=== PATIENT | male | born 1970 | race Caucasian/White ===

== ENCOUNTER 2020-12-08 10:12 | Emergency (ER) | payer OTHER, SELFPAY ==
[2020-12-08 11:49] VITALS: BP 153/92; PULSE 69; RESP 16; TEMP 36.8; O2SAT 99; BMI 30.2
--- NOTE | 2020-12-08 11:56 | ED_ITS ---
HPI - Abdominal Pain General Chief Complaint: Back Pain/Injury Stated Complaint: KIDNEY PROBLEM Time Seen by Provider: 12/08/20 11:51 Source: patient Mode of arrival: ambulatory Limitations: no limitations History of Present Illness HPI narrative: 50-year-old male with history of psoriasis as well as history of chronic low back pain and polycystic kidney disease reports for the past 2 days has had left-sided lower back pain ?kidney pain? radiating to the left side abdomen. States onset as he was walking and turned and had the sudden sharp pain in the left side and pain has been persistent. MD elicited complaint: abdominal pain and flank pain Related Data Previous Rx's Medication Instructions Recorded cyclobenzaprine 5 mg PO TID PRN #14 tab 12/08/20 ibuprofen 800 mg PO Q8H PRN #30 tab 12/08/20 Allergies Allergy/AdvReac Type Severity Reaction Status Date / Time No Known Allergies Allergy Verified 12/08/20 11:48 [No Known Allergies*] Review of Systems Review of Systems Constitutional: No Weight loss, No Fever, No Chills, No Night Sweats, No Fatigue, No Malaise ENT/Mouth: No Hearing loss, No Ear Pain, No Nasal Congestion, No Sinus Pain, No Hoarseness, No sore throat, No Rhinorrhea, No Swallowing Difficulty Eyes: No Eye Pain, No Swelling, No Redness, No Foreign Body, No Discharge Cardiovascular: No Chest Pain, No SOB, No Dyspnea on Exertion, No Orthopnea, No Edema, No Palpitations Respiratory: No Cough, No Sputum, No Wheezing, No Dyspnea Gastrointestinal: No Nausea, No Vomiting, No Diarrhea, No Constipation No Hematochezia, No Melena Genitourinary: No Dysuria, No Urinary Frequency, No Hematuria, No Urinary Incontinence, No Urgency, No Urinary Flow Changes, No Hesitancy Musculoskeletal: No joint pain, No Myalgias, No Joint Swelling Skin: No Skin Lesions, No rash Neuro: No Weakness, No Numbness, No Paresthesias, No Loss of Consciousness, No Dizziness, No Headache Psych: No Social Issues Heme/Lymph: No Bruising, No Bleeding,No Lymphadenopathy Endocrine: No Polyuria, No Polydipsia, No Temperature Intolerance Yes all other systems are reviewed and are negative Physical Exam Vital Signs: Vital Signs: Last Vital Signs Temp 98.2 F 12/08/20 11:49 Pulse 69 12/08/20 11:49 Resp 16 12/08/20 11:49 BP 153/92 H 12/08/20 11:49 Pulse Ox 99 12/08/20 11:49 Body Mass Index 30.2 Reviewed Const: General: cooperative and healthy appearing; No acute distress or intoxicated appearing Nutritional Appearance: average body habitus Orientation/consciousness: patient oriented x3 HENMT: Head: Yes normal to inspection Ears: hearing grossly normal bilat erally Eyes: General: appearance normal, both eyes and all related structures Visual Emmanuel: normal visual emmanuel by confrontation Neck: Neck: Yes normal visual inspection, No positive Brudzinski's sign, No positive Kernig's sign and No tender Thyroid: Thyroid normal Chest: Chest palpation & inspection: normal inspection of the chest Resp: Effort & Inspection: normal respiratory effort Cardio: Jugular venous distension: no JVD GI: Inspection: Yes normal to inspection Palpation (GI): Soft to palpation Percussion: Yes normal to percussion Auscultation: normal bowel sounds : General: Yes no CVA tenderness Back/Spine/Pelvis: Back: no CVA tenderness Skin: General skin exam: no rashes or lesions noted Neuro: General: patient oriented x3 Extrem: Other: Left lower back/paraspinous muscles and palpation. No midline or step-off. General: Yes normal to inspection MDM - Abdominal Pain Differential Diagnosis Differential diagnosis: Likely abdominal pain (Lumbar strain), calculus of kidney and renal colic; Unlikely aortic dissection, bowel perforation, constipation, diverticulitis, gastroenteritis, gastritis, pancreatitis, peptic ulcer disease and small bowel obstruction Medical Records Attestation: I reviewed the patient's medical records. Lab Data Attestation: I reviewed the patient's lab results. Result diagrams: 12/08/20 12:41 12/08/20 12:41 Labs: Lab Results 12/08/20 12/08/20 12/08/20 Range/Units 12:41 12:41 12:41 WBC 5.7 (4.8-10.8) X10*3/uL RBC 4.76 (4.60-5.80) X10*6/uL Hgb 13.8 L (14.0-18.0) g/dl Hct 42.6 (42-52) % MCV 89.5 (80-98) fL MCH 29.0 (27.0-33.0) pg MCHC 32.4 (31.0-36.0) g/dl RDW 12.2 (11.0-16.0) % Plt Count 195 (160-400) X10*3/uL MPV 11.5 (9.4-12.4) fL Immature Gran % (Auto) 0.5 H (0.0-0.4) % Neut % (Auto) 62.2 (45-73) % Lymph % (Auto) 21.7 (20-40) % [place] % (Auto) 11.9 H (2-11) % Eos % (Auto) 3.0 (0-4) % Baso % (Auto) 0.7 (0-2) % Lymph # (Auto) 1.2 (1.2-4.9) X10*3/uL [place] # (Auto) 0.7 (0.1-1.2) X10*3/uL Eos # (Auto) 0.2 (0.0-0.4) X10*3/uL Baso # (Auto) 0.0 (0.0-0.2) X10*3/uL Abs Immat Gran (auto) 0.03 (0.00-0.03) X10*3/uL Absolute Neuts (auto) 3.6 (2.0-8.3) X10*3/uL Absolute Nucleated RBC 0.000 (0.0-0.012) X10*3/uL Nucleated RBC % (auto) 0.0 (0.0-0.2) /100WBC Sodium 138 (135-145) mmol/L Potassium 4.5 (3.3-5.1) mmol/L Chloride 103 (96-108) mmol/L Carbon Dioxide 25 (22-29) mmol/L Anion Gap 15 (12-20) BUN 21 H (9-16) mg/dL Creatinine 1.14 (0.5-1.4) mg/dL Estim Creat Clear Calc 104.8 Estimated GFR > 60 Random Glucose 100 (60-115) mg/dL Calcium 8.8 (8.4-10.2) mg/dL Total Bilirubin 0.9 (0.0-1.0) mg/dL AST 28 (5-37) U/L ALT 48 H (0-40) U/L Alkaline Phosphatase 59 (39-117) U/L Total Protein 7.1 (6.5-8.0) g/dL Albumin 4.4 (3.5-5.0) g/dL Urine Color YELLOW Urine Appearance CLEAR Urine pH 6.5 (5.0-8.0) Ur Specific [place] 1.015 (1.005-1.025) Urine Protein NEG (NEG-TRACE) MG/DL Urine Glucose (UA) NEG (NEG) MG/DL Urine Ketones NEG (NEG) MG/DL Urine Blood NEG (NEG) Urine Nitrite NEG (NEG) Ur Leukocyte Esterase NEG (NEG) Urine RBC 0-2 (0) /HPF Urine WBC 0-2 (0-4) /HPF Ur Squamous Epith Cells 2+ /LPF Ur Renal Epithelial Cell TRACE /LPF Urine Bacteria NONE /LPF Urine Mucus 1+ /LPF Imaging Data Abdominal/pelvis CT: Radiologist's impression: [address] Scan ReportSigned Patient: Samuel Aparicio [facility]#: [id number]: 1970Acct:[id number]/Sex: 50 / MADM Date: 12/08/20Loc: EDSavana Dr: Ordering Physician: Raciel Carlson NP Date of Service: 12/08/20 Procedure(s): CT abdomen pelvis wo con Accession Number(s): [id number] cc: Raciel Carlson NP~ EXAMINATION: CT ABDOMEN AND PELVIS WITHOUT CONTRAST CLINICAL INFORMATION: Left flank pain COMPARISON: None TECHNIQUE: Multidetector volumetric imaging was performed from the superior aspect of the liver through the pubic symphysis. Sagittal and coronal reformatted images were obtained on the technologist's workstation. This CT examination was performed using dose optimization techniques as appropriate, variously including the following: *Automated exposure control *Adjustment of mA and/or kV according to patient size (this includes techniques or standardized protocols for targeted exams where dose is matched to indication/reason for exam; i.e. extremities or head) *Use of iterative reconstruction technique DLP: 774 mGy-cm FINDINGS: LUNG BASES: There is subsegmental atelectasis at the left lung base. LIVER, GALLBLADDER, AND BILIARY TREE: The liver is low in attenuation suggestive of fatty infiltration. Liver slightly enlarged, right lobe measuring 21 cm in length. There is a 1 cm low-attenuation lesion in the lateral segment of the left lobe of the liver axial image 20 series 3. This has low Hounsfield units and may be a cyst.The gallbladder is unremarkable with no evidence of radiopaque gallstones, gallbladder wall thickening, or obvious pericholecystic inflammatory changes. PANCREAS: Unremarkable. SPLEEN: The spleen is enlarged measuring 13.5 cm in length. ADRENAL GLANDS: Unremarkable. KIDNEYS AND URETERS: The kidneys are enlarged. There are innumerable cysts. Findings are compatible with polycystic kidney disease. Several cysts appear high in attenuation. These may represent complex hyperdense cysts It is difficult to exclude a solid renal mass. Largest such lesion measures 2 x 4 cm posterior upper pole left kidney. 2 mm nonobstructing stone in the lower pole of the left kidney. No hydronephrosis is seen. No ureteral dilatation or ureteral stone is seen in there is no perinephric collection. BLADDER: Unremarkable. GASTROINTESTINAL TRACT: There is diverticulosis of the colon. The small and large bowel are unremarkable. The appendix is is not seen.. ABDOMINAL WALL: Question postsurgical change previous hernia repair. No hernia. LYMPH NODES: Normal. VASCULAR: Unremarkable. PELVIC VISCERA: Unremarkable. OSSEOUS STRUCTURES: There are degenerative changes of the spine. CT/CT abdomen pelvis wo con IMPRESSION: Innumerable bilateral renal cysts suggestive of polycystic kidney disease. There are several high attenuation renal lesions, question representing complex hyperdense cysts. A solid mass cannot be excluded and follow-up imaging of the kidneys with ultrasound or CT or MRI with and without contrast is recommended. Small nonobstructing left lower pole renal stone. Enlarged fatty liver. Mild splenomegaly. Dictated By:RIA FARRELL MDSigned By:<Electronically signed by RIA FARRELL MD in [place]>12/08/20 1441 DD/ 1157TD/TT: Cuprous Chloride Operator: JESUS Discharge Plan Discharge Clinical Impression: Strain of lumbar region Patient Disposition: Home, Self-Care Instructions: Low Back Strain (ED) Additional Instructions: No drinking alcohol or driving while taking the muscle relaxant Gentle stretching Warm compresses Follow up as instructed regarding your CT Return if any concerns or worsening symptoms Thank you Samuel Aparicio JR 50 M 1970 [facility] [place], [place] [id number] Scan ReportSigned Patient: Samuel Aparicio [facility]#: [id number]: 1970Acct:[id number]/Sex: 50 / MADM Date: 12/08/20Loc: EDAttending Dr: Ordering Physician: Raciel Carlson NP Date of Service: 12/08/20 Procedure(s): CT abdomen pelvis wo con Accession Number(s): [id number] cc: Raciel Carlson NP~ EXAMINATION: CT ABDOMEN AND PELVIS WITHOUT CONTRAST CLINICAL INFORMATION: Left flank pain COMPARISON: None TECHNIQUE: Multidetector volumetric imaging was performed from the superior aspect of the liver through the pubic symphysis. Sagittal and coronal reformatted images were obtained on the technologist's workstation. This CT examination was performed using dose optimization techniques as appropriate, variously including the following: *Automated exposure control *Adjustment of mA and/or kV according to patient size (this includes techniques or standardized protocols for targeted exams where dose is matched to indication/reason for exam; i.e. extremities or head) *Use of iterative reconstruction technique DLP: 774 mGy-cm FINDINGS: LUNG BASES: There is subsegmental atelectasis at the left lung base. LIVER, GALLBLADDER, AND BILIARY TREE: The liver is low in attenuation suggestive of fatty infiltration. Liver slightly enlarged, right lobe measuring 21 cm in length. There is a 1 cm low-attenuation lesion in the lateral segment of the left lobe of the liver axial image 20 series 3. This has low Hounsfield units and may be a cyst.The gallbladder is unremarkable with no evidence of radiopaque gallstones, gallbladder wall thickening, or obvious pericholecystic inflammatory changes. PANCREAS: Unremarkable. SPLEEN: The spleen is enlarged measuring 13.5 cm in length. ADRENAL GLANDS: Unremarkable. KIDNEYS AND URETERS: The kidneys are enlarged. There are innumerable cysts. Findings are compatible with polycystic kidney disease. Several cysts appear high in attenuation. These may represent complex hyperdense cysts It is difficult to exclude a solid renal mass. Largest such lesion measures 2 x 4 cm posterior upper pole left kidney. 2 mm nonobstructing stone in the lower pole of the left kidney. No hydronephrosis is seen. No ureteral dilatation or ureteral stone is seen in there is no perinephric collection. BLADDER: Unremarkable. GASTROINTESTINAL TRACT: There is diverticulosis of the colon. The small and large bowel are unremarkable. The appendix is is not seen.. ABDOMINAL WALL: Question postsurgical change previous hernia repair. No hernia. LYMPH NODES: Normal. VASCULAR: Unremarkable. PELVIC VISCERA: Unremarkable. OSSEOUS STRUCTURES: There are degenerative changes of the spine. CT/CT abdomen pelvis wo con IMPRESSION: Innumerable bilateral renal cysts suggestive of polycystic kidney disease. There are several high attenuation renal lesions, question representing complex hyperdense cysts. A solid mass cannot be excluded and follow-up imaging of the kidneys with ultrasound or CT or MRI with and without contrast is recommended. Small nonobstructing left lower pole renal stone. Enlarged fatty liver. Mild splenomegaly. Dictated By:RIA FARRELL MDSigned By:<Electronically signed by RIA FARRELL MD in [place]>12/08/20 1441 DD/ 1157TD/TT: Cuprous Chloride Operator: JESUS Prescriptions: New ibuprofen 800 mg tablet 800 mg PO Q8H PRN (Reason: pain) Qty: 30 RF: 0 cyclobenzaprine 5 mg tablet 5 mg PO TID PRN (Reason: muscle spasm) Qty: 14 RF: 0 Referrals: Oscar Ching MD [Primary Care Provider] - 1 week [facility] Past Medical History Medical History (Updated 12/08/20 @ 15:01 by Raciel Carlson NP) Polycystic kidney disease Social History Social History Alcohol intake: never Smoking Status: Never smoker Use of substances other than those prescribed or required for medical reasons: No Advance Directives: No Advance Directives Information Provided: Yes
[2020-12-08 12:48] LABS: MANUAL DIFF FLAG NO
[2020-12-08 12:53] LABS: Glucose Urine UA NEG (NEG); Leukocyte Esterase Urine NEG (NEG); Nitrite Urine NEG (NEG); PH 6.5 (5.0-8.0); Specific Gravity - Urine 1.015 (1.005-1.025); Urine Blood NEG (NEG); Urine Ketones NEG (NEG); Urine Protein NEG (NEG-TRACE)
[2020-12-08 12:54] LABS: Appearance Urine CLEAR; Color Urine YELLOW
[2020-12-08 12:56] LABS: Basophils Percent Auto 0.7 % (0-2); Eosinophils Absolute Auto 0.2 X10*3/uL (0.0-0.4); Hematocrit 42.6 % (42-52); Hemoglobin 13.8 g/dl (14.0-18.0); Imm Gran Abs Auto 0.03 X10*3/uL (0.00-0.03); Imm Gran Pct Auto 0.5 % (0.0-0.4); Lymphocytes Absolute Auto 1.2 X10*3/uL (1.2-4.9); Lymphocytes Percent Auto 21.7 % (20-40); Mean Corpuscular HGB Conc 32.4 g/dl (31.0-36.0); Mean Corpuscular Volume 89.5 fL (80-98); Mean Platelet Volume 11.5 fL (9.4-12.4); Monocytes Absolute Auto 0.7 X10*3/uL (0.1-1.2); Monocytes Percent Auto 11.9 % (2-11); Neutrophils Absolute Auto 3.6 X10*3/uL (2.0-8.3); Neutrophils Percent Auto 62.2 % (45-73); Platelet Count 195 X10*3/uL (160-400); Red Blood Count 4.76 X10*6/uL (4.60-5.80); Red Cell Distribution Width 12.2 % (11.0-16.0); White Blood Count 5.7 X10*3/uL (4.8-10.8)
[2020-12-08 13:03] LABS: Mucus Urine 1+ /LPF; RBC Urine 0-2 /HPF (0); Renal Epithelial Cells Urine TRACE /LPF; Squamous Epithelial Cell Urine 2+ /LPF; WBC Urine 0-2 /HPF (0-4)
[2020-12-08 13:23] LABS: Alanine Aminotransferase 48 U/L (0-40); Albumin Level 4.4 g/dL (3.5-5.0); Alkaline Phosphatase 59 U/L (39-117); Anion Gap 15 (12-20); Aspartate Amino Transferase 28 U/L (5-37); Bilirubin Total 0.9 mg/dL (0.0-1.0); Blood Urea Nitrogen 21 mg/dL (9-16); Calcium 8.8 mg/dL (8.4-10.2); Carbon Dioxide 25 mmol/L (22-29); Chloride 103 mmol/L (96-108); Creatinine Clr Calc Pharmacy 104.8; Estimated Glomerular Filt Rate > 60; Glucose Random 100 mg/dL (60-115); Potassium 4.5 mmol/L (3.3-5.1); Sodium 138 mmol/L (135-145); Total Protein 7.1 g/dL (6.5-8.0)
[2020-12-08] MEDS: 0.9 % Sodium Chloride 1,000 ML 999 ML IV (13:33)
[2020-12-08] MEDS: Ketorolac Tromethamine 30 MG/ML VIAL IVPUSH (13:34)
== END 2020-12-08 15:11 | disposition home or self-care (01) ==
PROVIDERS: Nurse Practitioner Primary Care; Emergency Provider Emergency Medicine; PCP Internal Medicine
DX: S39.012A Strain of muscle, fascia and tendon of lower back, initial encounter (principal); R10.9 Unspecified abdominal pain; X58.XXXA Exposure to other specified factors, initial encounter; Y93.9 Activity, unspecified; Y92.9 Unspecified place or not applicable; Y99.9 Unspecified external cause status; Z79.899 Other long term (current) drug therapy
CPT/HCPCS: 36415; 74176; 80053; 81001; 85025; 96361; 96374; 99283; 99284; J1885

== ENCOUNTER 2021-02-26 16:26 | Emergency (ER) | payer OTHER, SELFPAY ==
[2021-02-26 16:39] VITALS: BP 141/85; PULSE 82; RESP 16; TEMP 36.8; O2SAT 98; BMI 29.9
[2021-02-26] MEDS: Lidocaine HCl 2 % MPF 5 ML VIAL INFILTRATI (16:57)
--- NOTE | 2021-02-26 17:18 | ED.WOUNDLAC ---
HPI - Wound/Laceration General Chief Complaint: Wound/Laceration Stated Complaint: lac Time Seen by Provider: 02/26/21 16:30 Source: patient Mode of arrival: ambulatory Limitations: no limitations History of Present Illness HPI narrative: Patient presents to ED for right thigh laceration. Patient states he was cut by saw at work. Patient up-to-date with tetanus. Patient denies any other trauma. Related Data Previous Rx's Medication Instructions Recorded cyclobenzaprine 5 mg PO TID PRN #14 tab 12/08/20 ibuprofen 800 mg PO Q8H PRN #30 tab 12/08/20 Allergies Allergy/AdvReac Type Severity Reaction Status Date / Time No Known Allergies Allergy Verified 12/08/20 11:48 [No Known Allergies*] Review of Systems Review of Systems: Yes all other systems are reviewed and are negative Constitutional: Constitutional: Reports as per HPI and Reports no additional constitutional complaints Eyes: Eyes: Reports as per HPI and Reports no additional eye complaints ENT: Reports system reviewed and no additional complaints, except as documented and Reports as per HPI Cardiovascular: Cardiovascular: Reports as per HPI and Reports no additional cardiovascular complaints Respiratory: Respiratory: Reports as per HPI and Reports no additional respiratory complaints Gastrointestinal: Gastrointestinal: Reports as per HPI and Reports no additional gastrointestinal complaints Musculoskeletal: Musculoskeletal: Reports no additional musculoskeletal complaints and Reports as per HPI Neurologic: Reports system reviewed and no additional complaints, except as documented and Reports as per HPI Psychiatric: Psychiatric: Reports no additional psychiatric complaints and Reports as per HPI [facility] Past Medical History Medical History (Updated 02/26/21 @ 17:26 by RENZO Hernandez) Polycystic kidney disease Social History Social History Alcohol intake: never Smoking Status: Never smoker Advance Directives: No Advance Directives Information Provided: No Physical Exam Vital Signs: Vital Signs: Last Vital Signs Temp 98.3 F 02/26/21 16:39 Pulse 82 02/26/21 16:39 Resp 16 02/26/21 16:39 BP 141/85 H 02/26/21 16:39 Pulse Ox 98 02/26/21 16:39 Body Mass Index 29.9 Const: General: cooperative, healthy appearing, comfortable, no acute distress, well developed, alert and awake Orientation/consciousness: patient oriented x3 HENMT: Head: Yes normal to inspection, Yes No palpable skull fracture present, Yes normocephalic and Yes atraumatic Eyes: General: appearance normal, both eyes and all related structures Neck: Neck: Yes normal visual inspection, Yes full ROM, Yes no lymphadenopathy, Yes no meningeal signs, Yes trachea midline, Yes supple and No tender Chest: Chest palpation & inspection: normal inspection of the chest and normal palpation of entire chest wall Resp: Effort & Inspection: normal respiratory effort and able to speak in complete sentences Auscultation: clear to auscultation bilaterally Cardio: Jugular venous distension: no JVD Heart sounds: S1 normal heart sound present and S2 normal heart sound present GI: Inspection: Yes normal to inspection and No abdominal wall ecchymosis Palpation (GI): Soft to palpation, not firm, nontender, no guarding and not rigid : General: No CVA tenderness and Yes no CVA tenderness Back/Spine/Pelvis: Back: no CVA tenderness, No CVA tenderness and No back tenderness Skin: Other: Right thigh superficial laceration Neuro: General: patient oriented x3, no meningeal signs and CN's II-XI intact bilaterally Extrem: Other: right thigh very superficial laceration. Negative for fascia or muscle exposure. Negative for bone exposure. Complete range of motion of right thigh. Rest of right lower extremity negative for signs of trauma. popitieal pulse intact. General: Yes normal to inspection and Yes full ROM Psych: Appearance: grossly normal, well kempt and not disheveled Course Course Course Narrative: Patient up-to-date with tetanus shot. Laceration will be repaired. Reevaluation(s) Reevaluation #1: Laceration cleaned with sterile saline and Betadine. 5 mL lidocaine 2% used to anesthetize wound. Nylon size for suture used. Four sutures placed. No imaging required laceration very superficial. MDM - Wound/Laceration MDM Narrative Medical decision making narrative: Right thigh laceration Discharge Plan Discharge Clinical Impression: Laceration Patient Disposition: Home, Self-Care Instructions: Laceration (ED) Additional Instructions: Return to the ED immediately for swelling, redness, pus discharge, foul odor, fever, chills, red streaks, calf pain, or any other concerning symptoms. Recommend return to the ED in 9 days for suture removal Prescriptions: No Action ibuprofen 800 mg tablet 800 mg PO Q8H PRN (Reason: pain) Qty: 30 RF: 0 cyclobenzaprine 5 mg tablet 5 mg PO TID PRN (Reason: muscle spasm) Qty: 14 RF: 0 Stand Alone Forms: Work/School Release Interventions: ED Discharge Assessment Last Done: 02/26/21 17:42 Discharge Date/Time: 02/26/21 17:56 Print Language: Thai
--- NOTE | 2021-02-26 17:41 | PC.NURSE ---
DRY STERILE DRESSING APPLIED TO R UPPER LEG.
== END 2021-02-26 17:56 | disposition home or self-care (01) ==
PROVIDERS: Emergency Provider Emergency Medicine
DX: S71.111A Laceration without foreign body, right thigh, initial encounter (principal); W31.82XA Contact with other commercial machinery, initial encounter; Y93.89 Activity, other specified; Y92.69 Other specified industrial and construction area as the place of occurrence of the external cause; Y99.0 Civilian activity done for income or pay
CPT/HCPCS: 12001; 99283; 99284

== ENCOUNTER → 2022-10-07 08:19 | Outpatient (BNVA) | payer OTHER, SELFPAY | PROVIDERS: Visit Provider Nurse Practitioner Family | DX: Z12.11 Encounter for screening for malignant neoplasm of colon (principal) | CPT/HCPCS: 99202 ==

== ENCOUNTER 2023-06-12 08:30 | Day surgery (SDC) | payer OTHER, SELFPAY ==
[2023-06-10 10:46] VITALS: BMI 31.4
[2023-06-10 11:07] VITALS: BMI 30.4
[2023-06-12 08:36] VITALS: BP 126/83; PULSE 68; RESP 18; TEMP 36.2; O2SAT 97
--- NOTE | 2023-06-12 08:47 | P.CONAN_ITS ---
HPI - Anesthesia Eval Consult details Narrative: 53 yo male patient for Colonoscopy PMFSH Active Problems Active Problems: IRVIN. On CPAP Gout Past Medical History Medical History Hypertension IRVIN on CPAP Polycystic kidney disease Psoriasis Family History Family History Mother Breast cancer Bone cancer Maternal Aunt Brain cancer Family history of problems with anesthesia: No Surgical History Surgical History H/O umbilical hernia repair History of Problems with Anesthesia: No Social History Social History Are you a primary dialysis patient care technician to a significant other at home: No Do you presently have visiting nurse or other home services: No Alcohol intake: current Alcohol intake frequency: a few times a week Patient Tobacco Use Status: Former Tobacco user Tobacco use type: Cigar Have you been hit, kicked, punched, or otherwise hurt by someone within the past year? If so, by whom?: No Are you DNR?: No Advance Directives: No Advance Directives Information Provided: Yes Advance Directives on File: No Recently lost weight without trying: No Nutrition Risks: No Nutritional Risk Poor oral hygiene: No Meds Allergies Allergy/AdvReac Type Severity Reaction Status Date / Time No Known Allergies Allergy Verified 06/10/23 11:17 [No Known Allergies*] Home Medications Medication Instructions Recorded Confirmed Last Taken Type allopurinol 300 mg tablet 300 mg PO DAILY 10/07/22 06/10/23 Unknown History amlodipine 5 mg tablet 5 mg PO DAILY 10/07/22 06/10/23 Unknown History guselkumab 100 mg/mL subcutaneous mg subcut Q8W 10/07/22 Unknown History auto-injector (Tremfya) lisinopril 10 mg tablet 10 mg PO DAILY 10/07/22 Unknown History Exam Exam Date and Time: June 12, 2023 0847 Height,Weight and Vital Signs: Height 6 ft 3 in Weight 110.223 kg Last Vital Signs Temp 97.2 F 06/12/23 08:36 Pulse 68 06/12/23 08:36 Resp 18 06/12/23 08:36 BP 126/83 06/12/23 08:36 Pulse Ox 97 08/03/23 08:36 O2 Del Method Room Air 06/12/23 08:36 Airway Mallampati Class: IV TM Dist: >3cm Neck ROM: Full Loose/Missing/Broken Teeth: No (Denies broken, loose, missing teeth) Heart: RRR Lungs: CTAB Assessment and Plan Assessment Anesthesia Assessment: Anesthesia Plan Discussed and Chart Reviewed Final Anesthetic Review Family History of Problems with Anesthesia: No History of Problems with Anesthesia: No NPO: Yes ASA Class: III Final Preanesthetic Review: No Changes in Pt Med Stat, Meds/Allgs Chart Reviewed, Consent Obtained/Reviewed and Anes Risks/Benef Reviewed Patient Risk: Intermediate Procedure Risk: Low Assessment/Block/Sedation in SS: Assess/Block/Sedation-SS Anesthetic Plan Anesthetic Plan: MAC: Disposition: Standard PACU
--- NOTE | 2023-06-12 08:54 | MHC.SHP ---
Pre-Procedural Eval Section A Date of Service: 06/12/23 Section B Chief Complaint: screening Details of Present Illness: Medical History Hypertension Polycystic kidney disease Psoriasis Surgical History H/O umbilical hernia repair Allergies: Allergies Allergy/AdvReac Type Severity Reaction Status Date / Time No Known Allergies Allergy Verified 06/10/23 11:17 [No Known Allergies*] Review of Systems Review of Systems Comment: 10 point ROS is negative except as above Exam Exam Comment: Gen appear: No acute distress HEENT: no icterus Chest: No overt resp distress Abd: soft, nontender, nondistended Psych: Stable affect, answering questions appropriately Neuro: A/Ox3 noted to move all extremities spontaneously Ext: no peripheral edema Plan Diagnosis/Plan: Unchanged I have reviewed the history and physical and performed a pertinent physical examination on my patient. No changes have occurred unless specified. Time Spent With Patient Time: Total time managing care of this patient today ____ minutes.
--- NOTE | 2023-06-12 09:26 | P.OP_ITS ---
Operative Note Operative Note Date of Service: 06/12/23 Narrative: Procedure: Colonoscopy Indication: Screening Endoscopist: Joanie Badillo MD Anesthesia Provider: Tali Cornell CRNA Anesthesia type: MAC Instrument: Olympus [id number]-H190L Consent: Indication, risks vs benefits, and alternatives were discussed with the patient who gave written informed consent to proceed. EKG, pulse, pulse oximetry and blood pressure were monitored throughout the procedure. Please see anesthesia flowsheet. Procedure: The patient was brought to the procedure room and placed in the left lateral decubitus position. IV medications were administered by the anesthesia provider in attendance. A digital rectal exam was performed which was abnormal due to enlarged prostate. Distal attachment cap was affixed to the tip of the scope and the colonoscope was then inserted through the anus and advanced thro ugh the colon to the cecum at 75 cm,and terminal ileum. Mucosa was carefully examined under high definition white light as the instrument was slowly withdrawn in a retrograde panoramic fashion. Retroflexion was performed in rectum. The procedure was not difficult. There were no immediate obvious complications. The quality of the prep was BBPS: 3+2+3 = adequate Withdrawal time 10 minutes. Limitations: No limitations. Findings: Mucosa: Normal to cecum and terminal ileum. Protruding lesions: * Medium internal hemorrhoids [without] stigmata of recent bleeding. Impression: 1. Normal colon and terminal ileum mucosa 2. Internal hemorrhoids 3. Enlarged prostate on MARYELLEN Recommendations: - Repeat colonoscopy in 10 years for asymptomatic colon cancer screening - If pt is having LUTS can consider referral to Urology
[2023-06-12 09:29] VITALS: BP 97/59; PULSE 69; RESP 16; TEMP 36.9; O2SAT 96
[2023-06-12 09:45] VITALS: BP 121/82; PULSE 69; RESP 16; TEMP 36.8; O2SAT 98
== END 2023-06-12 10:15 | disposition home or self-care (01) ==
PROVIDERS: Visit Provider Internal Medicine
PROC: 0DJD8ZZ Inspection of Lower Intestinal Tract, Via Natural or Artificial Opening Endoscopic (ICD-10-PCS; CPT 45378; principal; 2023-06-12 10:10)
DX: Z12.11 Encounter for screening for malignant neoplasm of colon (principal); K64.8 Other hemorrhoids; N40.0 Benign prostatic hyperplasia without lower urinary tract symptoms; I10 Essential (primary) hypertension; Q61.3 Polycystic kidney, unspecified; L40.9 Psoriasis, unspecified; M10.9 Gout, unspecified; G47.33 Obstructive sleep apnea (adult) (pediatric); Z99.89 Dependence on other enabling machines and devices; Z79.899 Other long term (current) drug therapy; Z87.891 Personal history of nicotine dependence
CPT/HCPCS: 45378

== ENCOUNTER → 2023-06-12 08:30 | Outpatient (BNV) | payer OTHER, SELFPAY | PROVIDERS: Visit Provider Internal Medicine | DX: Z12.11 Encounter for screening for malignant neoplasm of colon (principal); K64.8 Other hemorrhoids; N40.0 Benign prostatic hyperplasia without lower urinary tract symptoms | CPT/HCPCS: 45378 ==

== ENCOUNTER 2024-10-19 | Outpatient (REF) | payer OTHER, SELFPAY ==
--- NOTE | ~2024-10-19 | MR_ITS ---
EXAMINATION: MR CERVICAL SPINE WITHOUT CONTRAST CLINICAL INFORMATION: Cervicalgia. COMPARISON: None available. TECHNIQUE: MRI of the cervical spine was obtained using routine sequences without contrast. FINDINGS: Craniocervical junction is intact. No bone marrow STIR signal abnormality. Normal alignment. Multilevel disc desiccation more conspicuous at C6-7. Marginal osteophyte formation, C6-7, and C4-5 levels. The cervical spinal cord signal is normal. C2-3: No disc herniation. No neuroforamina stenosis. C3-4: Left-sided disc osteophyte complex formation. Facet joint hypertrophy. Reduced AP diameter of the thecal sac. Bilateral neuroforamina narrowing more conspicuous on the left side. No cord compression. C4-5: Broad-based disc osteophyte complex formation. No cord compression. Bilateral neuroforamina narrowing more conspicuous on the left side. Facet joint hypertrophy. C5-6: Broad-based disc osteophyte complex formation resulting in ventral deformity of the thecal sac. No cord compression. Bilateral neuroforamina narrowing on a degenerative basis. C6-7: Broad-based disc osteophyte complex formation resulting in ventral deformity of the thecal sac. No cord compression. Bilateral neuroforamina narrowing on a degenerative basis. C7-T1: Broad-based disc osteophyte complex formation. No cord compression. No gross neuroforamina narrowing. No prevertebral compartment hematoma, mass or fluid collection. Flow-void signal within the main vessels is normal. Codominant vertebral arteries. MR/MR cervical spine wo con IMPRESSION: Multilevel spondylosis, C3 C7 more conspicuous at C5-6 and C6-7 levels without cord compression, edema and or myelopathy. Electronically signed by: Luciano Duong MD 10/20/2024 11:32 AM EST
--- OUTSIDE RECORDS SUMMARY | 2024-10-25 10:42 | XMS_ITS | Encounter Summary ---
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 [place] Organization [facility] [place] Address [address] [place] [address] Care Team Providers Care Machine I Engraver Name Role Phone LEO FORRESTER Primary Care Provider Unavailabl e Insurance Providers: All historical and current Section Date Range: From patient's date of to the date document was created. This section includes the names of all active insurance providers for the patient. Insurance Provider Type of Coverage Plan Name Start of Policy Coverage End of Policy Coverage Group Number Member ID Insurance Provider's Telephone Number Policy Suresh's Name Patient's Relationship to Policy Suresh [facility] ORGANIZAT [facility]ON COH G AND E May 10, 2024 [id number] [facility] ER PATIENT [place] PRESCRIPT ION [facility] May 10, 2024 [id number] [phone] CARD,[facility] ER PATIENT [employer] PO[facility] SERVICE [place] Feb 08, 2018 [id number] [facility] ER PATIENT [employer] BEHAVIORAL HEALTH MENTAL HEALTH [place] Feb 08, 2018 [id number] CARD,[facility] ER PATIENT [employer] PHARMACY PRESCRIPT ION [place] Feb 08, 2018 [id number] CARD,[facility] ER PATIENT [facility] May 10, 2019 [id number] DOMI BAUTISTAJOANNA PATIENT [employer] RX PRESCRIPT ION [facility] [place] [facility] May 10, 2019 [facility] [id number] JOANNA DURON JR PATIENT Selected Encounter This section includes the information on record at [place] for the Encounter. Date/Time Encounter Type Encounter Description Reason Provider Source Nov 18, 2023 03:00 PM ACUPUNCT W/O STIMUL ADDL 15M [facility] TREATMENT ICD-10-CM M54.50 Low back pain, unspecified GAUNYA,LUIS PHER M IHE Encounter Template Text not used by DC Assessments - Encounter Diagnoses This section includes the primary and secondary diagnoses documented for the Encounter. Date/Time Primary/Secondary Diagnosis Diagnosis Name Provider Source Nov 18, 2023 03:40 PM PRIMARY Low back pain, unspecified AUGUSTO,LUIS PHER M [facility] [place] [facility] Nov 18, 2023 03:40 PM SECONDARY Cervicalgia JAG RAZOO PHER M [facility] [place] [facility] Plan of Treatment: Future Appointments (+ 6 months) and Future Tests (+/- 45 days) The Plan of Treatment section includes future care activities for the patient from all [place] treatmentfauc [facility]. This section includes future appointments and future orders which are active, pending or scheduled. Future Appointments This section includes appointments that were scheduled to occur 6 months from the date of the Encounter, up to a maximum of 20 appointments. The data comes from all [place] treatment facilities. Appointment Date/Time Appointment Type Appointme nt Facility Name Dec 02, 2023 03:00 PM AMBULATORY - MEDICINE DC [facility] [place] [facility] Dec 25, 2023 01:00 PM AMBULATORY - MEDICINE DC [facility] [place] [facility] Dec 30, 2023 02:00 PM AMBULATORY - MEDICINE DC [facility] [place] [facility] Dec 30, 2023 02:30 PM AMBULATORY - NONE [facility] [place] [facility] Dec 30, 2023 03:00 PM AMBULATORY - MEDICINE DC [facility] [place] [facility] Jan 08, 2024 03:00 PM AMBULATORY - MEDICINE DC [facility] [place] [facility] Jan 13, 2024 03:00 PM AMBULATORY - MEDICINE VA C [facility] [place] [facility] Jan 19, 2024 01:45 PM AMBULATORY - NONE [facility] [place] [facility] Jan 19, 2024 03:00 PM AMBULATORY - MEDICINE VA [facility] [place] [facility] Jan 19, 2024 03:01 PM AMBULATORY - MEDICINE VA [facility] [place] [facility] Jan 19, 2024 03:02 PM AMBULATORY - MEDICINE VA [facility] [place] [facility] Jan 20, 2024 03:00 PM AMBULATORY - MEDICINE VA [facility] [place] [facility] Feb 11, 2024 03:00 PM AMBULATORY - MEDICINE VA [facility] [place] [facility] Feb 25, 2024 03:00 PM AMBULATORY - MEDICINE VA [facility] [place] [facility] Feb 26, 2024 03:00 PM AMBULATORY - MEDICINE VA C [facility] [place] [facility] March 31, 2024 03:00 PM AMBULATORY - MEDICINE VA [facility] [place] [facility] April 01, 2024 03:00 PM AMBULATORY - MEDICINE VA [facility] [place] [facility] Social History: Smoking Status (Most current) and Tobacco Use (All prior to encounter date) This section includes the most current, and the historical, smoking and tobacco- related health factors from the [place] facility where the Encounter took place. Current Smoking Status This section includes the most current smoking, or tobacco-related health factor, from the [place] facility where the Encounter took place. Date/Time Current Smoking Status Comment [facility] Feb 12, 2023 03:00 PM VA-TOBACCO NEVER USED [place] [facility] [place] [facility] Tobacco Use History This section includes a history of the smoking, or tobacco-related health factors, that were collected on or before the date of the Encounter. The data comes from the [place] facility where the Encounter took place. Date/Time Smoking Status/Tobac co Use Comment Facility Feb 14, 2022 03:00 PM VA-TOBACCO NEVER USED [facility] [place] [facility] Oct 27, 2020 03:30 PM VA-TOBACCO NEVER USED [facility] [place] [facility] Aug 25, 2018 04:16 PM VA-TOBACCO DOESNT USE WI 30 MIN WAKEUP [facility] [place] [facility] Aug 25, 2018 04:16 PM VA-TOBACCO USE > 15 LESS THAN 30 YEARS DC [facility] [place] [facility] Aug 25, 2018 04:16 PM VA-TOBACCO USE ADVICE [facility] Aug 25, 2018 04:16 PM VA-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 DC [facility] Aug 25, 2018 04:16 PM VA-TOBACCO USE MED NO [facility] Aug 25, 2018 04:16 PM VA-TOBACCO USER SOME DAYS [facility] Oct 07, 2017 11:55 AM CURRENT SMOKER 1 cigar a few times a year [facility] Oct 07, 2017 11:55 AM V1-PT NOT INTERESTED IN QUIT TOBACCO USE [facility] Oct 29, 2016 08:57 AM LIFETIME NON-TOBACCO [facility]ER [facility] Encounter Notes: All associated encounter notes This section contains the clinical notes associated to the Encounter. Date/Time Encounter Note(s) Provider Source Nov 18, 2023 03:37 PM ACUPUNCTURE NOTE: LOCAL TITLE: ACUPUNCTURE TREATMENT STANDARD TITLE: ACUPUNCTURE NOTE DATE OF NOTE: NOV 18, 2023@15:37 ENTRY DATE: NOV 18, 2023@15:37:14 AUTHOR: MAYI RAZO COSIGNER: URGENCY: STATUS: COMPLETED CARD,JASPER A JR is a 53 WHITE MALE who presents with Low back pain, sciatica, neck pain. Pain in left arm Active Problem Shared care - portfolio consultant and GP [id number] 01/29/2021 AMY HENRY JAWED Type 2 diabetes mellitus controlled 10/27/2020 TERESA HENRYAMMED JAWED Acquired polycystic kidney disease 02/23/2018 CARLMOHAMMED JAWED Low back pain M54.50 02/14/2022 TERESA HENRYAMMED JAWED Hyperuricemia E79.0 10/29/2016 CARLMOHAMMED JAWED Psoriasis L40.4 10/29/2016 TERESA HENRYAMMED JAWED Obstructive sleep apnea G47.33 02/27/2017 CARLMOHAMMED JAWED Obesity E66.8 10/29/2016 AMY HENRY Date Nov CC / HPI - [place] presents with 20 year hx of low back pain that started while serving in the [employer]. Pain is bilateral lumbar pain with occasional radiation into buttocks. Pain is moderately worse on the right side. Prior hx of sciatica on the right side but stretching has been very helpful and sciatic pain has not been an issue for several years. Pain is described as intense throbbing pain. Aggravating factors: standing or sitting for long periods. Bending, twisting etc. Alleviating factors, walking, stretching. Secondary complaint of left shoulder and arm pain. Left trapezius and neck is tight. Has pain at superior border of trap that radiates down lateral aspect of arm to his hand. Finger tips go numbish. Loss of strenght. Very painful at night. Pain is agonizing and distrupts sleep. General health is okay. Hx of polycystic KD dz. GFR rates are borderline but stable. Diet is good and tries to be KD friendly. Digestion is good. BM's regular and unremarkable. Urine is normal Emotionally doing well. Normal job and family stresses RESPONSE TO PREVIOUS TREATMENT. reports he has been doing fairly well since his September treatment. He reports that his low back and neck pain are moderated considerably post visit and the effect lasted for a number of weeks. He reports that he is still getting radiation down his left arm from his shoulder and has some bilateral neck pain. Also low back pain on the left side. Pain is present today -03/19 and [place] states he is ready for tuneup. _ OBJECTIVE General: . Patient in no apparent distress . appropriate attire . here with equanimity Skin: . No effusion/edema . No ecchymosis . No erythema MUSCULOSKELETAL: Observed . no signs of trauma Ambulation . independent ambulation . non-antalgic ambulation Physical Ability to Transfer: . Patient was able to get on/off the treatment table unassisted. Posture . no antalgic posture Extremities . functional AROM BACK / SPINE . no overt deformity of spine . no pelvic unleveling NEUROLOGIC: Mentation . A&Ox3 Gait [ ]antalgic [ ]non-antalgic [ ]ataxic [ ]wheel chair, walker, cane ASSESSMENT / SUMMARY Affected Channel: Medical Decision Making (MDM) * [ ]Straightforward o [ ]Minimal = 1 self-limited or minor problem * [ ]Low o - 2 or more self-limited or minor problems o - 1 stable chronic illness o - 1 acute, uncomplicated illness or injury * [X]Moderate o - 1 or more chronic illness with exacerbation, progression or side effect from treatment o - 2 or more stable chronic illnesses o - 1 undiagnosed new problem w/uncertain prognosis o - 1 acute illness w/ systemic symptoms o - 1 acute complicated injury * [ ]High o - 1 or more chronic illnesses w/ severe exacerbation, progression, or side effect from treatment o - 1 acute or chronic illness/injury that poses threat to life or bodily function PLAN / RECOMMENDATION: Weekly treatment for several vists then assess. Follow-up [X]1 WEEK [ ]2 WEEKS [ ]3 WEEKS [ ]1 MONTH FREQUENCY OF CARE [X]1 X WEEKLY, [ ]2 X WEEKLY [ ]Bi-Weekly, [ ]Monthly, [ ]Other Seeking: [ ]access to acupuncture for: [X]pain control [ ]frequency or [ ]as needed [X]Stress/anxiety reduction, [ ]Other mental health [ ]Addiction/dependence: [ ]Nicotene [ ]Alcohol [ ]Chemical Patient Education: [ ]Encouraged self-care management using active therapies [ ](exercises, therapeutic movement, PT, biofeedback, smoking cessation, health coaching) to manage chronic pain while engaging passive therapies (acupuncture / chiropractic / massage) to manage [ ]acute / [ ]subacute (persistent) pain [ ]Counseled not to view exercise as an analgesic, but as modalities to improve flexibility, strength, and conditioning. [ ]Additionally, counseled to stay within tolerances when doing daily tasks / exercise i.e. use pacing to moderate aggravation of sx. [ ]Attempt 2 to 3 times per week [ ]Modify as needed [ ]Refrain from exercises if aggravation or new symptoms appear [ ]Do not use acupressure over area where you have a wound, severe swelling or lump, active infection, recent blood clots, rash, or areas that are numb. However, you may use other points away from these areas. If you take medications to thin your blood, or have a bleeding or clotting disorder, only use light pressure. [ ]Self-care management encouraged by focus on self-care strategies to improve flexibility, strength and conditioning, not to view exercise as an analgesic yet modalities to improve gross motion as chronic pain undermines core movements. [ ]Discussed expected course of condition and self-care management via weight-management, healthy diet, regular exercise within patient tolerance and pragmatic use of passive modalities for short-term relief stressing not to solely rely on passive modalities. Also counseled on non-pharmacological therapies/treatments such as acupuncture / acupressure on acute episodes of pain. Furthermore, consider exercise therapy, yoga, qigong, alex chi, relaxation technique and/or cognitive-behavior methodologies regarding chronic and/or persistent sub-acute pain. INSTRUCTIONS: [X]Rest, hydrate, eat [ ]BFA Patient Information Home Removal - [ ]Remove after 3 days and dispose of in approved sharpes container or comparable container - [ ]or return to clinic or PCP in three days to remove auricular needles - [ ]Pyonex Needle: remove prior to bathing per toilet products molder INFORMED CONSENT: Oral Consent obtained on Nov The patient was positioned comfortably. Oral consent was obtained. There was no evidence of infection at the site of needle insertions. Time out was conducted by Mayi Razo L.Ac. Correct patient was identified using two identifiers. Acupuncture treatment including risk/side effects, benefits, alternatives to treatment and the management plan were reviewed with the patient who expressed understanding and agreed. Correct procedure verified by the patient and the provider. PROCEDURES: Set 1 TIME SPENT: 15 Minutes Position:[X]Prone [ ]Supine [ ]Left Side [ ]Right Side [ ]Seated Chair [ ] Massage Chair Points used: [X]Ear:[ ]Left [ ]Right [X]Bilateral [ ]BFA Protocol, [ ][place] Protocol, [ ][place], Point Zero, Sympathetic [X] Ear: [X]Barron Men, [X]Point Zero, [X]Sympathetic [ ]Ear Other: [ ]Head: [ ]Neck: [ ]Torso: [ ]Hip / Glute Area: [ ]LUE: [ ]RUE: [ ]LLE: [ ]RLE: Set 2 TIME SPENT: 15 Minutes Position:[X]Prone [ ]Supine [ ]Left Side [ ]Right Side [ ]Seated Chair [ ] Massage Chair Points used: [ ]Ear:[ ]Left [ ]Right [ ]Bilateral [ ]BFA Protocol, [ ][place] Protocol, [ ][place], Point Zero, Sympathetic [ ] Ear: [ ]Barron Men, [ ]Point Zero, [ ]Sympathetic [ ]Ear Other: [ ]Head: [ ]Neck: [ ]Torso: [ ]Hip / Glute Area: [X] RUE: LK, DB, ZB, SI 4 [X] LUE: Eloisa 5, Eloisa 5.5, Eloisa 6, [X] RLE: LR 4.2, LR 4.5, LR 4.8, LR 5, SP 5.5, SP 6, KD 7 [X] LLE: UB 65, GB 41, GB 40, GB 34 [X]Other therapies:Demonstrated acupressure points for neck pain for self care. [ ]Cupping: [ ]Cold Laser [ ]Peizo Pen: [ ]External Qigong: [ ]TDP Lamp: [ ]Tui Na: [ ]Guasha: [ ]Nutrition Counseling: The procedures were performed and needles removed without complication. Treatment Response: [X]nominal / [ ]negative / [ ]aborted due to [X]F/U PRN self-schedule upon unresolving re-aggravation or with degrading pain control An RTC order will be necessary if patient is seeking self-schedule beyond one year; If beyond three years, a new consult is required /betty/ MAYI RAZO LA.C DIPL.AC REPORTING DEVELOPER Signed: 11/18/2023 15:40 MAYI RAZO [facility]
--- OUTSIDE RECORDS SUMMARY | 2024-10-25 10:42 | XMS_ITS | Continuity of Care Document ---
Author Name [facility] Organization [facility] Care Team Providers Care Floor Cleaner Name Role Phone [facility] Unavailable Unavailable Problems Combined list of problems from Department of Defense and Veterans Affairs facilities. It does not include entries that were removed or entered in error. Problem Status Onset Date Problem Type Date of Resolution Comments Source Acquired polycystic kidney disease Active Condition [facility] Cervicalgia Active Condition [facility] Hyperuricemia Active Condition [facility] Low [facility] pain Active [facility] Major depressive disorder Active Condition [facility] Obesity Active Condition [facility] Obstructive sleep apnea Active Condition Feb 27, 2017 Entered By: RAHEL HENRY JAWED Comment: on cpap [facility] Psoriasis Active Condition [facility] Type 2 diabetes mellitus controlled by diet Active Condition [facility] Diagnosis: ICD-10-CM M54.2 Cervicalgia Active Diagnosis [facility] Diagnosis: ICD-10-CM F33.1 Major depressive disorder, recurrent, moderate Active Diagnosis [facility] Diagnosis: ICD-10-CM Q61.2 Polycystic kidney, adult type Active Diagnosis [facility] Diagnosis: ICD-10-CM F32.A Depression, unspecified Active Diagnosis [facility] Diagnosis: ICD-10-CM E11.9 Type 2 diabetes mellitus without complications Active Diagnosis [facility] Diagnosis: ICD-10-CM M54.50 Low back pain, unspecified Active Diagnosis [facility] Diagnosis: ICD-10-CM 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 [facility] Diagnosis: ICD-10-CM R05.9 Cough, unspecified [facility] [place] [facility] Diagnosis: ICD-10-CM Z71.89 Other specified counseling Active Diagnosis [facility] Diagnosis: ICD-10-CM L40.9 Psoriasis, unspecified Active Diagnosis [facility] [place] [facility] Medications Combined list of outpatient medications from Department of Defense and Veterans Affairs facilities.Medications provided include 1) outpatient medications from the last 15 months, and 2) patient-reported medications. Medication Details Route Status Patient Instructions Prescription Expires Prescription Number Last Dispense Date Ordering Provider Order Date Order Qty Source ALLOPURINOL 300MG TAB TAKE ONE TABLET BY MOUTH EVERY DAY FOR GOUT ORAL ACTIVE 07/20/2025 [id number] FURCOLO,T ALEXA 2023 90 [facility] ALLOPURINOL 300MG TAB TAKE ONE TABLET BY MOUTH EVERY DAY FOR GOUT ORAL DISCONT INUED 04/22/2024 [id number] [facility]ED 2022 90 [facility] AMLODIPINE BESYLATE 5MG TAB TAKE ONE TABLET BY MOUTH ONCE DAILY FOR BLOOD PRESSURE /HEART, DO NOT TAKE WITH GRAPEFRU IT JUICE ORAL ACTIVE 07/20/2025 [id number] 4 FURCOLO,T ALEXA 2023 90 [facility] AMLODIPINE BESYLATE 5MG TAB TAKE ONE TABLET BY MOUTH ONCE DAILY FOR BLOOD PRESSURE /HEART, DO NOT TAKE WITH GRAPEFRU IT JUICE ORAL DISCONT INUED 04/22/2024 [id number] 4 [facility] JAWED 2022 90 [facility] CYCLOBENZAP RINE HCL 10MG TAB TAKE ONE TABLET BY MOUTH AT BEDTIME NEEDED FOR MUSCLE SPASM ORAL 04/22/2024 [id number] [facility] J[facility]ED 2022 30 [facility] DEXTROMETHO RPHAN HBR 10MG/GUAIFE NESIN 100MG/5ML (AF & SF) LIQUID TAKE 5 MLS BY MOUTH EVERY 6 HOURS NEEDED ORAL ACTIVE 01/19/2025 [id number] JUS GAMBOA VSACHA LARY 2023 240 [facility] [place] GUSELKUMAB 100MG/ML INJ,SYR,1ML INJECT 100MG (1ML) SUBCUTAN EOUSLY [id number] SUBCUT ANEOUS ACTIVE [facility] JAWED 2019 [facility] [place] [place] LISINOPRIL 10MG TAB TAKE ONE TABLET BY MOUTH ONCE DAILY TO CONTROL BLOOD PRESSURE ORAL SUSPEND ED 08/17/2025 [id number] FURCOLO,T ALEXA 2023 90 [facility] [place] [facility] ROSUVASTATI N CA 10MG TAB TAKE ONE TABLET BY MOUTH ONCE DAILY FOR CHOLESTE ROL ORAL ACTIVE 07/20/2025 [id number] FURCOLO,T ALEXA 2023 90 [facility] ROSUVASTATI N CA 10MG TAB TAKE ONE TABLET BY MOUTH ONCE DAILY FOR CHOLESTE ROL ORAL DISCONT INUED 08/12/2024 [id number] [facility] JAWED 2022 90 [facility] SILDENAFIL CITRATE 50MG TAB TAKE ONE TABLET BY MOUTH ONCE DAILY TAKE 1 HOUR PRIOR TO SEXUAL ACTIVITY ORAL ACTIVE 02/25/2025 [id number] [facility] 18 [facility] [place] SILDENAFIL CITRATE 50MG TAB TAKE ONE TABLET BY MOUTH ONCE DAILY TAKE 1 HOUR PRIOR TO SEXUAL ACTIVITY ORAL DISCONT INUED 02/13/2024 [id number] [facility] JAWED 2022 6 [facility] Immunizations Combined list of available immunizations from the Department of Defense and Veterans Affairs facilities. 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 Status Comments Source PNEUMOCOCCAL CONJUGATE PCV 13 2020 133 complet ed [facility] COVID-19 (MODERNA), MRNA, LNP-S, PF, 100 MCG/0.5 ML DOSE 2 2020 207 complet ed [facility] COVID-19 (MODERNA), MRNA, LNP-S, PF, 100 MCG/0.5 ML DOSE 1 2020 207 complet ed [facility] TDAP 2018 115 complet ed Site: Left Deltoid [facility] TD(ADULT) UNSPECIFIED FORMULATION 2010 139 complet ed [facility] Results Combined list of recent chemistry, hematology and other laboratory results from Department of Defense and Veterans Affairs, ranging from 15 months to all on record, depending upon the facility. Order Name Results Value Reference Range Date Interpretation Specimen Comments Source PO4 PHOSPHATE [MASS/VOLUM E] IN SERUM OR PLASMA 3.1 mg/dL 2.5 - 5.0 09/23 Specimen Type: SERUM No comment entered. Ordering Provider: KATHIE CHAVEZ Report Released Date/Time: Aug 19, 2024 08:57 AM Reporting Lab: [facility] [address] [facility] [address] Performing Lab: [facility] [address] [facility] PTH INTACT PARATHYRIN. INTACT [MASS/VOLUM E] IN SERUM OR PLASMA 41.9 pg/mL 09/23 Specimen Type: SERUM No comment entered. Ordering Provider: KATHIE CHAVEZ Report Released Date/Time: Aug 19, 2024 08:57 AM Reporting Lab: [facility] [address] [facility] [address] Performing Lab: [facility] [address] [facility] [address] [facility] URIC ACID URATE [MASS/VOLUM E] IN SERUM OR PLASMA 9.1 mg/dL 3.5 - 7.2 09/23 H Specimen Type: SERUM No comment entered. Ordering Provider: KATHIE CHAVEZ Report Released Date/Time: Aug 19, 2024 08:57 AM Reporting Lab: [facility] [place] [facility] [address] [facility] [address] Performing Lab: [facility] [place] [facility] [address] [address] [facility] VITAMIN D (25-OH) 25-HYDROXYV ITAMIN D3 [MASS/VOLUM E] IN SERUM OR PLASMA 30 ng/mL 20 - 50 09/23 Specimen Type: SERUM No comment entered. Ordering Provider: KATHIE CHAVEZ Report Released Date/Time: Aug 19, 2024 08:57 AM Reporting Lab: [facility] [place] [facility] [address] [facility] [address] Performing Lab: [place] [facility] [address] [facility] [address] [facility] [place] [facility] MAGNESIUM MAGNESIUM [MASS/VOLUM E] IN SERUM OR PLASMA 1.9 mg/dL 1.6 - 2.6 09/23 Specimen Type: SERUM No comment entered. Ordering Provider: KATHIE CHAVEZ Report Released Date/Time: Aug 19, 2024 08:57 AM Reporting Lab: [facility] [place] [facility] [address] [facility] [address] Performing Lab: [facility] [place] [facility] [address] [facility] [address] [facility] [place] [facility] FERRITIN FERRITIN [MASS/VOLUM E] IN SERUM OR PLASMA 418 ng/mL 20 - 300 09/23 H Specimen Type: SERUM No comment entered. Ordering Provider: KATHIE CHAVEZ Report Released Date/Time: Aug 19, 2024 08:57 AM Reporting Lab: [facility] [place] [facility] [address] [facility] [address] Performing Lab: [place] [facility] [facility] [address] [facility] [address] [facility] BASIC METABOLIC PANEL (non-fast ing) UREA NITROGEN [MASS/VOLUM E] IN SERUM OR PLASMA 20 mg/dL 7 - 25 09/23 Specimen Type: SERUM No comment entered. Ordering Provider: KATHIE CHAVEZ Report Released Date/Time: Aug 19, 2024 08:57 AM Reporting Lab: [address] [address] Performing Lab: [address] [address] [facility] BASIC METABOLIC PANEL (non-fast ing) GLUCOSE [MASS/VOLUM E] IN SERUM OR PLASMA 137 mg/dL 65 - 100 09/23 H Specimen Type: SERUM No comment entered. Ordering Provider: KATHIE CHAVEZ Report Released Date/Time: Aug 19, 2024 08:57 AM Reporting Lab: [address] [address] Performing Lab: [address] [address] [facility] BASIC METABOLIC PANEL (non-fast ing) SODIUM [MOLES/VOLU ME] IN SERUM OR PLASMA 138 mmol/L 135 - 145 09/23 Specimen Type: SERUM No comment entered. Ordering Provider: KATHIE CHAVEZ Report Released Date/Time: Aug 19, 2024 08:57 AM Reporting Lab: [address] [address] Performing Lab: [address] [address] [facility] BASIC METABOLIC PANEL (non-fast ing) POTASSIUM [MOLES/VOLU ME] IN SERUM OR PLASMA 4.2 mmol/L 3.5 - 5.0 09/23 Specimen Type: SERUM No comment entered. Ordering Provider: KATHIE CHAVEZ Report Released Date/Time: Aug 19, 2024 08:57 AM Reporting Lab: [address] [address] Performing Lab: [facility]TRN [facility] [address] [facility] [address] [facility]N [facility] BASIC METABOLIC PANEL (non-fast ing) CHLORIDE [MOLES/VOLU ME] IN SERUM OR PLASMA 100 mmol/L 100 - 110 09/23 Specimen Type: SERUM No comment entered. Ordering Provider: KATHIE CHAVEZ Report Released Date/Time: Aug 19, 2024 08:57 AM Reporting Lab: [facility] TRN [facility] [address] [facility] [address] Performing Lab: [facility]ITALR[facility]OSPITALN [facility] [address] [facility] [address] [facility] BASIC METABOLIC PANEL (non-fast ing) CARBON DIOXIDE, TOTAL [MOLES/VOLU ME] IN SERUM OR PLASMA 26 meq/L 20 - 30 09/23 Specimen Type: SERUM No comment entered. Ordering Provider: KATHIE CHAVEZ Report Released Date/Time: Aug 19, 2024 08:57 AM Reporting Lab: [facility]N [facility] [address] [facility] [address] Performing Lab: [facility] CENTERTRN [address] [address] [facility] BASIC METABOLIC PANEL (non-fast ing) CREATININE [MASS/VOLUM E] IN SERUM OR PLASMA 1.20 mg/dL 0.50 - 1.40 09/23 Specimen Type: SERUM No comment entered. Ordering Provider: KATHIE CHAVEZ Report Released Date/Time: Aug 19, 2024 08:57 AM Reporting Lab: [facility]ENTERTRN [facility] [address] Performing Lab: [facility]ITALN [facility]ENTERUSE[address] [address] [facility] BASIC METABOLIC PANEL (non-fast ing) GLOMERULAR FILTRATION RATE/1.73 SQ M.PREDICTED [VOLUME RATE/AREA] IN SERUM, PLASMA OR BLOOD BY CREATININE- BASED FORMULA (CKD-EPI 2020) 72 mL/min 60 11/14 /2024 Specimen Type: SERUM No comment entered. Ordering Provider: KATHIE CHAVEZ Report Released Date/Time: Aug 19, 2024 08:57 AM Reporting Lab: [facility] [place] [facility] [address] [address] Performing Lab: [facility] [place] [facility] [address] [facility] [address] [facility] [place] [facility] MICROALBU MIN CREATININ E RATIO PANEL MICROALBUMI N/CREATININ E [MASS RATIO] IN URINE 429.6 mg/g 0 - 29.9 09/23 H Specimen Type: URINE No comment entered. Ordering Provider: KATHIE CHAVEZ Report Released Date/Time: Aug 19, 2024 08:57 AM Reporting Lab: [facility] [place] [facility] [address] [address] Performing Lab: [facility] [place] [facility] [address] [facility] [address] [facility] [place] [facility] MICROALBU MIN CREATININ E RATIO PANEL MICROALBUMI N [MASS/VOLUM E] IN URINE 54.3 mg/dL 09/23 Specimen Type: URINE No comment entered. Ordering Provider: KATHIE CHAVEZ Report Released Date/Time: Aug 19, 2024 08:57 AM Reporting Lab: [facility] [place] [facility] [address] [address] Performing Lab: [facility] [place] [facility] [address] [facility] [address] [facility] [place] [facility] MICROALBU MIN CREATININ E RATIO PANEL CREATININE [MASS/VOLUM E] IN URINE 126.39 mg/dL 09/23 Specimen Type: URINE No comment entered. Ordering Provider: KATHIE CHAVEZ Report Released Date/Time: Aug 19, 2024 08:57 AM Reporting Lab: [facility] [place] [facility] [address] [facility] [address] Performing Lab: [facility] [place] [facility] [address] [facility] [address] [facility] [place] [facility] IRON & TIBC PANEL IRON BINDING CAPACITY [MASS/VOLUM E] IN SERUM OR PLASMA 350 ug/dL 204 - 475 09/23 Specimen Type: SERUM No comment entered. Ordering Provider: KATHIE CHAVEZ Report Released Date/Time: Aug 19, 2024 08:57 AM Reporting Lab: [facility] [place] [facility] [address] [address] Performing Lab: [facility] [place] [facility] [address] [address] [facility] [place] [facility] IRON & TIBC PANEL IRON [MASS/VOLUM E] IN SERUM OR PLASMA 120 ug/dL 40 - 160 09/23 Specimen Type: SERUM No comment entered. Ordering Provider: KATHIE CHAVEZ Report Released Date/Time: Aug 19, 2024 08:57 AM Reporting Lab: [facility] [place] [address] [address] Performing Lab: [facility] [place] [address] [address] [facility] [place] [facility] IRON & TIBC PANEL IRON/IRON BINDING CAPACITY.TO MATHEUS [MASS RATIO] IN SERUM OR PLASMA 34.3 20.0 - 50.0 09/23 Specimen Type: SERUM No comment entered. Ordering Provider: KATHIE CHAVEZ Report Released Date/Time: Aug 19, 2024 08:57 AM Reporting Lab: [facility] [place] [address] [address] Performing Lab: [facility] [place] [facility] [address] [facility] [address] [facility] [place] [facility] IRON & TIBC PANEL TRANSFERRIN [MASS/VOLUM E] IN SERUM OR PLASMA 265 mg/dL 200 - 360 09/23 Specimen Type: SERUM No comment entered. Ordering Provider: KATHIE CHAVEZ Report Released Date/Time: Aug 19, 2024 08:57 AM Reporting Lab: [facility] [place] [address] [address] Performing Lab: [facility] [address] [facility] [address] [facility] CHOLESTER OL CHOLESTEROL [MASS/VOLUM E] IN SERUM OR PLASMA 188 mg/dL 09/23 Specimen Type: SERUM No comment entered. Ordering Provider: KATHIE CHAVEZ Report Released Date/Time: Aug 19, 2024 08:57 AM Reporting Lab: [facility] [address] [facility] [address] Performing Lab: [facility] [address] [address] [facility] [place] [facility] Vital Signs Combined list of inpatient and outpatient Vital Signs from Department of Defense and Veterans Affairs, ranging from 12 months to all on record, depending upon the facility. Vital Sign Value Date Comments Source SYSTOLIC BLOOD PRESSURE 132 09/29/20 07:57:24 [facility] DIASTOLIC BLOOD PRESSURE 86 024 07:57:24 [facility] PULSE OXIMETRY 97 09/29/2024 07:57:24 [facility] WEIGHT 256 09/29/2024 07:57:24 [facility] BMI 33kg/m2 09/29/2024 07:57:24 [facility] PAIN 6 09/29/2024 07:57:24 [facility] TEMPERATURE 97.9 09/29/2024 07:57:24 [facility] PULSE 59 09/29/2024 07:57:24 [facility] RESPIRATION 18 09/29/2024 07:57:24 [facility] SYSTOLIC BLOOD PRESSURE 135 08/16/20 24 15:21:23 [facility] DIASTOLIC BLOOD PRESSURE 80 024 15:21:23 [facility] PULSE OXIMETRY 96 08/16/2024 15:21:23 [facility] WEIGHT 256 08/16/2024 15:21:23 [facility] BMI 33kg/m2 08/16/2024 15:21:23 [facility] PAIN 4 08/16/2024 15:21:23 [facility] TEMPERATURE 98.6 08/16/2024 15:21:23 [facility] PULSE 68 08/16/2024 15:21:23 [facility] RESPIRATION 16 08/16/2024 15:21:23 [facility] SYSTOLIC BLOOD PRESSURE 142 02/11/20 24 14:50:02 [facility] DIASTOLIC BLOOD PRESSURE 84 024 14:50:02 [facility] PULSE OXIMETRY 96 02/11/2024 14:50:02 [facility] WEIGHT 251 02/11/2024 14:50:02 [facility] BMI 32kg/m2 02/11/2024 14:50:02 [facility] PAIN 5 02/11/2024 14:50:02 [facility] HEIGHT 74 02/11/2024 14:50:02 [facility] TEMPERATURE 98.3 02/11/2024 14:50:02 [facility] PULSE 73 02/11/2024 14:50:02 [facility] RESPIRATION 18 02/11/2024 14:50:02 [facility] SYSTOLIC BLOOD PRESSURE 142 01/19/20 24 14:58:23 [facility] DIASTOLIC BLOOD PRESSURE 80 024 14:58:23 [facility] PULSE OXIMETRY 95 01/19/2024 14:58:23 [facility] WEIGHT 261 01/19/2024 14:58:23 [facility] BMI 34kg/m2 01/19/2024 14:58:23 [facility] PAIN 0 01/19/2024 14:58:23 [facility] TEMPERATURE 98 01/19/2024 14:58:23 [facility] PULSE 73 01/19/2024 14:58:23 [facility] RESPIRATION 18 01/19/2024 14:58:23 [facility] SYSTOLIC BLOOD PRESSURE 146 12/30/19 24 16:10:27 [facility] DIASTOLIC BLOOD PRESSURE 94 024 16:10:27 [facility] PULSE OXIMETRY 99 12/30/2023 16:10:27 [facility] TEMPERATURE 98.3 12/30/2023 16:10:27 [facility] PULSE 70 12/30/2023 16:10:27 [facility] RESPIRATION 14 12/30/2023 16:10:27 [facility] Encounters Combined list of: 1) Encounters from Department of Veterans Affairs facilities going back up to thelast 18 months. 2) Encounters from the Department of Defense facilities going back up to 280 months. Location Location Details Encounter Type Encounter Number Reason For Visit Attending Provider ADM Date DC Date Status Disposition Source [facility] INFRARED THERAPY [id number] Diagnos is: ICD-10- CM M54.50 Low back pain, unspeci fied
GAUNYA,CHR ISTOPHER M 05/06 [facility] ACUPUNCT W/O STIMUL ADDL 15M [id number] Diagnos is: ICD-10- CM M54.50 Low back pain, unspeci fied
GAUNYA,CHR ISTOPHER M 05/20 [facility] Out[facility] Encounter [id number] 06/12 [facility] [id number] 06/12 [facility] En[facility] [id number] 06/12 [facility] INFRARED THERAPY [id number] Diagnos is: ICD-10- CM M54.50 Low back pain, unspeci fied
GAUNYA,CHR ISTOPHER M 06/24 [facility] [id number] 07/29 [facility] En[facility] [id number] 08/02 [facility] En[facility] [id number] 08/02 [facility] INFRARED THERAPY [id number] Diagnos is: ICD-10- CM M54.50 Low back pain, unspeci fied
GAUNYA,CHR ISTOPHER M 08/04 [facility] Out[facility] Encounter [id number] 08/11 [facility] OFFICE O/P EST MOD 30-39 MIN [id number] Diagnos is: ICD-10- CM L40.9 Psorias is, unspeci fied
ABDIEL HENRY MMED JAWED 08/12 [facility] Outpatient Encounter [id number] 08/22 [facility] ACUPUNCT W/O STIMUL ADDL 15M [id number] Diagnos is: ICD-10- CM M54.50 Low back pain, unspeci fied
GAUNYA,CHR ISTOPHER M 09/12 [facility] MANUAL THERAPY / REGIONS [id number] Diagnos is: ICD-10- CM M54.50 Low back pain, unspeci fied
GAUNYA,CHR ISTOPHER M 09/29 [facility] ACUPUNCT W/O STIMUL ADDL 15M [id number] Diagnos is: ICD-10- CM M54.50 Low back pain, unspeci fied
GAUNYA,CHR ISTOPHER M 11/18 [facility] ACUPUNCT W/O STIMUL ADDL 15M [id number] Diagnos is: ICD-10- CM M54.2 Cervica lgia
GAUNYA,CHR ISTOPHER M 12/02 [facility] OFFICE O/P NEW MOD 45 MIN [id number] Diagnos is: ICD-10- CM M54.2 Cervica lgia
GRIS MATHIS RA 12/25 [facility] OFF/OP EST MARCH X REQ PHY/QHP [id number] Diagnos is: ICD-10- CM Z71.89 Other specifi ed [employer] counsel ing<br/ > Jimmy ACE H 12/30 [facility] INFRARED THERAPY [id number] Diagnos is: ICD-10- CM M54.50 Low back pain, unspeci fied
YANIRA CASAS ISTOPHER M 12/30 [facility] Outpatient Encounter [id number] Robert LOWE D 01/07 [facility] MANUAL THERAPY 1/> REGIONS [id number] Diagnos is: ICD-10- CM M54.2 Cervica lgia
GRIS MATHIS RA [facility] MANUAL THERAPY 1/> REGIONS [id number] Diagnos is: ICD-10- CM M54.2 Cervica lgia
GRIS MATHIS RA 01/12 [facility] Outpatient Encounter [id number] Robert LOWE D 01/13 [facility] MANUAL THERAPY 1/> REGIONS [id number] Diagnos is: ICD-10- CM M54.2 Cervica lgia
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
YAQUELIN GAMBOANAH 01/18 [facility] Outpatient Encounter [id number] 01/19 [facility] ACUPUNCT W/O STIMUL ADDL 15M [id number] Diagnos is: ICD-10- CM M54.50 Low back pain, unspeci fied
AUGUSTO,YANIRA ISTOPHER M 01/19 [facility] Outpatient Encounter [id number] 01/20 [facility] Outpatient Encounter [id number] 01/27 [facility] Out[facility] Encounter [id number] 01/27 [facility] Outpatient Encounter [id number] 01/27 [facility] Outpatient Encounter [id number] 02/10 [facility] OFFICE O/P EST MOD 30 MIN [id number] Diagnos is: ICD-10- CM L40.4 Guttate psorias is
ABDIEL HENRY MMED JAWED 02/10 [facility] Outpatient Encounter [id number] Robert LOWE 02/24 [facility] ACUPUNCT W/O STIMUL ADDL 15M [id number] Diagnos is: ICD-10- CM M54.50 Low back pain, unspeci fied
GAUNYA,CHR ISTOPHER M 02/24 [facility] MANUAL THERAPY 1/> REGIONS [id number] Diagnos is: ICD-10- CM M54.2 Cervica lgia
DEL,LANDRY RA 02/25 [facility] ACUPUNCT W/O STIMUL ADDL 15M [id number] Diagnos is: ICD-10- CM M54.50 Low back pain, unspeci fied
GAUNYA,CHR ISTOPHER M 03/31 [facility] MANUAL THERAPY 1/> REGIONS [id number] Diagnos is: ICD-10- CM M54.2 Cervica lgia
DEL,LANDRY RA 04/01 [facility] Outpatient Encounter [id number] 04/01 [facility] MANUAL THERAPY / REGIONS [id number] Diagnos is: ICD-10- CM M54.2 Cervica lgia
GRIS MATHIS RA 05/27 [facility] ACUPUNCT W/O STIMUL ADDL 15M [id number] Diagnos is: ICD-10- CM M54.50 Low back pain, unspeci fied
GAUNYA,CHR ISTOPHER M 06/02 [facility] Outpatient Encounter [id number] FURCOLO,TI NA 06/21 [facility] ACUPUNCT W/O STIMUL ADDL 15M [id number] Diagnos is: ICD-10- CM M54.2 Cervica lgia
GAUNYA,CHR ISTOPHER M 06/30 [facility] Outpatient Encounter [id number] Shu PAGE 07/19 [facility] Outpatient Encounter [id number] 08/03 [facility] OFFICE O/P EST MOD 30 MIN [id number] Diagnos is: ICD-10- CM E11.9 Type 2 diabete s mellitu s without complic ations< br/> FURCOLO,TI NA 08/16 [facility] Outpatient Encounter [id number] 08/18 [facility] HC PRO PHONE CALL 5-10 MIN [id number] Diagnos is: ICD-10- CM F32.A Depress ion, unspeci fied
JUSTIN FLOOD N 08/31 [facility] Outpatient Encounter [id number]/02 [facility] Outpatient Encounter [id number] 09/08 [facility] PSYTX W PT 45 MINUTES [id number] 1. Diagnos is: ICD-10- CM F33.1 Major depress shannon disorde r, recurre nt, moderat e
KOJO BAPTISTE RTNEY R 09/08 [facility] OFFICE O/P EST SF 10 MIN [id number] 1. Diagnos is: ICD-10- CM M54.2 Cervica lgia
GRIS MATHIS RA 09/23 [facility] PSYTX W PT 45 MINUTES [id number] 1. Diagnos is: ICD-10- CM F33.1 Major depress shannon disorde r, recurre nt, moderat e
KOJO BAPTISTE RTNEY R 09/23 [facility] OFFICE O/P EST MOD 30 MIN [id number] Diagnos is: ICD-10- CM Q61.2 Polycys tic kidney, adult type
Shoaib CHAVEZ A 09/29 [facility] ACUPUNCT W/O STIMUL ADDL 15M [id number] Diagnos is: ICD-10- CM M54.2 Cervica lgia
AUGUSTO,CHR ISTOPHER M 10/05 [facility] HC PRO PHONE CALL 5-10 MIN [id number] Diagnos is: ICD-10- CM F33.1 Major depress shannon disorde r, recurre nt, moderat e
KOJO BAPTISTE R 10/12 [facility] MANUAL THERAPY [place] [id number] Diagnos is: ICD-10- CM M54.2 Cervica lgia
GRIS MATHIS RA 10/14 [facility] Social History Combined list of available smoking, tobacco, and other social history from Department of Defense and Veterans Affairs facilities. Social History Type Response Date Comment Source Tobacco smoking status [facility] VA-TOBACCO NEVER USED 02/11/2024 [facility] History of tobacco use VA-TOBACCO NEVER USED 02/12/2023 [facility] History of tobacco use VA-TOBACCO NEVER USED 02/14/2022 [facility] History of tobacco use VA-TOBACCO NEVER USED 10/27/2020 [facility] History of tobacco use VA-TOBACCO USER SOME DAYS 08/25/2018 [facility] History of tobacco use CURRENT SMOKER 10/07/2017 1 cigar a few times a year [facility] History of tobacco use LIFETIME NON-TOBACCO USER 10/29/2016 [facility] Plan of Care List of future care activities from Department of Veterans Affairs facilities. Additional future care activities may be listed in the Assessment and Plan section. Date/Time Care Activity Care Activity Detail Facili ty 10/26/2024 AMBULATORY - PSYCHIATRY AMBULATORY - PSYC HIATRY [facility] 10/28/2024 AMBULATORY - MEDICINE AMBULATORY - MEDICI NE [facility] 11/02/2024 AMBULATORY - MEDICINE AMBULATORY - MEDICI NE [facility] 11/09/2024 AMBULATORY - MEDICINE AMBULATORY - MEDICI NE [facility] 12/02/2024 AMBULATORY - MEDICINE AMBULATORY - MEDICI NE [facility] 12/03/2024 AMBULATORY - MEDICINE AMBULATORY - MEDICI NE [facility] 01/04/2025 AMBULATORY - MEDICINE AMBULATORY - MEDICI NE [facility] 01/25/2025 AMBULATORY - MEDICINE AMBULATORY - MEDICI NE [facility] 02/14/2025 AMBULATORY - MEDICINE AMBULATORY - MEDICI NE [facility] 09/23/2024 Consult Order COMMUNITY CARE-M RI Cons Maintenance Technician 3Rd Shift's Choice [facility] 10/14/2024 Consult Order REHAB MEDICINE/N HM OUTPT Cons Maintenance Technician 3R[employer] [facility]
--- OUTSIDE RECORDS SUMMARY | 2024-10-25 10:42 | XMS_ITS | Encounter Summary ---
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 [place] [facility] [place] Address [address] [place] [address] Care Team Providers Care Jacquard Lace Weaver Name Role Phone LEO FORRESTER Primary Care [...] Suresh's Name Patient's Relationship to Policy Suresh [facility] CE ORGANIZAT ION COH G AND E May 10, 2024 [id number] [phone] [facility] ER PATIENT [place] PRESCRIPT ION [facility] May 10, 2024 [id number] CARD,[facility] ER PATIENT [employer] POINT OF SERVICE [facility] Feb 08, 2018 [id number] [phone] [facility] ER PATIENT [employer] BE[facility]IORAL HE[facility] MENTAL HEALTH [facility] Feb 08, 2018 [id number] CARD,[facility] ER PATIENT [employer] PHARMACY PRESCRIPT ION [facility] Feb 08, 2018 [id number] CARD,[facility] ER PATIENT [facility] May 10, 2019 [id number] JOANNA DURON JR PATIENT [employer] RX PRESCRIPT ION [facility] [place] [facility] May 10, 2019 [facility] [id number] DOMI BAUTISTAJOANNA PATIENT Selected Encounter This section includes the information on record at [place] for the Encounter. Date/Time Encounter Type Encounter Description Reason Provider Source Dec 02, 2023 03:00 PM ACUPUNCT W/O STIMUL ADDL 15M [facility] TREATMENT ICD-10-CM M54.2 Cervicalgia SUJATHAVELJOSE GLUIS PHER M IHE Encounter Template Text not used by [place] Assessments - Encounter Diagnoses This section includes the primary and secondary diagnoses documented for the Encounter. Date/Time Primary/Secondary Diagnosis Diagnosis Name Provider Source Dec 02, 2023 03:29 PM PRIMARY Cervicalgia AUGUSTOLUIS PHER M [facility] [place] [facility] Dec 02, 2023 03:29 PM SECONDARY Low back pain, unspecified JAG RAZOO PHER M [facility] [place] [facility] Dec 02, 2023 03:29 PM SECONDARY Pain in left shoulder JAG RAZOO PHER M [facility] [place] [facility] Plan of Treatment: Future Appointments (+ 6 months) and Future Tests (+/- 45 days) The Plan of Treatment section includes future care activities for the patient from all [place] treatmentfacilities. This section includes future appointments and future orders which are active, pending or scheduled. Future Appointments This section includes appointments that were scheduled to occur 6 months from the date of the Encounter, up to a maximum of 20 appointments. The data comes from all [place] treatment facilities. Appointment Date/Time Appointment Type Appointme nt Facility Name Dec 25, 2023 01:00 PM AMBULATORY - MEDICINE [facility] [place] [facility] Dec 30, 2023 02:00 PM AMBULATORY - MEDICINE [facility] [place] [facility] Dec 30, 2023 02:30 PM AMBULATORY - NONE [facility] [place] [facility] Dec 30, 2023 03:00 PM AMBULATORY - MEDICINE [facility] [place] [facility] Jan 08, 2024 03:00 PM AMBULATORY - MEDICINE [facility] [place] [facility] Jan 13, 2024 03:00 PM AMBULATORY - MEDICINE [facility] [place] [facility] Jan 19, 2024 01:45 PM AMBULATORY - NONE [facility] Jan 19, 2024 03:00 PM AMBULATORY - MEDICINE [facility] Jan 19, 2024 03:01 PM AMBULATORY - MEDICINE [facility] Jan 19, 2024 03:02 PM AMBULATORY - MEDICINE [facility] Jan 20, 2024 03:00 PM AMBULATORY - MEDICINE [facility] Feb 11, 2024 03:00 PM AMBULATORY - MEDICINE [facility] Feb 25, 2024 03:00 PM AMBULATORY - MEDICINE [facility] Feb 26, 2024 03:00 PM AMBULATORY - MEDICINE [facility] March 31, 2024 03:00 PM AMBULATORY - MEDICINE [facility] [place] [facility] April 01, 2024 03:00 PM AMBULATORY - MEDICINE [facility] [place] [facility] May 27, 2024 03:00 PM AMBULATORY - MEDICINE [facility] [place] [facility] Lab Results: +/- 30 days of the encounter This section includes the Chemistry and Hematology Lab Results on record with [facility] for the patient. Radiology Reports and Pathology Reports are provided separately, in subsequent sections. Lab Results This section contains the Chemistry/Hematology Results that were resulted 30 days before or 30 daysafter the date of the Encounter. Date/Time Source Result Type Result - Unit Interpretation Reference Range Comment Dec 30, 2023 02:10 PM [facility] [place] [facility] COVID-19 FLU/RSV DIAGNOSTIC PANEL Specimen Type: NASOPHARYNX Comment: This test is authorized for emergency use only. False negative results may occur if virus is present at levels below the analytical limit of detection.Neg ative results do not preclude SARS-CoV-2, influenza or RSV infection and should not be used as the sole basis for treatment or other patient management decisions.Cep heid FLUVID: HCPs: https://www.[place].gov/media/ 702222/downlo ad. Patients: https://www.[employer].gov/media/ 582822/downlo ad Ordering Provider: RUBY HENRY Report Released Date/Time: Dec 30, 2023 02:01 PM Reporting Lab: [facility] [place] [facility] [address] [id number] Performing Lab: [facility] [place] [facility] [address] [facility] [id number] COVID-19 PCR (FLUVID) NEGATIVE NEGATIVE FLU A PCR (FLUVID) NEGATIVE FLU B PCR (FLUVID) NEGATIVE RSV PCR (FLUVID) NEGATIVE Social History: Smoking Status (Most current) and Tobacco Use (All prior to encounter date) This section includes the most current, and the historical, smoking and tobacco- related health factors from the [place] facility where the Encounter took place. Current Smoking Status This section includes the most current smoking, or tobacco-related health factor, from the [place] facility where the Encounter took place. Date/Time Current Smoking Status Comment [facility] Feb 12, 2023 03:00 PM VA-TOBACCO NEVER USED [facility] Tobacco Use History This section includes a history of the smoking, or tobacco-related health factors, that were collected on or before the date of the Encounter. The data comes from the [place] facility where the Encounter took place. 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 [facility] [place] [facility] Aug 25, 2018 04:16 PM VA-TOBACCO USE MED NO [facility] [place] [facility] Aug 25, 2018 04:16 PM VA-TOBACCO USER SOME DAYS [facility] Oct 07, 2017 11:55 AM CURRENT SMOKER 1 cigar a few times a year [facility] Oct 07, 2017 11:55 AM V1-PT NOT INTERESTED IN QUIT TOBACCO USE [facility] Oct 29, 2016 08:57 AM LIFETIME NON-TOBACCO USER [facility] Radiology Reports: +/- 30 days of the encounter Radiology Reports For cases when an order for radiology services may have been completed prior to the date of the Encounter, the report list includes the Radiology Reports that were completed up to 30 days before dateof the Encounter. For cases when an order for radiology services may have been completed after the date of the Encounter, the report list also includes the Radiology Reports that were completed up to30 days after date of the Encounter. The data comes from all [facility] facilities. Date/Time Radiology Report Provider Source Dec 30, 2023 02:27 PM SPINE CERVICAL, 4 OR 5 VIEWS: JOANNA DURON JR [id number] Ex Date: DEC 30, 2023@14:27 Req Phys: MARY JO MATHIS Loc: CWM/NO/CHIROPRACTOR (Req'g Loc Img Loc: [facility] 1 Service: Unknown (Case 41 COMPLETE) SPINE CERVICAL, 4 OR 5 VIEWS (RAD Detailed) CPT:58561 Reason for Study: neck and arm pain Clinical History: worsening sx Report Status: Verified Date Reported: DEC 30, 2023 Date Verified: DEC 30, 2023 Teacher Of The Hearing Impaired E-Sig:/ES/ANG APPLE JR Report: Study: AP, lateral and left and right oblique views of the cervical spine. Comparison: None. Findings: Mild degenerative disc space narrowing is present consistent with mild degenerative disc disease changes. There is overall straightening of the normal cervical lordosis, likely secondary to patient positioning, pain or the degenerative changes. There is mild right C5-C7 level and moderate left C7-T1 level neural foraminal stenosis secondary to bony osteophyte formation. The vertebral heights are normal. There is mild facet and uncovertebral joint hypertrophic change. The bony mineralization is normal. No bony fracture, dislocation or subluxation is identified. The skull base appears normal. The visualized paravertebral soft tissues are normal. Impression: Multilevel degenerative changes in the cervical spine, as described above. Primary Diagnostic Code: No immediate attention required Primary Interpreting Staff: ANG APPLE JR, Radiologist (Teacher Of The Hearing Impaired) /ANG PATEL JR [facility] Encounter Notes: All associated encounter notes This section contains the clinical notes associated to the Encounter. Date/Time Encounter Note(s) Provider Source Dec 02, 2023 03:27 PM ACUPUNCTURE NOTE: LOCAL TITLE: ACUPUNCTURE TREATMENT STANDARD TITLE: ACUPUNCTURE NOTE DATE OF NOTE: DEC 02, 2023@15:27 ENTRY DATE: DEC 02, 2023@15:27:11 AUTHOR: MAYI RAZO COSIGNER: URGENCY: STATUS: COMPLETED CARD,JOANNA Robert BAUTISTA is a 53 WHITE MALE who presents with Low back pain, sciatica, neck pain. 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 Pain is bilateral lumbar pain with occasional [...] family stresses RESPONSE TO PREVIOUS TREATMENT. reports his low back continues to do fairly well. He reports that his upper back, left side neck, shoulder and arm pain continues to be problematic. He reports that he gets about a week and a half of relief with the acupuncture but that the aching radiation from his neck down to his left hand comes back. I discussed other possible treatment options to complement the acupuncture and is willing to give manager progressive care a try. _ OBJECTIVE General: . Patient in no [...] ]Pyonex Needle: remove prior to bathing per corn grower INFORMED CONSENT: Oral Consent obtained on Nov [...] is required /betty/ MAYI RAZO LA.C DIPL.AC STUDENT DEVELOPMENT ADVISOR Signed: 12/03/2023 08:16 MAYI RAZO [facility]
--- OUTSIDE RECORDS SUMMARY | 2024-10-25 10:42 | XMS_ITS | Encounter Summary ---
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 [place] [facility] [facility] [place] Address [address] [place] [address] Care Team Providers Care Journeyman Pipefitter Name Role Phone LEO FORRESTER Primary Care [...] Suresh's Name Patient's Relationship to Policy Suresh [facility] May 10, 2024 [id number] [phone] [facility] ER PATIENT [place] PRESCRIPT ION [facility] May 10, 2024 [id number] CARD,[facility] ER PATIENT [employer] POINT OF SERVICE [facility] Feb 08, 2018 [id number] CARD,[facility] ER PATIENT [employer] BEHAVIORAL HEALTH MENTAL HEALTH [facility] Feb 08, 2018 [id number] CARD,[facility] ER PATIENT [employer] PHARMACY PRESCRIPT ION [facility] Feb 08, 2018 [id number] CARD,[facility] ER PATIENT [facility] May 10, 2019 [id number] JOANNA DURON JR PATIENT [employer] RX PRESCRIPT ION [facility]ALT [facility] [place] [facility] May 10, 2019 [facility] [id number] DOMI BAUTISTAJOCELYNEJOSE MANUEL PATIENT Selected Encounter This section includes the information on record at [place] for the Encounter. Date/Time Encounter Type Encounter Description Reason Provider Source Dec 25, 2023 01:00 PM OFFICE O/P NEW MOD 45 MIN SPECIFICATION CONSULTANT ICD-10-CM M54.2 Cervicalgia MARY JO MATHIS Deion Encounter Template Text not used by [place] Assessments - Encounter Diagnoses This section includes the primary and secondary diagnoses documented for the Encounter. Date/Time Primary/Secondary Diagnosis Diagnosis Name Provider Source Dec 25, 2023 04:25 PM PRIMARY Cervicalgia MARY JO MATHIS [facility] [facility] Plan of Treatment: Future Appointments (+ 6 months) and Future Tests (+/- 45 days) The Plan of Treatment section includes future care activities for the patient from all [place] treatmentfacilities. This section includes future appointments and future orders which are active, pending or scheduled. Future Appointments This section includes appointments that were scheduled to occur 6 months from the date of the Encounter, up to a maximum of 20 appointments. The data comes from all [place] treatment facilities. Appointment Date/Time Appointment Type Appointme nt Facility Name Dec 30, 2023 02:00 PM AMBULATORY - MEDICINE [place] [facility] [place] [facility] Dec 30, 2023 02:30 PM AMBULATORY - NONE [facility] [place] [facility] Dec 30, 2023 03:00 PM AMBULATORY - MEDICINE [place] [facility] [place] [facility] Jan 08, 2024 03:00 PM AMBULATORY - MEDICINE [place] [facility] [place] [facility] Jan 13, 2024 03:00 PM AMBULATORY - MEDICINE [place] [facility] [place] [facility] Jan 19, 2024 01:45 PM AMBULATORY - NONE [facility] [place] [facility] Jan 19, 2024 03:00 PM AMBULATORY - MEDICINE [place] [facility] [place] [facility] Jan 19, 2024 03:01 PM AMBULATORY - MEDICINE [place] [facility] Jan 19, 2024 03:02 PM AMBULATORY - MEDICINE [place] [facility] [place] [facility] Jan 20, 2024 03:00 PM AMBULATORY - MEDICINE [place] [facility] [place] [facility] Feb 11, 2024 03:00 PM AMBULATORY - MEDICINE [place] [facility] [place] [facility] Feb 25, 2024 03:00 PM AMBULATORY - MEDICINE [place] [facility] [place] [facility] Feb 26, 2024 03:00 PM AMBULATORY - MEDICINE [place] [facility] [place] [facility] March 31, 2024 03:00 PM AMBULATORY - MEDICINE [place] [facility] [facility] April 01, 2024 03:00 PM AMBULATORY - MEDICINE [place] [facility] [facility] May 27, 2024 03:00 PM AMBULATORY - MEDICINE [place] [facility] [place] [facility] Jun 02, 2024 03:00 PM AMBULATORY - MEDICINE [place] [facility] Lab Results: +/- 30 days of the encounter This section includes the Chemistry and Hematology Lab Results on record with [place] for the patient. Radiology Reports and Pathology Reports are provided separately, in subsequent sections. Lab Results This section contains the Chemistry/Hematology Results that were resulted 30 days before or 30 daysafter the date of the Encounter. Date/Time Source Result Type Result - Unit Interpretation Reference Range Comment Dec 30, 2023 02:10 PM [facility] COVID-19 FLU/RSV DIAGNOSTIC PANEL Specimen Type: NASOPHARYNX [...] management decisions.Cep heid FLUVID: HCPs: https://www.f [place].gov/media/ 361418/downlo ad. Patients: https://www.f [place].gov/media/ 517033/downlo ad Ordering Provider: RUBY HENRY Report Released Date/Time: Dec 30, 2023 02:01 PM Reporting Lab: [address] [address] Performing Lab: [facility] [facility] [address] [facility] [address] COVID-19 PCR (FLUVID) NEGATIVE NEGATIVE FLU A PCR (FLUVID) NEGATIVE FLU B PCR (FLUVID) NEGATIVE RSV PCR (FLUVID) NEGATIVE Social History: Smoking Status (Most current) and Tobacco Use (All prior to encounter date) This section includes the most current, and the historical, smoking and tobacco- related health factors from the [place] facility where the Encounter took place. Current Smoking Status This section includes the most current smoking, or tobacco-related health factor, from the [place] facility where the Encounter took place. Date/Time Current Smoking Status Comment [facility] it Feb 12, 2023 03:00 PM VA-TOBACCO NEVER USED [facility] Tobacco Use History This section includes a history of the smoking, or tobacco-related health factors, that were collected on or before the date of the Encounter. The data comes from the [place] facility where the Encounter took place. Date/Time Smoking Status/Tobac co Use Comment Facility Feb 14, 2022 03:00 PM VA-TOBACCO NEVER USED [facility] [place] [facility] Oct 27, 2020 03:30 PM VA-TOBACCO NEVER USED [facility] [place] [facility] Aug 25, 2018 04:16 PM VA-TOBACCO DOESNT USE WI 30 MIN WAKEUP [facility] Aug 25, 2018 04:16 PM VA-TOBACCO USE > 15 LESS THAN 30 YEARS [facility] [place] [facility] Aug 25, 2018 04:16 PM VA-TOBACCO USE ADVICE [facility] Aug 25, 2018 04:16 PM VA-TOBACCO USE 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 NO [facility] [facility] Aug 25, 2018 04:16 PM VA-TOBACCO USE MED NO [facility] [facility] Aug 25, 2018 04:16 PM VA-TOBACCO USER SOME DAYS [facility] Oct 07, 2017 11:55 AM CURRENT SMOKER 1 cigar a few times a year [facility] Oct 07, 2017 11:55 AM V1-PT NOT INTERESTED IN QUIT TOBACCO USE [facility] Oct 29, 2016 08:57 AM LIFETIME NON-TOBACCO USER [facility] Radiology Reports: +/- 30 days of the [...] the Encounter. The data comes from all [place] treatment facilities. Date/Time Radiology Report Provider Source Dec 30, 2023 02:27 PM SPINE CERVICAL, 4 OR 5 VIEWS: JOANNA DURON [id number] -[id number] M Exm Date: DEC 30, 2023@14:27 Req Phys: MARY JO MATHIS Loc: CWM/NO/CHIROPRACTOR (Req'g Loc Img Loc: [facility] 1 Service: Unknown (Case [id number] COMPLETE) SPINE CERVICAL, 4 OR 5 VIEWS (RAD Detailed) CPT:70360 Reason for Study: neck and arm pain Clinical History: worsening sx Report Status: Verified Date Reported: DEC 30, 2023 Date Verified: DEC 30, 2023 Truck Assembler E-Sig:/ES/ANG APPLE JR Report: Study: AP, lateral [...] Primary Interpreting Staff: ANG APPLE JR, Radiologist (Truck Assembler) /ANG PATEL JR [facility] Encounter Notes: All associated encounter notes This section contains the clinical notes associated to the Encounter. Date/Time Encounter Note(s) Provider Source Dec 25, 2023 02:11 PM CHIROPRACTIC CONSU LT: LOCAL TITLE: CONSULT REPORT/CHIROPRACTOR STANDARD TITLE: CHIROPRACTIC CONSULT DATE OF NOTE: DEC 25, 2023@14:11 ENTRY DATE: DEC 25, 2023@14:11:44 AUTHOR: MARY JO MATHIS COSIGNER: URGENCY: STATUS: COMPLETED CARD,JOANNA Jones JR is a 53 WHITE MALE with prior history of COMBAT SERVICE INDICATED: No POS: PERIOD OF SERVICE - OTHER OR NONE SERVICE BRANCH: PredicSis Service Connected Disabilities with % Eligibility: Active Problem Shared care - learning and development consultant and GP [id number] 01/29/2021 CARL,AMY JAWED Type 2 diabetes mellitus controlled 10/27/2020 CARL,MOHAMMED JAWED Acquired polycystic kidney disease 02/23/2018 ROMMED,MOHAMMED JAWED Low back pain M54.50 02/14/2022 CARL,MOHAMMED JAWED Hyperuricemia E79.0 10/29/2016 CARL,MOHAMMED JAWED Psoriasis L40.4 10/29/2016 ROMMED,MOHAMMED JAWED Obstructive sleep apnea G47.33 02/27/2017 CARL,MOHAMMED JAWED Obesity E66.8 10/29/2016 CARL,MOHAMMED JAWED Past Surgeries: Patient [facility] with C/C pain in neck, left upper into left shoulder arm and ends at elbow. Intermittent N/T in fingers of left hand mostly 3rd finger. He also C/O low back pain. describes the neck/shoulder pain as sharp electric shock like that is intermittent and sometimes dull He rates the pain today 5/10 on the NPRS Radiation Yes Temporal: worse in mornings. And a 10/10 Provocative: lifting arm; head/neck motions; prolonged sitting Palliative: Acupuncture and Advil; mm relaxers when its very bad; He states that using his R hand to lift left UE, while in bed provides some temporary relief. Onset: years and getting worse.Denies specific trauma. Prior treatment: Acupuncture; Physical therapy during service in . 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 He stands for 8 hours. GOALS: lift left arm past 90 degrees Pertinent imaging: pending Patient denies recent fever, infections, night sweats, unexplained weight loss, bowl/bladder problems, saddle anesthesia Initial EXAM NPRS Patient enters clinic FWB without need of assistive device without signs of acute distress, antalgia, or gait alteration Patient appears to be well nourished, is well groomed, pleasant, cooperative in NAD, gait and station unremarkable. AAOx3, speech is fluent. Rhomberg's: No sway noted Medrano's: Neg bilat Toe walk Heel walk performed General exam findings Cursory PE demonstrates no acute or emergent health conditions. No signs of acute pulmonary distress, breathing is steady and non-labored. No distal edema or signs of peripheral circulatory distress. No saddle paresthesia and no acute bowel or bladder dysfunction. Active LUMBAR ROM largely WNL limited and provocative into: Flexion R Lateral Bending Right Rotation Peripheral Neuro-Muscular Exam NOT performed Lower Extremity Gross motor 5/5 and sensory exam is intact without abnormality Patellar and Achilles Reflex 2+ Bilat No ankle clonus Lumbar Orthopedic testing: NOT performed Valsalva Maneuver: Neg SLR/seated slump neg Kemps neg Prone knee bending neg Sacral base push neg SI provocation testing NEG Fabere's neg Gus' test Neg Direct S-I palpation Active CERVICAL ROM limited and provocative into: all motions Extension Flexion Lateral Bending rotation UE Motor strength graded 5/5; 4/5 left UE may be due to pain. Sensation grossly intact to light touch DTRs Not obtained, Bilat, biceps triceps brachioradialis Cervical Orthopedic Tests Compression + Distraction + relief Shoulder depression + UE tension test + Shoulder ROMs R shoulder ROMs are full and non-painful Left shoulder is painful with active and passive Flexion, abduction and Adduction at 90 degrees. Pain in left posterior scapula and left tricep Lockhart Carlos + pain in posterior shoulder and arm Soft tissue palpation reveals hypertonicity and tenderness over C/sp mm, bilat, L upper trapezius, left infraspinatus and teres major and minor Motion palpation reveals intersegmental lumbar, L/S, SI jt somatic dysfunction with relative joint hypomobility. IMPRESSION: Back pain associated with, segmental jt dysfunction and hypertonicity. It is reasonable in this case to apply a conservative course of manual therapy to address myofascial and joint findings while encouraging activity and stretching specific to the patient's presentation. PLAN: Treatment #1. I explained all of this to the patient and the patient seemed to understand. Treatment options from least invasive to most with the associated risks, benefits, alternatives, and potential outcomes were discussed in detail. Potential risks associated with spinal manipulative therapy, the following were shared with the patient: Likely (transient mild post-treatment soreness); Less Likely (Bruising, sprain/strain); Rare but potentially serious (disc herniation, fracture); Extremely Rare but serious (epidural spinal hematoma, cauda equina syndrome). Informed consent obtained to provide management consisting of: ~ Lumbar F/D decompression manipulation with the intended goal of the reduction of LBP and limitations related to LBP through the mechanical action of lumbar flexion with a gentle distractive force. ~ MFR as per palpation (10 minutes) ~ Mobilization/SMT to Cervical, Thoracic, and/or Lumbar and S-I regions in lateral decubitus posture ~ Prone or supine thoracic mobilization/SMT ~ Prone hip flexor/quadriceps stretching as per palpation ~ Supine gluteal stretching as per palpation Treatment: Corrective/Active None today No Treatment carried out today and well tolerated with relief expressed. The prognosis, at this time, is fair to good. Plan: consider consult to [facility]; Review X-rays; consider MRI Short term goals include improvement in excess 25% on regional disability questionnaire and/or NRS over the first 3-4 treatment visits. It was explained to the patient that resolution of soft tissue complaintsthrough conservative management requires compliance with at home recommendations and avoidance of aggravating factors. Self-Care Recommendations: Apply ice to neck for 10 minutes each time; place the ice pack over a thin cloth. ~Patient encouraged to engage in activities such as a walking program with established goals to reduce fear-avoidance behaviors with regard to movement,and improve overall health and fitness. emphasis placed upon function over pain with effort made each day to remain active understanding that normal daily activities may temporarily increase pain experience but are not inherently injurious and should be explored to the extent possible. ~ Activity such as Yoga encouraged to enhance relaxation, flexibility, posture, core stability, balance, and pain modulation. Visit 1 F/U 4 weekly Seek urgent care as needed. CMT: chiropractic manipulative therapy SMT: Spinal Manipulative Therapy F/D: Flexion Distraction MFR: Myofascial Release S-I: Sacroiliac MFTP: Myofascial Trigger Point NRS: Numeric Rating Scale N/T: Numbness/Tingling PIR: Post isometric relaxation /es/ MARY JO MATHIS D.C. CHIROPRACTOR Signed: 12/25/2023 16:25 MARY JO MATHIS [facility]
--- OUTSIDE RECORDS SUMMARY | 2024-10-25 10:42 | XMS_ITS | Encounter Summary ---
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 ([place]) Organization Department of [facility] Affairs ([place]) Address [address] [place] [id number] Care Team Providers Care Control Director Name Role Phone LEO FORRESTER Primary Care [...] Suresh's Name Patient's Relationship to Policy Suresh [facility] ORGANIZAT ION COH G AND E May 10, 2024 [id number] [phone] [facility] ER PATIENT [place] PRESCRIPT ION [facility] May 10, 2024 [id number] CARD,SP ER PATIENT CIGNA POINT OF SERVICE [facility] Feb 08, 2018 [id number] [facility] ER PATIENT CIGNA BEHAVIORAL HEALTH MENTAL HEALTH [facility] Feb 08, 2018 [id number] CARD,[facility] ER PATIENT CIGNA PHARMACY PRESCRIPT ION [facility] Feb 08, 2018 [id number] CARD,[facility] ER PATIENT OPTUM [facility] SPECIAL CLASS [facility] May 10, 2019 [id number] [phone] JOANNA DURON JR PATIENT OPTUM RX PRESCRIPT ION [facility] May 10, [address] [facility] [id number] DOMI BAUTISTAJOANNA PATIENT Selected Encounter This section includes the information on record at NH for the Encounter. Date/Time Encounter Type Encounter Description Reason Provider Source Dec 30, 2023 03:00 PM INFRARED THERAPY CIH TREATMENT ICD-10-CM M54.50 Low back pain, unspecified GAUNYA,LUIS PHER M IHE Encounter Template Text not used by NH Assessments - Encounter Diagnoses This section includes the primary and secondary diagnoses documented for the Encounter. Date/Time Primary/Secondary Diagnosis Diagnosis Name Provider Source Dec 30, 2023 03:25 PM PRIMARY Low back pain, unspecified GAUNYA,LUIS PHER M [facility] [facility] Dec 30, 2023 03:25 PM SECONDARY Cervicalgia GAUNYA,LUIS PHER M [facility] [place] [facility] Dec 30, 2023 03:25 PM SECONDARY Dorsalgia, unspecified GAUNYA,LUIS PHER M [facility] [place] [facility] Dec 30, 2023 03:25 PM SECONDARY Pain in left shoulder GAUNYA,LUIS PHER M [facility] [facility] Plan of Treatment: Future Appointments (+ 6 months) and Future Tests (+/- 45 days) The Plan of Treatment section includes future care activities for the patient from all NH treatmentfacilities. This section includes future appointments and future orders which are active, pending or scheduled. Future Appointments This section includes appointments that were scheduled to occur 6 months from the date of the Encounter, up to a maximum of 20 appointments. The data comes from all NH treatment facilities. Appointment Date/Time Appointment Type Appointme nt Facility Name Jan 08, 2024 03:00 PM AMBULATORY - MEDICINE [facility] [place] [facility] Jan 13, 2024 03:00 PM AMBULATORY - MEDICINE NH [facility] [facility] Jan 19, 2024 01:45 PM AMBULATORY - NONE [facility] [place] [facility] Jan 19, 2024 03:00 PM AMBULATORY - MEDICINE [facility] Jan 19, 2024 03:01 PM AMBULATORY - MEDICINE [facility] [facility] Jan 19, [...] 26, 2024 03:00 PM AMBULATORY - MEDICINE [facility] March 31, 2024 03:00 PM AMBULATORY - MEDICINE [facility] April 01, 2024 03:00 PM AMBULATORY - MEDICINE [facility] [facility] May 27, 2024 03:00 PM AMBULATORY - MEDICINE NH [facility] Jun 02, 2024 03:00 PM AMBULATORY - MEDICINE NH [facility] [facility] Lab Results: +/- 30 days of the encounter This section includes the Chemistry and Hematology Lab Results on record with NH for the patient. Radiology Reports and Pathology Reports are provided separately, in subsequent sections. Lab Results This section contains the Chemistry/Hematology Results that were resulted 30 days before or 30 daysafter the date of the Encounter. Date/Time Source Result Type Result - Unit Interpretation Reference Range Comment Dec 30, 2023 02:10 PM [facility] [place] [facility] COVID-19 FLU/RSV DIAGNOSTIC PANEL Specimen Type: NASOPHARYNX [...] management decisions.Cep heid FLUVID: HCPs: https://www.f da.gov/media/ 394788/downlo ad. Patients: https://www.f da.gov/media/ 673030/downlo ad Ordering Provider: RUBY HENRY Report Released Date/Time: Dec 30, 2023 02:01 PM Reporting Lab: [facility] [facility] [address] [facility] [address] Performing Lab: [facility] [facility] [address] [facility] [address] COVID-19 PCR (FLUVID) NEGATIVE NEGATIVE FLU A PCR (FLUVID) NEGATIVE FLU B PCR (FLUVID) NEGATIVE RSV PCR (FLUVID) NEGATIVE Vital Signs: All taken on the encounter date This section contains inpatient and outpatient Vital Signs collected on the date of the Encounter. Date/Time Temperature Pulse Blood Pressure Respiratory Rate SP02 Pain Height Weight Body Mass Index Source Dec 30, 2023 04:10 PM 98.3 70 146/94 14 99 [facility] [facility] Social History: Smoking Status (Most current) and Tobacco Use (All prior to encounter date) This section includes the most current, and the historical, smoking and tobacco- related health factors from the NH facility where the Encounter took place. Current Smoking Status This section includes the most current smoking, or tobacco-related health factor, from the NH facility where the Encounter took place. Date/Time Current Smoking Status Comment [facility] it Feb 12, 2023 03:00 PM [facility] Tobacco Use History This section includes a history of the smoking, or tobacco-related health factors, that were collected on or before the date of the Encounter. The data comes from the NH facility where the Encounter took place. 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 The data comes from all [facility] facilities. Date/Time Radiology Report Provider Source Dec 30, 2023 02:27 PM SPINE CERVICAL, 4 OR 5 VIEWS: JOANNA DURON JR [id number] -1970 M Exm Date: DEC 30, 2023@14:27 Req Phys: MARY JO MATHIS Loc: CWM/NO/CHIROPRACTOR (Req'g Loc Img Loc: [facility] 1 Service: Unknown (Case 41 COMPLETE) SPINE CERVICAL, 4 OR 5 VIEWS (RAD Detailed) CPT:36210 Reason for Study: neck and arm pain Clinical History: worsening sx Report Status: Verified Date Reported: DEC 30, 2023 Date Verified: DEC 30, 2023 [employer] E-Sig:/ES/ANG APPLE JR Report: Study: AP, lateral [...] Primary Interpreting Staff: ANG APPLE JR, Radiologist ([employer]) /ANG PATEL JR [facility] Encounter Notes: All associated encounter notes This section contains the clinical notes associated to the Encounter. Date/Time Encounter Note(s) Provider Source Dec 30, 2023 03:20 PM ACUPUNCTURE NOTE: LOCAL TITLE: ACUPUNCTURE TREATMENT STANDARD TITLE: ACUPUNCTURE NOTE DATE OF NOTE: DEC 30, 2023@15:20 ENTRY DATE: DEC 30, 2023@15:20:46 AUTHOR: ARON RAZO COSIGNER: URGENCY: STATUS: COMPLETED CARD,JOANNA Jones JR is a 53 WHITE MALE who presents with Low back pain, sciatica, neck pain. Pain in left arm Active Problem Shared care - healthcare management consultant and GP Z76 01/29/2021 AMY HENRY JAWED Type 2 diabetes mellitus controlled 10/27/2020 CARL,MOHAMMED JAWED Acquired polycystic kidney disease 02/23/2018 CARL,MOHAMMED JAWED Low back pain M54.50 02/14/2022 CARL,MOHAMMED JAWED Hyperuricemia E79.0 10/29/2016 CARL,MOHAMMED JAWED Psoriasis L40.4 10/29/2016 CARL,MOHAMMED JAWED Obstructive sleep apnea G47.33 02/27/2017 CARL,MOHAMMED JAWED Obesity E66.8 10/29/2016 CARL,MOHAMMED JAWED Date Dec CC / HPI - presents with 20 year hx of low back pain that started while serving in the [employer]. Pain is bilateral lumbar pain with occasional [...] and family stresses RESPONSE TO PREVIOUS TREATMENT. [place] reports last treatment was very helpful. Neck and back pain responded well to care and [place] reports that the effect has lasted into this week. states that he has developed a cough in the last 2 days and has a slight sore throat. is wearing a mask to his visit and reports that he has been tested for COVID and is awaiting results. reports he does not have a fever and generally feels good. _ OBJECTIVE General: . Patient in no [...] ]Pyonex Needle: remove prior to bathing per resident care assistant INFORMED CONSENT: Oral Consent obtained on Dec The patient was positioned comfortably. Oral consent was obtained. There was no evidence of infection at the site of needle insertions. Time out was conducted by Aron Razo L.Ac. Correct patient was identified using [...] years, a new consult is required /betty/ ARON RAZO LA.C DIPL.AC AIR TRAFFIC SUPERVISOR Signed: 12/30/2023 16:01 ARON RAZO CN[facility]L [facility]
--- OUTSIDE RECORDS SUMMARY | 2024-10-25 10:42 | XMS_ITS | Encounter Summary ---
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 ([place]) Organization Department of Veter[place] Affairs [place] Address [address] [place] [id number] Care Team Providers Care Party Plan Sales Director Name Role Phone LEO FORRESTER Primary [...] Suresh's Name Patient's Relationship to Policy Suresh [facility] ORGANIZAT ION COH G AND E May 10, 2024 [id number] [phone] [facility] ER PATIENT CAREMARK PRESCRIPT ION [facility] May 10, 2024 [id number] CARD,[facility] ER PATIENT CIGNA POINT OF SERVICE [facility] Feb 08, 2018 [id number] [facility] ER PATIENT CIGNA BEHAVIORAL HEALTH MENTAL HEALTH [facility] Feb 08, 2018 [id number] CARD,[facility] ER PATIENT CIGNA PHARMACY PRESCRIPT ION [facility] Feb 08, 2018 [id number] [facility] ER PATIENT OPTUM HEALTH SPECIAL CLASS INSURANCE HEALT [facility] May 10, 2019 [id number] [phone] DOMI BAUTISTAJOANNA PATIENT OPTUM RX PRESCRIPT ION HEALT H [facility] May 10, 2019 [facility] [id number] JOANNA DURON JR PATIENT Selected Encounter This section includes the information on record at OR for the Encounter. Date/Time Encounter Type Encounter Description Reason Provider Source Dec 30, 2023 02:00 PM OFF/OP EST MARCH X REQ PHY/QHP PRIMARY CARE/MEDICINE ICD-10-CM Z71.89 Other specified counseling EDWIN ACE SA IHE Encounter Template Text not used by [place] Assessments - Encounter Diagnoses This section includes the primary and secondary diagnoses documented for the Encounter. Date/Time Primary/Secondary Diagnosis Diagnosis Name Provider Source Jan 12, 2024 02:58 PM PRIMARY Other specified counseling EDWIN ACE SA [facility] [place] [facility] Plan of Treatment: Future Appointments (+ 6 months) and Future Tests (+/- 45 days) The Plan of Treatment section includes future care activities for the patient from all [place] treatmentfacilities. This section includes future appointments and future orders which are active, pending or scheduled. Future Appointments This section includes appointments that were scheduled to occur 6 months from the date of the Encounter, up to a maximum of 20 appointments. The data comes from all [place] treatment facilities. Appointment Date/Time Appointment Type Appointme nt Facility Name Jan 08, 2024 03:00 PM AMBULATORY - MEDICINE [place] C [facility] [place] [facility] Jan 13, 2024 03:00 PM AMBULATORY - MEDICINE [place] C [facility] [place] [facility] Jan 19, 2024 01:45 PM AMBULATORY - NONE [place] [facility] [place] [facility] Jan 19, 2024 03:00 PM AMBULATORY - MEDICINE [place] C [facility] [place] [facility] Jan 19, 2024 03:01 PM AMBULATORY - MEDICINE [place] C [facility] [place] [facility] Jan 19, 2024 03:02 PM AMBULATORY - MEDICINE [place] C [facility] [place] [facility] Jan 20, 2024 03:00 PM AMBULATORY - MEDICINE OR C [facility] [place] [facility] Feb 11, 2024 03:00 PM AMBULATORY - MEDICINE [place] C [facility] [place] [facility] Feb 25, 2024 03:00 PM AMBULATORY - MEDICINE OR C [facility] [place] [facility] Feb 26, 2024 03:00 PM AMBULATORY - MEDICINE [place] C [facility] [place] [facility] March 31, 2024 03:00 PM AMBULATORY - MEDICINE [place] C [facility] [place] [facility] April 01, 2024 03:00 PM [facility] May 27, 2024 03:00 PM [facility] Jun 02, 2024 03:00 PM AMBULATORY - MEDICINE [facility] N[facility]L [facility] Lab Results: +/- 30 days of the encounter This section includes the Chemistry and Hematology Lab Results on record with OR for the patient. Radiology Reports and Pathology Reports are provided separately, in subsequent sections. Lab Results This section contains the Chemistry/Hematology Results that were resulted 30 days before or 30 daysafter the date of the Encounter. Date/Time Source Result Type Result - Unit Interpretation Reference Range Comment Dec 30, 2023 02:10 PM [facility] COVID-19 FLU/RSV DIAGNOSTIC PANEL Specimen Type: NASOPHARYNX Comment: This test is authorized for emergency use only. False negative results may occur if virus is present at levels below the analytical limit of detection.Neg ative results do not preclude SARS-CoV-2, influenza or RSV infection and should not be used as the sole basis for treatment or other patient management decisions.Cep heid FLUVID: HCPs: https://www. da.gov/media/ 914797/downlo ad. Patients: https://www.f da.gov/media/ 435176/downlo ad Ordering Provider: RUBY HENRY Report Released Date/Time: Dec 30, 2023 02:01 PM Reporting Lab: [address] [address] Performing Lab: [address] [address] COVID-19 PCR (FLUVID) NEGATIVE NEGATIVE FLU A [...] 04:10 PM 98.3 70 146/94 14 99 [place] [facility] [place] [facility] Social History: Smoking Status (Most current) and Tobacco Use (All prior to encounter date) This section includes the most current, and the historical, smoking and tobacco- related health factors from the [place] facility where the Encounter took place. Current Smoking Status This section includes the most current smoking, or tobacco-related health factor, from the [place] facility where the Encounter took place. Date/Time Current Smoking Status Comment [facility] it Feb 12, 2023 03:00 PM VA-TOBACCO NEVER USED [facility] Tobacco Use History This section includes a history of the smoking, or tobacco-related health factors, that were collected on or before the date of the Encounter. The data comes from the [place] facility where the Encounter took place. 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 The data comes from all [place] treatment facilities. Date/Time Radiology Report Provider Source Dec 30, 2023 02:27 PM SPINE CERVICAL, 4 OR 5 VIEWS: JOCELYNE DURONJOSE MANUEL Robert [id number] -1970 M Exm Date: DEC 30, 2023@14:27 Req Phys: MARY JO MATHIS Loc: CWM/NO/CHIROPRACTOR (Req'g Loc Img Loc: [facility] 1 Service: Unknown (Case 41 COMPLETE) SPINE CERVICAL, 4 OR 5 VIEWS (RAD Detailed) CPT:17267 Reason for Study: neck and arm pain Clinical History: worsening sx Report Status: Verified Date Reported: DEC 30, 2023 Date Verified: DEC 30, 2023 Gas Line Installer Supervisor E-Sig:/ES/ANG APPLE JR Report: Study: AP, lateral [...] immediate attention required Primary Interpreting Staff: ANG APPEL JR, Radiologist (Gas Line Installer Supervisor) /ANG PATEL JR [facility] Encounter Notes: All associated encounter notes This section contains the clinical notes associated to the Encounter. Date/Time Encounter Note(s) Provider Source Dec 30, 2023 02:00 PM PRIMARY CARE NOTE: LOCAL TITLE: WALK-IN NOTE PRIMARY CARE (T) STANDARD TITLE: PRIMARY CARE NOTE DATE OF NOTE: DEC 30, 2023@14:00 ENTRY DATE: DEC 30, 2023@15:26:38 AUTHOR: BECKY ACE COSIGNER: URGENCY: STATUS: COMPLETED WALK-IN NOTE PRIMARY CARE (T) Has ADDENDA Patient identity was verified using two identifiers, per [place] Policy: Full Name, Date of JOANNA Jones JR CARD is a 53 year old who presents to the clinic for Cold Symptoms per AMY HENRY for diagnosis of: Visit Type: Clinic Unscheduled Primary Care Clinic Triage: S: Reports Over a week of sore throat, cough, minimal fever O: Vital Signs: Temperature: 98.4 F [36.9 C] (08/12/2023 14:17) Pulse: 67 (08/12/2023 14:17) Respiration: 20 (08/12/2023 14:17) Blood Pressure: 117/74 (08/12/2023 14:47) 98% (08/12/2023 14:17) Pain: 5 (08/12/2023 14:17) Height: 74 in [188.0 cm] (08/12/2023 14:17) Weight: 253 lb [114.76 kg] (08/12/2023 14:17) BMI: 32.6 [facility] Allergies: Patient has answered NKA Medications: Active Outpatient Medications (including Supplies): Active Outpatient Medications Status 1) ALLOPURINOL 300MG TAB TAKE ONE TABLET BY MOUTH EVERY ACTIVE DAY FOR GOUT 2) AMLODIPINE BESYLATE 5MG TAB TAKE ONE TABLET BY MOUTH ACTIVE ONCE DAILY FOR BLOOD PRESSURE/HEART, DO NOT TAKE WITH GRAPEFRUIT JUICE 3) CYCLOBENZAPRINE HCL 10MG TAB TAKE ONE TABLET BY MOUTH ACTIVE AT BEDTIME NEEDED FOR MUSCLE SPASM 4) ROSUVASTATIN CA 10MG TAB TAKE ONE TABLET BY MOUTH ACTIVE ONCE DAILY FOR CHOLESTEROL 5) SILDENAFIL CITRATE 50MG TAB TAKE ONE TABLET BY MOUTH ACTIVE ONCE DAILY TAKE 1 HOUR PRIOR TO SEXUAL ACTIVITY Active Non-VA Medications Status 1) Non-VA GUSELKUMAB 100MG/ML INJ 1ML SYR 100MG (1ML) ACTIVE SUBCUTANEOUSLY [id number] 2) Non-VA LISINOPRIL 10MG TAB 10MG BY MOUTH EVERY 10 ACTIVE DAYS 7 Total Medications Non-VA Med: CLOBETASOL PROPIONATE 0.05% CREAM,TOP Status: Discontinued (FEB 15, 2019) CPRS Order #: [id number] Documented By: AMY HENRY MD Documented Date: OCT 29, 2016@09:55:43 Clinic: [address] [place] [address]/NO/PACT 1 Start Date: Dispense Drug: CLOBETASOL PROPIONATE 0.05% CREAM Dosage: LIBERAL AMOUNT Med Route: TOPICALLY Schedule: TWICE DAILY Statement/Explanation/Comm ent: Non-VA Med: ALLOPURINOL TAB Status: Discontinued (FEB 27, 2017) CPRS Order #: [id number] Documented By: AMY HENRY MD Documented Date: OCT 29, 2016@09:55:43 Clinic: [facility]/NO/PACT 1 Start Date: Dispense Drug: ALLOPURINOL 300MG TAB Dosage: 300MG Med Route: BY MOUTH Schedule: EVERY DAY Statement/Explanation/Comm ent: Non-VA Med: OTHER CAP/TAB Status: Discontinued (OCT 27, 2020) CPRS Order #: [id number] Documented By: AMY HENRY MD Documented Date: FEB 23, 2018@09:09:49 Clinic: [facility]/NO/PACT 1 Start Date: Dispense Drug: Dosage: OTEZLA FOR PSORIASIS 30 MG Med Route: BY MOUTH Schedule: TWICE A DAY Statement/Explanation/Comm ent: Non-VA Med: LISINOPRIL TAB Status: Active CPRS Order #: [id number] Documented By: AMY HENRY MD Documented Date: AUG 16, 2019@10:40:15 Clinic: 1469-[facility]/NO/PACT 1 Start Date: Dispense Drug: LISINOPRIL 10MG TAB Dosage: 10MG Med Route: BY MOUTH Schedule: EVERY 10 DAYS Statement/Explanation/Comm ent: Non-VA Med: GUSELKUMAB (TREMFYA) INJ,SOLN Status: Active CPRS Order #: [id number] Documented By: AMY HENRY MD Documented Date: OCT 27, 2020@16:03:27 Clinic: 6501-[facility]/NO/PACT 1 TELE Start Date: Dispense Drug: GUSELKUMAB 100MG/ML INJ 1ML SYR Dosage: 100MG (1ML) Med Route: SUBCUTANEOUSLY Schedule: [id number] Statement/Explanation/Comm ent: Since you last saw your [facility] Provider, did you have any of the following? A:cough speech clear, answering triage questions appropriately, speaking full sentences w/o difficulty, no cough or wheeze audible Nasal swab obtained COVID-19 PCR (FLUVID): NEGATIVE FLU A PCR (FLUVID): NEGATIVE FLU B PCR (FLUVID): NEGATIVE RSV PCR (FLUVID): NEGATIVE Telephone called to inform of results No answer and voice message left requesting a call back /es/ BECKY ACE REGISTERED NURSE Signed: 12/30/2023 15:39 12/30/2023 ADDENDUM STATUS: COMPLETED Keyes returned back to clinic-Vitals signs taken and assessment of lungs. Cough since Friday taken OTC decongestant. Fluid and rest No current fever or chills home care instructions given Encourage conservative measures and self-care healthy lifestyle such as warm salt rinse, brush teeth often, rinse mouth. -Encourage hydration (hot water/tea/honey) and balance diet. -If sore throat becomes worse i.e., fever, inability to swallow, swollen tonsils or adenoids, white patches or streaks in mouth, sob or any other concern advised seek medical attention. -Pt agree to call 911 or go to ER/Urgent care if: trouble breathing, pain or pressure on chest, feeling confuse, unable to stay awake or wake up, or pale/mar/blue skin/limp/nail, fever >102, Extreme pain. Keyes agrees if return to clinic or call . Provided guidance for worsening symptoms: Keyes advised to call facilities OR Clinical Contact Center or seek immediate medical attention for new or worsening symptoms - verbalizes understanding and agree with care plan. /betty/ BECKY ACE REGISTERED NURSE Signed: 12/30/2023 16:14 BECKY ACE OR CNTRL [facility]
--- OUTSIDE RECORDS SUMMARY | 2024-10-25 10:43 | XMS_ITS ---
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 [facility] [place] Address [address] [place] [address] Care Team Providers Care Meter Technician Name Role Phone LEO FORRESTER Primary Care [...] Suresh's Name Patient's Relationship to Policy Suresh [facility] CE ORGANIZAT ION COH G AND E May 10, 2024 [id number] [facility] ER PATIENT [place] PRESCRIPT ION [facility] May 10, 2024 [id number] CARD,SP ER PATIENT [employer] POINT OF SERVICE [facility] Feb 08, 2018 [id number] CARD,[facility] ER PATIENT [employer] BEHAVIORAL HEALTH MENTAL HEALTH [facility] Feb 08, 2018 [id number] CARD,[facility] ER PATIENT [employer] PHARMACY PRESCRIPT ION [facility] Feb 08, 2018 [id number] CARD,[facility] ER PATIENT [facility] May 10, 2019 [id number] JOANNA DURON JR PATIENT [employer] RX PRESCRIPT ION HEALT H [place] [facility] May 10, 2019 [facility] [id number] DOMI BAUTISTAJOCELYNEYOONKIRAN PATIENT Selected Encounter This section includes the information on record at [place] for the Encounter. Date/Time Encounter Type Encounter Description Reason Provider Source Jan 13, 2024 03:00 PM MANUAL THERAPY 1/> [facility] ICD-10-CM M54.2 Cervicalgia MARY JO MATHIS Deion Encounter Template Text not used by [place] Assessments - Encounter Diagnoses This section includes the primary and secondary diagnoses documented for the Encounter. Date/Time Primary/Secondary Diagnosis Diagnosis Name Provider Source Jan 13, 2024 03:20 PM PRIMARY Cervicalgia MARY JO MATHIS [place] [facility] [place] [facility] Plan of Treatment: Future Appointments (+ 6 months) and Future Tests (+/- 45 days) The Plan of Treatment section includes future care activities for the patient from all [place] treatmentfacilities. This section includes future appointments and future orders which are active, pending or scheduled. Future Appointments This section includes appointments that were scheduled to occur 6 months from the date of the Encounter, up to a maximum of 20 appointments. The data comes from all [place] treatment facilities. Appointment Date/Time Appointment Type Appointme nt Facility Name Jan 19, 2024 01:45 PM AMBULATORY - NONE [place] [facility] [place] [facility] Jan 19, 2024 03:00 PM AMBULATORY - [place]ICINE [place] [facility] [place] [facility] Jan 19, 2024 03:01 PM AM[place]ULATORY - [place]ICINE [place] [facility] [place] [facility] Jan 19, 2024 03:02 PM AM[place]ULATORY - [place]ICINE [place] [facility] [place] [facility] Jan 20, 2024 03:00 PM AM[place]ULATORY - [place]ICINE [place] [facility] [place] [facility] Feb 11, 2024 03:00 PM AM[place]ULATORY - [place]ICINE [place] [facility] [place] [facility] Feb 25, 2024 03:00 PM AMBULATORY - [place]ICINE [place] [facility] [place] [facility] Feb 26, 2024 03:00 PM AM[place]ULATORY - [place]ICINE [place] [facility] [place] [facility] March 31, 2024 03:00 PM AM[place]ULATORY - [place] [facility] [place] [facility] April 01, 2024 03:00 PM AM[place]UL[place]ORY - [place]INE [place] [facility] [place] [facility] May 27, 2024 03:00 PM AMBULATORY - [place]ICINE [place] [facility] [place] [facility] Jun 02, 2024 03:00 PM AM[place]UL[place]ORY - [place] [facility] [place] [facility] Jun 30, 2024 03:00 PM [facility] [place] [facility] [place] [facility] Lab Results: +/- 30 days of the encounter This section includes the Chemistry and Hematology Lab Results on record with [place] for the patient. Radiology Reports and Pathology Reports are provided separately, in subsequent sections. Lab Results This section contains the Chemistry/Hematology Results that were resulted 30 days before or 30 daysafter the date of the Encounter. Date/Time Source Result Type Result - Unit Interpretation Reference Range Comment Feb 09, 2024 08:57 AM [facility] HEPATITIS A ANTIBODY (IgM) Specimen Type: SERUM Comment: A Reactive result ( Positive prior to 08/23/13) indicates recent infection with Hepatitis A virus. Hepatitis A IgM antibodies may persist for 3-6 months after acute Hepatitis A infection. Ordering Provider: AMY HENRY Report Released Date/Time: Jan 23, 2024 11:44 AM Reporting Lab: [address] [address] Performing Lab: [address] [address] HEPATITIS A ANTIBODY (IgM) Non Reactive Non Reactive Feb 09, 2024 08:56 AM [facility] LIPID PANEL FASTING Specimen Type: SERUM No comment entered. Ordering Provider: AMY HENRY Report Released Date/Time: Aug 12, 2023 02:58 PM Reporting Lab: [address] [address] Performing Lab: [address] [address] CHOLESTEROL 138 mg/dL TRIGLYCERIDE 56 mg/dL 0-150 LDL calculated 74 mg/dL 0-129 CHOL/HDL 2.6 HDL CHOLESTEROL 53 mg/dL 40-60 Feb 09, 2024 08:56 AM [facility] HEMOGLOBIN A1C PANEL Specimen Type: BLOOD Comment: Values obtained from A1C measurements can vary. For atypical A1C assays, a reported value of 7.0 could actually be between 6.72 and 7.28 if measured by a reference method. A reported value of 9.0 could actually be between 8.73 and 9.27. Ref: http://www.ngs p.org/CAPdata. asp Ordering Provider: AMY HENRY Report Released Date/Time: Aug 12, 2023 02:58 PM Reporting Lab: [address] [address] Performing Lab: [address] [address] HEMOGLOBIN A1C 6.4 H 4.0-5.6 Feb 09, 2024 08:56 AM [facility] LIVER FUNCTION Specimen Type: SERUM No comment entered. Ordering Provider: AMY HENRY Report Released Date/Time: Aug 12, 2023 02:58 PM Reporting Lab: [address] [address] Performing Lab: [address] [address] PROTEIN,TOTAL 6.6 g/dL 6.0-8.3 ALBUMIN 3.9 g/dL 3.5-5.0 ALKALINE PHOSPHATASE 61 U/L 40-150 AST 24 U/L 5-34 ALT 35 U/L BILIRUBIN, TOTAL 0.5 mg/dL 0.2-1.2 Feb 09, 2024 08:56 AM [facility] BASIC METABOLIC PANEL (fasting) Specimen Type: SERUM No comment entered. Ordering Provider: AMY HENRY Report Released Date/Time: Aug 12, 2023 02:58 PM Reporting Lab: [address] [address] Performing Lab: [address] [address] UREA NITROGEN 19 mg/dL 7-25 GLUCOSE 119 mg/dL H 65-100 SODIUM 142 mmol/L 135-145 POTASSIUM 4.4 mmol/L 3.5-5.0 CHLORIDE 104 mmol/L 100-110 CO2 28 meq/L 20-30 CREATININE, Serum 1.15 mg/dL 0.50-1.40 eGFR(CKD-EPI 2020) 76 mL/min >60 Feb 09, 2024 08:56 AM [facility] CBC AND DIFF (AUTO) Specimen Type: BLOOD No comment entered. Ordering Provider: AMY HENRY Report Released Date/Time: Aug 12, 2023 02:58 PM Reporting Lab: [facility] [address] [facility] [address] Performing Lab: [facility] [address] [facility] [address] WBC 4.03 10*3/uL L 4.50-11.00 RBC 4.62 10*6/uL 4.23-5.66 HGB 13.3 g/dL 12.8-17 HCT 40.8 39.2-50.4 MCV 88.3 fL 82-99 MCHC 32.6 g/dL 30.8-35.1 PLT 179 10*3/uL 140-360 RDW-CV 12.2 12.0-16.0 [place], Abs 0.37 10*3/uL 0.30-1.10 MCH 28.8 pg 26.2-32.6 Neut % 60.8 43.7-75.8 Lymph % 24.1 14.0-42.3 [place] % 9.2 5.1-13.7 Eos % 4.7 0.4-6.8 Baso % 1.2 0.1-2.0 Neut, Abs 2.45 10*3/uL 2.20-7.60 Lymph, Abs 0.97 10*3/uL L 1.00-3.20 Eos, Abs 0.19 10*3/uL 0.03-0.44 Baso, Abs 0.05 10*3/uL 0.01-0.13 Immature Gran % 0.0 0.0-0.7 Immature Gran, Abs 0.00 10*3/uL 0.00-0.06 Dec 30, 2023 02:10 PM [facility] COVID-19 FLU/RSV DIAGNOSTIC PANEL Specimen Type: NASOPHARYNX Comment: This test is authorized for emergency use only. False negative results may occur if virus is present at levels below the analytical limit of detection.Nega tive results do not preclude SARS-CoV-2, influenza or RSV infection and should not be used as the sole basis for treatment or other patient management decisions.[facility] uvaldo FLUVID: HCPs: https://www.[place] a.gov/media/ 600/download. Patients: https://www.[place] a.gov/media/ 850/download Ordering Provider: AMY HENRY Report Released Date/Time: Dec 30, 2023 02:01 PM Reporting [facility]: [facility] [address] [facility] [address] Performing Lab: [facility] [address] [address] COVID-19 PCR (FLUVID) NEGATIVE NEGATIVE FLU A PCR (FLUVID) NEGATIVE FLU B PCR (FLUVID) NEGATIVE RSV PCR (FLUVID) NEGATIVE Social History: Smoking Status (Most current) and Tobacco Use (All prior to encounter date) This section includes the most current, and the historical, smoking and tobacco- related health factors from the [place] facility where the Encounter took place. Current Smoking Status This section includes the most current smoking, or tobacco-related health factor, from the [place] facility where the Encounter took place. Date/Time Current Smoking Status Comment [facility] Feb 12, 2023 03:00 PM VA-TOBACCO NEVER USED [facility] Tobacco Use History This section includes a history of the smoking, or tobacco-related health factors, that were collected on or before the date of the Encounter. The data comes from the [place] facility where the Encounter took place. 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 The data comes from all [place] treatment facilities. Date/Time Radiology Report Provider Source Dec 30, 2023 02:27 PM SPINE CERVICAL, 4 OR 5 VIEWS: JOANNA DURON JR [id number] [id number] [facility] Date: DEC 30, 2023@14:27 Req Phys: MARY JO MATHIS Loc: CWM/NO/CHIROPRACTOR (Req'g Loc Img Loc: [facility] 1 Service: Unknown (Case 41 COMPLETE) SPINE CERVICAL, 4 OR 5 VIEWS (RAD Detailed) CPT:56134 Reason for Study: neck and arm pain Clinical History: worsening sx Report Status: Verified Date Reported: DEC 30, 2023 Date Verified: DEC 30, 2023 Attendant [employer] E-Sig:/ES/ANG APPLE JR Report: Study: AP, lateral [...] Primary Interpreting Staff: ANG APPLE JR, Radiologist (Attendant [employer]) /ANG PATEL JR [facility] Encounter Notes: All associated encounter notes This section contains the clinical notes associated to the Encounter. 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: [employer] Connected Disabilities with % Eligibility: Active Problem Shared care - human resource consultant and GP [id number] 01/29/2021 AMY HENRY JAWED Type 2 diabetes mellitus controlled 10/27/2020 AMY HENRY JAWED Acquired polycystic kidney disease 02/23/2018 ORLIN HENRYED JAWED Low back pain M54.50 02/14/2022 AMY HENRY JAWED Hyperuricemia E79.0 10/29/2016 TERESA HENRYAMMED JAWED Psoriasis L40.4 10/29/2016 AMY HENRY JAWED Obstructive sleep apnea G47.33 02/27/2017 ORLIN HENRYED JAWED Obesity E66.8 10/29/2016 AMY HENRY Past Surgeries: Patient [place] [facility] with report that he played Golf yesterday and had incr neck pain that he describes as severe. He continued to ice his neck and left shoulder which gave him much relief. There is no longer N/T in fingers He also C/O low back pain. He rates the pain today /10 on the NPRS Temporal: worse in mornings. And a 10 Provocative: lifting arm; head/neck motions; prolonged sitting Palliative: Acupuncture and Advil; mm relaxers when its very bad; He states that using his R hand to lift left UE, while in bed provides some temporary relief. Onset: years and getting worse. Denies specific trauma. Prior treatment: Acupuncture; Physical therapy during service in . 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 Prior nursing care attendant: None Activities: exercises at gym and lifts light weights. 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 He looks down and up when he [...] ~ Supine gluteal stretching as per palpation Objectives 01/13/24: Hypertonic tener C/sp mm, bilat Restrictions cervical Treatment: Corrective/Active Manual therapy 12 min supine cervical Axial traction with towel pull Explained X-rays results to patient Treatment carried out today and well tolerated with relief expressed. The prognosis, at this time, is fair to good. Plan: Complete lumbar spine exam and treat accordingly;consider consult to [facility]; consider MRI Short term goals include improvement in excess 25% on regional disability questionnaire and/or NRS over the first 3-4 treatment visits. It was explained to the patient that resolution of soft tissue complaintsthrough conservative management requires compliance with at home recommendations and avoidance of aggravating factors. Self-Care Recommendations: Continue to Apply ice to neck for 10 minutes [...] core stability, balance, and pain modulation. Visit 3 F/U 4 weekly Seek urgent care as needed. CMT: chiropractic manipulative therapy SMT: Spinal Manipulative Therapy F/D: Flexion Distraction MFR: Myofascial Release S-I: Sacroiliac MFTP: Myofascial Trigger Point NRS: Numeric Rating Scale N/T: Numbness/Tingling PIR: Post isometric relaxation /es/ MARY JO MATHIS D.C. CHIROPRACTOR Signed: 01/13/2024 15:20 MARY JO MATHIS [facility]
--- OUTSIDE RECORDS SUMMARY | 2024-10-25 10:43 | XMS_ITS | Encounter Summary ---
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 [facility] [place] Address [address] [place] [id number] Care Team Providers Care Branch Maker Name Role Phone LEO FORRESTER Primary Care [...] Suresh's Name Patient's Relationship to Policy Suresh [facility] CE ORGANIZAT ION COH G AND E May 10, 2024 [id number] [facility] ER PATIENT [place] PRESCRIPT ION [facility] May 10, 2024 [id number] [facility] ER PATIENT [employer] POINT OF SERVICE [facility] Feb 08, 2018 [id number] [facility] ER PATIENT [employer] BEHAVIORAL HEALTH MENTAL HEALTH [facility] Feb 08, 2018 [id number] [facility] ER PATIENT [employer] PHARMACY PRESCRIPT ION [facility] Feb 08, 2018 [id number] [facility] ER PATIENT [facility] INSURANCE HEALT [facility] May 10, 2019 [id number] JOANNA DURON JR PATIENT [employer] RX PRESCRIPT ION HEALT H [facility] May 10, 2019 [facility] [id number] JOANNA DURON JR PATIENT Selected Encounter This section includes the information on record at [place] for the Encounter. Date/Time Encounter Type Encounter Description Reason Provider Source Jan 19, 2024 03:01 PM OFF/OP EST MARCH X REQ PHY/QHP PRIMARY CARE/MEDICINE ICD-10-CM Z71.89 Other specified counseling EDWIN ACE SA IHE Encounter Template Text not used by [place] Assessments - Encounter Diagnoses This section includes the primary and secondary diagnoses documented for the Encounter. Date/Time Primary/Secondary Diagnosis Diagnosis Name Provider Source Jan 27, 2024 10:03 AM PRIMARY Other specified counseling EDWIN ACE SA [facility] Plan of Treatment: Future Appointments (+ 6 months) and Future Tests (+/- 45 days) The Plan of Treatment section includes future care activities for the patient [facility] [place] [facility] This section includes future appointments and future orders which are active, pending or scheduled. Future Appointments This section includes appointments that were scheduled to occur 6 months from the date of the Encounter, up to a maximum of 20 appointments. The data comes from all [place] treatment facilities. Appointment Date/Time Appointment Type Appointme nt Facility Name Jan 20, 2024 03:00 PM AM[place]ULATORY [place]ICINE [place] [facility] Feb 11, 2024 03:00 PM AM[place]ORY [place] [facility] Feb 25, 2024 03:00 PM AM[place]UL[place]ORY [place] [facility] Feb 26, 2024 03:00 PM AM[place]UL[place]ORY [place] [facility] March 31, 2024 03:00 PM AM[place]ORY [place] [facility] April 01, 2024 03:00 PM AM[place]ORY [place] [facility] May 27, 2024 03:00 PM AM[place]ULATORY [place]INE [place] [facility] [facility] Jun 02, 2024 03:00 PM AM[place]UL[place]ORY [place] [facility] [facility] Jun 30, 2024 03:00 PM AMBULATORY - MEDICINE [facility] Lab Results: +/- 30 days of the encounter This section includes the Chemistry and Hematology Lab Results on record with [place] for the patient. Radiology Reports and Pathology Reports are provided separately, in subsequent sections. Lab Results This section contains the Chemistry/Hematology Results that were resulted 30 days before or 30 daysafter the date of the Encounter. Date/Time Source Result Type Result - Unit Interpretation Reference Range Comment Feb 09, 2024 08:57 AM [facility] HEPATITIS A ANTIBODY (IgM) Specimen Type: SERUM Comment: A Reactive result ( Positive prior to 08/23/13) indicates recent infection with Hepatitis A virus. Hepatitis A IgM antibodies may persist for 3-6 months after acute Hepatitis A infection. Ordering Provider: AMY HENRY Report Released Date/Time: Jan 23, 2024 11:44 AM Reporting Lab: [address] [address] Performing Lab: [address] [address] HEPATITIS A ANTIBODY (IgM) Non Reactive Non Reactive Feb 09, 2024 08:56 AM [facility] LIPID PANEL FASTING Specimen Type: SERUM No comment entered. Ordering Provider: AMY HENRY Report Released Date/Time: Aug 12, 2023 02:58 PM Reporting Lab: [address] [address] Performing Lab: [address] [address] CHOLESTEROL 138 mg/dL TRIGLYCERIDE 56 mg/dL 0-150 LDL calculated 74 mg/dL 0-129 CHOL/HDL 2.6 HDL CHOLESTEROL 53 mg/dL 40-60 Feb 09, 2024 08:56 AM [facility] HEMOGLOBIN A1C PANEL Specimen Type: BLOOD Comment: [...] Aug 12, 2023 02:58 PM Reporting Lab: [facility] [address] [address] Performing Lab: [address] [address] HEMOGLOBIN A1C 6.4 H 4.0-5.6 Feb 09, 2024 08:56 AM [facility] LIVER FUNCTION Specimen Type: SERUM No comment entered. Ordering Provider: AMY HENRY Report Released Date/Time: Aug 12, 2023 02:58 PM Reporting Lab: [facility] [address] [address] Performing Lab: [address] [address] PROTEIN,TOTAL 6.6 g/dL 6.0-8.3 ALBUMIN 3.9 g/dL 3.5-5.0 ALKALINE PHOSPHATASE 61 U/L 40-150 AST 24 U/L 5-34 ALT 35 U/L BILIRUBIN, TOTAL 0.5 mg/dL 0.2-1.2 Feb 09, 2024 08:56 AM [facility] BASIC METABOLIC PANEL (fasting) Specimen Type: SERUM No comment entered. Ordering Provider: AMY HENRY Report Released Date/Time: Aug 12, 2023 02:58 PM Reporting Lab: [facility] [address] [address] Performing Lab: [address] [address] UREA NITROGEN 19 mg/dL 7-25 GLUCOSE 119 mg/dL H 65-100 SODIUM 142 mmol/L 135-145 POTASSIUM 4.4 mmol/L 3.5-5.0 CHLORIDE 104 mmol/L 100-110 CO2 28 meq/L 20-30 CREATININE, Serum 1.15 mg/dL 0.50-1.40 eGFR(CKD-EPI 2020) 76 mL/min >60 Feb 09, 2024 08:56 AM [facility] CBC AND DIFF (AUTO) Specimen Type: BLOOD No comment entered. Ordering Provider: AMY HENRY Report Released Date/Time: Aug 12, 2023 02:58 PM Reporting Lab: [facility] [address] [address] Performing Lab: [facility] [address] [address] WBC 4.03 10*3/uL L 4.50-11.00 RBC 4.62 10*6/uL 4.23-5.66 HGB 13.3 g/dL 12.8-17 HCT 40.8 39.2-50.4 MCV 88.3 fL 82-99 MCHC 32.6 g/dL 30.8-35.1 PLT 179 10*3/uL 140-360 RDW-CV 12.2 12.0-16.0 [place], Abs 0.37 10*3/uL 0.30-1.10 MCH 28.8 pg 26.2-32.6 Neut % 60.8 43.7-75.8 Lymph % 24.1 14.0-42.3 [place] % 9.2 5.1-13.7 Eos % 4.7 0.4-6.8 Baso % 1.2 0.1-2.0 Neut, Abs 2.45 10*3/uL 2.20-7.60 Lymph, Abs 0.97 10*3/uL L 1.00-3.20 Eos, Abs 0.19 10*3/uL 0.03-0.44 Baso, Abs 0.05 10*3/uL 0.01-0.13 Immature Gran % 0.0 0.0-0.7 Immature Gran, Abs 0.00 10*3/uL 0.00-0.06 Dec 30, 2023 02:10 PM [facility] COVID-19 FLU/RSV DIAGNOSTIC PANEL Specimen Type: NASOPHARYNX Comment: This test is authorized for emergency use only. False negative results may occur if virus is present at levels below the analytical limit of detection.Nega tive results do not preclude SARS-CoV-2, influenza or RSV infection and should not be used as the sole basis for treatment or other patient management decisions.[facility] uvaldo FLUVID: HCPs: https://www.[employer] a.gov/media/ 7381/download. Patients: https://www.[employer] a.gov/media/ 788/download Ordering Provider: AMY HENRY Report Released Date/Time: Dec 30, 2023 02:01 PM Reporting Lab: [place] [facility] [address] [address] Performing Lab: [place] [facility] [address] [address] COVID-19 PCR (FLUVID) NEGATIVE NEGATIVE FLU A PCR (FLUVID) NEGATIVE FLU B PCR (FLUVID) NEGATIVE RSV PCR (FLUVID) NEGATIVE Vital Signs: All taken on the encounter date This section contains inpatient and outpatient Vital Signs collected on the date of the Encounter. Date/Time Temperature Pulse Blood Pressure Respiratory Rate SP02 Pain Height Weight Body Mass Index Source Jan 19, 2024 02:58 PM 98 73 142/80 18 95 0 261 34 [place] [facility] Social History: Smoking Status (Most current) and Tobacco Use (All prior to encounter date) This section includes the most current, and the historical, smoking and tobacco- related health factors from the [place] facility where the Encounter took place. Current Smoking Status This section includes the most current smoking, or tobacco-related health factor, from the [place] facility where the Encounter took place. Date/Time Current Smoking Status Comment [facility] Feb 12, 2023 03:00 PM VA-TOBACCO [facility]ED [facility] Tobacco Use History This section includes a history of the smoking, or tobacco-related health factors, that were collected on or before the date of the Encounter. The data comes from the [place] facility where the Encounter took place. Date/Time Smoking Status/Tobac co Use Comment Facility Feb 14, 2022 03:00 PM VA-TOBACCO NEVER USED [place] [facility] [facility] Oct 27, 2020 03:30 PM VA-TOBACCO NEVER USED [place] 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 [facility] Aug 25, 2018 04:16 PM VA-TOBACCO USE MED NO [facility] Aug 25, 2018 04:16 PM VA-TOBACCO USER SOME DAYS [facility] Oct 07, 2017 11:55 AM CURRENT SMOKER 1 cigar a few times a year [facility] Oct 07, 2017 11:55 AM V1-PT NOT INTERESTED IN QUIT TOBACCO USE [facility] Oct 29, 2016 08:57 AM LIFETIME NON-TOBACCO USER [facility] Radiology Reports: +/- 30 days of the [...] the Encounter. The data comes from all [place] treatment facilities. Date/Time Radiology Report Provider Source Dec 30, 2023 02:27 PM SPINE CERVICAL, 4 OR 5 VIEWS: JOANNA DRUON JR [id number] -[id number] Ex Date: DEC 30, 2023@14:27 Req Phys: MARY JO MATHIS Loc: CWM/NO/CHIROPRACTOR (Req'g Loc Img [facility] Service: Unknown (Case 41 COMPLETE) SPINE CERVICAL, 4 OR 5 VIEWS (RAD Detailed) CPT:68947 Reason for Study: neck and arm pain Clinical History: worsening sx Report Status: Verified Date Reported: DEC 30, 2023 Date Verified: DEC 30, 2023 Clerk Travel Reservations E-Sig:/ES/ANG APPLE JR Report: Study: AP, lateral [...] Primary Interpreting Staff: ANG APPLE JR, Radiologist (Clerk Travel Reservations) /ANG PATEL JR [facility] Encounter Notes: All associated encounter notes This section contains the clinical notes associated to the Encounter. Date/Time Encounter Note(s) Provider Source Jan 19, 2024 02:55 PM PRIMARY CARE NOTE: LOCAL TITLE: WALK-IN NOTE PRIMARY CARE (T) STANDARD TITLE: PRIMARY CARE NOTE DATE OF NOTE: JAN 19, 2024@14:55 ENTRY DATE: JAN 19, 2024@14:55:33 AUTHOR: BECKY ACE COSIGNER: URGENCY: STATUS: COMPLETED Patient identity was verified using two identifiers, per [place] Policy: Full Name, Date of JOANNA DURON is a 53 year old who presents to the clinic for cough per AMY HENRY for diagnosis of: Visit Type: Clinic Unscheduled Primary Care Clinic Triage: S: retturns to Clinc with continued cough. It is worse at night. Day isn't so bad. Last seen 12/30/23 Walk in-Reports Reports hydration. O: Vital Signs:taken Allergies: Patient has answered NKA Active Outpatient Medications (including Supplies): Active Outpatient [...] TAKE 1 HOUR PRIOR TO SEXUAL ACTIVITY Pending Outpatient Medications Status 1) DM 10/GUAIFENESN 100MG/5ML (AF & SF) LIQ TAKE 5 MLS PENDING BY MOUTH EVERY 6 HOURS NEEDED Active Non-VA Medications Status 1) Non-VA GUSELKUMAB 100MG/ML INJ 1ML SYR 100MG (1ML) ACTIVE SUBCUTANEOUSLY [id number] 2) Non-VA LISINOPRIL 10MG TAB 10MG BY MOUTH EVERY 10 ACTIVE DAYS Statement/Explanation/Comm ent: Since you last saw your [place] PC Provider, did you have any of the following? Denies returned back to clinic-Vitals signs taken and assessment of lungs. Lung sounds clear Hallam reports Cough continues Fluid and rest No current fever or chills home care instructions given Hallam agrees if return to clinic or call . Provided guidance for worsening symptoms: Hallam advised to call facilities [place] Clinical Contact Center or seek immediate medical attention for new or worsening symptoms -Hallam verbalizes understanding and agree with care plan. /betty/ BECKY ACE REGISTERED NURSE Signed: 01/19/2024 15:04 BECKY ACE [place] [facility]
--- OUTSIDE RECORDS SUMMARY | 2024-10-25 10:43 | XMS_ITS ---
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 Organization [place] Address [address] [place] [address] Care Team Providers Care Traveling Construction Superintendent Name Role Phone LEO FORRESTER Primary Care [...] Suresh's Name Patient's Relationship to Policy Suresh [facility] ORGANIZAT ION COH G AND E May 10, 2024 [id number] [phone] [facility] ER PATIENT [place]ARK PRESCRIPT ION [facility] May 10, 2024 [id number] CARD,SP ER PATIENT [employer] POINT OF SERVICE [facility] Feb 08, 2018 [id number] [phone] CARD,SP ER PATIENT [employer]IORAL HE[facility] MENTAL [facility] Feb 08, 2018 [id number] CARD,[facility] ER PATIENT [employer] PHARMACY PRESCRIPT ION [facility] Feb 08, 2018 [id number] CARD,[facility] ER [facility] May 10, 2019 [id number] [phone] JOANNA DURON JR PATIENT OPT[facility] RX PRESCRIPT ION HEALT H [facility] May 10, 2019 [facility] [id number] [phone] JOANNA DRUON JR PATIENT Selected Encounter This section includes the information on record at NE for the Encounter. Date/Time Encounter Type Encounter Description Reason Provider Source Jan 14, 2024 03:22 PM Outpatient Encounter PRIMARY CARE/MEDICINE BOZENA LOWE Deion Encounter Template Text not used by NE Plan of Treatment: Future Appointments (+ 6 months) and Future Tests (+/- 45 days) The Plan of Treatment section includes future care activities for the patient from all NE treatmentfaatrium healthities. This section includes future appointments and future orders which are active, pending or scheduled. Future Appointments This section includes appointments that were scheduled to occur 6 months from the date of the Encounter, up to a maximum of 20 appointments. The data comes from all [place] treatment facilities. Appointment Date/Time Appointment Type Appointme nt Facility Name Jan 19, 2024 01:45 PM AMBULATORY - NONE [facility] [place] [facility] Jan 19, 2024 03:00 PM AMBULATORY - MEDICINE [facility] [place] [facility] Jan 19, 2024 03:01 PM AMBULATORY - MEDICINE [facility] [place] [facility] Jan 19, 2024 03:02 PM AMBULATORY - MEDICINE [facility] [place] [facility] Jan 20, 2024 03:00 PM AMBULATORY - MEDICINE [facility] [place] [facility] Feb 11, 2024 03:00 PM AMBULATORY - MEDICINE [facility] [place] [facility] Feb 25, 2024 03:00 PM AMBULATORY - MEDICINE [facility] [place] [facility] Feb 26, 2024 03:00 PM AMBULATORY - MEDICINE [facility] [place] [facility] March 31, 2024 03:00 PM AMBULATORY - MEDICINE [facility] [place] [facility] April 01, 2024 03:00 PM AMBULATORY - MEDICINE [facility] [place] [facility] May 27, 2024 03:00 PM AMBULATORY - MEDICINE [facility] [place] [facility] Jun 02, 2024 03:00 PM AMBULATORY - MEDICINE [facility] [place] [facility] Jun 30, 2024 03:00 PM AMBULATORY - MEDICINE [facility] Lab Results: +/- 30 days of the encounter This section includes the Chemistry and Hematology Lab Results on record with NE for the patient. Radiology Reports and Pathology Reports are provided separately, in subsequent sections. Lab Results This section contains the Chemistry/Hematology Results that were resulted 30 days before or 30 daysafter the date of the Encounter. Date/Time Source Result Type Result - Unit Interpretation Reference Range Comment Feb 09, 2024 08:57 AM [facility] HEPATITIS A ANTIBODY (IgM) Specimen Type: SERUM Comment: A Reactive result ( Positive prior to 08/23/13) indicates recent infection with Hepatitis A virus. Hepatitis A IgM antibodies may persist for 3-6 months after acute Hepatitis A infection. Ordering Provider: AMY HENRY Report Released Date/Time: Jan 23, 2024 11:44 AM Reporting Lab: [address] [address] Performing Lab: [address] [address] HEPATITIS A ANTIBODY (IgM) Non Reactive Non Reactive Feb 09, 2024 08:56 AM [facility] LIPID PANEL FASTING Specimen Type: SERUM No comment entered. Ordering Provider: AMY HENRY Report Released Date/Time: Aug 12, 2023 02:58 PM Reporting Lab: [address] [address] Performing Lab: [address] [address] CHOLESTEROL 138 mg/dL TRIGLYCERIDE 56 mg/dL 0-150 LDL calculated 74 mg/dL 0-129 CHOL/HDL 2.6 HDL CHOLESTEROL 53 mg/dL 40-60 Feb 09, 2024 08:56 AM [facility] BASIC METABOLIC PANEL (fasting) Specimen Type: SERUM No comment entered. Ordering Provider: AMY HENRY Report Released Date/Time: Aug 12, 2023 02:58 PM Reporting Lab: [address] [place] [address] Performing Lab: [facility] [address] [facility] [address] UREA NITROGEN 19 mg/dL 7-25 GLUCOSE 119 mg/dL H 65-100 SODIUM 142 mmol/L 135-145 POTASSIUM 4.4 mmol/L 3.5-5.0 CHLORIDE 104 mmol/L 100-110 CO2 28 meq/L 20-30 CREATININE, Serum 1.15 mg/dL 0.50-1.40 eGFR(CKD-EPI 2020) 76 mL/min >60 Feb 09, 2024 08:56 AM [facility] HEMOGLOBIN A1C PANEL Specimen Type: BLOOD [...] Aug 12, 2023 02:58 PM Reporting Lab: [facility] [address] [facility] [address] Performing Lab: [address] [address] HEMOGLOBIN A1C 6.4 H 4.0-5.6 Feb 09, 2024 08:56 AM [facility] LIVER FUNCTION Specimen Type: SERUM No comment entered. Ordering Provider: AMY HENRY Report Released Date/Time: Aug 12, 2023 02:58 PM Reporting Lab: [facility] [address] [facility] [address] Performing Lab: [address] [address] PROTEIN,TOTAL 6.6 g/dL 6.0-8.3 ALBUMIN 3.9 g/dL 3.5-5.0 ALKALINE PHOSPHATASE 61 U/L 40-150 AST 24 U/L 5-34 ALT 35 U/L BILIRUBIN, TOTAL 0.5 mg/dL 0.2-1.2 Feb 09, 2024 08:56 AM [facility] CBC AND DIFF (AUTO) Specimen Type: BLOOD No comment entered. Ordering Provider: AMY HENRY Report Released Date/Time: Aug 12, 2023 02:58 PM Reporting Lab: [facility] [address] [facility] [address] Performing Lab: [facility] [address] [facility] [address] WBC 4.03 10*3/uL L 4.50-11.00 RBC 4.62 10*6/uL 4.23-5.66 HGB 13.3 g/dL 12.8-17 HCT 40.8 39.2-50.4 MCV 88.3 fL 82-99 MCHC 32.6 g/dL 30.8-35.1 PLT 179 10*3/uL 140-360 RDW-CV 12.2 12.0-16.0 Ellis, Abs 0.37 10*3/uL 0.30-1.10 MCH 28.8 pg 26.2-32.6 Neut % 60.8 43.7-75.8 Lymph % 24.1 14.0-42.3 Ellis % 9.2 5.1-13.7 Eos % 4.7 0.4-6.8 Baso % 1.2 0.1-2.0 Neut, Abs 2.45 10*3/uL 2.20-7.60 Lymph, Abs 0.97 10*3/uL L 1.00-3.20 Eos, Abs 0.19 10*3/uL 0.03-0.44 Baso, Abs 0.05 10*3/uL 0.01-0.13 Immature Gran % 0.0 0.0-0.7 Immature Gran, Abs 0.00 10*3/uL 0.00-0.06 Dec 30, 2023 02:10 PM [facility] COVID-19 FLU/RSV DIAGNOSTIC PANEL Specimen Type: NASOPHARYNX Comment: This test is authorized for emergency use only. False negative results may occur if virus is present at levels below the analytical limit of detection.Nega tive results do not preclude SARS-CoV-2, influenza or RSV infection and should not be used as the sole basis for treatment or other patient management decisions.[facility] uvaldo FLUVID: HCPs: https://www.TestObject a.gov/media/ 3703/download. Patients: https://www.TestObject a.gov/media/ 232/download Ordering Provider: AMY HENRY Report Released Date/Time: Dec 30, 2023 02:01 PM Reporting Lab[facility] [address] [facility] [address] Performing Lab: [place] CNT WSN [facility] [address] [facility] [address] COVID-19 PCR (FLUVID) NEGATIVE NEGATIVE FLU A PCR (FLUVID) NEGATIVE FLU B PCR (FLUVID) NEGATIVE RSV PCR (FLUVID) NEGATIVE Social History: Smoking Status (Most current) and Tobacco Use (All prior to encounter date) This section includes the most current, and the historical, smoking and tobacco- related health factors from the NE facility where the Encounter took place. Current Smoking Status This section includes the most current smoking, or tobacco-related health factor, from the NE facility where the Encounter took place. Date/Time Current Smoking Status Comment [facility] it Feb 12, 2023 03:00 PM VA-TOBACCO NEVER USED [facility] Tobacco Use History This section includes a history of the smoking, or tobacco-related health factors, that were collected on or before the date of the Encounter. The data comes from the NE facility where the Encounter took place. Date/Time Smoking Status/Tobac co Use Comment Facility Feb 14, 2022 03:00 PM VA-TOBACCO NEVER USED [place] [facility] Oct 27, 2020 03:30 PM VA-TOBACCO NEVER USED [place] [facility] Aug 25, 2018 04:16 PM VA-TOBACCO DOESNT USE WI 30 MIN WAKEUP NE [facility] Aug 25, 2018 04:16 PM VA-TOBACCO USE > 15 LESS THAN 30 YEARS NE [facility] Aug 25, 2018 04:16 PM VA-TOBACCO USE ADVICE NE CNTRL [facility] Aug 25, 2018 04:16 PM VA-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 Date/Time Radiology Report Provider Source Dec 30, 2023 02:27 PM SPINE CERVICAL, 4 OR 5 VIEWS: JOANNA DURON JR [id number] -1970 [facility] Date: DEC 30, 2023@14:27 Req Phys: MARY JO MATHIS Loc: CWM/NO/CHIROPRACTOR (Req'g Loc Img Loc: [facility] 1 Service: Unknown (Case 41 COMPLETE) SPINE CERVICAL, 4 OR 5 VIEWS (RAD Detailed) CPT:64953 Reason for Study: neck and arm pain Clinical History: worsening sx Report Status: Verified Date Reported: DEC 30, 2023 Date Verified: DEC 30, 2023 Public Accountant E-Sig:/ES/ANG APPLE JR Report: Study: AP, lateral [...] Primary Interpreting Staff: ANG APPLE JR, Radiologist (Public Accountant) /EAD ANG APPLE JR [place] CNTRL [facility] Encounter Notes: All associated encounter notes This section contains the clinical notes associated to the Encounter. Date/Time Encounter Note(s) Provider Source Jan 14, 2024 03:22 PM PRIMARY CARE Incentive MESSAGING: LOCAL TITLE: PRIMARY CARE SECURE MESSAGING STANDARD TITLE: PRIMARY CARE SECURE MESSAGING DATE OF NOTE: JAN 14, 2024@15:22 ENTRY DATE: JAN 14, 2024@15:22:58 AUTHOR: BOZENA LOWE EXP COSIGNER: URGENCY: STATUS: COMPLETED ------Original Message --------- Sent: 01/14/2024 09:41 AM ET From: JOANNA DURON To: Jimmy HENRY_PRIMARY CARE_[facility] Subject: Medication:Cough Good morning I was there two weeks ago for a cough and was told to use over the counter medication I have used everything and still I cannot get a good night of sleep. I keep my awake and I am at my wits end with this can you please give me something to fix this so I can get some sleep. I tested negative to everything and it feels like there is something always at the back of my throat which is making me cough. Thank you ------Original Message --------- Sent: 01/14/2024 03:22 PM ET From: BOZENA LOWE To: JOANNA DURON Subject: Medication:Cough HI, if you would like to be evaluated by our Sick Call Provider this is a walk in clinic, M-F hours are 8-3pm Bozena /betty/ BOZENA LOWE Registered Nurse Signed: 01/14/2024 15:22 BOZENA LOWE CNTRL WSTRN [facility]
--- OUTSIDE RECORDS SUMMARY | 2024-10-25 10:43 | XMS_ITS ---
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 Address [address] [place] [address] Care Team Providers Care Strategy Associate Name Role Phone LEO FORRESTER Primary Care [...] Suresh's Name Patient's Relationship to Policy Suresh [facility] CE ORGANIZAT ION COH G AND E May 10, 2024 [id number] [facility] ER PATIENT CAREMARK PRESCRIPT ION [facility] May 10, 2024 [id number] CARD,SP ER PATIENT CIG[employer] POINT OF SERVICE [facility] Feb 08, 2018 [id number] CARD,[facility] ER PATIENT [employer] BEHAVIORAL HEALTH MENTAL HEALTH [facility] Feb 08, 2018 [id number] CARD,[facility] ER PATIENT CIGNA PHARMACY PRESCRIPT ION [facility] Feb 08, 2018 [id number] CARD,[facility] ER PATIENT [facility] May 10, 2019 [id number] JOANNA DURON JR PATIENT [facility] RX PRESCRIPT ION HEALT [facility] [place] [facility] May 10, 2019 [facility] [id number] DOMI BAUTISTAJOANNA PATIENT Selected Encounter This section includes the information on record at [place] for the Encounter. Date/Time Encounter Type Encounter Description Reason Provider Source Jan 19, 2024 03:00 PM MANUAL THERAPY 1/> [employer]ESSION[employer] MODEL ICD-10-CM M54.2 Cervicalgia MARY JO [facility] Encounter Template Text not used by [place] Assessments - Encounter Diagnoses This section includes the primary and secondary diagnoses documented for the Encounter. Date/Time Primary/Secondary Diagnosis Diagnosis Name Provider Source Jan 19, 2024 03:40 PM PRIMARY Cervicalgia MARY JO MATHIS [place] [facility] [place] [facility] Plan of Treatment: Future Appointments [...] - MEDICINE [place] [facility] Feb 11, 2024 03:00 PM AMBULATORY - MEDICINE [place] [facility] Feb 25, 2024 03:00 PM AMBULATORY - MEDICINE [place] [facility] Feb 26, 2024 03:00 PM AMBULATORY - MEDICINE [place] [facility] March 31, 2024 03:00 PM AMBULATORY - MEDICINE [place] [facility] April 01, 2024 03:00 PM AMBULATORY - MEDICINE [place] [facility] May 27, 2024 03:00 PM AMBULATORY - MEDICINE [place] [facility] Jun 02, 2024 03:00 PM AMBULATORY - MEDICINE [place] [facility] Jun 30, 2024 03:00 PM AMBULATORY - MEDICINE [facility] Lab Results: +/- 30 days of [...] Range Comment Feb 09, 2024 08:57 AM [facility] HEPATITIS A ANTIBODY (IgM) Specimen Type: SERUM Comment: A Reactive result ( Positive prior to 08/23/13) indicates recent infection with Hepatitis A virus. Hepatitis A IgM antibodies may persist for 3-6 months after acute Hepatitis A infection. Ordering Provider: AMY HENRY Report Released Date/Time: Jan 23, 2024 11:44 AM Reporting Lab: [address] [address] Performing Lab: [address] [address] HEPATITIS A ANTIBODY (IgM) Non Reactive Non Reactive Feb 09, 2024 08:56 AM [facility] LIPID PANEL FASTING Specimen Type: SERUM No comment entered. Ordering Provider: AMY HENRY Report Released Date/Time: Aug 12, 2023 02:58 PM Reporting Lab: [address] [address] Performing Lab: [address] [address] CHOLESTEROL 138 mg/dL TRIGLYCERIDE 56 mg/dL 0-150 LDL calculated 74 mg/dL 0-129 CHOL/HDL 2.6 HDL CHOLESTEROL 53 mg/dL 40-60 Feb 09, 2024 08:56 AM [facility] BASIC METABOLIC PANEL (fasting) Specimen Type: SERUM No comment entered. Ordering Provider: AMY HENRY Report Released Date/Time: Aug 12, 2023 02:58 PM Reporting Lab: [address] [address] Performing Lab: [address] [place] [address] UREA NITROGEN 19 mg/dL 7-25 GLUCOSE 119 mg/dL H 65-100 SODIUM 142 mmol/L 135-145 POTASSIUM 4.4 mmol/L 3.5-5.0 CHLORIDE 104 mmol/L 100-110 CO2 28 meq/L 20-30 CREATININE, Serum 1.15 mg/dL 0.50-1.40 eGFR(CKD-EPI 2020) 76 mL/min >60 Feb 09, 2024 08:56 AM [facility] LIVER FUNCTION Specimen Type: SERUM No comment entered. Ordering Provider: AMY HENRY Report Released Date/Time: Aug 12, 2023 02:58 PM Reporting Lab: [address] [address] Performing Lab: [address] [address] PROTEIN,TOTAL 6.6 g/dL 6.0-8.3 ALBUMIN 3.9 g/dL 3.5-5.0 ALKALINE PHOSPHATASE 61 U/L 40-150 AST 24 U/L 5-34 ALT 35 U/L BILIRUBIN, TOTAL 0.5 mg/dL 0.2-1.2 Feb 09, 2024 08:56 AM [facility] HEMOGLOBIN A1C PANEL Specimen Type: BLOOD [...] Aug 12, 2023 02:58 PM Reporting Lab: [facility] [address] [facility] [address] Performing Lab: [address] [address] HEMOGLOBIN A1C 6.4 H 4.0-5.6 Feb 09, 2024 08:56 AM [facility] CBC AND DIFF (AUTO) Specimen Type: BLOOD No comment entered. Ordering Provider: AMY HENRY Report Released Date/Time: Aug 12, 2023 02:58 PM Reporting Lab: [facility] [address] [facility] [address] Performing Lab: [facility] [address] [facility] [address] WBC 4.03 10*3/uL L 4.50-11.00 RBC 4.62 10*6/uL 4.23-5.66 HGB 13.3 g/dL 12.8-17 HCT 40.8 39.2-50.4 MCV 88.3 fL 82-99 MCHC 32.6 g/dL 30.8-35.1 PLT 179 10*3/uL 140-360 RDW-CV 12.2 12.0-16.0 [place], Abs 0.37 10*3/uL 0.30-1.10 MCH 28.8 pg 26.2-32.6 Neut % 60.8 43.7-75.8 Lymph % 24.1 14.0-42.3 [place] % 9.2 5.1-13.7 Eos % 4.7 0.4-6.8 Baso % 1.2 0.1-2.0 Neut, Abs 2.45 10*3/uL 2.20-7.60 Lymph, Abs 0.97 10*3/uL L 1.00-3.20 Eos, Abs 0.19 10*3/uL 0.03-0.44 Baso, Abs 0.05 10*3/uL 0.01-0.13 Immature Gran % 0.0 0.0-0.7 Immature Gran, Abs 0.00 10*3/uL 0.00-0.06 Dec 30, 2023 02:10 PM [facility] COVID-19 FLU/RSV DIAGNOSTIC PANEL Specimen Type: NASOPHARYNX Comment: This test is authorized for emergency use only. False negative results may occur if virus is present at levels below the analytical limit of detection.Nega tive results do not preclude SARS-CoV-2, influenza or RSV infection and should not be used as the sole basis for treatment or other patient management decisions.[facility] uvaldo FLUVID: HCPs: https://www.Moonbasa a.gov/media/ 3553/download. Patients: https://www.Moonbasa a.gov/media/ 1033/download Ordering Provider: AMY HENRY Report Released Date/Time: Dec 30, 2023 02:01 PM Reporting Lab: [place] [facility] [address] [facility] [address] Performing Lab: [place] [facility] [address] [facility] [address] COVID-19 PCR (FLUVID) NEGATIVE NEGATIVE FLU A [...] 73 142/80 18 [phone] [facility] [facility] Social History: Smoking Status (Most current) [...] took place. Date/Time Current Smoking Status Comment [facility] Feb 12, 2023 03:00 PM [facility] Tobacco Use History This section includes a history of the smoking, or tobacco-related health factors, that were collected on or before the date of the Encounter. The data comes from the [place] facility where the Encounter took place. Date/Time Smoking Status/Tobac co Use Comment Facility Feb 14, 2022 03:00 PM VA-TOBACCO NEVER USED [place] [facility] Oct 27, 2020 03:30 PM VA-TOBACCO NEVER USED [place] [place] [facility] Aug 25, 2018 04:16 PM VA-TOBACCO DOESNT USE WI 30 MIN WAKEUP [place] [facility] Aug 25, 2018 04:16 PM VA-TOBACCO USE > 15 LESS THAN 30 YEARS [facility] Aug 25, 2018 04:16 PM VA-TOBACCO USE ADVICE [facility] Aug 25, 2018 04:16 PM VA-TOBACCO USE IRONER OR PRESSER NO [facility] Aug 25, 2018 04:16 PM VA-TOBACCO USE MED NO [facility] Aug 25, 2018 04:16 PM VA-TOBACCO USER SOME DAYS [facility] Oct 07, 2017 11:55 AM CURRENT SMOKER 1 cigar a few times a year [facility] Oct 07, 2017 11:55 AM V1-PT NOT INTERESTED IN QUIT TOBACCO USE [facility] Oct 29, 2016 08:57 AM LIFETIME NON-TOBACCO USER [facility] Radiology Reports: +/- 30 days of [...] CERVICAL, 4 OR 5 VIEWS: JOANNA DURON [id number] -1970 M Ex Date: DEC 30, 2023@14:27 Req Phys: MARY JO MATHIS Loc: CWM/NO/CHIROPRACTOR (Req'g Loc Img Loc: [facility] 1 Service: Unknown (Case 41 COMPLETE) SPINE CERVICAL, 4 OR 5 VIEWS (RAD Detailed) CPT:28811 Reason for Study: neck and arm pain Clinical History: worsening sx Report Status: Verified Date Reported: DEC 30, 2023 Date Verified: DEC 30, 2023 Medical Artist E-Sig:/ES/ANG APPLE JR Report: Study: AP, lateral [...] Primary Interpreting Staff: ANG APPLE JR, Radiologist (Medical Artist) /ANG [facility] Encounter Notes: All associated encounter notes This section contains the clinical notes associated to the Encounter. 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: [employer] Connected Disabilities with % Eligibility: Active Problem Shared care - senior energy consultant and GP [id number] 01/29/2021 AMY HENRY Type 2 diabetes mellitus controlled 10/27/2020 AMY HENRY JAWED Acquired polycystic kidney disease 02/23/2018 AMY HENRY JAWED Low back pain M54.50 02/14/2022 AMY HENRY JAWED Hyperuricemia E79.0 10/29/2016 ORLIN HENRYED JAWED Psoriasis L40.4 10/29/2016 AMY HENRY JAWED Obstructive sleep apnea G47.33 02/27/2017 ORLIN HENRYED JAWED Obesity E66.8 10/29/2016 AMY HENRY Past Surgeries: Patient presents to [place] [facility] with report that he finally got some medication for a persistent dry cough. Vet states that his neck is pretty good which he attributes to following my advice. Every night he applies ice to his neck for 10 minute and he performs gentle stretching. Patient states that he is now able to raise his left arm higher than 90 degrees He played Golf with a simulator yesterday and his neck felt good. There is no longer N/T in fingers He reports mild low back pain which he prefers to delay exam and treatment until his neck no longer needs the time. Temporal: worse in mornings. And a 08/19 Provocative: lifting arm; head/neck motions; prolonged sitting [...] lifting and a lot of PT. Prior physician primary care sports medicine: None Activities: exercises at gym and lifts light weights. 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 He looks down and up when he [...] Supine gluteal stretching as per palpation Objectives 01/19/24: Hypertonic tender C/sp mm, bilat Restrictions cervical Treatment: Corrective/Active [...] /es/ MARY JO MATHIS D.C. CHIROPRACTOR Signed: 01/19/2024 15:40 MARY JO MATHIS CNTRL WSTRN [facility]
--- OUTSIDE RECORDS SUMMARY | 2024-10-25 10:43 | XMS_ITS ---
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 Address [address] [place] [address] Care Team Providers Care Bedspread Cutter Hand Name Role Phone LEO FORRESTER Primary Care [...] COH G AND E May 10, 2024 [id number] [phone] [facility] ER PATIENT CAREMARK PRESCRIPT ION [facility] May 10, 2024 [id number] CARD,SP ER PATIENT CIGNA POINT OF SERVICE [facility] Feb 08, 2018 [id number] [phone] CARD,SP ER PATIENT [employer] BEHAVIORAL HEALTH MENTAL HEALTH [facility] Feb 08, 2018 [id number] CARD,[facility] ER PATIENT CIGNA PHARMACY PRESCRIPT ION [facility] Feb 08, 2018 [id number] CARD,[facility] ER [facility] May 10, 2019 [id number] JOANNA DURON JR PATIENT OPTUM RX PRESCRIPT ION [facility] May 10, 2019 [facility] [id number] JOANNA DURON JR PATIENT Selected Encounter This section includes the information on record at [place] for the Encounter. Date/Time Encounter Type Encounter Description Reason Provider Source Jan 07, 2024 11:54 AM Outpatient Encounter PRIMARY CARE/MEDICINE BOZENA LOWE Deion Encounter Template Text not used by [place] Plan of Treatment: Future Appointments (+ 6 months) and Future Tests (+/- 45 days) The Plan of Treatment section includes future care activities for the patient from all [place] [facility]. This section includes future appointments and future [...] 08, 2024 03:00 PM AMBULATORY - MEDICINE [place] [facility] [place] [facility] Jan 13, 2024 03:00 PM AMBULATORY - MEDICINE [place] [facility] [place] [facility] Jan 19, 2024 01:45 PM AMBULATORY - NONE [place] [facility] [place] [facility] Jan 19, 2024 03:00 PM AMBULATORY - MEDICINE [place] [facility] [place] [facility] Jan 19, 2024 03:01 PM AMBULATORY - MEDICINE [place] [facility] [place] [facility] Jan 19, 2024 03:02 PM AMBULATORY - MEDICINE [facility] [place] [facility] Jan 20, 2024 03:00 PM AMBULATORY - MEDICINE [facility] [facility] Feb 11, 2024 03:00 PM AMBULATORY - MEDICINE [place] [facility] [facility] Feb 25, 2024 03:00 PM AMBULATORY - MEDICINE [facility] [facility] Feb 26, 2024 03:00 PM AMBULATORY - MEDICINE [facility] [facility] March 31, 2024 03:00 PM AMBULATORY - MEDICINE [facility] [place] [facility] April 01, 2024 03:00 PM AMBULATORY - MEDICINE [facility] May 27, 2024 03:00 PM AMBULATORY - MEDICINE [facility] N[facility] Jun 02, 2024 03:00 PM [facility] Jun 30, 2024 03:00 PM AMBULATORY - MEDICINE [facility] Lab Results: +/- 30 days of the encounter This section includes the Chemistry and Hematology Lab Results on record with [place] for the patient. Radiology Reports and Pathology Reports are provided separately, in subsequent sections. Lab Results This section contains the Chemistry/Hematology Results that were resulted 30 days before or 30 daysafter the date of the Encounter. Date/Time Source Result Type Result - Unit Interpretation Reference Range Comment Dec 30, 2023 02:10 PM [facility] COVID-19 FLU/RSV DIAGNOSTIC PANEL Specimen Type: [...] management decisions.Cep heid FLUVID: HCPs: https://www.f [place].gov/media/ 053628/downlo ad. Patients: https://www.f [place].gov/media/ 030023/downlo ad Ordering Provider: RUBY CHING Report Released Date/Time: Dec 30, 2023 02:01 PM Reporting Lab: [address] [address] Performing Lab: [address] [address] COVID-19 PCR (FLUVID) NEGATIVE NEGATIVE FLU A [...] took place. Date/Time Current Smoking Status Comment [facility] it Feb 12, 2023 03:00 PM [facility] Tobacco Use History This section includes a history of the smoking, or tobacco-related health factors, that were collected on or before the date of the Encounter. The data comes from the [place] facility where the Encounter took place. Date/Time Smoking Status/Tobac co Use Comment Facility Feb 14, 2022 03:00 PM VA-TOBACCO NEVER USED [facility] Oct 27, 2020 03:30 PM VA-TOBACCO NEVER USED [place] [facility] [facility] Aug 25, 2018 04:16 PM VA-TOBACCO DOESNT USE WI 30 MIN WAKEUP [place] [facility] Aug 25, 2018 04:16 PM VA-TOBACCO USE > 15 LESS THAN 30 YEARS [place] [facility] Aug 25, 2018 04:16 PM VA-TOBACCO USE ADVICE [facility] Aug 25, 2018 04:16 PM VA-TOBACCO USE DEMAND INSPECTOR NO [facility] Aug 25, 2018 04:16 PM VA-TOBACCO USE MED NO [facility] Aug 25, 2018 04:16 PM VA-TOBACCO USER SOME DAYS [place] [facility] [facility] Oct 07, 2017 11:55 AM CURRENT SMOKER 1 cigar a few times a year [facility] Oct 07, 2017 11:55 AM V1-PT NOT INTERESTED IN QUIT TOBACCO USE [place] [facility] [facility] Oct 29, 2016 08:57 AM LIFETIME NON-TOBACCO USER [facility] Radiology Reports: +/- 30 days of [...] the Encounter. The data comes from all [place] treatment facilities. Date/Time Radiology Report Provider Source Dec 30, 2023 02:27 PM SPINE CERVICAL, 4 OR 5 VIEWS: JOANNA DURON JR [id number] -[id number] M Exm Date: DEC 30, 2023@14:27 Req Phys: MARY JO MATHIS Loc: CWM/NO/CHIROPRACTOR (Req'g Loc Img Loc: [facility] 1 Service: Unknown (Case 41 COMPLETE) SPINE CERVICAL, 4 OR 5 VIEWS (RAD Detailed) CPT:06926 Reason for Study: neck and arm pain Clinical History: worsening sx Report Status: Verified Date Reported: DEC 30, 2023 Date Verified: DEC 30, 2023 Main Line Assembler E-Sig:/ES/ANG APPLE JR Report: Study: AP, [...] Primary Interpreting Staff: ANG APPLE JR, Radiologist (Main Line Assembler) /ANG PATEL JR [facility] Encounter Notes: All associated encounter notes This section contains the clinical notes associated to the Encounter. Date/Time Encounter Note(s) Provider Source Jan 09, 2024 01:14 PM PRIMARY CARE SECUR E MESSAGING: LOCAL TITLE: PRIMARY CARE SECURE MESSAGING STANDARD TITLE: PRIMARY CARE SECURE MESSAGING DATE OF NOTE: JAN 09, 2024@13:14 ENTRY DATE: JAN 09, 2024@13:14:41 AUTHOR: BOZENA LOWE COSIGNER: URGENCY: STATUS: COMPLETED ------Original Message ------- Sent: 01/09/2024 10:39 AM ET From: JOANNA DURON To: CARLJimmy_[facility] Subject: Test:Allergy test I just got that message can we set it up for the 5th at 2-2:30 ------Original Message ------- Sent: 01/09/2024 01:14 PM ET From: BOZENA LOWE To: JOANNA DURON Subject: Test:Allergy test De, Now that the consult is in and approved, you don't have to go thru us anymore. You can call the medical office scheduler yourself. [facility] [phone]. You also have a chiropractor appt on 01/13/24 at 3pm. Have a great day! Bozena /betty/ BOZENA LOWE Registered Nurse Signed: 01/09/2024 13:14 BOZENA LOWE [place] [facility] [place] [facility] Jan 07, 2024 12:27 PM PRIMARY CARE SECUR E MESSAGING: LOCAL TITLE: PRIMARY CARE SECURE MESSAGING STANDARD TITLE: PRIMARY CARE SECURE MESSAGING DATE OF NOTE: JAN 07, 2024@12:27 ENTRY DATE: JAN 07, 2024@12:27:43 AUTHOR: BOZENA LOWE EXP COSIGNER: URGENCY: STATUS: COMPLETED ------Original Message ------- Sent: 01/07/2024 11:59 AM ET From: JOANNA DURON To: CARLJimmy_[facility] Subject: Test:Allergy test Thank you but I saw the corporate human resources manager once before I would just like the test to be done. ------Original Message ------- Sent: 01/07/2024 12:27 PM ET From: BOZENA LOWE To: JOANNA DURON Subject: Test:Allergy test MARNIE LOWE Registered Nurse Signed: 01/07/2024 12:27 Receipt Acknowledged By: 01/07/2024 22:23 /brayden CHING MD STAFF PHYSICIAN BOZENA LOWE [facility] Jan 07, 2024 11:54 AM PRIMARY CARE SECUR E MESSAGING: LOCAL TITLE: PRIMARY CARE SECURE MESSAGING STANDARD TITLE: PRIMARY CARE SECURE MESSAGING DATE OF NOTE: JAN 07, 2024@11:54 ENTRY DATE: JAN 07, 2024@11:54:43 AUTHOR: BOZENA LOWE EXP COSIGNER: URGENCY: STATUS: COMPLETED ------Original Message ------- Sent: 01/07/2024 10:15 AM ET From: JOANNA DURON To: Jimmy CHING_[facility] Subject: Test:Allergy test Looking for a food bloating allergy test to be done if possible ------Original Message ------- Sent: 01/07/2024 11:54 AM ET From: BOZENA LOWE To: JOANNA DURON Subject: Test:Allergy test Hi, would you be interested in talking with a transportation supervisor first. There are other suggestions like avoiding foods that have gluten, avoiding high processed foods and also sugar, milk and cheese. I will pass your concerns to Dr. Ching. Bozena LOWE Registered Nurse Signed: 01/07/2024 11:54 Receipt Acknowledged By: 01/07/2024 22:17 /brayden CHING MD STAFF PHYSICIAN BOZENA LOWE [facility]
--- OUTSIDE RECORDS SUMMARY | 2024-10-25 10:43 | XMS_ITS | Encounter Summary ---
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 Address [address] [place] [address] Care Team Providers Care Gore Seamer Name Role Phone LEO FORRESTER Primary Care [...] Suresh's Name Patient's Relationship to Policy Suresh [facility] E May 10, 2024 [id number] [facility] ER PATIENT CAREMARK PRESCRIPT ION [facility] May 10, 2024 [id number] CARD,[facility] ER PATIENT CIGNA POINT OF SERVICE [facility] Feb 08, 2018 [id number] [facility] ER PATIENT CIGNA BEHAVIORAL HEALTH MENTAL HEALTH [facility] Feb 08, 2018 [id number] CARD,[facility] ER PATIENT CIGNA PHARMACY PRESCRIPT ION [facility] Feb 08, 2018 [id number] [phone] CARD,[facility] ER PATIENT [facility] SPECIAL CLASS [facility] May 10, 2019 [id number] JOANNA DURON JR PATIENT OPTUM RX PRESCRIPT ION HEALT H NEW ENGL [facility] May 10, 2019 [facility] [id number] DOMI JOANNA PATIENT Selected Encounter This section includes the information on record at [place] for the Encounter. Date/Time Encounter Type Encounter Description Reason Provider Source Jan 20, 2024 03:00 PM ACUPUNCT W/O STIMUL ADDL 15M [facility] TREATMENT ICD-10-CM M54.50 Low back pain, unspecified LUIS RAZO PHER M IHE Encounter Template Text not used by [place] Assessments - Encounter Diagnoses This section includes the primary and secondary diagnoses documented for the Encounter. Date/Time Primary/Secondary Diagnosis Diagnosis Name Provider Source Jan 20, 2024 03:39 PM PRIMARY Low back pain, unspecified LUIS RAZO PHER M [place] [facility] Plan of Treatment: Future Appointments (+ 6 months) and Future Tests (+/- 45 days) The Plan of Treatment section includes future care activities for the patient from all [place] [facility]. This section includes future appointments and future orders which are active, pending or scheduled. Future Appointments This section includes appointments that were scheduled to occur 6 months from the date of the Encounter, up to a maximum of 20 appointments. The data comes from all [place] treatment facilities. Appointment Date/Time Appointment Type Appointme nt Facility Name Feb 11, 2024 03:00 PM AMBULATORY - MEDICINE [facility] [place] [facility] Feb 25, 2024 03:00 PM AMBULATORY - MEDICINE [place] [facility] [place] [facility] Feb 26, 2024 03:00 PM AMBULATORY - MEDICINE [place] [facility] [place] [facility] March 31, 2024 03:00 PM AMBULATORY - MEDICINE [place] [facility] [place] [facility] April 01, 2024 03:00 PM AMBULATORY - MEDICINE [place] [facility] [place] [facility] May 27, 2024 03:00 PM AMBULATORY - MEDICINE [place] [facility] [place] [facility] Jun 02, 2024 03:00 PM AMBULATORY - MEDICINE [place] [facility] [place] [facility] Jun 30, 2024 03:00 PM AMBULATORY - MEDICINE [facility] Lab Results: +/- 30 days of the encounter This section includes the Chemistry and Hematology Lab Results on record with [place] for the patient. Radiology Reports and Pathology Reports are provided separately, in subsequent sections. Lab Results This section contains the Chemistry/Hematology Results that were resulted 30 days before or 30 daysafter the date of the Encounter. Date/Time Source Result Type Result - Unit Interpretation Reference Range Comment Feb 09, 2024 08:57 AM [facility] HEPATITIS A ANTIBODY (IgM) Specimen Type: SERUM Comment: A Reactive result ( Positive prior to 08/23/13) indicates recent infection with Hepatitis A virus. Hepatitis A IgM antibodies may persist for 3-6 months after acute Hepatitis A infection. Ordering Provider: AMY HENRY Report Released Date/Time: Jan 23, 2024 11:44 AM Reporting Lab: [address] [address] Performing Lab: [address] [address] HEPATITIS A ANTIBODY (IgM) Non Reactive Non Reactive Feb 09, 2024 08:56 AM [facility] LIPID PANEL FASTING Specimen Type: SERUM No comment entered. Ordering Provider: AMY HENRY Report Released Date/Time: Aug 12, 2023 02:58 PM Reporting Lab: [facility] [address] [facility] [address] Performing Lab: [address] [address] CHOLESTEROL 138 mg/dL TRIGLYCERIDE 56 mg/dL 0-150 LDL calculated 74 mg/dL 0-129 CHOL/HDL 2.6 HDL CHOLESTEROL 53 mg/dL 40-60 Feb 09, 2024 08:56 AM [facility] HEMOGLOBIN A1C PANEL Specimen Type: BLOOD [...] Aug 12, 2023 02:58 PM Reporting Lab: [facility] [address] [facility] [address] Performing Lab: [address] [address] HEMOGLOBIN A1C 6.4 H 4.0-5.6 Feb 09, 2024 08:56 AM [facility] BASIC METABOLIC PANEL (fasting) Specimen Type: SERUM No comment entered. Ordering Provider: AMY HENRY Report Released Date/Time: Aug 12, 2023 02:58 PM Reporting Lab: [address] [address] Performing Lab: [address] [address] UREA NITROGEN 19 mg/dL 7-25 GLUCOSE 119 mg/dL H 65-100 SODIUM 142 mmol/L 135-145 POTASSIUM 4.4 mmol/L 3.5-5.0 CHLORIDE 104 mmol/L 100-110 CO2 28 meq/L 20-30 CREATININE, Serum 1.15 mg/dL 0.50-1.40 eGFR(CKD-EPI 2020) 76 mL/min >60 Feb 09, 2024 08:56 AM [facility] LIVER FUNCTION Specimen Type: SERUM No comment entered. Ordering Provider: AMY HENRY Report Released Date/Time: Aug 12, 2023 02:58 PM Reporting Lab: [address] [address] Performing Lab: [address] [address] PROTEIN,TOTAL 6.6 g/dL 6.0-8.3 ALBUMIN 3.9 g/dL 3.5-5.0 ALKALINE PHOSPHATASE 61 U/L 40-150 AST 24 U/L 5-34 ALT 35 U/L BILIRUBIN, TOTAL 0.5 mg/dL 0.2-1.2 Feb 09, 2024 08:56 AM [facility] CBC AND DIFF (AUTO) Specimen Type: BLOOD No comment entered. Ordering Provider: AMY HENRY Report Released Date/Time: Aug 12, 2023 02:58 PM Reporting Lab: [facility] [address] [facility] [address] Performing Lab: [facility] [address] [facility] [address] WBC 4.03 10*3/uL L 4.50-11.00 RBC 4.62 10*6/uL 4.23-5.66 HGB 13.3 g/dL 12.8-17 HCT 40.8 39.2-50.4 MCV 88.3 fL 82-99 MCHC 32.6 g/dL 30.8-35.1 PLT 179 10*3/uL 140-360 RDW-CV 12.2 12.0-16.0 [place], Abs 0.37 10*3/uL 0.30-1.10 MCH 28.8 pg 26.2-32.6 Neut % 60.8 43.7-75.8 Lymph % 24.1 14.0-42.3 [place] % 9.2 5.1-13.7 Eos % 4.7 0.4-6.8 Baso % 1.2 0.1-2.0 Neut, Abs 2.45 10*3/uL 2.20-7.60 Lymph, Abs 0.97 10*3/uL L 1.00-3.20 Eos, Abs 0.19 10*3/uL 0.03-0.44 Baso, Abs 0.05 10*3/uL 0.01-0.13 Immature Gran % 0.0 0.0-0.7 Immature Gran, Abs 0.00 10*3/uL 0.00-0.06 Dec 30, 2023 02:10 PM [facility] COVID-19 FLU/RSV DIAGNOSTIC PANEL Specimen Type: NASOPHARYNX Comment: This test is authorized for emergency use only. False negative results may occur if virus is present at levels below the analytical limit of detection.Nega tive results do not preclude SARS-CoV-2, influenza or RSV infection and should not be used as the sole basis for treatment or other patient management decisions.[facility] uvaldo FLUVID: HCPs: https://www.[facility].gov/media/ 6749/download. Patients: https://www.[facility].gov/media/ 6682/download Ordering Provider: AMY HENRY Report Released Date/Time: Dec 30, 2023 02:01 PM Reporting Lab: [place] [facility] [address] [facility] [address] Performing Lab: [place] [facility] [facility] [address] [facility] [address] COVID-19 PCR (FLUVID) NEGATIVE NEGATIVE FLU A PCR (FLUVID) NEGATIVE FLU B PCR (FLUVID) NEGATIVE RSV PCR (FLUVID) NEGATIVE Social History: Smoking Status (Most current) and Tobacco Use (All prior to encounter date) This section includes the most current, and the historical, smoking and tobacco- related health factors from the [place] facility where the Encounter took place. Current Smoking Status This section includes the most current smoking, or tobacco-related health factor, from the [place] facility where the Encounter took place. Date/Time Current Smoking Status Comment [facility] Feb 12, 2023 03:00 PM VA-TOBACCO NEVER USED [place] [facility] Tobacco Use History This section includes a history of the smoking, or tobacco-related health factors, that were collected on or before the date of the Encounter. The data comes from the [place] facility where the Encounter took place. Date/Time Smoking Status/Tobac co Use Comment Facility Feb 14, 2022 03:00 PM VA-TOBACCO NEVER USED [place] [facility] [facility] Oct 27, 2020 03:30 PM VA-TOBACCO NEVER USED [place] [facility] [facility] Aug 25, 2018 04:16 PM VA-TOBACCO DOESNT USE WI 30 MIN WAKEUP [place] [place] [facility] Aug 25, 2018 04:16 PM VA-TOBACCO USE > 15 LESS THAN 30 YEARS [place] [facility] [facility] Aug 25, 2018 04:16 PM VA-TOBACCO USE ADVICE [facility] Aug 25, 2018 04:16 PM VA-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 The data comes from all [place] treatment facilities. Date/Time Radiology Report Provider Source Dec 30, 2023 02:27 PM SPINE CERVICAL, 4 OR 5 VIEWS: JOANNA DURON JR [id number] M Exm Date: DEC 30, 2023@14:27 Req Phys: MARY JO MATHIS Loc: CWM/NO/CHIROPRACTOR (Req'g Loc Img Loc: [facility] 1 Service: Unknown (Case 41 COMPLETE) SPINE CERVICAL, 4 OR 5 VIEWS (RAD Detailed) CPT:94482 Reason for Study: neck and arm pain Clinical History: worsening sx Report Status: Verified Date Reported: DEC 30, 2023 Date Verified: DEC 30, 2023 Dinkey Driver E-Sig:/ES/ANG APPLE JR Report: Study: AP, lateral [...] Primary Interpreting Staff: ANG APPLE JR, Radiologist (Dinkey Driver) /ANG PATEL JR [place] [facility] [place] [facility] Encounter Notes: All associated encounter notes This section contains the clinical notes associated to the Encounter. Date/Time Encounter Note(s) Provider Source Jan 20, 2024 03:36 PM ACUPUNCTURE NOTE: LOCAL TITLE: ACUPUNCTURE TREATMENT STANDARD TITLE: ACUPUNCTURE NOTE DATE OF NOTE: JAN 20, 2024@15:36 ENTRY DATE: JAN 20, 2024@15:36:37 AUTHOR: MAYI RAZO COSIGNER: URGENCY: STATUS: COMPLETED CARD,JOANNA Jones is a 53 WHITE MALE who presents with Low back pain, sciatica, neck pain. Pain in left arm Active Problem Shared care - project consultant and GP [id number] 01/29/2021 CARL,MOHAMMED JAWED Type 2 diabetes mellitus controlled 10/27/2020 MED,MOHAMMED JAWED Acquired polycystic kidney disease 02/23/2018 AHMED,MOHAMMED JAWED Low back pain M54.50 02/14/2022 AHMED,MOHAMMED JAWED Hyperuricemia E79.0 10/29/2016 AHMED,MOHAMMED JAWED Psoriasis L40.4 10/29/2016 AHMED,MOHAMMED JAWED Obstructive sleep apnea G47.33 02/27/2017 AHMED,MOHAMMED JAWED Obesity E66.8 10/29/2016 AHMED,MOHAMMED JAWED Date Jan CC / HPI - presents with 20 year hx of low back pain that started while serving in the [employer]. Pain is bilateral lumbar pain with occasional [...] family stresses RESPONSE TO PREVIOUS TREATMENT. reports last treatment was very helpful. His left shoulder is improved and he has greater range of motion without pain. He credits the acupuncture and chiropractic with the improvement. states today that he has some right- sided low back pain that is a bit more elevated than its been in the past few weeks. No radiation into legs _ OBJECTIVE General: . Patient in no [...] ]Pyonex Needle: remove prior to bathing per professional poker player INFORMED CONSENT: Oral Consent obtained on Jan The patient was positioned comfortably. Oral consent [...] ]Torso: [ ]Hip / Glute Area: [X] LUE: LK, DB, ZB, SI 4 [X] RUE: Eloisa 5, Eloisa 5.5, Eloisa 6 [X] LLE: KD 3, KD 4, KD 5 [X] RLE: UB 65, GB 41, GB 40, GB [...] new consult is required /betty/ MAYI RAZO LA.C, DIPL.AC POTLINE MONITOR Signed: 01/20/2024 15:59 MAYI RAZO CN[facility]L [facility]
--- OUTSIDE RECORDS SUMMARY | 2024-10-25 10:43 | XMS_ITS ---
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 Organization [facility] [place] Address [address] [place] [address] Care Team Providers Care Decorating Kiln Operator Name Role Phone LEO FORRESTER Primary Care [...] Suresh's Name Patient's Relationship to Policy Suresh [facility] CE ORGANIZAT ION COH G AND E May 10, 2024 [id number] [phone] [facility] ER PATIENT [place] PRESCRIPT ION [facility] May 10, 2024 [id number] CARD,SP ER PATIENT [employer] POINT OF SERVICE [facility] Feb 08, 2018 [id number] CARD,[facility] ER PATIENT [employer] BEHAVIORAL HE[facility] MENTAL HE[facility] Feb 08, 2018 [id number] CARD,[facility] PATIENT [employer] PHARMAC[facility] PRESCRIPT ION [facility] Feb 08, 2018 [id number] CARD,[facility] PATIENT [facility] May 10, 2019 [id number] JOANNA DURON JR PATIENT [employer] RX PRESCRIPT ION HEALT H [facility] [place] May 10, 2019 [facility] [id number] DOMI BAUTISTAJOANNA PATIENT Selected Encounter This section includes the information on record at [place] for the Encounter. Date/Time Encounter Type Encounter Description Reason Provider Source Jan 08, 2024 03:00 PM MANUAL THERAPY 1/> [facility] ICD-10-CM M54.2 Cervicalgia MARY JO MATHIS Deion Encounter Template Text not used by [place] Assessments - Encounter Diagnoses This section includes the primary and secondary diagnoses documented for the Encounter. Date/Time Primary/Secondary Diagnosis Diagnosis Name Provider Source Jan 08, 2024 03:48 PM PRIMARY Cervicalgia MARY JO MATHIS [facility] [place] [facility] Plan of Treatment: Future Appointments (+ 6 months) and Future Tests (+/- 45 days) The Plan of Treatment section includes future care activities for the patient from all [place] treatmentfacilities. This section includes future appointments and future orders which are active, pending or scheduled. Future Appointments This section includes appointments that were scheduled to occur 6 months from the date of the Encounter, up to a maximum of 20 appointments. The data comes from all [place] treatment facilities. Appointment Date/Time Appointment Type Appointme nt Facility Name Jan 13, 2024 03:00 PM AMBULATORY - MEDICINE [place] [facility] [place] [facility] Jan 19, 2024 01:45 PM AMBULATORY - NONE [facility] [place] [facility] Jan 19, 2024 03:00 PM AMBULATORY - MEDICINE [place] [facility] [place] [facility] Jan 19, 2024 03:01 PM AMBULATORY - MEDICINE [facility] [place] [facility] Jan 19, 2024 03:02 PM AMBULATORY - MEDICINE [place] [facility] [place] [facility] Jan 20, 2024 03:00 PM AMBULATORY - MEDICINE [facility] [place] [facility] Feb 11, 2024 03:00 PM AMBULATORY - MEDICINE [place] [facility] [place] [facility] Feb 25, 2024 03:00 PM AMBULATORY - MEDICINE [place] [facility] [place] [facility] Feb 26, 2024 03:00 PM [facility] March 31, 2024 03:00 PM [facility] April 01, 2024 03:00 PM [facility] May 27, 2024 03:00 PM [facility] Jun 02, 2024 03:00 PM [facility] Jun 30, 2024 03:00 PM [facility] Lab Results: +/- 30 days of the encounter This section includes the Chemistry and Hematology Lab Results on record with [place] for the patient. Radiology Reports and Pathology Reports are provided separately, in subsequent sections. Lab Results This section contains the Chemistry/Hematology Results that were resulted 30 days before or 30 daysafter the date of the Encounter. Date/Time Source Result Type Result - Unit Interpretation Reference Range Comment Dec 30, 2023 02:10 PM [facility] COVID-19 FLU/RSV DIAGNOSTIC PANEL Specimen Type: [...] management decisions.Cep heid FLUVID: HCPs: https://www. da.gov/media/ 522035/downlo ad. Patients: https://www. da.gov/media/ 526983/downlo ad Ordering Provider: RUBY HENRY Report Released Date/Time: Dec 30, 2023 02:01 PM Reporting Lab: [address] [id number] Performing Lab: [address] [address] COVID-19 PCR (FLUVID) NEGATIVE NEGATIVE FLU A PCR (FLUVID) NEGATIVE FLU B PCR (FLUVID) NEGATIVE RSV PCR (FLUVID) NEGATIVE Social History: Smoking Status (Most current) and Tobacco Use (All prior to encounter date) This section includes the most current, and the historical, smoking and tobacco- related health factors from the [place] facility where the Encounter took place. Current Smoking Status This section includes the most current smoking, or tobacco-related health factor, from the [place] facility where the Encounter took place. Date/Time Current Smoking Status Comment Rafi cuadra Feb 12, 2023 03:00 PM [facility]ACCO [facility] Tobacco Use History This section includes a history of the smoking, or tobacco-related health factors, that were collected on or before the date of the Encounter. The data comes from the [place] facility where the Encounter took place. Date/Time Smoking Status/Tobac co Use Comment Facility Feb 14, 2022 03:00 PM VA-TOBACCO NEVER USED [facility] [place] [facility] Oct 27, 2020 03:30 PM VA-TOBACCO NEVER USED [facility] [place] [facility] Aug 25, 2018 04:16 PM VA-TOBACCO DOESNT USE WI 30 MIN WAKEUP [facility] [place] [facility] Aug 25, 2018 04:16 PM VA-TOBACCO USE > 15 LESS THAN 30 YEARS [facility] [place] [facility] Aug 25, 2018 04:16 PM VA-TOBACCO USE ADVICE [facility] [place] [facility] Aug 25, 2018 04:16 PM VA-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 USE 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 [facility] [place] [facility] Aug 25, 2018 04:16 PM VA-TOBACCO USE MED NO [facility] [place] [facility] Aug 25, 2018 04:16 PM VA-TOBACCO USER SOME DAYS [facility] [place] [facility] Oct 07, 2017 11:55 AM CURRENT SMOKER 1 cigar a few times a year [facility] [place] [facility] Oct 07, 2017 11:55 AM V1-PT NOT INTERESTED IN QUIT TOBACCO USE [facility] [place] [facility] Oct 29, 2016 08:57 AM LIFETIME NON-TOBACCO USER [facility] [place] [facility] Radiology Reports: +/- 30 days [...] the Encounter. The data comes from all [place] treatment facilities. Date/Time Radiology Report Provider Source Dec 30, 2023 02:27 PM SPINE CERVICAL, 4 OR 5 VIEWS: JOANNA DURON JR [id number] -[id number] M Exm Date: DEC 30, 2023@14:27 Req Phys: MARY JO MATHIS Loc: CWM/NO/CHIROPRACTOR (Req'g Loc Img Loc: [facility]/BUILDING 1 Service: Unknown (Case 41 COMPLETE) SPINE CERVICAL, 4 OR 5 VIEWS (RAD Detailed) CPT:12211 Reason for Study: neck and arm pain Clinical History: worsening sx Report Status: Verified Date Reported: DEC 30, 2023 Date Verified: DEC 30, 2023 Grape Pruner E-Sig:/ES/ANG APPLE JR Report: Study: AP, lateral [...] Primary Interpreting Staff: ANG APPLE JR, Radiologist (Grape Pruner) /ANG PATEL JR [facility] Encounter Notes: All associated encounter notes This section contains the clinical notes associated to the Encounter. Date/Time Encounter Note(s) Provider Source Jan 08, 2024 03:05 PM CHIROPRACTIC NOTE: LOCAL TITLE: CHIROPRACTOR PROGRESS NOTE STANDARD TITLE: CHIROPRACTIC NOTE DATE OF NOTE: JAN 08, 2024@15:05 ENTRY DATE: JAN 08, 2024@15:05:41 AUTHOR: MARY JO MATHIS EXP COSIGNER: URGENCY: STATUS: COMPLETED CARD,JOANNA Jones JR is a 53 WHITE MALE with prior history of COMBAT SERVICE INDICATED: No POS: PERIOD OF SERVICE - OTHER OR NONE SERVICE BRANCH: [employer] Service Connected Disabilities with % Eligibility: Active Problem Shared care - cloud consultant and GP [id number] 01/29/2021 CARL,TERESAAMMED JAWED Type 2 diabetes mellitus controlled 10/27/2020 ROMMED,MOHAMMED JAWED Acquired polycystic kidney disease 02/23/2018 AHMED,MOHAMMED JAWED Low back pain M54.50 02/14/2022 AHMED,MOHAMMED JAWED Hyperuricemia E79.0 10/29/2016 ROMMED,MOHAMMED JAWED Psoriasis L40.4 10/29/2016 AHMED,MOHAMMED JAWED Obstructive sleep apnea G47.33 02/27/2017 CARL,MOHAMMED JAWED Obesity E66.8 10/29/2016 CARL,MOHAMMED JAWED Past Surgeries: Patient [facility] [place] [facility] with report that he did ice his neck and left shoulder which gave him some relief. He used ice on 3 occasions- 3 days. Today there is no N/T in fingers He also C/O low back pain. He rates the pain today 2/10 on the NPRS The neck/shoulder pain is sharp electric shock like that is intermittent and sometimes dull Radiation Yes Temporal: worse in mornings. And [...] lifting and a lot of PT. 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 He looks down and [...] gluteal stretching as per palpation Treatment: Corrective/Active Manual therapy 10 min supine cervical Axial traction with towel pull CMT low force At cervical Explained X-rays results to patient Treatment carried [...] core stability, balance, and pain modulation. Visit 2 F/U 4 weekly Seek urgent care as needed. CMT: chiropractic manipulative therapy SMT: Spinal Manipulative Therapy F/D: Flexion Distraction MFR: Myofascial Release S-I: Sacroiliac MFTP: Myofascial Trigger Point NRS: Numeric Rating Scale N/T: Numbness/Tingling PIR: Post isometric relaxation /es/ MARY JO MATHIS D.C. CHIROPRACTOR Signed: 01/08/2024 15:48 MARY JO MATHIS [facility]
--- OUTSIDE RECORDS SUMMARY | 2024-10-25 10:43 | XMS_ITS | Encounter Summary ---
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 Organization [facility] Address [address] [place] [address] Care Team Providers Care Lithographers Printer Name Role Phone LEO FORRESTER Primary Care [...] Suresh's Name Patient's Relationship to Policy Suresh [facility] CE ORGANIZAT ION COH G AND E May 10, 2024 [id number] [facility] [place] PRESCRIPT ION [facility] May 10, 2024 [id number] [facility] PATIENT [employer] POINT OF SERVICE [facility] Feb 08, 2018 [id number] [phone] [facility] PATIENT [facility]IORAL HEALTH [facility] Feb 08, 2018 [id number] [facility] PATIENT [employer] PHARMAC[facility] PRESCRIPT ION [facility] Feb 08, 2018 [id number] [facility] PATIENT [facility] May 10, 2019 [id number] JOANNA DURON JR PATIENT [facility] RX PRESCRIPT ION HEALT H [facility] May 10, 2019 [facility] [id number] DOMI BAUTISTAJOCELYNEYOONKIRAN PATIENT Selected Encounter This section includes the information on record at [place] for the Encounter. Date/Time Encounter Type Encounter Description Reason Provider Source Jan 19, 2024 03:02 PM OFFICE O/P EST LOW 20 MIN PRIMARY CARE/MEDICINE ICD-10-CM R05.9 Cough, unspecified KOURTNEY GAMBOA [facility] Encounter Template Text not used by ME Assessments - Encounter Diagnoses This section includes the primary and secondary diagnoses documented for the Encounter. Date/Time Primary/Secondary Diagnosis Diagnosis Name Provider Source Jan 27, 2024 10:04 AM PRIMARY Cough, unspecified KOURTNEY GAMBOA [facility] [place] [facility] Plan of Treatment: Future Appointments (+ 6 months) and Future Tests (+/- 45 days) The Plan of Treatment section includes future care activities for the patient from [facility] This section includes future appointments and future orders which are active, pending or scheduled. Future Appointments This section includes appointments that were scheduled to occur 6 months from the date of the Encounter, up to a maximum of 20 appointments. The data comes from all [place] treatment facilities. Appointment Date/Time Appointment Type Appointme nt Facility Name Jan 20, 2024 03:00 PM AMBULATORY - MEDICINE [facility] [place] [facility] Feb 11, 2024 03:00 PM AMBULATORY - MEDICINE [facility] [place] [facility] Feb 25, 2024 03:00 PM AMBULATORY - MEDICINE [facility] [place] [facility] Feb 26, 2024 03:00 PM AMBULATORY - MEDICINE [facility] [place] [facility] March 31, 2024 03:00 PM AMBULATORY - MEDICINE [facility] [place] [facility] April 01, 2024 03:00 PM AMBULATORY - MEDICINE [facility] [place] [facility] May 27, 2024 03:00 PM AMBULATORY - MEDICINE [facility] [place] [facility] Jun 02, 2024 03:00 PM AMBULATORY - MEDICINE [facility] [place] [facility] Jun 30, 2024 03:00 PM AMBULATORY - MEDICINE [facility] Lab Results: +/- 30 days of the encounter This section includes the Chemistry and Hematology Lab Results on record with ME for the patient. Radiology Reports and Pathology Reports are provided separately, in subsequent sections. Lab Results This section contains the Chemistry/Hematology Results that were resulted 30 days before or 30 daysafter the date of the Encounter. Date/Time Source Result Type Result - Unit Interpretation Reference Range Comment Feb 09, 2024 08:57 AM [facility] HEPATITIS A ANTIBODY (IgM) Specimen Type: SERUM Comment: A Reactive result ( Positive prior to 08/23/13) indicates recent infection with Hepatitis A virus. Hepatitis A IgM antibodies may persist for 3-6 months after acute Hepatitis A infection. Ordering Provider: AMY HENRY Report Released Date/Time: Jan 23, 2024 11:44 AM Reporting Lab: [address] [address] Performing Lab: [address] [address] HEPATITIS A ANTIBODY (IgM) Non Reactive Non Reactive Feb 09, 2024 08:56 AM [facility] HEMOGLOBIN A1C PANEL Specimen Type: [...] Aug 12, 2023 02:58 PM Reporting Lab: [address] [address] Performing Lab: [address] [address] HEMOGLOBIN A1C 6.4 H 4.0-5.6 Feb 09, 2024 08:56 AM [facility] LIPID PANEL FASTING Specimen Type: SERUM No comment entered. Ordering Provider: AMY HENRY Report Released Date/Time: Aug 12, 2023 02:58 PM Reporting Lab: [facility] [address] [address] Performing Lab: [facility] [address] [address] CHOLESTEROL 138 mg/dL TRIGLYCERIDE 56 mg/dL 0-150 LDL calculated 74 mg/dL 0-129 CHOL/HDL 2.6 HDL CHOLESTEROL 53 mg/dL 40-60 Feb 09, 2024 08:56 AM [facility] BASIC METABOLIC PANEL (fasting) Specimen Type: SERUM No comment entered. Ordering Provider: AMY HENRY Report Released Date/Time: Aug 12, 2023 02:58 PM Reporting Lab: [facility] [address] [address] Performing Lab: [address] [address] UREA NITROGEN 19 mg/dL 7-25 GLUCOSE 119 mg/dL H 65-100 SODIUM 142 mmol/L 135-145 POTASSIUM 4.4 mmol/L 3.5-5.0 CHLORIDE 104 mmol/L 100-110 CO2 28 meq/L 20-30 CREATININE, Serum 1.15 mg/dL 0.50-1.40 eGFR(CKD-EPI 2020) 76 mL/min >60 Feb 09, 2024 08:56 AM [facility] LIVER FUNCTION Specimen Type: SERUM No comment entered. Ordering Provider: AMY HENRY Report Released Date/Time: Aug 12, 2023 02:58 PM Reporting Lab: [facility] [address] [address] Performing Lab: [address] [address] PROTEIN,TOTAL 6.6 g/dL 6.0-8.3 ALBUMIN 3.9 g/dL 3.5-5.0 ALKALINE PHOSPHATASE 61 U/L 40-150 AST 24 U/L 5-34 ALT 35 U/L BILIRUBIN, TOTAL 0.5 mg/dL 0.2-1.2 Feb 09, 2024 08:56 AM [facility] CBC AND DIFF (AUTO) Specimen Type: BLOOD No comment entered. Ordering Provider: AMY HENRY Report Released Date/Time: Aug 12, 2023 02:58 PM Reporting Lab: [facility] [address] [address] Performing Lab: [facility] [address] [address] WBC 4.03 10*3/uL L 4.50-11.00 RBC 4.62 10*6/uL 4.23-5.66 HGB 13.3 g/dL 12.8-17 HCT 40.8 39.2-50.4 MCV 88.3 fL 82-99 MCHC 32.6 g/dL 30.8-35.1 PLT 179 10*3/uL 140-360 RDW-CV 12.2 12.0-16.0 Gentry, Abs 0.37 10*3/uL 0.30-1.10 MCH 28.8 pg 26.2-32.6 Neut % 60.8 43.7-75.8 Lymph % 24.1 14.0-42.3 Gentry % 9.2 5.1-13.7 Eos % 4.7 0.4-6.8 Baso % 1.2 0.1-2.0 Neut, Abs 2.45 10*3/uL 2.20-7.60 Lymph, Abs 0.97 10*3/uL L 1.00-3.20 Eos, Abs 0.19 10*3/uL 0.03-0.44 Baso, Abs 0.05 10*3/uL 0.01-0.13 Immature Gran % 0.0 0.0-0.7 Immature Gran, Abs 0.00 10*3/uL 0.00-0.06 Dec 30, 2023 02:10 PM [facility] COVID-19 FLU/RSV DIAGNOSTIC PANEL Specimen Type: NASOPHARYNX Comment: This test is authorized for emergency use only. False negative results may occur if virus is present at levels below the analytical limit of detection.Nega tive results do not preclude SARS-CoV-2, influenza or RSV infection and should not be used as the sole basis for treatment or other patient management decisions.[facility] uvaldo FLUVID: HCPs: https://www.Attributor a.gov/media/ 9107/download. Patients: https://www.Attributor a.gov/media/ 473/download Ordering Provider: AMY HENRY Report Released Date/Time: Dec 30, 2023 02:01 PM Reporting Lab: [facility] [address] [address] Performing Lab: [facility] [address] [address] COVID-19 PCR (FLUVID) NEGATIVE NEGATIVE FLU A [...] 73 142/80 18 95 0 261 34 [facility] Social History: Smoking Status (Most current) and Tobacco Use (All prior to encounter date) This section includes the most current, and the historical, smoking and tobacco- related health factors from the [place] facility where the Encounter took place. Current Smoking Status This section includes the most current smoking, or tobacco-related health factor, from the [place] facility where the Encounter took place. Date/Time Current Smoking Status Comment [facility] Feb 12, 2023 03:00 PM [facility] Tobacco Use History This section includes a history of the smoking, or tobacco-related health factors, that were collected on or before the date of the Encounter. The data comes from the [place] facility where the Encounter took place. Date/Time Smoking Status/Tobac co Use Comment Facility Feb 14, 2022 03:00 PM VA-TOBACCO NEVER USED [facility] [place] [facility] Oct 27, 2020 03:30 PM VA-TOBACCO NEVER USED [facility] Aug 25, 2018 04:16 PM VA-TOBACCO DOESNT USE WI 30 MIN WAKEUP [facility] Aug 25, 2018 04:16 PM VA-TOBACCO USE > 15 LESS THAN 30 YEARS [facility] Aug 25, 2018 04:16 PM VA-TOBACCO USE ADVICE [facility] Aug 25, 2018 04:16 PM VA-TOBACCO USE CASKET ASSEMBLER METAL NO [facility] Aug 25, 2018 04:16 PM VA-TOBACCO USE MED NO [facility] Aug 25, 2018 04:16 PM VA-TOBACCO USER SOME DAYS [facility] Oct 07, 2017 11:55 AM CURRENT SMOKER 1 cigar a few times a year [facility] Oct 07, 2017 11:55 AM V1-PT NOT INTERESTED IN QUIT TOBACCO USE [facility] Oct 29, 2016 08:57 AM LIFETIME NON-TOBACCO USER [facility] Radiology Reports: +/- 30 days [...] Encounter. The data comes from all [facility] facilities. Date/Time Radiology Report Provider Source Dec 30, 2023 02:27 PM SPINE CERVICAL, 4 OR 5 VIEWS: JOANNA DURON JR [id number] -[id number] Ex Date: DEC 30, 2023@14:27 Req Phys: MARY JO MATHIS Loc: CWM/NO/CHIROPRACTOR (Req'g Loc Img Loc: [facility] 1 Service: Unknown (Case 41 COMPLETE) SPINE CERVICAL, 4 OR 5 VIEWS (RAD Detailed) CPT:87629 Reason for Study: neck and arm pain Clinical History: worsening sx Report Status: Verified Date Reported: DEC 30, 2023 Date Verified: DEC 30, 2023 Mirror Maker E-Sig:/ES/ANG APPLE JR Report: Study: AP, lateral [...] Primary Interpreting Staff: ANG APPLE JR, Radiologist (Mirror Maker) /ANG PATEL JR [facility] Encounter Notes: All associated encounter notes This section contains the clinical notes associated to the Encounter. Date/Time Encounter Note(s) Provider Source Jan 19, 2024 02:57 PM PHYSICIAN ASSEMBLED WOOD [employer]ODUCTS REPAIRER NOTE: LOCAL TITLE: PA NOTE STANDARD TITLE: PHYSICIAN ASSEMBLED WO[employer]ODU[employer] REPAIRER NOTE DATE OF NOTE: JAN 19, 2024@14:57 ENTRY DATE: JAN 19, 2024@14:58 AUTHOR: KOURTNEY GAMBOA EXP COSIGNER: URGENCY: STATUS: COMPLETED RENZO NOTE Has ADDENDA SICK CALL VISIT CC: Dry cough at night x2 weeks HPI: 53-year-old male presents with complaints of dry cough x2 weeks without signs or symptoms of upper respiratory. Denies any fever. He has not had any chills, weakness, nasal discharge or congestion. REVIEW OF SYSTEMS: A 12 point review of systems is negative except as noted in the HPI. Active Medical Problems: Active Problem Shared care - alliances consultant and GP [id number] 01/29/2021 AMY HENRY Type 2 diabetes mellitus controlled 10/27/2020 AMY HENRY Acquired polycystic kidney disease 02/23/2018 AMY HENRY Low back pain M54.50 02/14/2022 AMY HENRY JAWBONILLA Hyperuricemia E79.0 10/29/2016 AMY HENRY JAWED Psoriasis L40.4 10/29/2016 AMY HENRY JAWED Obstructive sleep apnea G47.33 02/27/2017 AMY HENRY JAWED Obesity E66.8 10/29/2016 AMY HENRY JAWBONILLA Meds: Active Outpatient Medications (including Supplies): ALLOPURINOL 300MG TAB TAKE ONE TABLET BY MOUTH EVERY DAY ACTIVE FOR GOUT AMLODIPINE BESYLATE 5MG TAB TAKE ONE TABLET BY MOUTH ONCE ACTIVE DAILY FOR BLOOD PRESSURE/HEART, DO NOT TAKE WITH GRAPEFRUIT JUICE CYCLOBENZAPRINE HCL 10MG TAB TAKE ONE TABLET BY MOUTH AT ACTIVE BEDTIME NEEDED FOR MUSCLE SPASM DM 10/GUAIFENESN 100MG/5ML (AF & SF) LIQ TAKE 5 MLS BY ACTIVE MOUTH EVERY 6 HOURS NEEDED ROSUVASTATIN CA 10MG TAB TAKE ONE TABLET BY MOUTH ONCE ACTIVE DAILY FOR CHOLESTEROL SILDENAFIL CITRATE 50MG TAB TAKE ONE TABLET BY MOUTH ONCE ACTIVE DAILY TAKE 1 HOUR PRIOR TO SEXUAL ACTIVITY Non-VA GUSELKUMAB 100MG/ML INJ 1ML SYR 100MG (1ML) ACTIVE SUBCUTANEOUSLY [id number] Non-VA LISINOPRIL 10MG TAB 10MG BY MOUTH EVERY 10 DAYS ASKED TO HOLD Allergies: Patient has answered NKA Date Vital Measurement Qualifiers 01/19/2024 14:58 Temp F (C) 98 (36.7) Pulse 73 Respir 18 BP 142/80 Wt lbs (kg)[BMI] 261 (118.39)[34*] Pain 0 POx (L/Min)(%) 95 At Rest FOCUSED EXAMINATION Well-developed, large male speaking in full sentences ambulating without shortness of breath Well-perfused Respirations are even and regular Airways patent MDM: Nurses note has been reviewed. Vital signs have been reviewed. Discussion with regarding the use of lisinopril. He states that his fleet manager/dispatch started him on it. This may be the source of his cough. I have asked him to hold his lisinopril (and notify his fleet manager/dispatch) for now and to keep a log of his blood pressures as well as notify his primary care. I have also prescribed DM/guaifenesin syrup for his cough to see if that will help him at night. No apparent airway issues. should follow-up with nursing for blood pressure checks periodically and discuss possible increase of his amlodipine if blood pressures are suboptimal. ASSESSMENT/PLAN Cough As above able to verbalize understanding of plan of care and agrees. >> MEDICATIONS Reviewed and reconciled with /betty/ KOURTNEY JIANG MS,PA-C PHYSICIAN ASSEMBLED WOOD PRODUCTS REPAIRER Signed: 01/19/2024 16:23 Receipt Acknowledged By: 01/20/2024 09:32 /betty/ BECKY ACE REGISTERED NURSE 01/20/2024 ADDENDUM STATUS: COMPLETED See telephone note /betty/ BECKY ACE REGISTERED NURSE Signed: 01/20/2024 09:34 KOURTNEY GAMBOA [facility]
--- OUTSIDE RECORDS SUMMARY | 2024-10-25 10:43 | XMS_ITS | Encounter Summary ---
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 Organization [facility] [place] Address [address] [place] [id number] Care Team Providers Care Plate Grainer Name Role Phone LEO FORRESTER Primary Care [...] Suresh's Name Patient's Relationship to Policy Suresh FORMERLY [facility] ION COH G AND E May 10, 2024 [id number] [facility] ER PATIENT [place] PRESCRIPT ION [facility] May 10, 2024 [id number] CARD,[facility] ER PATIENT [employer] POINT OF SERVICE [facility] Feb 08, 2018 [id number] CARD,[facility] ER PATIENT [employer] BEHAVIORAL HEALTH MENTAL HEALTH [facility] Feb 08, 2018 [id number] CARD,[facility] ER PATIENT [employer] PHARMACY PRESCRIPT ION [facility] Feb 08, 2018 [id number] CARD,[facility] ER [facility] May 10, 2019 [id number] ODMI BAUTISTAJOANNA PATIENT OPT[facility] RX PRESCRIPT ION [facility] [facility] May 10, 2019 [facility] [id number] JOANNA DURON JR PATIENT Selected Encounter This section includes the information on record at [place] for the Encounter. Date/Time Encounter Type Encounter Description Reason Pro vider Source Jan 20, 2024 09:34 AM Outpatient Encounter TELEPHONE PRIMARY CARE IHE Encounter Template Text not used by PR Plan of Treatment: Future Appointments (+ 6 months) and Future Tests (+/- 45 days) The Plan of Treatment section includes future care activities for the patient from all [place] treatmentfacilities. This section includes future appointments and future orders which are active, pending or scheduled. Future Appointments This section includes appointments that were scheduled to occur 6 months from the date of the Encounter, up to a maximum of 20 appointments. The data comes from all [place] treatment facilities. Appointment Date/Time Appointment Type Appointme nt Facility Name Feb 11, 2024 03:00 PM AMBULATORY - MEDICINE [place] [facility] [place] [facility] Feb 25, 2024 03:00 PM AMBULATORY - MEDICINE [place] [facility] [place] [facility] Feb 26, 2024 03:00 PM AMBULATORY - MEDICINE [facility] [place] [facility] March 31, 2024 03:00 PM AMBULATORY - MEDICINE [facility] [place] [facility] April 01, 2024 03:00 PM AMBULATORY - MEDICINE [facility] [place] [facility] May 27, 2024 03:00 PM AMBULATORY - MEDICINE [facility] [place] [facility] Jun 02, 2024 03:00 PM AMBULATORY - MEDICINE [facility] [place] [facility] Jun 30, 2024 03:00 PM AMBULATORY - MEDICINE [place] [facility] [place] [facility] Lab Results: +/- 30 days of the encounter This section includes the Chemistry and Hematology Lab Results on record with [place] for the patient. Radiology Reports and Pathology Reports are provided separately, in subsequent sections. Lab Results This section contains the Chemistry/Hematology Results that were resulted 30 days before or 30 daysafter the date of the Encounter. Date/Time Source Result Type Result - Unit Interpretation Reference Range Comment Feb 09, 2024 08:57 AM [place] [facility] HEPATITIS A ANTIBODY (IgM) Specimen Type: SERUM Comment: A Reactive result ( Positive prior to 08/23/13) indicates recent infection with Hepatitis A virus. Hepatitis A IgM antibodies may persist for 3-6 months after acute Hepatitis A infection. Ordering Provider: AMY HENRY Report Released Date/Time: Jan 23, 2024 11:44 AM Reporting Lab: [address] [address] Performing Lab: [address] [address] HEPATITIS A ANTIBODY (IgM) Non Reactive Non Reactive Feb 09, 2024 08:56 AM [facility] LIPID PANEL FASTING Specimen Type: SERUM No comment entered. Ordering Provider: AMY HENRY Report Released Date/Time: Aug 12, 2023 02:58 PM Reporting Lab: [address] [address] Performing Lab: [address] [address] CHOLESTEROL 138 mg/dL TRIGLYCERIDE 56 mg/dL 0-150 LDL calculated 74 mg/dL 0-129 CHOL/HDL 2.6 HDL CHOLESTEROL 53 mg/dL 40-60 Feb 09, 2024 08:56 AM [facility] HEMOGLOBIN A1C PANEL Specimen Type: BLOOD [...] Aug 12, 2023 02:58 PM Reporting Lab: [address] [address] Performing Lab: [address] [address] HEMOGLOBIN A1C 6.4 H 4.0-5.6 Feb 09, 2024 08:56 AM [facility] BASIC METABOLIC PANEL (fasting) Specimen Type: SERUM No comment entered. Ordering Provider: AMY HENRY Report Released Date/Time: Aug 12, 2023 02:58 PM Reporting Lab: [facility] [address] [facility] [address] Performing Lab: [facility] [address] [facility] [address] UREA NITROGEN 19 mg/dL 7-25 GLUCOSE 119 mg/dL H 65-100 SODIUM 142 mmol/L 135-145 POTASSIUM 4.4 mmol/L 3.5-5.0 CHLORIDE 104 mmol/L 100-110 CO2 28 meq/L 20-30 CREATININE, Serum 1.15 mg/dL 0.50-1.40 eGFR(CKD-EPI 2020) 76 mL/min >60 Feb 09, 2024 08:56 AM [facility] LIVER FUNCTION Specimen Type: SERUM No comment entered. Ordering Provider: AMY HENRY Report Released Date/Time: Aug 12, 2023 02:58 PM Reporting Lab: [facility] [address] [facility] [address] Performing Lab: [address] [address] PROTEIN,TOTAL 6.6 g/dL 6.0-8.3 ALBUMIN 3.9 g/dL 3.5-5.0 ALKALINE PHOSPHATASE 61 U/L 40-150 AST 24 U/L 5-34 ALT 35 U/L BILIRUBIN, TOTAL 0.5 mg/dL 0.2-1.2 Feb 09, 2024 08:56 AM [facility] CBC AND DIFF (AUTO) Specimen Type: BLOOD No comment entered. Ordering Provider: AMY HENRY Report Released Date/Time: Aug 12, 2023 02:58 PM Reporting Lab: [facility] [address] [facility] [address] Performing Lab: [address] [address] WBC 4.03 10*3/uL L 4.50-11.00 RBC 4.62 10*6/uL 4.23-5.66 HGB 13.3 g/dL 12.8-17 HCT 40.8 39.2-50.4 MCV 88.3 fL 82-99 MCHC 32.6 g/dL 30.8-35.1 PLT 179 10*3/uL 140-360 RDW-CV 12.2 12.0-16.0 [place], Abs 0.37 10*3/uL 0.30-1.10 MCH 28.8 pg 26.2-32.6 Neut % 60.8 43.7-75.8 Lymph % 24.1 14.0-42.3 [place] % 9.2 5.1-13.7 Eos % 4.7 0.4-6.8 Baso % 1.2 0.1-2.0 Neut, Abs 2.45 10*3/uL 2.20-7.60 Lymph, Abs 0.97 10*3/uL L 1.00-3.20 Eos, Abs 0.19 10*3/uL 0.03-0.44 Baso, Abs 0.05 10*3/uL 0.01-0.13 Immature Gran % 0.0 0.0-0.7 Immature Gran, Abs 0.00 10*3/uL 0.00-0.06 Dec 30, 2023 02:10 PM [facility] [email or web address] COVID-19 FLU/RSV DIAGNOSTIC PANEL Specimen Type: NASOPHARYNX Comment: This test is authorized for emergency use only. False negative results may occur if virus is present at levels below the analytical limit of detection.Nega tive results do not preclude SARS-CoV-2, influenza or RSV infection and should not be used as the sole basis for treatment or other patient management decisions.[facility] uvaldo FLUVID: HCPs: https://www.fd a.gov/media/ 9561/download. Patients: https://www.[employer] a.gov/media/ 7330/download Ordering Provider: AMY HENRY Report Released Date/Time: Dec 30, 2023 02:01 PM Reporting Lab: [place] [employer] [email or web address] [employer] [address] [address] Performing Lab: [place] [facility] [place] [facility] [address] [facility] [address] COVID-19 PCR (FLUVID) NEGATIVE NEGATIVE FLU A PCR (FLUVID) NEGATIVE FLU B PCR (FLUVID) NEGATIVE RSV PCR (FLUVID) NEGATIVE Social History: Smoking Status (Most current) and Tobacco Use (All prior to encounter date) This section includes the most current, and the historical, smoking and tobacco- related health factors from the PR facility where the Encounter took place. Current Smoking Status This section includes the most current smoking, or tobacco-related health factor, from the PR facility where the Encounter took place. Date/Time Current Smoking Status Comment [facility] Feb 12, 2023 03:00 PM [facility] Tobacco Use History This section includes a history of the smoking, or tobacco-related health factors, that were collected on or before the date of the Encounter. The data comes from the PR facility where the Encounter took place. Date/Time Smoking Status/Tobac co Use Comment Facility Feb 14, 2022 03:00 PM VA-TOBACCO NEVER USED [facility] [place] [facility] Oct 27, 2020 03:30 PM [facility]ACCO [facility] US[facility] Aug 25, 2018 04:16 PM VA-TOBACCO DOESNT USE WI 30 MIN WAKEUP [facility] [place] [facility] Aug 25, 2018 04:16 PM VA-TOBACCO USE > 15 LESS THAN 30 YEARS [facility] Aug 25, 2018 04:16 PM VA-TOBACCO USE ADVICE [facility] Aug 25, 2018 04:16 PM VA-TOBACCO USE FACILITIES ENGINEERING MANAGER NO [facility] [place] [facility] Aug 25, 2018 04:16 PM VA-TOBACCO USE MED NO [facility] [place] [facility] Aug 25, 2018 04:16 PM VA-TOBACCO USER SOME DAYS [facility] [place] [facility] Oct 07, 2017 11:55 AM CURRENT SMOKER 1 cigar a few times a year [facility] [place] [facility] Oct 07, 2017 11:55 AM V1-PT NOT INTERESTED IN QUIT TOBACCO USE [facility] [place] [facility] Oct 29, 2016 08:57 AM LIFETIME NON-TOBACCO USER [facility] Radiology Reports: +/- 30 days of [...] the Encounter. The data comes from all PR treatment facilities. Date/Time Radiology Report Provider Source Dec 30, 2023 02:27 PM SPINE CERVICAL, 4 OR 5 VIEWS: JOANNA DURON [id number] [id number] Exm Date: DEC 30, 2023@14:27 Req Phys: MARY JO MATHIS Loc: CWM/NO/CHIROPRACTOR (Req'g Loc Img Loc: [facility] 1 Service: Unknown (Case 41 COMPLETE) SPINE CERVICAL, 4 OR 5 VIEWS (RAD Detailed) CPT:85893 Reason for Study: neck and arm pain Clinical History: worsening sx Report Status: Verified Date Reported: DEC 30, 2023 Date Verified: DEC 30, 2023 [employer] E-Sig:/ES/ANG APPLE JR Report: Study: AP, lateral [...] Primary Interpreting Staff: ANG APPLE JR, Radiologist ([employer]) /ANG PATEL JR [facility] Encounter Notes: All associated encounter notes This section contains the clinical notes associated to the Encounter. Date/Time Encounter Note(s) Provider Source Jan 20, 2024 09:34 AM PRIMARY CARE TELEP ROGELIO ENCOUNTER NOTE: LOCAL TITLE: TELEPHONE NOTE/PRIMARY CARE STANDARD TITLE: PRIMARY CARE TELEPHONE ENCOUNTER NOTE DATE OF NOTE: JAN 20, 2024@09:34 ENTRY DATE: JAN 20, 2024@09:34:37 AUTHOR: BECKY ACE EXP COSIGNER: URGENCY: STATUS: COMPLETED TELEPHONE NOTE/PRIMARY CARE Has ADDENDA TELEPHONE CALL Called at PATIENT PHONE - PHONE NUMBER [CELLULAR] - Regarding Follow up-Sick call visit 01/19/24 Voice message was left requesting a callback /betty/ BECKY ACE REGISTERED NURSE Signed: 01/20/2024 09:35 01/20/2024 ADDENDUM STATUS: COMPLETED Call to number listed: generic message left for return of call. Let number and ext to return provider call. /betty/ KOURTNEY JIANG MS,PA-C PHYSICIAN SOAP TENDER Signed: 01/20/2024 09:51 BECKY ACE [facility]
--- OUTSIDE RECORDS SUMMARY | 2024-10-25 10:44 | XMS_ITS | Encounter Summary ---
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 [facility] [place] Address [address] [place] [id number] Care Team Providers Care Train Engineer Name Role Phone LEO FORRESTER Primary Care [...] Suresh's Name Patient's Relationship to Policy Suresh [facility] ION COH G AND E May 10, 2024 [id number] [facility] ER PATIENT [place] PRESCRIPT ION [facility] May 10, 2024 [phone] CARD,[facility] ER PATIENT [employer] POINT OF SERVICE [facility] Feb 08, 2018 [id number] CARD,[facility] ER PATIENT [employer] BEHAVIORAL HEALTH MENTAL HEALTH [facility] Feb 08, 2018 [id number] CARD,[facility] ER PATIENT [employer] PHARMACY PRESCRIPT ION [facility] Feb 08, 2018 [id number] [phone] CARD,[facility] ER [facility] May 10, 2019 [id number] DOMI BAUTISTATRACEYKIRAN PATIENT OPT[employer] RX PRESCRIPT ION [facility] May 10, 2019 [facility] [id number] JOANNA DURON JR PATIENT Selected Encounter This section includes the information on record at [place] for the Encounter. Date/Time Encounter Type Encounter Description Reason Pro vider Source Jan 21, 2024 09:56 AM Outpatient Encounter [facility] TREATMENT IHE Encounter Template Text not used by [place] Plan of Treatment: Future Appointments (+ 6 months) and Future Tests (+/- 45 days) The Plan of Treatment section includes future care activities for the patient from all [place] treatmentfatr[facility] health system. This section includes future appointments and future orders which are active, pending or scheduled. Future Appointments This section includes appointments that were scheduled to occur 6 months from the date of the Encounter, up to a maximum of 20 appointments. The data comes from all [place] treatment facilities. Appointment Date/Time Appointment Type Appointme nt Facility Name Feb 11, 2024 03:00 PM [place] [facility] [place] [facility] Feb 25, 2024 03:00 PM [place] [facility] [place] [facility] Feb 26, 2024 03:00 PM [facility]UL[place]ORY [place]ICINE [place] [facility] [place] [facility] March 31, 2024 03:00 PM AM[place]ULATORY [place]ICINE [place] [facility] [place] [facility] April 01, 2024 03:00 PM AM[place]ULATORY [place]ICINE [place] [facility] [place] [facility] May 27, 2024 03:00 PM AM[place]ULATORY [place]ICINE [place] [facility] [place] [facility] Jun 02, 2024 03:00 PM [facility]UL[place]ORY [place]ICINE [place] [facility] [place] [facility] Jun 30, 2024 03:00 PM [place]ULATORY [place]ICINE [place] [facility] [place] [facility] Lab Results: +/- 30 days of the encounter This section includes the Chemistry and Hematology Lab Results on record with [place] for the patient. Radiology Reports and Pathology Reports are provided separately, in subsequent sections. Lab Results This section contains the Chemistry/Hematology Results that were resulted 30 days before or 30 daysafter the date of the Encounter. Date/Time Source Result Type Result - Unit Interpretation Reference Range Comment Feb 09, 2024 08:57 AM [place] [facility] HEPATITIS A ANTIBODY (IgM) Specimen Type: SERUM Comment: A Reactive result ( Positive prior to 08/23/13) indicates recent infection with Hepatitis A virus. Hepatitis A IgM antibodies may persist for 3-6 months after acute Hepatitis A infection. Ordering Provider: AMY HENRY Report Released Date/Time: Jan 23, 2024 11:44 AM Reporting Lab: [address] [address] Performing Lab: [address] [address] HEPATITIS A ANTIBODY (IgM) Non Reactive Non Reactive Feb 09, 2024 08:56 AM [facility] LIPID PANEL FASTING Specimen Type: SERUM No comment entered. Ordering Provider: AMY HENRY Report Released Date/Time: Aug 12, 2023 02:58 PM Reporting Lab: [address] [address] Performing Lab: [address] [address] CHOLESTEROL 138 mg/dL TRIGLYCERIDE 56 mg/dL 0-150 LDL calculated 74 mg/dL 0-129 CHOL/HDL 2.6 HDL CHOLESTEROL 53 mg/dL 40-60 Feb 09, 2024 08:56 AM [facility] BASIC METABOLIC PANEL (fasting) Specimen Type: SERUM No comment entered. Ordering Provider: AMY HENRY Report Released Date/Time: Aug 12, 2023 02:58 PM Reporting Lab: [address] [address] Performing Lab: [address] [address] UREA NITROGEN 19 mg/dL 7-25 GLUCOSE 119 mg/dL H 65-100 SODIUM 142 mmol/L 135-145 POTASSIUM 4.4 mmol/L 3.5-5.0 CHLORIDE 104 mmol/L 100-110 CO2 28 meq/L 20-30 CREATININE, Serum 1.15 mg/dL 0.50-1.40 eGFR(CKD-EPI 2020) 76 mL/min >60 Feb 09, 2024 08:56 AM [facility] HEMOGLOBIN A1C PANEL Specimen Type: [...] Aug 12, 2023 02:58 PM Reporting Lab: [address] [address] Performing Lab: [address] [address] HEMOGLOBIN A1C 6.4 H 4.0-5.6 Feb 09, 2024 08:56 AM [facility] LIVER FUNCTION Specimen Type: SERUM No comment entered. Ordering Provider: AMY HENRY Report Released Date/Time: Aug 12, 2023 02:58 PM Reporting Lab: [address] [address] Performing Lab: [address] [address] PROTEIN,TOTAL 6.6 g/dL 6.0-8.3 ALBUMIN 3.9 g/dL 3.5-5.0 ALKALINE PHOSPHATASE 61 U/L 40-150 AST 24 U/L 5-34 ALT 35 U/L BILIRUBIN, TOTAL 0.5 mg/dL 0.2-1.2 Feb 09, 2024 08:56 AM [facility] CBC AND DIFF (AUTO) Specimen Type: BLOOD No comment entered. Ordering Provider: AMY HENRY Report Released Date/Time: Aug 12, 2023 02:58 PM Reporting Lab: [facility] [address] [facility] [address] Performing Lab: [address] [address] WBC 4.03 10*3/uL L 4.50-11.00 RBC 4.62 10*6/uL 4.23-5.66 HGB 13.3 g/dL 12.8-17 HCT 40.8 39.2-50.4 MCV 88.3 fL 82-99 MCHC 32.6 g/dL 30.8-35.1 PLT 179 10*3/uL 140-360 RDW-CV 12.2 12.0-16.0 Grainger, Abs 0.37 10*3/uL 0.30-1.10 MCH 28.8 pg 26.2-32.6 Neut % 60.8 43.7-75.8 Lymph % 24.1 14.0-42.3 Grainger % 9.2 5.1-13.7 Eos % 4.7 0.4-6.8 Baso % 1.2 0.1-2.0 Neut, Abs 2.45 10*3/uL 2.20-7.60 Lymph, Abs 0.97 10*3/uL L 1.00-3.20 Eos, Abs 0.19 10*3/uL 0.03-0.44 Baso, Abs 0.05 10*3/uL 0.01-0.13 Immature Gran % 0.0 0.0-0.7 Immature Gran, Abs 0.00 10*3/uL 0.00-0.06 Dec 30, 2023 02:10 PM [facility] COVID-19 FLU/RSV DIAGNOSTIC PANEL Specimen Type: NASOPHARYNX Comment: This test is authorized for emergency use only. False negative results may occur if virus is present at levels below the analytical limit of detection.Nega tive results do not preclude SARS-CoV-2, influenza or RSV infection and should not be used as the sole basis for treatment or other patient management decisions.[facility] uvaldo FLUVID: HCPs: https://www.fd a.gov/media/ 5430/download. Patients: https://www.sli.do a.gov/media/ 8314/download Ordering Provider: AMY HENRY Report Released Date/Time: Dec 30, 2023 02:01 PM Reporting Lab: [place] [facility] [employer] [address] [address] Performing Lab: [place] [facility] [place] [facility] [address] [facility] [address] COVID-19 PCR (FLUVID) NEGATIVE NEGATIVE FLU A PCR (FLUVID) NEGATIVE FLU B PCR (FLUVID) NEGATIVE RSV PCR (FLUVID) NEGATIVE Social History: Smoking Status (Most current) and Tobacco Use (All prior to encounter date) This section includes the most current, and the historical, smoking and tobacco- related health factors from the [place] facility where the Encounter took place. Current Smoking Status This section includes the most current smoking, or tobacco-related health factor, from the [place] facility where the Encounter took place. Date/Time Current Smoking Status Comment [facility] Feb 12, 2023 03:00 PM [facility] Tobacco Use History This section includes a history of the smoking, or tobacco-related health factors, that were collected on or before the date of the Encounter. The data comes from the [place] facility where the Encounter took place. 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 The data comes from all [place] treatment facilities. Date/Time Radiology Report Provider Source Dec 30, 2023 02:27 PM SPINE CERVICAL, 4 OR 5 VIEWS: JOANNA DURON [id number] Exm Date: DEC 30, 2023@14:27 Req Phys: MARY JO MATHIS Loc: CWM/NO/CHIROPRACTOR (Req'g Loc Img Loc: [facility] 1 Service: Unknown (Case [id number] COMPLETE) SPINE CERVICAL, 4 OR 5 VIEWS (RAD Detailed) CPT:87238 Reason for Study: neck and arm pain Clinical History: worsening sx Report Status: Verified Date Reported: DEC 30, 2023 Date Verified: DEC 30, 2023 Pressurizer E-Sig:/ES/ANG APPLE JR Report: Study: AP, lateral [...] Primary Interpreting Staff: ANG APPLE JR, Radiologist (Pressurizer) /ANG PATEL JR [facility] Encounter Notes: All associated encounter notes This section contains the clinical notes associated to the Encounter. 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 [phone] [facility]- ext. [phone] [facility]- ext. [phone] [facility]- ext. [phone] JAN 21, 2024 JOANNA DURON [address] [place] [id number] Dear JOANNA DURON JR Thank you for choosing [facility] primary choice for [facility] care. As a partner in your health care, we are contacting you in writing since we have been unsuccessful in our attempts to reach you to date. We want to assure you we are doing everything possible to schedule Veterans for their VA medical care appointments. Our records indicate you are due for an appointment in acupuncture clinic. If you would like to be seen, please contact [facility] at ext. [phone] to schedule an appointment. Thank you for your service to our nation, and we look forward to hearing from you soon. Sincerely, [facility] [address] [facility] [address] [place] [address] [place] [address] ext [phone] [facility] [address] [facility] [address] [place] [address] [place] [address] ext. [phone] [facility] [facility] [address] [address] [place] [address] ext. [phone] [facility] [address] [place] [address] ext. [phone] CARLO DOUGLAS [place] [facility]
--- OUTSIDE RECORDS SUMMARY | 2024-10-25 10:44 | XMS_ITS | Encounter Summary ---
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 [place] [facility] [place] [facility] [place] Address [address] [place] [address] Care Team Providers Care Video Poker Floorman Name Role Phone LEO FORRESTER Primary Care [...] Suresh's Name Patient's Relationship to Policy Suresh [facility] CE ORGANIZAT ION COH G AND E May 10, 2024 [id number] [facility] ER PATIENT [place] PRESCRIPT ION [facility] May 10, 2024 [id number] [phone] CARD,[facility] ER PATIENT [employer] POINT OF SERVICE [facility] Feb 08, 2018 [id number] [phone] CARD,[facility] ER PATIENT [employer] BEHAVIORAL HEALTH MENTAL HEALTH [facility] Feb 08, 2018 [id number] CARD,[facility] ER PATIENT [employer] PHARMACY PRESCRIPT ION [facility] [place] Feb 08, 2018 [id number] [phone] CARD,[facility] ER PATIENT [facility] May 10, 2019 [id number] JOANNA DURON JR PATIENT [employer] RX PRESCRIPT ION HEALT H [facility] [place] May 10, 2019 [facility] [id number] DOMI BAUTISTAJOANNA PATIENT Selected Encounter This section includes the information on record at [place] for the Encounter. Date/Time Encounter Type Encounter Description Reason Provider Source Feb 11, 2024 03:00 PM OFFICE O/P EST MOD 30 MIN PRIMARY CARE/MEDICINE ICD-10-CM L40.4 Guttate psoriasis AMY HENRY [facility] Encounter Template Text not used by [place] Assessments - Encounter Diagnoses This section includes the primary and secondary diagnoses documented for the Encounter. Date/Time Primary/Secondary Diagnosis Diagnosis Name Provider Source March 15, 2024 11:45 AM PRIMARY Guttate psoriasis RUBY HENRY JAWED [facility] [place] [facility] March 15, 2024 11:45 AM SECONDARY Cervicalgia RUBY HENRY JAWED [facility] [place] [facility] March 15, 2024 11:45 AM SECONDARY Hyperuricemia w/o signs of inflam arthrit and tophaceous dis RUBY HENRY JAWED [facility] [place] [facility] March 15, 2024 11:45 AM SECONDARY Low back pain, unspecified RUBY HENRY JAWED [facility] [place] [facility] March 15, 2024 11:45 AM SECONDARY Obstructive sleep apnea (adult) (pediatric) RUBY HENRY JAWED [facility] [place] [facility] March 15, 2024 11:45 AM SECONDARY Other hemorrhoids RUBY HENRY JAWED [facility] [place] [facility] March 15, 2024 11:45 AM SECONDARY Other obesity RUBY HENRY JAWED [facility] [place] [facility] March 15, 2024 11:45 AM SECONDARY Polycystic kidney, adult type RUBY HENRY JAWED [facility] [place] [facility] March 15, 2024 11:45 AM SECONDARY Type 2 diabetes mellitus without complications RUBY HENRY JAWED [facility] [place] [facility] Plan of Treatment: Future Appointments (+ 6 months) and Future Tests (+/- 45 days) The Plan of Treatment section includes future care activities for the patient from all [place] [facility]. This section includes future appointments and future orders which are active, pending or scheduled. Future Appointments This section includes appointments that were scheduled to occur 6 months from the date of the Encounter, up to a maximum of 20 appointments. The data comes from all [place] treatment facilities. Appointment Date/Time Appointment Type Appointme nt Facility Name Feb 25, 2024 03:00 PM AMBULATORY - [facility]ICINE [place] [facility] Feb 26, 2024 03:00 PM AMBULATORY MEDICINE [place] [facility] [place] [facility] March 31, 2024 03:00 PM AMBULATORY MEDICINE [place] [facility] April 01, 2024 03:00 PM [facility] May 27, 2024 03:00 PM [facility] Jun 02, 2024 03:00 PM AMBULATORY - MEDICINE [place] [facility] [place] [facility] Jun 30, 2024 03:00 PM AMBULATORY MEDICINE [facility] Lab Results: +/- 30 days of [...] Range Comment Feb 09, 2024 08:57 AM [facility] HEPATITIS A ANTIBODY (IgM) Specimen Type: SERUM Comment: A Reactive result ( Positive prior to 08/23/13) indicates recent infection with Hepatitis A virus. Hepatitis A IgM antibodies may persist for 3-6 months after acute Hepatitis A infection. Ordering Provider: AMY HENRY Report Released Date/Time: Jan 23, 2024 11:44 AM Reporting Lab: [address] [address] Performing Lab: [address] [address] HEPATITIS A ANTIBODY (IgM) Non Reactive Non Reactive Feb 09, 2024 08:56 AM [facility] HEMOGLOBIN A1C PANEL Specimen Type: [...] Aug 12, 2023 02:58 PM Reporting Lab: [address] [address] Performing Lab: [address] [address] HEMOGLOBIN A1C 6.4 H 4.0-5.6 Feb 09, 2024 08:56 AM [facility] LIPID PANEL FASTING Specimen Type: SERUM No comment entered. Ordering Provider: AMY HENRY Report Released Date/Time: Aug 12, 2023 02:58 PM Reporting Lab: [address] [address] Performing Lab: [address] [address] CHOLESTEROL 138 mg/dL TRIGLYCERIDE 56 mg/dL 0-150 LDL calculated 74 mg/dL 0-129 CHOL/HDL 2.6 HDL CHOLESTEROL 53 mg/dL 40-60 Feb 09, 2024 08:56 AM [facility] BASIC METABOLIC PANEL (fasting) Specimen Type: SERUM No comment entered. Ordering Provider: AMY HENRY Report Released Date/Time: Aug 12, 2023 02:58 PM Reporting Lab: [address] [address] Performing Lab: [address] [address] UREA NITROGEN 19 mg/dL 7-25 GLUCOSE 119 mg/dL H 65-100 SODIUM 142 mmol/L 135-145 POTASSIUM 4.4 mmol/L 3.5-5.0 CHLORIDE 104 mmol/L 100-110 CO2 28 meq/L 20-30 CREATININE, Serum 1.15 mg/dL 0.50-1.40 eGFR(CKD-EPI 2020) 76 mL/min >60 Feb 09, 2024 08:56 AM [facility] LIVER FUNCTION Specimen Type: SERUM No comment entered. Ordering Provider: AMY HENRY Report Released Date/Time: Aug 12, 2023 02:58 PM Reporting Lab: [address] [address] Performing Lab: [address] [address] PROTEIN,TOTAL 6.6 g/dL 6.0-8.3 ALBUMIN 3.9 g/dL 3.5-5.0 ALKALINE PHOSPHATASE 61 U/L 40-150 AST 24 U/L 5-34 ALT 35 U/L BILIRUBIN, TOTAL 0.5 mg/dL 0.2-1.2 Feb 09, 2024 08:56 AM [facility] CBC AND DIFF (AUTO) Specimen Type: BLOOD No comment entered. Ordering Provider: AMY HENRY Report Released Date/Time: Aug 12, 2023 02:58 PM Reporting Lab: [address] [address] Performing Lab: [address] [address] WBC 4.03 10*3/uL L 4.50-11.00 RBC 4.62 10*6/uL 4.23-5.66 HGB 13.3 g/dL 12.8-17 HCT 40.8 39.2-50.4 MCV 88.3 fL 82-99 MCHC 32.6 g/dL 30.8-35.1 PLT 179 10*3/uL 140-360 RDW-CV 12.2 12.0-16.0 [place], Abs 0.37 10*3/uL 0.30-1.10 MCH 28.8 pg 26.2-32.6 Neut % 60.8 43.7-75.8 Lymph % 24.1 14.0-42.3 [place] % 9.2 5.1-13.7 Eos % 4.7 0.4-6.8 Baso % 1.2 0.1-2.0 Neut, Abs 2.45 10*3/uL 2.20-7.60 Lymph, Abs 0.97 10*3/uL L 1.00-3.20 Eos, Abs 0.19 10*3/uL 0.03-0.44 Baso, Abs 0.05 10*3/uL 0.01-0.13 Immature Gran % 0.0 0.0-0.7 Immature Gran, Abs 0.00 10*3/uL 0.00-0.06 Vital Signs: All taken on the encounter date This section contains inpatient and outpatient Vital Signs collected on the date of the Encounter. Date/Time Temperature Pulse Blood Pressure Respiratory Rate SP02 Pain Height Weight Body Mass Index Source Feb 11, 2024 03:28 PM 122/74 [facility] [place] [facility] Feb 11, 2024 02:50 PM 98.3 73 142/84 18 96 5 74 251 32 [place] [facility] [place] [facility] Social History: Smoking Status (Most current) [...] place. Date/Time Current Smoking Status Comment Rafi wise Feb 11, 2024 03:00 PM VA-TOBACCO NEVER USED [place] [facility] [place] [facility] Tobacco Use History This section includes a history of the smoking, or tobacco-related health factors, that were collected on or before the date of the Encounter. The data comes from the [place] facility where the Encounter took place. Date/Time Smoking Status/Tobac co Use Comment Facility Feb 12, 2023 03:00 PM VA-TOBACCO NEVER USED [facility] [place] [facility] Feb 14, 2022 03:00 PM VA-TOBACCO NEVER USED [facility] [place] [facility] Oct 27, 2020 03:30 PM VA-TOBACCO NEVER USED [facility] [place] [facility] Aug 25, 2018 04:16 PM VA-TOBACCO DOESNT USE WI 30 MIN [facility] Aug 25, 2018 04:16 PM VA-TOBACCO USE > 15 LESS THAN 30 YEARS [facility] Aug 25, 2018 04:16 PM VA-TOBACCO USE ADVICE [facility] Aug 25, 2018 04:16 PM 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 [facility] Aug 25, 2018 04:16 PM VA-TOBACCO USE MED NO [facility] Aug 25, 2018 04:16 PM VA-TOBACCO USER SOME DAYS [facility] Oct 07, 2017 11:55 AM CURRENT SMOKER 1 cigar a few times a year [facility] Oct 07, 2017 11:55 AM V1-PT NOT INTERESTED IN QUIT TOBACCO USE [facility] Oct 29, 2016 08:57 AM LIFETIME NON-TOBACCO USER [facility] Encounter Notes: All associated encounter notes This section contains the clinical notes associated to the Encounter. Date/Time Encounter Note(s) Provider Source Feb 11, 2024 03:40 PM PHYSICIAN NOTE: LOCAL TITLE: MD NOTE STANDARD TITLE: PHYSICIAN NOTE DATE OF NOTE: FEB 11, 2024@15:40 ENTRY DATE: FEB 11, 2024@15:40:17 AUTHOR: AMY HENRY EXP COSIGNER: URGENCY: STATUS: COMPLETED Patient Name: JOANNA DURON JR VITALS: Patient temperature: 98.3 F [36.8 C] (02/11/2024 14:50) Blood pressure: 122/74 (02/11/2024 15:28) Patient height: 74 in [188.0 cm] (02/11/2024 14:50) Patient weight: 251 lb [113.85 kg] (02/11/2024 14:50) Patient BMI: BMI: 32.3 Patient pulse: 73 (02/11/2024 14:50) Patient respiration: 18 (02/11/2024 14:50) Patient Pulse Oximetry: 96% (02/11/2024 14:50) Pain Ratin (02/11/2024 14:50) Active [facility] Medications: Active Outpatient Medications (including Supplies): Active [...] AT BEDTIME NEEDED FOR MUSCLE SPASM 4) DM 10/GUAIFENESN 100MG/5ML (AF & SF) LIQ TAKE 5 MLS ACTIVE BY MOUTH EVERY 6 HOURS NEEDED 5) ROSUVASTATIN CA 10MG TAB TAKE ONE TABLET BY MOUTH ACTIVE ONCE DAILY FOR CHOLESTEROL 6) SILDENAFIL CITRATE 50MG TAB TAKE ONE TABLET BY MOUTH ACTIVE ONCE DAILY TAKE 1 HOUR PRIOR TO SEXUAL ACTIVITY Active Non-VA Medications Status 1) Non-VA GUSELKUMAB 100MG/ML INJ 1ML SYR 100MG (1ML) ACTIVE SUBCUTANEOUSLY [id number] 2) Non-VA LISINOPRIL 10MG TAB 10MG BY MOUTH EVERY 10 ACTIVE DAYS 8 Total Medications Remote Medications: No Active Remote Medications for this patient HPI: 54-year-old patient came today for 6-month follow-up appointment patient has been using his biologic for psoriasis and denies any problem his psoriasis has been in complete remission. PolyCystic kidney disease his recent creatinine was 1.15 EGFR 76 his electrolytes normal Essential hypertension his blood pressure have been under good control with lisinopril and amlodipine History of fatty liver patient has cut down his alcohol drinking. 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 Patient would like to get form filled out for [employer] arrow. Type 2 diabetes his recent hemoglobin A1c is 6.4 Obesity no significant change in his weight Obstructive sleep apnea has been using CPAP every day Review of system. CVS-Denies any chest pain or discomfort. Respiratory-denies any sob- no changes in his baseline respiratory status. GI-no Gi complains-like nausea and vomiting, abdominal pain or acid reflux, blood in stool, diarrhea. -denies any frequency, urgency, dysuria On examination: patient is alert and oriented X3 vitals are stable, He is in no apparent distress. CVS: regular rate and rhythm Lungs: clear to auscultation ABD: Benign EXT: no edema. Reviewed lab work with the patient. 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 Hyperuricemia and gout--- denies any gout attack patient is on allopurinol Obstructive sleep apnea has been using CPAP regularly. Medication Reconciliation: Outpatient: Has the patient been taking medications as documented in the EMLR? YES: The patient has been taking medications as documented in the EMLR. Essential Medication List for Review used to complete this medication reconciliation. INCLUDED IN THIS LIST: Alphabetical list of active outpatient prescriptions dispensed from this [facility] (local) and dispensed from another [place] or [facility] facility (remote) as well as inpatient orders (local, pending and active), local clinic medications, locally documented non-VA medications, and local prescriptions that have or been discontinued in the past 90 days. - All changes in medications, including all non-VA/Herbal/OTC medications were entered into CPRS. - If there were any medications the patient should no longer take, they were discontinued. - The patient/caregiver was instructed to update this list, discard old lists, and take this list to the next appointment, whether with a VA or non-VA provider. Colonoscopy GAP Reminder: Recommendations are needed in the clinical reminder system following the patient's most recent colorectal cancer screening/surveillance test (Colonoscopy, Sigmoidoscopy or CT Colonography) Prior/outside colonoscopy results: Normal colon other than internal hemorrhoids repeat in 10 years Date: June 12, 2023 Colonoscopy reminder set 9 years from FEB 11, 2024. Medication Reconciliation: Outpatient: Has the patient been taking medications as documented in the EMLR? YES: The patient has been taking medications as documented in the EMLR. Essential Medication List for Review used to complete this medication reconciliation. INCLUDED IN THIS LIST: Alphabetical list of active outpatient prescriptions dispensed from this [place] (local) and dispensed from another [place] or [facility] facility (remote) as well as inpatient orders (local, pending and active), local clinic medications, locally documented non-VA medications, and local prescriptions that have or been discontinued in the past 90 days. - All changes in medications, including all non-VA/Herbal/OTC medications were entered into CPRS. - If there were any medications the patient should no longer take, they were discontinued. - The patient/caregiver was instructed to update this list, discard old lists, and take this list to the next appointment, whether with a VA or non-VA provider. /betty/ AMY HENRY MD STAFF PHYSICIAN Signed: 02/11/2024 17:58 AMY HENRY [facility] [place] [facility] Feb 11, 2024 02:53 PM PREVENTIVE MEDICINE NURSING NOTE: LOCAL TITLE: CLINICAL REMINDERS/NURSING STANDARD TITLE: PREVENTIVE MEDICINE NURSING NOTE DATE OF NOTE: FEB 11, 2024@14:53 ENTRY DATE: FEB 11, 2024@14:53:12 AUTHOR: VAZQUEZ KOROMA EXP COSIGNER: URGENCY: STATUS: COMPLETED CLINICAL REMINDERS/NURSING Has ADDENDA Advance Directive Screen MH AD: Patient does not have a completed advance directive on file at any facility, VA or outside. S/he is not interested in completing one at this time. The patient received education about Advance Directives and written notification of his/her rights. Tobacco Use Screening: The patient has never used tobacco. Alcohol Use Screen (AUDIT-C): Alcohol Screen: SCREEN FOR ALCOHOL (AUDIT-C) An alcohol screening test (AUDIT-C) was negative (score=1). 1. How often did you have a drink containing alcohol in the past year? Consider a drink to be a 12 ounce can or bottle of regular beer, 8 ounces of malt liquor, a 5 ounce glass of table wine, or a 1.5 ounce shot of liquor (like scotch, gin, or vodka). Monthly or less 2. How many drinks containing alcohol did you have on a typical day when you were drinking in the past year? One or two drinks 3. How often did you have six or more drinks on one occasion in the past year? Timothy /betty/ Vazquez Koroma, Health Application Counselor STAGE RIGGER,PRIMARY CARE Signed: 02/11/2024 14:55 02/20/2024 ADDENDUM STATUS: COMPLETED Influenza Immunization: The patient declines to receive the recommended dose of seasonal influenza vaccine. Immunization: INFLUENZA, UNSPECIFIED FORMULATION Refusal Reason: PATIENT DECISION Patient refuses all immunization(s) in the FLU group Date Documented: 02/20/24 12:12 /betty/ MAYI VELAZQUEZ LPN Signed: 02/20/2024 12:12 [facility]Z [facility]
--- OUTSIDE RECORDS SUMMARY | 2024-10-25 10:44 | XMS_ITS ---
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 Address [address] [place] [id number] Care Team Providers Care Economic Analysis Director Name Role Phone LEO FORRESTER Primary [...] Name Patient's Relationship to Policy Suresh [facility] ORGANIZAT ION COH G AND E May 10, 2024 [id number] [phone] [facility] PATIENT [place] PRESCRIPT ION [facility] May 10, 2024 [id number] CARD,[facility] PATIENT CIGNA POINT OF SERVICE [facility] Feb 08, 2018 [id number] CARD,[facility] PATIENT [employer] BEHAVIORAL HEALTH MENTAL HEALTH [facility] Feb 08, 2018 [id number] CARD,[facility] PATIENT CIGNA PHARMACY PRESCRIPT ION [facility] Feb 08, 2018 [id number] CARD,[facility] May 10, 2019 [id number] DOMI BAUTISTATRACEYKIRAN PATIENT OPTUM RX PRESCRIPT ION [facility] May 10, 2019 [facility] [id number] JOANNA DURON JR PATIENT Selected Encounter This section includes the information on record at [place] for the Encounter. Date/Time Encounter Type Encounter Description Reason Pro vider Source Jan 28, 2024 10:42 AM Outpatient Encounter [facility] IHE Encounter Template Text not used by [place] Plan of Treatment: Future Appointments (+ 6 months) and Future Tests (+/- 45 days) The Plan of Treatment section includes future care activities for the patient from all [place] [facility]. This section includes future appointments and future orders which are active, pending or scheduled. Future Appointments This section includes appointments that were scheduled to occur 6 months from the date of the Encounter, up to a maximum of 20 appointments. The data comes from all [place] treatment facilities. Appointment Date/Time Appointment Type Appointme nt Facility Name Feb 11, 2024 03:00 PM [place]ORY [place] [facility] Feb 25, 2024 03:00 PM [place] [facility] Feb 26, 2024 03:00 PM [place] [facility] March 31, 2024 03:00 PM [place] [facility] April 01, 2024 03:00 PM [place] [facility] May 27, 2024 03:00 PM [place] [facility] Jun 02, 2024 03:00 PM [place] [facility] Jun 30, 2024 03:00 PM [place]ORY [place]ICINE [place] [facility] Lab Results: +/- 30 days of the encounter This section includes the Chemistry and Hematology Lab Results on record with [place] for the patient. Radiology Reports and Pathology Reports are provided separately, in subsequent sections. Lab Results This section contains the Chemistry/Hematology Results that were resulted 30 days before or 30 daysafter the date of the Encounter. Date/Time Source Result Type Result - Unit Interpretation Reference Range Comment Feb 09, 2024 08:57 AM [place] [facility] HEPATITIS A ANTIBODY (IgM) Specimen Type: SERUM Comment: A Reactive result ( Positive prior to 08/23/13) indicates recent infection with Hepatitis A virus. Hepatitis A IgM antibodies may persist for 3-6 months after acute Hepatitis A infection. Ordering Provider: AMY HENRY Report Released Date/Time: Jan 23, 2024 11:44 AM Reporting Lab: [address] [address] Performing Lab: [address] [address] HEPATITIS A ANTIBODY (IgM) Non Reactive Non Reactive Feb 09, 2024 08:56 AM [facility] LIPID PANEL FASTING Specimen Type: SERUM No comment entered. Ordering Provider: AMY HENRY Report Released Date/Time: Aug 12, 2023 02:58 PM Reporting Lab: [address] [address] Performing Lab: [address] [address] CHOLESTEROL 138 mg/dL TRIGLYCERIDE 56 mg/dL 0-150 LDL calculated 74 mg/dL 0-129 CHOL/HDL 2.6 HDL CHOLESTEROL 53 mg/dL 40-60 Feb 09, 2024 08:56 AM [facility] HEMOGLOBIN A1C PANEL Specimen Type: BLOOD Comment: [...] Aug 12, 2023 02:58 PM Reporting Lab: [address] [address] Performing Lab: [address] [address] HEMOGLOBIN A1C 6.4 H 4.0-5.6 Feb 09, 2024 08:56 AM [facility] BASIC METABOLIC PANEL (fasting) Specimen Type: SERUM No comment entered. Ordering Provider: AMY HENRY Report Released Date/Time: Aug 12, 2023 02:58 PM Reporting Lab: [facility] [address] [facility] [address] Performing Lab: [facility] [address] [facility] [address] UREA NITROGEN 19 mg/dL 7-25 GLUCOSE 119 mg/dL H 65-100 SODIUM 142 mmol/L 135-145 POTASSIUM 4.4 mmol/L 3.5-5.0 CHLORIDE 104 mmol/L 100-110 CO2 28 meq/L 20-30 CREATININE, Serum 1.15 mg/dL 0.50-1.40 eGFR(CKD-EPI 2020) 76 mL/min >60 Feb 09, 2024 08:56 AM [facility] LIVER FUNCTION Specimen Type: SERUM No comment entered. Ordering Provider: AMY HENRY Report Released Date/Time: Aug 12, 2023 02:58 PM Reporting Lab: [facility] [address] [facility] [address] Performing Lab: [address] [address] PROTEIN,TOTAL 6.6 g/dL 6.0-8.3 ALBUMIN 3.9 g/dL 3.5-5.0 ALKALINE PHOSPHATASE 61 U/L 40-150 AST 24 U/L 5-34 ALT 35 U/L BILIRUBIN, TOTAL 0.5 mg/dL 0.2-1.2 Feb 09, 2024 08:56 AM [facility] CBC AND DIFF (AUTO) Specimen Type: BLOOD No comment entered. Ordering Provider: AMY HENRY Report Released Date/Time: Aug 12, 2023 02:58 PM Reporting Lab: [facility] [address] [facility] [address] Performing Lab: [address] [address] WBC 4.03 10*3/uL L 4.50-11.00 RBC 4.62 10*6/uL 4.23-5.66 HGB 13.3 g/dL 12.8-17 HCT 40.8 39.2-50.4 MCV 88.3 fL 82-99 MCHC 32.6 g/dL 30.8-35.1 PLT 179 10*3/uL 140-360 RDW-CV 12.2 12.0-16.0 [place], Abs 0.37 10*3/uL 0.30-1.10 MCH 28.8 pg 26.2-32.6 Neut % 60.8 43.7-75.8 Lymph % 24.1 14.0-42.3 [place] % 9.2 5.1-13.7 Eos % 4.7 0.4-6.8 Baso % 1.2 0.1-2.0 Neut, Abs 2.45 10*3/uL 2.20-7.60 Lymph, Abs 0.97 10*3/uL L 1.00-3.20 Eos, Abs 0.19 10*3/uL 0.03-0.44 Baso, Abs 0.05 10*3/uL 0.01-0.13 Immature Gran % 0.0 0.0-0.7 Immature Gran, Abs 0.00 10*3/uL 0.00-0.06 Dec 30, 2023 02:10 PM [facility] COVID-19 FLU/RSV DIAGNOSTIC PANEL Specimen Type: NASOPHARYNX Comment: This test is authorized for emergency use only. False negative results may occur if virus is present at levels below the analytical limit of detection.Nega tive results do not preclude SARS-CoV-2, influenza or RSV infection and should not be used as the sole basis for treatment or other patient management decisions.[facility] uvaldo FLUVID: HCPs: https://www.fd a.gov/media/ 1640/download. Patients: https://www.[place] a.gov/media/ 4669/download Ordering Provider: AMY HENRY Report Released Date/Time: Dec 30, 2023 02:01 PM Reporting Lab: [place] [employer] [facility] Meal Ticket [address] [address] Performing Lab: [place] [facility] [address] [facility] [address] COVID-19 PCR (FLUVID) NEGATIVE NEGATIVE FLU A PCR (FLUVID) NEGATIVE FLU B PCR (FLUVID) NEGATIVE RSV PCR (FLUVID) NEGATIVE Social History: Smoking Status (Most current) and Tobacco Use (All prior to encounter date) This section includes the most current, and the historical, smoking and tobacco- related health factors from the [place] facility where the Encounter took place. Current Smoking Status This section includes the most current smoking, or tobacco-related health factor, from the [place] facility where the Encounter took place. Date/Time Current Smoking Status Comment [facility] Feb 12, 2023 03:00 PM [facility]CO [facility] Tobacco Use History This section includes a history of the smoking, or tobacco-related health factors, that were collected on or before the date of the Encounter. The data comes from the [place] facility where the Encounter took place. Date/Time Smoking Status/Tobac co Use Comment Facility Feb 14, 2022 03:00 PM VA-TOBACCO NEVER USED [place] [facility] [facility] Oct 27, 2020 03:30 PM [place]ACCO [facility] [place] [facility] Aug 25, 2018 04:16 PM VA-TOBACCO DOESNT USE WI 30 MIN WAKEUP [place] [facility] Aug 25, 2018 04:16 PM VA-TOBACCO USE > 15 LESS THAN 30 YEARS [place] [facility] Aug 25, 2018 04:16 PM VA-TOBACCO USE ADVICE [place] [facility] Aug 25, 2018 04:16 PM VA-TOBACCO USE ROAD CUTTER NO [place] [facility] Aug 25, 2018 04:16 PM VA-TOBACCO USE MED NO [place] [facility] Aug 25, 2018 04:16 PM VA-TOBACCO USER SOME DAYS [place] [facility] Oct 07, 2017 11:55 AM CURRENT SMOKER 1 cigar a few times a year [place] [facility] Oct 07, 2017 11:55 AM V1-PT NOT INTERESTED IN QUIT TOBACCO USE [place] [facility] Oct 29, 2016 08:57 AM LIFETIME NON-TOBACCO USER [facility] Radiology Reports: +/- 30 days of [...] the Encounter. The data comes from all [place] treatment facilities. Date/Time Radiology Report Provider Source Dec 30, 2023 02:27 PM SPINE CERVICAL, 4 OR 5 VIEWS: JOANNA DURON [id number] -[id number] M Exm Date: DEC 30, 2023@14:27 Req Phys: MARY JO MATHIS Loc: CWM/NO/CHIROPRACTOR (Req'g Loc Img Loc: [facility] 1 Service: Unknown (Case 41 COMPLETE) SPINE CERVICAL, 4 OR 5 VIEWS (RAD Detailed) CPT:33056 Reason for Study: neck and arm pain Clinical History: worsening sx Report Status: Verified Date Reported: DEC 30, 2023 Date Verified: DEC 30, 2023 Bottle Sorter E-Sig:/ES/ANG APPLE JR Report: Study: AP, lateral [...] Primary Interpreting Staff: ANG APPLE JR, Radiologist (Bottle Sorter) /ANG PATEL JR [facility] Encounter Notes: All associated encounter notes This section contains the clinical notes associated to the Encounter. Date/Time Encounter Note(s) Provider Source Jan 28, 2024 10:42 AM ADMINISTRATIVE NOTE: LOCAL TITLE: ADMINISTRATIVE RECALL NOTE STANDARD TITLE: ADMINISTRATIVE NOTE DATE OF NOTE: JAN 28, 2024@10:42 ENTRY DATE: JAN 28, 2024@10:42:28 AUTHOR: ALLYSON ROE COSIGNER: URGENCY: STATUS: COMPLETED RTC orders: Attempts to contact: 1st attempt: Spoke with Casey/caregiver- vet will rs when he is next on campus on 02/11/2024 2nd attempt: CXP Letter mailed Disposition on Feb 3rd attempt: 4th attempt: PID 02/10/2024 /betty/ ALLYSON ROE Signed: 01/28/2024 10:43 [place] [address] [facility]
--- OUTSIDE RECORDS SUMMARY | 2024-10-25 10:44 | XMS_ITS | Encounter Summary ---
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 Address [address] [place] [address] Care Team Providers Care Administrative Hearing Officer Name Role Phone LEO FORRESTER Primary Care [...] COH G AND E May 10, 2024 [id number] [facility] ER PATIENT [place]EM[place] PRESCRIPT ION [facility] May 10, 2024 [id number] CARD,SP ER PATIENT [employer] POINT OF SERVICE [facility] Feb 08, 2018 [id number] CARD,SP ER PATIENT [employer] BEHAVIORAL HEALTH MENTAL HEALTH [facility] Feb 08, 2018 [id number] CARD,[facility] ER PATIENT CIGNA PHARMACY PRESCRIPT ION [facility] Feb 08, 2018 [id number] CARD,[facility] ER [facility]IENT [facility] May 10, 2019 [id number] DOMI BAUTISTAJOANNA PATIENT OPTUM RX PRESCRIPT ION [facility] [facility] [place] HDHP May 10, 2019 [facility] [id number] JOANNA DURON JR PATIENT Selected Encounter This section includes the information on record at [place] for the Encounter. Date/Time Encounter Type Encounter Description Reason Pro vider Source Jan 28, 2024 11:24 AM Outpatient Encounter PRIMARY CARE/MEDICINE IHE Encounter Template Text not used by [...] 11, 2024 03:00 PM AMBULATORY - MEDICINE [place] [facility] Feb 25, 2024 03:00 PM AMBULATORY - MEDICINE [place] [facility] [place] [place] [facility] Feb 26, 2024 03:00 PM AMBULATORY MEDICINE [place] [facility] [place] [place] [facility] March 31, 2024 03:00 PM AMBULATORY - MEDICINE [place] [facility] [place] [place] [facility] April 01, 2024 03:00 PM AMBULATORY - MEDICINE [place] [facility] [place] [facility] May 27, 2024 03:00 PM AMBULATORY - MEDICINE [place] [facility] [place] [facility] Jun 02, 2024 03:00 PM AMBULATORY - MEDICINE [place] [facility] [place] [place] [facility] Jun 30, 2024 03:00 PM AMBULATORY - MEDICINE [place] [facility] [place] [place] [facility] Lab Results: +/- 30 days of [...] Range Comment Feb 09, 2024 08:57 AM [facility] HEPATITIS A ANTIBODY (IgM) Specimen Type: SERUM Comment: A Reactive result ( Positive prior to 08/23/13) indicates recent infection with Hepatitis A virus. Hepatitis A IgM antibodies may persist for 3-6 months after acute Hepatitis A infection. Ordering Provider: AMY HENRY Report Released Date/Time: Jan 23, 2024 11:44 AM Reporting Lab: [address] [address] Performing Lab: [address] [address] HEPATITIS A ANTIBODY (IgM) Non Reactive Non Reactive Feb 09, 2024 08:56 AM [facility] LIPID PANEL FASTING Specimen Type: SERUM No comment entered. Ordering Provider: AMY HENRY Report Released Date/Time: Aug 12, 2023 02:58 PM Reporting Lab: [address] [address] Performing Lab: [address] [address] CHOLESTEROL 138 mg/dL TRIGLYCERIDE 56 mg/dL 0-150 LDL calculated 74 mg/dL 0-129 CHOL/HDL 2.6 HDL CHOLESTEROL 53 mg/dL 40-60 Feb 09, 2024 08:56 AM [facility] HEMOGLOBIN A1C PANEL Specimen Type: BLOOD [...] Aug 12, 2023 02:58 PM Reporting Lab: [address] [address] Performing Lab: [address] [address] HEMOGLOBIN A1C 6.4 H 4.0-5.6 Feb 09, 2024 08:56 AM [facility] LIVER FUNCTION Specimen Type: SERUM No comment entered. Ordering Provider: AMY HENRY Report Released Date/Time: Aug 12, 2023 02:58 PM Reporting Lab: [facility] [address] [facility] [address] Performing Lab: [facility] [address] [facility] [address] PROTEIN,TOTAL 6.6 g/dL 6.0-8.3 ALBUMIN 3.9 g/dL 3.5-5.0 ALKALINE PHOSPHATASE 61 U/L 40-150 AST 24 U/L 5-34 ALT 35 U/L BILIRUBIN, TOTAL 0.5 mg/dL 0.2-1.2 Feb 09, 2024 08:56 AM [facility] BASIC METABOLIC PANEL (fasting) Specimen Type: SERUM No comment entered. Ordering Provider: AMY HENRY Report Released Date/Time: Aug 12, 2023 02:58 PM Reporting Lab: [facility] [address] [facility] [address] Performing Lab: [address] [address] UREA NITROGEN 19 mg/dL 7-25 GLUCOSE 119 mg/dL H 65-100 SODIUM 142 mmol/L 135-145 POTASSIUM 4.4 mmol/L 3.5-5.0 CHLORIDE 104 mmol/L 100-110 CO2 28 meq/L 20-30 CREATININE, Serum 1.15 mg/dL 0.50-1.40 eGFR(CKD-EPI 2020) 76 mL/min >60 Feb 09, 2024 08:56 AM [facility] CBC AND DIFF (AUTO) Specimen Type: BLOOD No comment entered. Ordering Provider: AMY HENRY Report Released Date/Time: Aug 12, 2023 02:58 PM Reporting Lab: [facility] [address] [facility] [address] Performing Lab: [address] [address] WBC 4.03 10*3/uL L 4.50-11.00 RBC 4.62 10*6/uL 4.23-5.66 HGB 13.3 g/dL 12.8-17 HCT 40.8 39.2-50.4 MCV 88.3 fL 82-99 MCHC 32.6 g/dL 30.8-35.1 PLT 179 10*3/uL 140-360 RDW-CV 12.2 12.0-16.0 [place], Abs 0.37 10*3/uL 0.30-1.10 MCH 28.8 pg 26.2-32.6 Neut % 60.8 43.7-75.8 Lymph % 24.1 14.0-42.3 [place] % 9.2 5.1-13.7 Eos % 4.7 0.4-6.8 Baso % 1.2 0.1-2.0 Neut, Abs 2.45 10*3/uL 2.20-7.60 Lymph, Abs 0.97 10*3/uL L 1.00-3.20 Eos, Abs 0.19 10*3/uL 0.03-0.44 Baso, Abs 0.05 10*3/uL 0.01-0.13 Immature Gran % 0.0 0.0-0.7 Immature Gran, Abs 0.00 10*3/uL 0.00-0.06 Dec 30, 2023 02:10 PM [facility] COVID-19 FLU/RSV DIAGNOSTIC PANEL Specimen Type: NASOPHARYNX Comment: This test is authorized for emergency use only. False negative results may occur if virus is present at levels below the analytical limit of detection.Nega tive results do not preclude SARS-CoV-2, influenza or RSV infection and should not be used as the sole basis for treatment or other patient management decisions.[facility] uvaldo FLUVID: HCPs: https://www.fd a.gov/media/ 5502/download. Patients: https://www.Over 40 Females a.gov/media/ 8627/download Ordering Provider: AMY HENRY Report Released Date/Time: Dec 30, 2023 02:01 PM Reporting Lab: [address] [address] Performing Lab: [place] [facility] [address] [facility] [address] COVID-19 PCR (FLUVID) NEGATIVE NEGATIVE FLU A [...] took place. Date/Time Current Smoking Status Comment [facility] Feb 12, 2023 03:00 PM [facility]CO [facility] Tobacco Use History This section includes a history of the smoking, or tobacco-related health factors, that were collected on or before the date of the Encounter. The data comes from the [place] facility where the Encounter took place. Date/Time Smoking Status/Tobac co Use Comment Facility Feb 14, 2022 03:00 PM VA-TOBACCO NEVER USED [place] [facility] Oct 27, 2020 03:30 PM VA-TOBACCO NEVER USED [facility] Aug 25, 2018 04:16 PM VA-TOBACCO DOESNT USE WI 30 MIN WAKEUP [place] [facility] Aug 25, 2018 04:16 PM VA-TOBACCO USE > 15 LESS THAN 30 YEARS [place] [place] [facility] Aug 25, 2018 04:16 PM VA-TOBACCO USE ADVICE [place] [facility] Aug 25, 2018 04:16 PM VA-TOBACCO USE [place] NO [place] [place] [facility] Aug 25, 2018 04:16 PM VA-TOBACCO USE MED NO [place] [facility] Aug 25, 2018 04:16 PM VA-TOBACCO USER SOME DAYS [place] [facility] [place] [facility] Oct 07, 2017 11:55 AM CURRENT SMOKER 1 cigar a few times a year [place] [facility] [place] [facility] Oct 07, 2017 11:55 AM V1-PT NOT INTERESTED IN QUIT TOBACCO USE [place] [facility] [place] [facility] Oct 29, 2016 08:57 AM LIFETIME NON-TOBACCO USER [facility] Radiology Reports: +/- 30 days of [...] OR 5 VIEWS: JOCELYNE DURONJOSE MANUEL Robert [id number] -1970 M Exm Date: DEC 30, 2023@14:27 Req Phys: MARY JO MATHIS Loc: CWM/NO/CHIROPRACTOR (Req'g Loc Img Loc: [facility] 1 Service: Unknown (Case 41 COMPLETE) SPINE CERVICAL, 4 OR 5 VIEWS (RAD Detailed) CPT:05282 Reason for Study: neck and arm pain Clinical History: worsening sx Report Status: Verified Date Reported: DEC 30, 2023 Date Verified: DEC 30, 2023 Management Analyst E-Sig:/ES/ANG APPLE JR Report: Study: AP, lateral [...] Primary Interpreting Staff: ANG APPLE JR, Radiologist (Management Analyst) /ANG PATEL JR [facility] Encounter Notes: All associated encounter notes This section contains the clinical notes associated to the Encounter. Date/Time Encounter Note(s) Provider Source Jan 28, 2024 11:24 AM ADMINISTRATIVE NOT E: LOCAL TITLE: ADMINISTRATIVE NOTE STANDARD TITLE: ADMINISTRATIVE NOTE DATE OF NOTE: JAN 28, 2024@11:24 ENTRY DATE: JAN 28, 2024@11:24:52 AUTHOR: RADHA SAAB EXP COSIGNER: URGENCY: STATUS: COMPLETED Reminder call for your upcoming Primary Care Appointment and the need for preparations prior to your upcoming appt. 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
--- OUTSIDE RECORDS SUMMARY | 2024-10-25 10:44 | XMS_ITS ---
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 ([place]) Organization Department of Vetera [place] Affairs [place]) Address [address] [place] [address] Care Team Providers Care Data Steward Name Role Phone MARISANDREASLEO BOWMAN Primary Care Provider Unavailabl e Insurance Providers: [...] Name Patient's Relationship to Policy Suresh [facility] CE ORGANIZAT ION COH G AND E May 10, 2024 [id number] [facility] ER PATIENT [place] PRESCRIPT ION [facility] May 10, 2024 [id number] CARD,SP ER PATIENT [employer] POINT OF SERVICE [place] Feb 08, 2018 [id number] CARD,SP ER PATIENT [employer] [facility] [place] Feb 08, 2018 [id number] CARD,[facility] ER PATIENT [employer] PHARMACY PRESCRIPT ION [place] Feb 08, 2018 [id number] CARD,[facility] ER PATIENT [facility] May 10, 2019 [id number] DOMI BAUTISTAJOANNA PATIENT [facility] RX PRESCRIPT ION [facility] May 10, 2019 [facility] [id number] JOANNA DURON JR PATIENT Selected Encounter This section includes the information on record at ME for the Encounter. 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 This section includes future appointments and [...] - MEDICINE [place] [facility] [facility] Feb 25, 2024 03:00 PM AMBULATORY - MEDICINE [place] [facility] [place] [facility] Feb 26, 2024 03:00 PM AMBULATORY - MEDICINE [place] [facility] [facility] March 31, 2024 03:00 PM AMBULATORY - MEDICINE [place] C [facility] [facility] April 01, 2024 03:00 PM AMBULATORY - MEDICINE [place] [facility] [facility] May 27, 2024 03:00 PM AMBULATORY - MEDICINE ME [facility] [facility] Jun 02, 2024 03:00 PM AMBULATORY - MEDICINE [place] [facility] [facility] Jun 30, 2024 03:00 PM AMBULATORY - MEDICINE [place] [facility] [facility] Lab Results: +/- 30 days [...] Feb 09, 2024 08:57 AM [facility] HEPATITIS A ANTIBODY (IgM) Specimen Type: SERUM Comment: A Reactive result ( Positive prior to 08/23/13) indicates recent infection with Hepatitis A virus. Hepatitis A IgM antibodies may persist for 3-6 months after acute Hepatitis A infection. Ordering Provider: AMY HENRY Report Released Date/Time: Jan 23, 2024 11:44 AM Reporting Lab: [address] [address] Performing Lab: [address] [address] HEPATITIS A ANTIBODY (IgM) Non Reactive Non Reactive Feb 09, 2024 08:56 AM [facility] HEMOGLOBIN A1C PANEL Specimen Type: BLOOD [...] 12, 2023 02:58 PM Reporting Lab: [address] [address] Performing Lab: [address] [address] HEMOGLOBIN A1C 6.4 H 4.0-5.6 Feb 09, 2024 08:56 AM [facility] LIPID PANEL FASTING Specimen Type: SERUM No comment entered. Ordering Provider: AMY HENRY Report Released Date/Time: Aug 12, 2023 02:58 PM Reporting Lab: [address] [address] Performing Lab: [address] [address] CHOLESTEROL 138 mg/dL TRIGLYCERIDE 56 mg/dL 0-150 LDL calculated 74 mg/dL 0-129 CHOL/HDL 2.6 HDL CHOLESTEROL 53 mg/dL 40-60 Feb 09, 2024 08:56 AM [facility] BASIC METABOLIC PANEL (fasting) Specimen Type: SERUM No comment entered. Ordering Provider: AMY HENRY Report Released Date/Time: Aug 12, 2023 02:58 PM Reporting Lab: [facility] [address] [facility] [address] Performing Lab: [address] [address] UREA NITROGEN 19 mg/dL 7-25 GLUCOSE 119 mg/dL H 65-100 SODIUM 142 mmol/L 135-145 POTASSIUM 4.4 mmol/L 3.5-5.0 CHLORIDE 104 mmol/L 100-110 CO2 28 meq/L 20-30 CREATININE, Serum 1.15 mg/dL 0.50-1.40 eGFR(CKD-EPI 2020) 76 mL/min >60 Feb 09, 2024 08:56 AM [facility] LIVER FUNCTION Specimen Type: SERUM No comment entered. Ordering Provider: AMY HENRY Report Released Date/Time: Aug 12, 2023 02:58 PM Reporting Lab: [facility] [address] [facility] [address] Performing Lab: [address] [address] PROTEIN,TOTAL 6.6 g/dL 6.0-8.3 ALBUMIN 3.9 g/dL 3.5-5.0 ALKALINE PHOSPHATASE 61 U/L 40-150 AST 24 U/L 5-34 ALT 35 U/L BILIRUBIN, TOTAL 0.5 mg/dL 0.2-1.2 Feb 09, 2024 08:56 AM [facility] CBC AND DIFF (AUTO) Specimen Type: BLOOD No comment entered. Ordering Provider: AMY HENRY Report Released Date/Time: Aug 12, 2023 02:58 PM Reporting Lab: [facility] [address] [facility] [address] Performing Lab: [address] [address] WBC 4.03 10*3/uL L 4.50-11.00 RBC 4.62 10*6/uL 4.23-5.66 HGB 13.3 g/dL 12.8-17 HCT 40.8 39.2-50.4 MCV 88.3 fL 82-99 MCHC 32.6 g/dL 30.8-35.1 PLT 179 10*3/uL 140-360 RDW-CV 12.2 12.0-16.0 [place], Abs 0.37 10*3/uL 0.30-1.10 MCH 28.8 pg 26.2-32.6 Neut % 60.8 43.7-75.8 Lymph % 24.1 14.0-42.3 [place] % 9.2 5.1-13.7 Eos % 4.7 0.4-6.8 Baso % 1.2 0.1-2.0 Neut, Abs 2.45 10*3/uL 2.20-7.60 Lymph, Abs 0.97 10*3/uL L 1.00-3.20 Eos, Abs 0.19 10*3/uL 0.03-0.44 Baso, Abs 0.05 10*3/uL 0.01-0.13 Immature Gran % 0.0 0.0-0.7 Immature Gran, Abs 0.00 10*3/uL 0.00-0.06 Dec 30, 2023 02:10 PM [facility] COVID-19 FLU/RSV DIAGNOSTIC PANEL Specimen Type: NASOPHARYNX Comment: This test is authorized for emergency use only. False negative results may occur if virus is present at levels below the analytical limit of detection.Nega tive results do not preclude SARS-CoV-2, influenza or RSV infection and should not be used as the sole basis for treatment or other patient management decisions.[facility] uvaldo FLUVID: HCPs: https://www.fd a.gov/media/ 1438/download. Patients: https://www.rateGenius a.gov/media/ 3749/download Ordering Provider: AMY HENRY Report Released Date/Time: Dec 30, 2023 02:01 PM Reporting Lab: [address] [address] Performing Lab: [place] [facility] [facility] [address] [facility] [address] COVID-19 PCR (FLUVID) NEGATIVE NEGATIVE FLU A [...] took place. Date/Time Current Smoking Status Comment [facility] it Feb 12, 2023 03:00 PM VA-TOBACCO NEVER USED [facility] Tobacco Use History This section includes a history of the smoking, or tobacco-related health factors, that were collected on or before the date of the Encounter. The data comes from the [place] facility where the Encounter took place. Date/Time Smoking Status/Tobac co Use Comment Facility Feb 14, 2022 03:00 PM VA-TOBACCO NEVER USED [place] [facility] [facility] Oct 27, 2020 03:30 PM VA-TOBACCO NEVER USED [place] [facility] [facility] Aug 25, 2018 04:16 PM VA-TOBACCO DOESNT USE WI 30 MIN WAKEUP [place] [facility] [facility] Aug 25, 2018 04:16 PM VA-TOBACCO USE > 15 LESS THAN 30 YEARS [place] [facility] [facility] Aug 25, 2018 04:16 PM VA-TOBACCO USE ADVICE [place] [facility] [facility] Aug 25, 2018 04:16 PM VA-TOBACCO USE CARDIAC CATHETERIZATION TECHNOLOGIST NO [place] [facility] [facility] Aug 25, 2018 04:16 PM VA-TOBACCO USE MED NO [place] [facility] [facility] Aug 25, 2018 04:16 PM VA-TOBACCO USER SOME DAYS [place] [facility] [place] [facility] Oct 07, 2017 11:55 AM CURRENT SMOKER 1 cigar a few times a year [place] [facility] [place] [facility] Oct 07, 2017 11:55 AM V1-PT NOT INTERESTED IN QUIT TOBACCO USE ME CNTRL [facility] Oct 29, 2016 08:57 AM LIFETIME NON-TOBACCO USER [facility] Radiology Reports: +/- 30 days of [...] the Encounter. The data comes from all [place] treatment facilities. Date/Time Radiology Report Provider Source Dec 30, 2023 02:27 PM SPINE CERVICAL, 4 OR 5 VIEWS: JOANNA DURON [id number] -1970 M Exm Date: DEC 30, 2023@14:27 Req Phys: MARY JO MATHIS Loc: CWM/NO/CHIROPRACTOR (Req'g Loc Img Loc: [facility] 1 Service: Unknown (Case 41 COMPLETE) SPINE CERVICAL, 4 OR 5 VIEWS (RAD Detailed) CPT:95684 Reason for Study: neck and arm pain Clinical History: worsening sx Report Status: Verified Date Reported: DEC 30, 2023 Date Verified: DEC 30, 2023 Surgical Dressing Maker E-Sig:/ES/ANG APPLE JR Report: Study: AP, [...] Primary Interpreting Staff: ANG APPLE JR, Radiologist (Surgical Dressing Maker) /ANG PATEL JR [facility] Encounter Notes: All associated encounter notes This section contains the clinical notes associated to the Encounter. Date/Time Encounter Note(s) Provider Source Jan 28, 2024 10:44 AM ADMINISTRATIVE NOTE: LOCAL TITLE: ADMINISTRATIVE RECALL NOTE STANDARD TITLE: ADMINISTRATIVE NOTE DATE OF NOTE: JAN 28, 2024@10:44 ENTRY DATE: JAN 28, 2024@10:44:18 AUTHOR: ALLYSON ROE COSIGNER: URGENCY: STATUS: COMPLETED RTC orders: Attempts to contact: 1st attempt: Spoke with /caregiver- VET WILL RS WHEN HE IS NEXT ON CAMPUS ON 02/11/2024 2nd attempt: CXP Letter mailed Disposition on Feb 3rd attempt: 4th attempt: PID 02/02/2024 /betty/ ALLYSON ROE Signed: 01/28/2024 10:45 ALLYSON ROE [facility]
--- OUTSIDE RECORDS SUMMARY | 2024-10-25 10:45 | XMS_ITS ---
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 ([place]) Organization Department of Veter[place] [facility] [place] Address [address] [place] [address] Care Team Providers Care Cash Analyst Name Role Phone LEO FORRESTER Primary Care [...] Suresh's Name Patient's Relationship to Policy Suresh [facility] CE ORGANIZAT ION COH G AND E May 10, 2024 [id number] [phone] [facility] ER PATIENT CAREMARK PRESCRIPT ION [facility] May 10, 2024 [id number] [phone] CARD,SP ER PATIENT [employer] POINT OF SERVICE [facility] Feb 08, 2018 [id number] CARD,[facility] ER PATIENT [employer] BEHAVIORAL HEALTH MENTAL HEALTH [facility] Feb 08, 2018 [id number] CARD,[facility] ER PATIENT [employer]IGNA PHARMACY PRESCRIPT ION [facility] Feb 08, 2018 [id number] CARD,[facility] ER PATIENT [facility] May 10, 2019 [id number] DOMI BAUTISTAJOANNA PATIENT [facility] RX PRESCRIPT ION HEALT H [facility] [place] [facility] May 10, 2019 [facility] [id number] DOMI BAUTISTAJOANNA PATIENT Selected Encounter This section includes the information on record at [place] for the Encounter. 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 Date/Time Primary/Secondary Diagnosis Diagnosis Name Provider Source April 01, 2024 03:53 PM PRIMARY Cervicalgia MARY JO MATHIS [place] [facility] [place] [facility] Plan of Treatment: Future Appointments (+ 6 [...] Date/Time Appointment Type Appointme nt Facility Name May 27, 2024 03:00 PM AMBULATORY - MEDICINE [place] [facility] [place] [facility] Jun 02, 2024 03:00 PM AMBULATORY - MEDICINE [place] [facility] [place] [facility] Jun 30, 2024 03:00 PM AMBULATORY - MEDICINE [place] C [facility] [place] [facility] Aug 16, 2024 03:00 PM AMBULATORY - MEDICINE [place] C [facility] [place] [facility] Sep 02, 2024 02:10 PM AMBULATORY - MEDICINE [place] C [facility] [place] [facility] Sep 08, 2024 03:00 PM AMBULATORY - PSYCHIATRY [place] [facility] [place] [facility] Sep 23, 2024 08:00 AM AMBULATORY - MEDICINE [place] C [facility] [place] [facility] Sep 23, 2024 03:00 PM AMBULATORY - PSYCHIATRY [place] [facility] [place] [facility] Sep 29, 2024 08:00 AM AMBULATORY - MEDICINE [place] C [facility] [place] [facility] Social History: Smoking Status (Most current) and [...] took place. Date/Time Current Smoking Status Comment Facil it Feb 11, 2024 03:00 PM VA-TOBACCO NEVER USED [place] [facility] [facility] Tobacco Use History This section includes a history of the smoking, or tobacco-related health factors, that were collected on or before the date of the Encounter. The data comes from the [place] facility where the Encounter took place. Date/Time Smoking Status/Tobac co Use Comment Facility Feb 12, 2023 03:00 PM VA-TOBACCO NEVER USED [place] [facility] [facility] Feb 14, 2022 03:00 PM VA-TOBACCO NEVER USED [place] [facility] [place] [facility] Oct 27, 2020 03:30 PM VA-TOBACCO NEVER USED [place] [facility] [facility] Aug 25, 2018 04:16 PM VA-TOBACCO DOESNT USE WI 30 MIN WAKEUP [place] [facility] [facility] Aug 25, 2018 04:16 PM VA-TOBACCO USE > 15 LESS THAN 30 YEARS [place] [facility] [place] [facility] Aug 25, 2018 04:16 PM VA-TOBACCO USE ADVICE [place] [facility] [facility] Aug 25, 2018 04:16 PM VA-TOBACCO USE HAIR BLENDER NO [place] [facility]TR[facility] [facility] Aug 25, 2018 04:16 PM VA-TOBACCO USE MED NO [place] [facility] [facility] Aug 25, 2018 04:16 PM VA-TOBACCO USER SOME DAYS [place] [facility] [facility] Oct 07, 2017 11:55 AM CURRENT SMOKER 1 cigar a few times a year [place] [facility] [place] [facility] Oct 07, 2017 11:55 AM V1-PT NOT INTERESTED IN QUIT TOBACCO USE [place] [facility] [facility] Oct 29, 2016 08:57 AM LIFETIME NON-TOBACCO USER [place] [facility] [place] [facility] Radiology Reports: +/- 30 days of the [...] treatment facilities. Date/Time Radiology Report Provider Source April 01, 2024 03:45 PM KNEE 3 VIEWS (RIGH T): JOANNA DURON [id number] -1970 M Exm Date: APRIL 01, 2024@15:45 Req Phys: KOURTNEY GAMBOA Pat Loc: CWM/NO/SICK CALL PA (Req'g Loc Img Loc: [facility] 1 Service: Unknown [facility] , (Case 300 COMPLETE) KNEE 3 VIEWS (RIGHT) (RAD Detailed) CPT:98506 Proc Modifiers : RIGHT Reason for Study: Right knee swelling Clinical History: Remote history of football playing Report Status: Verified Date Reported: APRIL 01, 2024 Date Verified: APRIL 01, 2024 Office Receptionist E-Sig:/ES/ANG APPLE JR Report: Study: AP weight-bearing views of the knees with lateral and sunrise views of the right knee. Comparison: None. 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 The right patella is normally located with preservation of the right patellofemoral joint space and small superior patellar insertional enthesophyte present. There is no suprapatellar joint effusion present. No bony fracture, dislocation or subluxation is seen. The bony mineralization is normal. No acute bony abnormality is seen. Impression: No acute bony abnormality with arthritic changes of the medial joint compartment, as described above. Primary Diagnostic Code: No immediate attention required Primary Interpreting Staff: ANG APPLE JR, Radiologist (Office Receptionist) /ANG PATEL JR [facility] Encounter Notes: All associated encounter notes This section contains the clinical notes associated to the Encounter. 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: [employer] Service Connected Disabilities with % Eligibility: Active Problem Shared care - framing consultant and GP [id number] 01/29/2021 CARL,MOHAMMED JAWED Type 2 diabetes mellitus controlled 10/27/2020 CARL,MOHAMMED JAWED Acquired polycystic kidney disease 02/23/2018 AHMED,MOHAMMED JAWED Low back pain M54.50 02/14/2022 AHMED,MOHAMMED JAWED Hyperuricemia E79.0 10/29/2016 CARL,MOHAMMED JAWED Psoriasis L40.4 10/29/2016 CARL,MOHAMMED JAWED Obstructive sleep apnea G47.33 02/27/2017 CARL,MOHAMMED JAWED Obesity E66.8 10/29/2016 ORMMED,MOHAMMED JAWED Past Surgeries: Patient presents to [place] [facility] with C/O swelling in his right knee for unknown reason. He denies trauma and has never had same sx. These sx presented end of January. He constantly goes up and down stairs at work. The only activity that was different is that he drove to [place]. He typically drives a lot for work. Vet reports that his neck is tight but the low back is worse. He C/O lbp for which he received acupuncture yesterday. The relief lasts about a month. He states no serious pain in his neck and can rotate almost fully with mild pain at end. Vet states that he is now able to lift his left arm. HX 20 years ago pulled ligament in R knee He rates the neck pain 4/10. He still stretches which helps. There is no longer N/T in fingers Temporal: worse in mornings. And a 10/10 [...] lifting and a lot of PT. Prior day care center director: None Activities: exercises at gym and lifts light weights. 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 He stands for 8 hours. GOALS: lift left arm past 90 degrees Pertinent imaging: pending Patient denies recent fever, infections, night sweats, unexplained weight loss, bowl/bladder problems, saddle anesthesia Initial EXAM NPRS Active LUMBAR ROM largely WNL limited and [...] Supine gluteal stretching as per palpation Objectives 04/01/24: edema in R suprapateller region; medial knee; and posterior leg/calf. No point tenderness. Hypertonic tender C/sp mm, bilat Restrictions cervical Treatment: Corrective/Active Manual therapy 8 min supine cervical CMT cervical supine Recommended patient to go to [facility]. He stated that he will go to Dr. Ching'sarah and try to be seen. Treatment carried out today and well tolerated with relief expressed. The prognosis, at this time, is fair to good. Plan: Complete lumbar spine exam if needed and at patient's request Short term goals include improvement in excess [...] core stability, balance, and pain modulation. Visit 5 F/U 4 weekly Seek urgent care as needed. CMT: chiropractic manipulative therapy SMT: Spinal Manipulative Therapy F/D: Flexion Distraction MFR: Myofascial Release S-I: Sacroiliac MFTP: Myofascial Trigger Point NRS: Numeric Rating Scale N/T: Numbness/Tingling PIR: Post isometric relaxation /es/ MARY JO MATHIS D.C. CHIROPRACTOR Signed: 04/01/2024 15:53 MARY JO MATHIS CNTRL [facility]
--- OUTSIDE RECORDS SUMMARY | 2024-10-25 10:45 | XMS_ITS | Encounter Summary ---
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 Address [address] [place] [address] Care Team Providers Care Police Commissioner Name Role Phone LEO FORRESTER Primary Care [...] Suresh's Name Patient's Relationship to Policy Suresh [facility] CE ORGANIZAT ION COH G AND E May 10, 2024 [id number] [facility] ER PATIENT [place] PRESCRIPT ION [facility] May 10, 2024 [id number] [facility] ER PATIENT CIGNA POINT OF SERVICE [facility] Feb 08, 2018 [id number] [facility] ER PATIENT [facility]IG[facility] BEHAVIORAL HEALTH MENTAL HEALTH [facility] Feb 08, 2018 [id number] [facility] ER PATIENT CIGNA PHARMACY PRESCRIPT ION [facility] Feb 08, 2018 [id number] [facility] ER PATIENT [facility] May 10, 2019 [id number] DOMI BAUTISTAJOANNA PATIENT OPTUM RX PRESCRIPT ION [facility] May 10, 2019 [facility] [id number] JOANNA DURON JR PATIENT Selected Encounter This section includes the information on record at [place] for the Encounter. Date/Time Encounter Type Encounter Description Reason Provider Source March 31, 2024 03:00 PM ACUPUNCT W/O STIMUL ADDL 15M [facility] TREATMENT ICD-10-CM M54.50 Low back pain, unspecified SUJATHAUNYA,LUIS PHER M E Encounter Template Text not used by [place] Assessments - Encounter Diagnoses This section includes the primary and secondary diagnoses documented for the Encounter. Date/Time Primary/Secondary Diagnosis Diagnosis Name Provider Source March 31, 2024 03:48 PM PRIMARY Low back pain, unspecified SUJATHAUNJAG ARAIZAO PHER M [facility] [place] [facility] March 31, 2024 03:48 PM SECONDARY Cervicalgia SUJATHAVELJOSE GLUIS PHER M [facility] [place] [facility] March 31, 2024 03:48 PM SECONDARY Pain in right knee SUJATHAUNJAG ARAIZAO PHER M [facility] [place] [facility] Plan of [...] Date/Time Appointment Type Appointme nt Facility Name April 01, 2024 03:00 PM AMBULATORY - MEDICINE AR [facility] [place] [facility] May 27, 2024 03:00 PM AMBULATORY - MEDICINE AR C [facility] [place] [facility] Jun 02, 2024 03:00 PM AMBULATORY - MEDICINE AR [facility] [place] [facility] Jun 30, 2024 03:00 PM AMBULATORY - MEDICINE AR C [facility] [place] [facility] Aug 16, 2024 03:00 PM AMBULATORY - MEDICINE AR C [facility] [place] [facility] Sep 02, 2024 02:10 PM AMBULATORY - MEDICINE VA C [facility] [place] [facility] Sep 08, 2024 03:00 PM AMBULATORY - PSYCHIATRY [facility] [place] [facility] Sep 23, 2024 08:00 AM AMBULATORY - MEDICINE VA C [facility] [place] [facility] Sep 23, 2024 03:00 PM AMBULATORY - PSYCHIATRY [facility] [place] [facility] Sep 29, 2024 08:00 AM AMBULATORY - MEDICINE AR C [facility] [place] [facility] Social History: Smoking Status [...] took place. Date/Time Current Smoking Status Comment [facility] Feb 11, 2024 03:00 PM VA-TOBACCO NEVER USED [facility] Tobacco Use History This [...] 30 MIN WAKEUP [facility] [place] [facility] Aug 25, 2018 04:16 PM VA-TOBACCO USE > 15 LESS THAN 30 YEARS [facility] [place] [facility] Aug 25, 2018 04:16 PM VA-TOBACCO USE ADVICE [facility] [place] [facility] Aug 25, 2018 04:16 PM VA-TOBACCO USE CHAMPION OF SUSTAINABLE DESIGN NO [facility] [place] [facility] Aug 25, 2018 04:16 PM VA-TOBACCO USE MED NO [facility] [place] [facility] Aug 25, 2018 04:16 PM VA-TOBACCO USER SOME DAYS [facility] Oct 07, 2017 11:55 AM CURRENT SMOKER 1 cigar a few times a year [facility] Oct 07, 2017 11:55 AM V1-PT NOT INTERESTED IN QUIT TOBACCO USE [facility] Oct 29, 2016 08:57 AM LIFETIME NON-TOBACCO USER [facility] Radiology Reports: +/- 30 days of [...] KNEE 3 VIEWS (RIGH T): JOANNA DURON JR [id number] -[id number] M Exm Date: APRIL 01, 2024@15:45 Req Phys: KOURTNEY GAMBOA Pat Loc: CWM/NO/SICK CALL PA (Req'g Loc Img Loc: [facility] 1 Service: Unknown [facility] , (Case 300 COMPLETE) KNEE 3 VIEWS (RIGHT) (RAD Detailed) CPT:63840 Proc Modifiers : RIGHT Reason for Study: Right knee swelling Clinical History: Remote history of football playing Report Status: Verified Date Reported: APRIL 01, 2024 Date Verified: APRIL 01, 2024 Gyn E-Sig:/ES/ANG APPLE JR Report: Study: AP weight-bearing [...] Primary Interpreting Staff: ANG APPLE JR, Radiologist (Gyn) /ANG PATEL JR [facility] Encounter Notes: All associated encounter notes This section contains the clinical notes associated to the Encounter. Date/Time Encounter Note(s) Provider Source March 31, 2024 03:44 PM ACUPUNCTURE NOTE: LOCAL TITLE: ACUPUNCTURE TREATMENT STANDARD TITLE: ACUPUNCTURE NOTE DATE OF NOTE: MARCH 31, 2024@15:44 ENTRY DATE: MARCH 31, 2024@15:44:44 AUTHOR: MAYI RAZO COSIGNER: URGENCY: STATUS: COMPLETED CARDJOANNA JR is a 54 WHITE MALE who presents with Low back pain, sciatica, neck pain. Pain in left arm Active Problem Shared care - hr business partner consultant and GP [id number] 01/29/2021 AMY HENRY JAWED Type 2 diabetes mellitus controlled 10/27/2020 CARL,MOHAMMED JAWED Acquired polycystic kidney disease 02/23/2018 CARL,MOHAMMED JAWED Low back pain M54.50 02/14/2022 CARL,MOHAMMED JAWED Hyperuricemia E79.0 10/29/2016 CARL,MOHAMMED JAWED Psoriasis L40.4 10/29/2016 CARLORLINED JAWED Obstructive sleep apnea G47.33 02/27/2017 CARL,TERESAAMMED JAWED Obesity E66.8 10/29/2016 CARL,TERESAAMMED JAWED Date March CC / HPI - presents with 20 year hx of low back pain that started while serving in the [employer]. Pain is bilateral lumbar pain with occasional [...] PREVIOUS TREATMENT. reports last treatment was very helpful and lasted over 2 weeks. went on vacation in [place] and reports that his neck and low back felt more comfortable and Proctor was able to utilize acupressure points for neck pain. Proctor states that he tweaked his right knee 4 to 6 weeks ago and his right knee and calf are swollen compared to the left. states his knee feels stiff when he bends it but there is no pain. There is no pitting edema or discoloration in joint temperature feels normal to touch. I suggested to the Proctor that they contact their PCP as soon as possible to have it assessed. I have also alerted Dr. Gonsales so she may examine it tomorrow at her chiropractic appointment with with the . _ OBJECTIVE General: . Patient in no [...] ]Pyonex Needle: remove prior to bathing per policy officer INFORMED CONSENT: Oral Consent obtained on March The patient was positioned comfortably. Oral consent [...] is required /betty/ MAYI RAZO LA.C DIPL.AC CHIMNEY CONSTRUCTION SUPERVISOR Signed: 03/31/2024 16:04 MAYI RAZO [facility]L [facility]
--- OUTSIDE RECORDS SUMMARY | 2024-10-25 10:45 | XMS_ITS ---
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 Address [address] [place] [address] Care Team Providers Care Lead Carpenter Name Role Phone LEO FORRESTER Primary Care [...] Suresh's Name Patient's Relationship to Policy Suresh [facility] CE ORGANIZAT ION COH G AND E May 10, 2024 [id number] [phone] [facility] ER PATIENT CAREMARK PRESCRIPT ION [facility] May 10, 2024 [id number] CARD,[facility] ER PATIENT CIGNA POINT OF SERVICE [facility] Feb 08, 2018 [id number] [facility] ER PATIENT CIGNA BEHAVIORAL HEALTH MENTAL HEALTH [facility] Feb 08, 2018 [id number] [facility] ER PATIENT CIGNA PHARMACY PRESCRIPT ION [facility] Feb 08, 2018 [id number] [phone] [facility] ER PATIENT [facility] May 10, 2019 [id number] DOMI BAUTISTAJOANNA PATIENT [facility] RX PRESCRIPT ION [facility] May 10, 2019 [facility] [id number] JOANNA DURON JR PATIENT Selected Encounter This section includes the information on record at [place] for the Encounter. Date/Time Encounter Type Encounter Description Reason Provider Source Feb 26, 2024 03:00 PM MANUAL THERAPY 1/> [facility] OPERATIONS SUPERVISOR CHEMICAL CLEANING ICD-10-CM M54.2 Cervicalgia MARY JO MATHIS [facility] Encounter Template Text not used by [place] Assessments - Encounter Diagnoses This section includes the primary and secondary diagnoses documented for the Encounter. Date/Time Primary/Secondary Diagnosis Diagnosis Name Provider Source Feb 26, 2024 03:45 PM PRIMARY Cervicalgia MARY JO MATHIS [facility] [place] [facility] Plan of Treatment: Future Appointments (+ 6 months) and Future Tests (+/- 45 days) The Plan of Treatment section includes future care activities for the patient [facility] [place] [facility] This section includes future appointments and future orders which are active, pending or scheduled. Future Appointments This section includes appointments that were scheduled to occur 6 months from the date of the Encounter, up to a maximum of 20 appointments. The data comes from all [place] treatment facilities. Appointment Date/Time Appointment Type Appointme nt Facility Name March 31, 2024 03:00 PM AMBULATORY - MEDICINE [facility] [place] [facility] April 01, 2024 03:00 PM AMBULATORY MEDICINE [facility] [place] [facility] May 27, 2024 03:00 PM AMBULATORY MEDICINE IN C [facility] [place] [facility] Jun 02, 2024 03:00 PM AMBULATORY MEDICINE IN C [facility] [place] [facility] Jun 30, 2024 03:00 PM AMBULATORY MEDICINE [facility] [facility] Aug 16, 2024 03:00 PM AMBULATORY MEDICINE [facility] [facility] Lab Results: +/- 30 days of the encounter This section includes the Chemistry and Hematology Lab Results on record with [place] for the patient. Radiology Reports and Pathology Reports are provided separately, in subsequent sections. Lab Results This section contains the Chemistry/Hematology Results that were resulted 30 days before or 30 daysafter the date of the Encounter. Date/Time Source Result Type Result - Unit Interpretation Reference Range Comment Feb 09, 2024 08:57 AM [facility] HEPATITIS A ANTIBODY (IgM) Specimen Type: SERUM Comment: A Reactive result ( Positive prior to 08/23/13) indicates recent infection with Hepatitis A virus. Hepatitis A IgM antibodies may persist for 3-6 months after acute Hepatitis A infection. Ordering Provider: AMY HENRY Report Released Date/Time: Jan 23, 2024 11:44 AM Reporting Lab: [facility] [address] [facility] [address] Performing Lab: [address] [address] HEPATITIS A ANTIBODY (IgM) Non Reactive Non Reactive Feb 09, 2024 08:56 AM [facility] LIPID PANEL FASTING Specimen Type: SERUM No comment entered. Ordering Provider: AMY HENRY Report Released Date/Time: Aug 12, 2023 02:58 PM Reporting Lab: [facility] [address] [facility] [address] Performing Lab: [address] [address] CHOLESTEROL 138 mg/dL TRIGLYCERIDE 56 mg/dL 0-150 LDL calculated 74 mg/dL 0-129 CHOL/HDL 2.6 HDL CHOLESTEROL 53 mg/dL 40-60 Feb 09, 2024 08:56 AM [facility] HEMOGLOBIN A1C PANEL Specimen Type: BLOOD [...] Aug 12, 2023 02:58 PM Reporting Lab: [address] [address] Performing Lab: [address] [place] [address] HEMOGLOBIN A1C 6.4 H 4.0-5.6 Feb 09, 2024 08:56 AM [facility] BASIC METABOLIC PANEL (fasting) Specimen Type: SERUM No comment entered. Ordering Provider: AMY HENRY Report Released Date/Time: Aug 12, 2023 02:58 PM Reporting Lab: [address] [address] Performing Lab: [address] [address] UREA NITROGEN 19 mg/dL 7-25 GLUCOSE 119 mg/dL H 65-100 SODIUM 142 mmol/L 135-145 POTASSIUM 4.4 mmol/L 3.5-5.0 CHLORIDE 104 mmol/L 100-110 CO2 28 meq/L 20-30 CREATININE, Serum 1.15 mg/dL 0.50-1.40 eGFR(CKD-EPI 2020) 76 mL/min >60 Feb 09, 2024 08:56 AM [facility] LIVER FUNCTION Specimen Type: SERUM No comment entered. Ordering Provider: AMY HENRY Report Released Date/Time: Aug 12, 2023 02:58 PM Reporting Lab: [address] [address] Performing Lab: [address] [address] PROTEIN,TOTAL 6.6 g/dL 6.0-8.3 ALBUMIN 3.9 g/dL 3.5-5.0 ALKALINE PHOSPHATASE 61 U/L 40-150 AST 24 U/L 5-34 ALT 35 U/L BILIRUBIN, TOTAL 0.5 mg/dL 0.2-1.2 Feb 09, 2024 08:56 AM [facility] CBC AND DIFF (AUTO) Specimen Type: BLOOD No comment entered. Ordering Provider: AMY HENRY Report Released Date/Time: Aug 12, 2023 02:58 PM Reporting Lab: [address] [address] Performing Lab: [facility] [address] [facility] [address] WBC 4.03 10*3/uL L 4.50-11.00 RBC 4.62 10*6/uL 4.23-5.66 HGB 13.3 g/dL 12.8-17 HCT 40.8 39.2-50.4 MCV 88.3 fL 82-99 MCHC 32.6 g/dL 30.8-35.1 PLT 179 10*3/uL 140-360 RDW-CV 12.2 12.0-16.0 Hancock, Abs 0.37 10*3/uL 0.30-1.10 MCH 28.8 pg 26.2-32.6 Neut % 60.8 43.7-75.8 Lymph % 24.1 14.0-42.3 Hancock % 9.2 5.1-13.7 Eos % 4.7 0.4-6.8 Baso % 1.2 0.1-2.0 Neut, Abs 2.45 10*3/uL 2.20-7.60 Lymph, Abs 0.97 10*3/uL L 1.00-3.20 Eos, Abs 0.19 10*3/uL 0.03-0.44 Baso, Abs 0.05 10*3/uL 0.01-0.13 Immature Gran % 0.0 0.0-0.7 Immature Gran, Abs 0.00 10*3/uL 0.00-0.06 Social History: Smoking Status (Most current) and Tobacco Use (All prior to encounter date) This section includes the most current, and the historical, smoking and tobacco- related health factors from the [place] facility where the Encounter took place. Current Smoking Status This section includes the most current smoking, or tobacco-related health factor, from the [place] facility where the Encounter took place. Date/Time Current Smoking Status Comment [facility] it Feb 11, 2024 03:00 PM VA-TOBACCO NEVER USED [facility] Tobacco Use History This section includes a history of the smoking, or tobacco-related health factors, that were collected on or before the date of the Encounter. The data comes from the [place] facility where the Encounter took place. Date/Time Smoking Status/Tobac co Use Comment Facility Feb 12, 2023 03:00 PM VA-TOBACCO NEVER USED [facility] [place] [facility] Feb 14, 2022 03:00 PM VA-TOBACCO NEVER USED [facility] [place] [facility] Oct 27, 2020 03:30 PM VA-TOBACCO NEVER USED [facility] [facility] Aug 25, 2018 04:16 PM VA-TOBACCO DOESNT USE WI 30 MIN WAKEUP IN CNTRL [place] [facility] Aug 25, 2018 04:16 PM VA-TOBACCO USE > 15 LESS THAN 30 YEARS [facility] [place] [facility] Aug 25, 2018 04:16 PM VA-TOBACCO USE ADVICE [facility] [place] [facility] Aug 25, 2018 04:16 PM VA-TOBACCO USE PLUSH WEAVER NO [facility] [place] [facility] Aug 25, 2018 04:16 PM VA-TOBACCO USE MED NO [facility] [place] [facility] Aug 25, 2018 04:16 PM VA-TOBACCO USER SOME DAYS [facility] [place] [facility] Oct 07, 2017 11:55 AM CURRENT SMOKER 1 cigar a few times a year [facility] [place] [facility] Oct 07, 2017 11:55 AM V1-PT NOT INTERESTED IN QUIT TOBACCO USE [facility] [facility] Oct 29, 2016 08:57 AM LIFETIME NON-TOBACCO USER IN [facility]L [place] [facility] Encounter Notes: All associated encounter notes This section contains the clinical notes associated to the Encounter. Date/Time Encounter Note(s) Provider Source Feb 26, 2024 03:06 PM CHIROPRACTIC NOTE: LOCAL TITLE: CHIROPRACTOR PROGRESS NOTE STANDARD TITLE: CHIROPRACTIC NOTE DATE OF NOTE: FEB 26, 2024@15:06 ENTRY DATE: FEB 26, 2024@15:06:41 AUTHOR: MARY JO MATHIS COSIGNER: URGENCY: STATUS: COMPLETED TRACEY DURONKIRAN Robert is a 53 WHITE MALE with prior history of COMBAT SERVICE INDICATED: No POS: PERIOD OF SERVICE - OTHER OR NONE SERVICE BRANCH: [employer] Service Connected Disabilities with % Eligibility: Active Problem Shared care - product safety consultant and GP Z76 01/29/2021 AMY HENRY JAWED Type 2 diabetes mellitus controlled 10/27/2020 AHMED,MOHAMMED JAWED Acquired polycystic kidney disease 02/23/2018 AMY HENRY Low back pain M54.50 02/14/2022 AMY HENRY Hyperuricemia E79.0 10/29/2016 AMY HENRYED Psoriasis L40.4 10/29/2016 AMY HENRY Obstructive sleep apnea G47.33 02/27/2017 AMY HENRY Obesity E66.8 10/29/2016 AMY HENRY Past Surgeries: Patient presents to [place] Chiropractic clinic with report that his neck has improved and he is able to lift his left arm. Vet states that his neck is stiff inmornings but decr after using ice. He rates the neck pain 4/10 if he used ice.He also stretches which helps. There is no longer N/T in fingers He reports mild low back pain which he prefers to delay exam and treatment until his neck no longer needs the time. Temporal: worse in mornings. And a 10/10 [...] lifting and a lot of PT. Prior daycare director: None Activities: exercises at gym and lifts light weights. 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 He looks down and up when he [...] Supine gluteal stretching as per palpation Objectives 02/26/24: Hypertonic tender C/sp mm, bilat Restrictions cervical Treatment: Corrective/Active Manual therapy 12 min supine cervical Axial traction with towel pull Treatment carried out today and well tolerated [...] core stability, balance, and pain modulation. Visit 4 F/U 4 weekly Seek urgent care as needed. CMT: chiropractic manipulative therapy SMT: Spinal Manipulative Therapy F/D: Flexion Distraction MFR: Myofascial Release S-I: Sacroiliac MFTP: Myofascial Trigger Point NRS: Numeric Rating Scale N/T: Numbness/Tingling PIR: Post isometric relaxation /es/ MARY JO MATHIS D.[facility]. CHIROPRACTOR Signed: 02/26/2024 15:45 MARY JO MATHIS CNTRL [facility]
--- OUTSIDE RECORDS SUMMARY | 2024-10-25 10:45 | XMS_ITS ---
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 [place] Organization [facility] [place] Address [address] [place] [address] Care Team Providers Care Pairer Substandard Name Role Phone LEO FORRESTER Primary Care [...] Suresh's Name Patient's Relationship to Policy Suresh [facility] ORGANIZAT ION COH G AND E May 10, 2024 [id number] [facility] ER PATIENT CAREMARK PRESCRIPT ION [facility] May 10, 2024 [id number] [phone] CARD,SP ER PATIENT [employer] POINT OF SERVICE [facility] Feb 08, 2018 [id number] CARD,SP ER PATIENT [employer] BEHAVIORAL HEALTH MENTAL HEALTH [facility] Feb 08, 2018 [id number] CARD,[facility] ER PATIENT [employer] PHARMACY PRESCRIPT ION [facility] Feb 08, 2018 [id number] CARD,[facility] ER PATIENT [facility] SPECIAL [facility] May 10, 2019 [id number] JOANNA DURON JR PATIENT OPT[facility] RX PRESCRIPT ION [facility] May 10, 2019 [facility] [id number] DOMI BAUTISTAJOCELYNEYOONKIRAN PATIENT Selected Encounter This section includes the information on record at [place] for the Encounter. Date/Time Encounter Type Encounter Description Reason Pro vider Source April 01, 2024 04:12 PM Outpatient Encounter PRIMARY CARE/MEDICINE IHE Encounter Template Text not used by CO Plan of Treatment: Future Appointments (+ 6 months) and Future Tests (+/- 45 days) The Plan of Treatment section includes future care activities for the patient [facility] This section includes future appointments and future orders which are active, pending or scheduled. Future Appointments This section includes appointments that were scheduled to occur 6 months from the date of the Encounter, up to a maximum of 20 appointments. The data comes from all [place] treatment facilities. Appointment Date/Time Appointment Type Appointme nt Facility Name May 27, 2024 03:00 PM AMBULATORY - MEDICINE [place] [facility] [place] [place] [facility] Jun 02, 2024 03:00 PM AMBULATORY - MEDICINE CO C [facility] [place] [facility] Jun 30, 2024 03:00 PM AMBULATORY MEDICINE CO C [facility] [place] [place] [facility] Aug 16, 2024 03:00 PM AMBULATORY MEDICINE CO C [facility] [place] [place] [facility] Sep 02, 2024 02:10 PM AMBULATORY - MEDICINE [facility] [place] [facility] Sep 08, 2024 03:00 PM AMBULATORY - PSYCHIATRY [place] [facility] [place] [place] [facility] Sep 23, 2024 08:00 AM AMBULATORY MEDICINE CO C [facility] [place] [facility] Sep 23, 2024 03:00 PM AMBULATORY - PSYCHIATRY [place] [facility] [place] [facility] Sep 29, 2024 08:00 AM AMBULATORY MEDICINE [facility] N[facility] [place] [facility] Social History: Smoking Status (Most current) and Tobacco Use (All prior to encounter date) This section includes the most current, and the historical, smoking and tobacco- related health factors from the [place] facility where the Encounter took place. Current Smoking Status This section includes the most current smoking, or tobacco-related health factor, from the [place] facility where the Encounter took place. Date/Time Current Smoking Status Comment Rafi it Feb 11, 2024 03:00 PM VA-TOBACCO NEVER USED [facility] Tobacco Use History This section includes a history of the smoking, or tobacco-related health factors, that were collected on or before the date of the Encounter. The data comes from the [place] facility where the Encounter took place. Date/Time Smoking Status/Tobac co Use Comment Facility Feb 12, 2023 03:00 PM VA-TOBACCO NEVER USED CO [facility] [place] [facility] Feb 14, 2022 03:00 PM VA-TOBACCO NEVER USED CO [facility] [place] [facility] Oct 27, 2020 03:30 PM VA-TOBACCO NEVER USED CO [facility] [place] [facility] Aug 25, 2018 04:16 PM VA-TOBACCO DOESNT USE WI 30 MIN WAKEUP CO [facility] [place] [place] [facility] Aug 25, 2018 04:16 PM VA-TOBACCO USE > 15 LESS THAN 30 YEARS CO [facility] [place] [place] [facility] Aug 25, 2018 04:16 PM VA-TOBACCO USE ADVICE CO [facility] [place] [place] [facility] Aug 25, 2018 04:16 PM VA-TOBACCO USE BELT BRANDER NO CO [facility] [place] [facility] Aug 25, 2018 04:16 PM VA-TOBACCO USE MED NO CO [facility] [place] [place] [facility] Aug 25, 2018 04:16 PM VA-TOBACCO USER SOME DAYS CO [facility] [place] [facility] Oct 07, 2017 11:55 AM CURRENT SMOKER 1 cigar a few times a year CO [facility] [place] [facility] Oct 07, 2017 11:55 AM V1-PT NOT INTERESTED IN QUIT TOBACCO USE CO [facility] [place] [facility] Oct 29, 2016 08:57 AM LIFETIME NON-[facility]BACCO [facility] Radiology Reports: +/- 30 days of [...] the Encounter. The data comes from all [place] treatment facilities. Date/Time Radiology Report Provider Source April 01, 2024 03:45 PM KNEE 3 VIEWS (RIGH T): JOANNA DURON JR [id number] M Exm Date: APRIL 01, 2024@15:45 Req Phys: KOURTNEY GAMBOA Pat Loc: CWM/NO/SICK CALL PA (Req'g Loc Img Loc: [facility]/BUILDING 1 Service: Unknown [facility] , (Case [id number] COMPLETE) KNEE 3 VIEWS (RIGHT) (RAD Detailed) CPT:74164 Proc Modifiers : RIGHT Reason for Study: Right knee swelling Clinical History: Remote history of football playing Report Status: Verified Date Reported: APRIL 01, 2024 Date Verified: APRIL 01, 2024 Military Science Instructor E-Sig:/ES/ANG APPLE JR Report: Study: AP weight-bearing [...] Primary Interpreting Staff: ANG APPLE JR, Radiologist (Military Science Instructor) /EAANG DENT JR [facility] Encounter Notes: All associated encounter notes This section contains the clinical notes associated to the Encounter. Date/Time Encounter Note(s) Provider Source April 01, 2024 04:12 PM PHYSICIAN NEON TECHNICIAN NOTE: LOCAL TITLE: RENZO NOTE STANDARD TITLE: PHYSICIAN NEON TECHNICIAN NOTE DATE OF NOTE: APRIL 01, 2024@16:12 ENTRY DATE: APRIL 01, 2024@16:13:03 AUTHOR: KOURTNEY GAMBOA EXP COSIGNER: URGENCY: STATUS: COMPLETED stopped into office after hours. Asked if this provider knew why his right knee would be stiff and larger than the left knee. No pain. No redness. No fevers X-ray ordered: right knee Study: AP weight-bearing views of the knees [...] the medial joint compartment, as described above. Accord made aware: NSAIDS, stretching. If becomes painful, refer to Ortho or PM&R. Right knee OA as above /betty/ KOURTNEY JIANG MS,PABijuC PHYSICIAN NEON TECHNICIAN Signed: 04/01/2024 16:15 KOURTNEY GAMBOA CO [facility]
--- OUTSIDE RECORDS SUMMARY | 2024-10-25 10:45 | XMS_ITS | Encounter Summary ---
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 [place] Organization [facility] [place] Address [address] [place] [address] Care Team Providers Care Industrial Laborer Name Role Phone LEO FORRESTER Primary Care [...] Suresh's Name Patient's Relationship to Policy Suresh [facility] CE ORGANIZAT ION COH G AND E May 10, 2024 [id number] [facility] ER PATIENT CAREMARK PRESCRIPT ION [facility] May 10, 2024 [id number] CARD,[facility] ER PATIENT CIGNA POINT OF SERVICE [facility] Feb 08, 2018 [id number] [phone] [facility] ER PATIENT CIGNA BEHAVIORAL HEALTH MENTAL HEALTH [facility] Feb 08, 2018 [id number] CARD,[facility] ER PATIENT CIGNA PHARMACY PRESCRIPT ION [facility] Feb 08, 2018 [id number] CARD,[facility] ER PATIENT [facility] SPECIAL [facility] May 10, 2019 [id number] JOANNA DURON JR PATIENT [facility] RX PRESCRIPT ION [facility] May 10, 2019 [facility] [id number] DOMI BAUTISTAJOCELYNEJOSE MANUEL PATIENT Selected Encounter This section includes the information on record at [place] for the Encounter. Date/Time Encounter Type Encounter Description Reason Provider Source Jun 02, 2024 03:00 PM ACUPUNCT W/O STIMUL ADDL 15M [facility] TREATMENT ICD-10-CM M54.50 Low back pain, unspecified GAUNYA,LUIS PHER M E Encounter Template Text not used by [place] Assessments - Encounter Diagnoses This section includes the primary and secondary diagnoses documented for the Encounter. Date/Time Primary/Secondary Diagnosis Diagnosis Name Provider Source Jun 02, 2024 03:44 PM PRIMARY Low back pain, unspecified SUJATHAUNYA,LUIS PHER M [place] [facility] [place] [facility] Jun 02, 2024 03:44 PM SECONDARY Cervicalgia SUJATHAUNYALUIS PHER M [place] [facility] [place] [facility] Jun 02, 2024 03:44 PM SECONDARY Pain in right knee GAUNYA,LUIS PHER M [place] [facility] [place] [facility] Jun 02, 2024 03:44 PM SECONDARY Pain in thoracic spine SUJATHAUNYALUIS PHER M [place] [facility] [place] [facility] Plan of Treatment: Future Appointments (+ 6 months) and Future Tests (+/- 45 days) The Plan of Treatment section includes future care activities for the patient from all [place] treatmentfacilities. This section includes future appointments and future orders which are active, pending or scheduled. Future Appointments This section includes appointments that were scheduled to occur 6 months from the date of the Encounter, up to a maximum of 20 appointments. The data comes from all [place] treatment facilities. Appointment Date/Time Appointment Type Appointme nt Facility Name Jun 30, 2024 03:00 PM AMBULATORY - MEDICINE [place] C [facility] [place] [facility] Aug 16, 2024 03:00 PM AMBULATORY - MEDICINE SD C [facility] [place] [facility] Sep 02, 2024 02:10 PM AMBULATORY - MEDICINE SD C [facility] [place] [facility] Sep 08, 2024 03:00 PM AMBULATORY - PSYCHIATRY [facility] [place] [facility] Sep 23, 2024 08:00 AM AMBULATORY - MEDICINE VA C [facility] [place] [facility] Sep 23, 2024 03:00 PM AMBULATORY - PSYCHIATRY [facility] [place] [facility] Sep 29, 2024 08:00 AM AMBULATORY - MEDICINE [facility] C [facility] [place] [facility] Oct 05, 2024 03:00 PM AMBULATORY - MEDICINE [facility] C [facility] [place] [facility] Oct 14, 2024 03:00 PM AMBULATORY - MEDICINE VA C [facility] [place] [facility] Oct 26, 2024 03:00 PM AMBULATORY - PSYCHIATRY [facility] [place] [facility] Oct 28, 2024 03:00 PM AMBULATORY - MEDICINE VA C [facility] [place] [facility] Nov 02, 2024 09:00 AM AMBULATORY - MEDICINE [facility] C [facility] [place] [facility] Nov 09, 2024 03:30 PM AMBULATORY - MEDICINE VA C [facility] [place] [facility] Dec 02, 2024 03:00 PM AMBULATORY - MEDICINE VA C [facility] [place] [facility] Dec 03, 2024 08:00 AM AMBULATORY - MEDICINE SD C [facility] [place] [facility] Social History: Smoking Status (Most current) and Tobacco Use (All prior to encounter date) This section includes the most current, and the historical, smoking and tobacco- related health factors from the [place] facility where the Encounter took place. Current Smoking Status This section includes the most current smoking, or tobacco-related health factor, from the [place] facility where the Encounter took place. Date/Time Current Smoking Status Comment [facility] Feb 11, 2024 03:00 PM VA-TOBACCO NEVER USED [place] [facility] [place] [facility] Tobacco Use History This section includes a history of the smoking, or tobacco-related health factors, that were collected on or before the date of the Encounter. The data comes from the [place] facility where the Encounter took place. Date/Time Smoking Status/Tobac co Use Comment Facility Feb 12, 2023 03:00 PM VA-TOBACCO NEVER USED [place] [facility] [place] [facility] Feb 14, 2022 03:00 PM VA-TOBACCO NEVER USED [facility] [place] [facility] Oct 27, 2020 03:30 PM [facility]AC[facility] [place] [facility] Aug 25, 2018 04:16 PM VA-TOBACCO DOESNT USE WI 30 MIN WAKEUP [facility] Aug 25, 2018 04:16 PM VA-TOBACCO USE > 15 LESS THAN 30 YEARS [place] [facility] [place] [facility] Aug 25, 2018 04:16 PM VA-TOBACCO USE ADVICE [facility] Aug 25, 2018 04:16 PM VA-TOBACCO USE PEDIATRIC CNS NO [place] [facility] Aug 25, 2018 04:16 PM VA-TOBACCO USE MED NO [place] [facility] Aug 25, 2018 04:16 PM VA-TOBACCO USER SOME DAYS [facility] Oct 07, 2017 11:55 AM CURRENT SMOKER 1 cigar a few times a year [facility] Oct 07, 2017 11:55 AM V1-PT NOT INTERESTED IN QUIT TOBACCO USE [facility] Oct 29, 2016 08:57 AM LIFETIME NON-TOBACCO [facility] Encounter Notes: All associated encounter notes This section contains the clinical notes associated to the Encounter. Date/Time Encounter Note(s) Provider Source Jun 02, 2024 03:40 PM ACUPUNCTURE NOTE: LOCAL TITLE: ACUPUNCTURE TREATMENT STANDARD TITLE: ACUPUNCTURE NOTE DATE OF NOTE: JUN 02, 2024@15:40 ENTRY DATE: JUN 02, 2024@15:41:01 AUTHOR: MAYI RAZO EXP COSIGNER: URGENCY: STATUS: COMPLETED CARD,JOANNA Jones JR is a 54 WHITE MALE who presents with Low back pain, sciatica, neck pain. Pain in left arm Active Problem Shared care - consultants intern and GP Z76 01/29/2021 AMY HENRY JAWBONILLA Type 2 diabetes mellitus controlled 10/27/2020 AMY HENRY JAWBONILLA Acquired polycystic kidney disease 02/23/2018 AMY HENRY JAWED Low back pain M54.50 02/14/2022 AMY HENRYED Hyperuricemia E79.0 10/29/2016 AMY HENRY JAWED Psoriasis L40.4 10/29/2016 AMY HENRY JAWED Obstructive sleep apnea G47.33 02/27/2017 AMY HENRY JAWED Obesity E66.8 10/29/2016 AMY HENRY JAWED Date May CC / HPI - [place] presents with 20 year hx of low back pain that started while serving in the [employer]. Pain is bilateral lumbar pain with occasional [...] and family stresses RESPONSE TO PREVIOUS TREATMENT. Last visit was March 31. [place] reports that he had a good response to his last treatment and his neck and back pain both had reduced discomfort. states the treatment lasted 2+ weeks but has had more pain in the past several weeks. [place] states that he hurts from his neck down to his butt. Chiropractic has been helpful but has had a very busy summer and mostly shortly had a long drive to [place]. states that his knee pain as result of arthritis. [place] recently had imaging. _ OBJECTIVE General: . Patient in no [...] ]Pyonex Needle: remove prior to bathing per scallop shucker INFORMED CONSENT: Oral Consent obtained on May The patient was positioned comfortably. Oral consent [...] 65, GB 41, GB 40, GB 34 [ ]Other therapies: [ ]Cupping: [ ]Cold Laser [ ]Peizo [...] is required /betty/ MAYI RAZO LA.C DIPL.AC VOUCHER EXAMINER Signed: 06/02/2024 15:56 MAYI RAZO CNTRL [facility]
--- OUTSIDE RECORDS SUMMARY | 2024-10-25 10:45 | XMS_ITS | Encounter Summary ---
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 Address [address] [place] [address] Care Team Providers Care Police Academy Program Coordinator Name Role Phone LEO FORRESTER Primary Care [...] Suresh's Name Patient's Relationship to Policy Suresh [facility] ORGANIZAT ION COH G AND E May 10, 2024 [id number] [phone] [facility] ER PATIENT [place]EM[place] PRESCRIPT ION [facility] May 10, 2024 [id number] CARD,SP ER PATIENT CIGNA POINT OF SERVICE [facility] Feb 08, 2018 [id number] CARD,SP ER PATIENT CIGNA BEHAVIORAL HEALTH MENTAL HEALTH [facility] Feb 08, 2018 [id number] CARD,[facility] ER PATIENT CIGNA PHARMACY PRESCRIPT ION [facility] Feb 08, 2018 [id number] CARD,[facility] ER [facility] May 10, 2019 [id number] DOMI BAUTISTAJOANNA PATIENT OPTUM RX PRESCRIPT ION HEALT H NEW ENGL [facility] May 10, 2019 [employer] [facility] [employer] [id number] JOANNA DURON JR PATIENT Selected Encounter This section includes the information on record at [place] for the Encounter. Date/Time Encounter Type Encounter Description Reason Pro vider Source Feb 11, 2024 12:00 AM Outpatient Encounter EVENT (HISTORICAL) IHE Encounter Template Text not used by [place] Plan of Treatment: Future Appointments (+ 6 months) and Future Tests (+/- 45 days) The Plan of Treatment section includes future care activities for the patient from all [place] treatmentfacilities. This section includes future appointments and future orders which are active, pending or scheduled. Future Appointments This section includes appointments that were scheduled to occur 6 months from the date of the Encounter, up to a maximum of 20 appointments. The data comes from all [place] treatment facilities. Appointment Date/Time Appointment Type Appointme nt Facility Name Feb 25, 2024 03:00 PM AMBULATORY [place]ICINE [place] [facility] [place] [facility] Feb 26, 2024 03:00 PM AMBULATORY MEDICINE [place] [facility] [place] [facility] March 31, 2024 03:00 PM AMBULATORY MEDICINE [place] [facility] [place] [facility] April 01, 2024 03:00 PM AMBULATORY MEDICINE [place] [facility] [place] [facility] May 27, 2024 03:00 PM AMBULATORY - MEDICINE [place] [facility] [place] [facility] Jun 02, 2024 03:00 PM AMBULATORY - MEDICINE [place] [facility] [place] [facility] Jun 30, 2024 03:00 PM AMBULATORY - MEDICINE [place] [facility] [place] [facility] Lab Results: +/- 30 days of the encounter This section includes the Chemistry and Hematology Lab Results on record with [place] for the patient. Radiology Reports and Pathology Reports are provided separately, in subsequent sections. Lab Results This section contains the Chemistry/Hematology Results that were resulted 30 days before or 30 daysafter the date of the Encounter. Date/Time Source Result Type Result - Unit Interpretation Reference Range Comment Feb 09, 2024 08:57 AM [place] [facility] [facility] [place] [facility] HEPATITIS A ANTIBODY (IgM) Specimen Type: SERUM Comment: A Reactive result ( Positive prior to 08/23/13) indicates recent infection with Hepatitis A virus. Hepatitis A IgM antibodies may persist for 3-6 months after acute Hepatitis A infection. Ordering Provider: AMY HENRY Report Released Date/Time: Jan 23, 2024 11:44 AM Reporting Lab: [facility] [address] [facility] [address] Performing Lab: [address] [address] HEPATITIS A ANTIBODY (IgM) Non Reactive Non Reactive Feb 09, 2024 08:56 AM [facility] LIPID PANEL FASTING Specimen Type: SERUM No comment entered. Ordering Provider: AMY HENRY Report Released Date/Time: Aug 12, 2023 02:58 PM Reporting Lab: [address] [address] Performing Lab: [address] [address] CHOLESTEROL 138 mg/dL TRIGLYCERIDE 56 mg/dL 0-150 LDL calculated 74 mg/dL 0-129 CHOL/HDL 2.6 HDL CHOLESTEROL 53 mg/dL 40-60 Feb 09, 2024 08:56 AM [facility] HEMOGLOBIN A1C PANEL Specimen Type: BLOOD [...] Aug 12, 2023 02:58 PM Reporting Lab: [address] [address] Performing Lab: [address] [address] HEMOGLOBIN A1C 6.4 H 4.0-5.6 Feb 09, 2024 08:56 AM [facility] LIVER FUNCTION Specimen Type: SERUM No comment entered. Ordering Provider: AMY HENRY Report Released Date/Time: Aug 12, 2023 02:58 PM Reporting Lab: [facility] [address] [facility] [address] Performing Lab: [address] [address] PROTEIN,TOTAL 6.6 g/dL 6.0-8.3 ALBUMIN 3.9 g/dL 3.5-5.0 ALKALINE PHOSPHATASE 61 U/L 40-150 AST 24 U/L 5-34 ALT 35 U/L BILIRUBIN, TOTAL 0.5 mg/dL 0.2-1.2 Feb 09, 2024 08:56 AM [facility] BASIC METABOLIC PANEL (fasting) Specimen Type: SERUM No comment entered. Ordering Provider: AMY HENRY Report Released Date/Time: Aug 12, 2023 02:58 PM Reporting Lab: [address] [address] Performing Lab: [address] [address] UREA NITROGEN 19 mg/dL 7-25 GLUCOSE 119 mg/dL H 65-100 SODIUM 142 mmol/L 135-145 POTASSIUM 4.4 mmol/L 3.5-5.0 CHLORIDE 104 mmol/L 100-110 CO2 28 meq/L 20-30 CREATININE, Serum 1.15 mg/dL 0.50-1.40 eGFR(CKD-EPI 2020) 76 mL/min >60 Feb 09, 2024 08:56 AM [facility] CBC AND DIFF (AUTO) Specimen Type: BLOOD No comment entered. Ordering Provider: AMY HENRY Report Released Date/Time: Aug 12, 2023 02:58 PM Reporting Lab: [address] [address] Performing Lab: [address] [address] WBC 4.03 10*3/uL L 4.50-11.00 RBC 4.62 10*6/uL 4.23-5.66 HGB 13.3 g/dL 12.8-17 HCT 40.8 39.2-50.4 MCV 88.3 fL 82-99 MCHC 32.6 g/dL 30.8-35.1 PLT 179 10*3/uL 140-360 RDW-CV 12.2 12.0-16.0 [place], Abs 0.37 10*3/uL 0.30-1.10 MCH 28.8 pg 26.2-32.6 Neut % 60.8 43.7-75.8 Lymph % 24.1 14.0-42.3 [place] % 9.2 5.1-13.7 Eos % 4.7 0.4-6.8 [...] Source Feb 11, 2024 03:28 PM 122/74 [facility] Feb 11, 2024 02:50 PM 98.3 73 142/84 18 96 5 74 251 32 [facility] Social History: Smoking Status (Most current) and Tobacco Use (All prior to encounter date) This section includes the most current, and the historical, smoking and tobacco- related health factors from the [place] facility where the Encounter took place. Current Smoking Status This section includes the most current smoking, or tobacco-related health factor, from the [place] facility where the Encounter took place. Date/Time Current Smoking Status Comment Rafi wise Feb 11, 2024 03:00 PM VA-TOBACCO NEVER USED [facility] Tobacco Use History This section includes a history of the smoking, or tobacco-related health factors, that were collected on or before the date of the Encounter. The data comes from the [place] facility where the Encounter took place. Date/Time Smoking Status/Tobac co Use Comment Facility Feb 12, 2023 03:00 PM VA-TOBACCO NEVER USED [place] [facility] [place] [facility] Feb 14, 2022 03:00 PM VA-TOBACCO NEVER USED [place] [facility] [place] [facility] Oct 27, 2020 03:30 PM VA-TOBACCO NEVER USED [place] [facility] [place] [facility] Aug 25, 2018 04:16 PM VA-TOBACCO DOESNT USE WI 30 MIN WAKEUP [place] [facility] [place] [facility] Aug 25, 2018 04:16 PM VA-TOBACCO USE > 15 LESS THAN 30 YEARS [place] [facility] [place] [facility] Aug 25, 2018 04:16 PM VA-TOBACCO USE ADVICE [place] [facility] [place] [facility] Aug 25, 2018 04:16 PM VA-TOBACCO USE LIVE HANGER NO [place] [facility] [place] [facility] Aug 25, 2018 04:16 PM VA-TOBACCO USE MED NO [place] [facility] [place] [facility] Aug 25, 2018 04:16 PM VA-TOBACCO USER SOME DAYS [place] [facility] [place] [facility] Oct 07, 2017 11:55 AM CURRENT SMOKER 1 cigar a few times a year [place] [facility] [place] [facility] Oct 07, 2017 11:55 AM V1-PT NOT INTERESTED IN QUIT TOBACCO USE [place] [facility] [place] [facility] Oct 29, 2016 08:57 AM LIFETIME NON-TOBACCO USER [place] [facility] [place] [facility]
--- OUTSIDE RECORDS SUMMARY | 2024-10-25 10:45 | XMS_ITS | Encounter Summary ---
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 Address [address] [place] [address] Care Team Providers Care Dowel Setting Machine Operator Name Role Phone ELO FORRESTER Primary Care Provider Unavailabl e Insurance [...] Suresh's Name Patient's Relationship to Policy Suresh [facility] ORGANIZAT ION COH G AND E May 10, 2024 [id number] [facility] PATIENT CAREMARK PRESCRIPT ION [facility] May 10, 2024 [id number] [phone] CARD,[facility] ER PATIENT CIGNA POINT OF SERVICE [facility] Feb 08, 2018 [id number] [facility] ER PATIENT CIGNA BEHAVIORAL HEALTH MENTAL HEALTH [facility] Feb 08, 2018 [id number] CARD,[facility] ER PATIENT CIGNA PHARMACY PRESCRIPT ION [facility] Feb 08, 2018 [id number] [phone] CARD,[facility] ER PATIENT [facility] SPECIAL CLASS INS[facility] May 10, 2019 [id number] JOANNA DURON JR PATIENT OPTUM RX PRESCRIPT ION HEALT H NEW ENGL [facility] May 10, 2019 [facility] [id number] DOMI JOANNA PATIENT Selected Encounter This section includes the information on record at [place] for the Encounter. Date/Time Encounter Type Encounter Description Reason Provider Source Jun 30, 2024 03:00 PM ACUPUNCT W/O STIMUL ADDL [facility] TRE[facility] ICD-10-CM M54.2 Cervicalgia SUJATHAVELLUIS ARAIZA IHE Encounter Template Text not used by [place] Assessments - Encounter Diagnoses This section includes the primary and secondary diagnoses documented for the Encounter. Date/Time Primary/Secondary Diagnosis Diagnosis Name Provider Source Jul 15, 2024 12:12 PM PRIMARY Cervicalgia JAG RAZOLon Marquez [place] [facility] [place] [facility] Jul 15, 2024 12:12 PM SECONDARY Pain in thoracic spine LUIS RAZO JAYLEEN Marquez [place] [facility] [facility] Plan of Treatment: Future Appointments (+ 6 months) and Future Tests (+/- 45 days) The Plan of Treatment section includes [facility] care [facility] [place] [facility] This section includes future appointments and future orders which are active, pending or scheduled. Future Appointments This section includes appointments that were scheduled to occur 6 months from the date of the Encounter, up to a maximum of 20 appointments. The data comes from all [place] treatment facilities. Appointment Date/Time Appointment Type Appointme nt Facility Name Aug 16, 2024 03:00 PM AMBULATORY - MEDICINE [place] [facility] [facility] Sep 02, 2024 02:10 PM AMBULATORY - MEDICINE [place] [facility] [place] [facility] Sep 08, 2024 03:00 PM AMBULATORY - PSYCHIATRY [place] [facility] [place] [facility] Sep 23, 2024 08:00 AM AMBULATORY - MEDICINE [place] [facility] [place] [facility] Sep 23, 2024 03:00 PM AMBULATORY - PSYCHIATRY [place] [facility] [place] [facility] Sep 29, 2024 08:00 AM AMBULATORY - MEDICINE [place] [facility] [place] [facility] Oct 05, 2024 03:00 PM AMBULATORY - MEDICINE [place] [facility] [place] [facility] Oct 14, 2024 03:00 PM AMBULATORY - MEDICINE [place] [facility] [place] [facility] Oct 26, 2024 03:00 PM AMBULATORY - PSYCHIATRY [place] [facility] [place] [facility] Oct 28, 2024 03:00 PM AMBULATORY - MEDICINE [place] [facility] [place] [facility] Nov 02, 2024 09:00 AM AMBULATORY - MEDICINE [place] [facility] [place] [facility] Nov 09, 2024 03:30 PM AMBULATORY - MEDICINE [place] [facility] [facility] Dec 02, 2024 03:00 PM AMBULATORY - MEDICINE [place] [facility] [place] [facility] Dec 03, 2024 08:00 AM AMBULATORY [place] MEDICINE [place] [facility] [place] [facility] Social History: Smoking Status (Most current) and Tobacco Use (All prior to encounter date) This section includes the most current, and the historical, smoking and tobacco- related health factors from the [place] facility where the Encounter took place. Current Smoking Status This section includes the most current smoking, or tobacco-related health factor, from the [place] facility where the Encounter took place. Date/Time Current Smoking Status Comment [facility] Feb 11, 2024 03:00 PM VA-TOBACCO [facility] Tobacco Use History This section includes a history of the smoking, or tobacco-related health factors, that were collected on or before the date of the Encounter. The data comes from the [place] facility where the Encounter took place. Date/Time Smoking Status/Tobac co Use Comment Facility Feb 12, 2023 03:00 PM VA-TOBACCO NEVER USED [place] [facility] [place] [facility] Feb 14, 2022 03:00 PM VA-TOBACCO NEVER USED [place] [facility] [place] [facility] Oct 27, 2020 03:30 PM VA-TOBACCO NEVER USED [place] [facility] [place] [facility] Aug 25, 2018 04:16 PM VA-TOBACCO DOESNT USE WI 30 MIN WAKEUP [place] [facility] [place] [facility] Aug 25, 2018 04:16 PM VA-TOBACCO USE > 15 LESS THAN 30 YEARS [place] [facility] [place] [facility] Aug 25, 2018 04:16 PM VA-TOBACCO USE ADVICE [place] [facility] [place] [facility] Aug 25, 2018 04:16 PM VA-TOBACCO USE DECAL APPLIER NO [facility] Aug 25, 2018 04:16 PM VA-TOBACCO USE MED NO [facility] Aug 25, 2018 04:16 PM [facility]BACCO [facility]ER [facility]YS [facility] Oct 07, 2017 11:55 AM CURRENT SMOKER 1 cigar a few times a year [facility] Oct 07, 2017 11:55 AM V1-PT NOT INTERESTED IN QUIT TOBACCO USE [facility] Oct 29, 2016 08:57 AM LIFETIME NON-TOBACCO USER [facility] Encounter Notes: All associated encounter notes This section contains the clinical notes associated to the Encounter. Date/Time Encounter Note(s) Provider Source Jun 30, 2024 03:34 PM ACUPUNCTURE NOTE: LOCAL TITLE: ACUPUNCTURE TREATMENT STANDARD TITLE: ACUPUNCTURE NOTE DATE OF NOTE: JUN 30, 2024@15:34 ENTRY DATE: JUN 30, 2024@15:34:39 AUTHOR: MAYI RAZO EXP COSIGNER: URGENCY: STATUS: COMPLETED CARDJOANNA JR is a 54 WHITE MALE who presents with Low back pain, sciatica, neck pain. Pain in left arm Active Problem Shared care - marine consultant and GP Z76 01/29/2021 AMY HENRY JAWED Type 2 diabetes mellitus controlled 10/27/2020 CARL,TERESAAMMED JAWED Acquired polycystic kidney disease 02/23/2018 CARL,MOHAMMED JAWED Low back pain M54.50 02/14/2022 CARLMOHAMMED JAWED Hyperuricemia E79.0 10/29/2016 CARL,MOHAMMED JAWED Psoriasis L40.4 10/29/2016 CARLTERESAAMMED JAWED Obstructive sleep apnea G47.33 02/27/2017 CARL,MOHAMMED JAWED Obesity E66.8 10/29/2016 CARL,MOHAMMED JAWED Date Jun CC / HPI - [place] presents with 20 year hx of low back pain that started while serving in the [employer]. Pain is bilateral lumbar pain with occasional [...] and family stresses RESPONSE TO PREVIOUS TREATMENT. [place] reports last visit was helpful for several weeks. states his low back pain and mid back pain were improved and his cervical pain was also moderately reduced. [place] states today that his low back is doing actually quite well and his worst pain is focused in the upper thoracic right side radiating into neck and shoulder. He reports the pain level as 6/10. _ OBJECTIVE General: . Patient in no [...] ]Pyonex Needle: remove prior to bathing per canal boat operator INFORMED CONSENT: Oral Consent obtained on Jun The patient was positioned comfortably. Oral consent [...] Points used: [X]Ear:[ ]Left [ ]Right [X]Bilateral [X]BFA Protocol, [ ][place] Protocol, [ ][place], Point [...] / Glute Area: [X] LUE: LK, DB, [X] RUE: Pavel Cobb, Pavel Farley [X] LLE: LR 4.2, LR 4.5, LR 4.8, LR 5, SP 5.5, SP 6, KD 7 [X] RLE: UB 65, GB 41, GB [...] is required /betty/ MAYI RAZO LA.C DIPL.AC PRODUCTION DISPATCHER Signed: 07/01/2024 07:57 MAYI RAZO [facility]L [facility]
--- OUTSIDE RECORDS SUMMARY | 2024-10-25 10:45 | XMS_ITS | Encounter Summary ---
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 Address [address] [place] [address] Care Team Providers Care Dye House Vat Worker Name Role Phone LEO FORRESTER Primary Care [...] Suresh's Name Patient's Relationship to Policy Suresh [facility] CE ORGANIZAT ION COH G AND E May 10, 2024 [id number] [phone] [facility] PATIENT CAREMARK PRESCRIPT ION [facility] May 10, 2024 [id number] CARD,[facility] PATIENT CIGNA POINT OF SERVICE [facility] Feb 08, 2018 [id number] [facility] PATIENT [facility]NA BEHAVIORAL HEALTH MENTAL HEALTH [facility] Feb 08, 2018 [id number] CARD,[facility] PATIENT CIGNA PHARMACY PRESCRIPT ION [facility] Feb 08, 2018 [id number] CARD,[facility] PATIENT [facility] SPECIAL CLASS INSURANCE [facility] May 10, 2019 [id number] DOMI BAUTISTAJOANNA PATIENT OPTUM RX PRESCRIPT ION HEALT H NEW ENGL [facility] May 10, 2019 [facility] [id number] DOMI BAUTISTAJOANNA PATIENT Selected Encounter This section includes the information on record at [place] for the Encounter. Date/Time Encounter Type Encounter Description Reason Provider Source Feb 25, 2024 03:00 PM ACUPUNCT W/O STIMUL ADDL 15M [facility] TREATMENT ICD-10-CM M54.50 Low back pain, unspecified SUJATHAUNYALUIS PHER M E Encounter Template Text not used by [place] Assessments - Encounter Diagnoses This section includes the primary and secondary diagnoses documented for the Encounter. Date/Time Primary/Secondary Diagnosis Diagnosis Name Provider Source Feb 25, 2024 04:23 PM PRIMARY Low back pain, unspecified AUGUSTOJAGO PHER M [place] [facility] [place] [facility] Feb 25, 2024 04:23 PM SECONDARY Cervicalgia SUJATHAJAG BUIO PHER M [place] [facility] [place] [facility] Feb 25, 2024 04:23 PM SECONDARY Pain in left shoulder SUJATHAUNJOSE GLUIS PHER M [place] [facility] [facility] Plan of Treatment: Future Appointments [...] Appointment Type Appointme nt Facility Name Feb 26, 2024 03:00 PM AMBULATORY - MEDICINE [place] [facility] [place] [facility] March 31, 2024 03:00 PM AMBULATORY - MEDICINE [place] [facility] [place] [facility] April 01, 2024 03:00 PM AMBULATORY - MEDICINE [place] [facility] [place] [facility] May 27, 2024 03:00 PM AMBULATORY - MEDICINE [place] C [facility] [place] [facility] Jun 02, 2024 03:00 PM AMBULATORY - MEDICINE [place] [facility] [place] [facility] Jun 30, 2024 03:00 PM AMBULATORY - MEDICINE [facility] Aug 16, 2024 03:00 PM AMBULATORY - MEDICINE [facility] Lab Results: +/- 30 days [...] Range Comment Feb 09, 2024 08:57 AM [facility] HEPATITIS A ANTIBODY (IgM) Specimen Type: SERUM Comment: A Reactive result ( Positive prior to 08/23/13) indicates recent infection with Hepatitis A virus. Hepatitis A IgM antibodies may persist for 3-6 months after acute Hepatitis A infection. Ordering Provider: AMY HENRY Report Released Date/Time: Jan 23, 2024 11:44 AM Reporting Lab: [address] [address] Performing Lab: [address] [address] HEPATITIS A ANTIBODY (IgM) Non Reactive Non Reactive Feb 09, 2024 08:56 AM [facility] LIPID PANEL FASTING Specimen Type: SERUM No comment entered. Ordering Provider: AMY HENRY Report Released Date/Time: Aug 12, 2023 02:58 PM Reporting Lab: [address] [address] Performing Lab: [address] [address] CHOLESTEROL 138 mg/dL TRIGLYCERIDE 56 mg/dL 0-150 LDL calculated 74 mg/dL 0-129 CHOL/HDL 2.6 HDL CHOLESTEROL 53 mg/dL 40-60 Feb 09, 2024 08:56 AM [facility] HEMOGLOBIN A1C PANEL Specimen Type: BLOOD [...] Aug 12, 2023 02:58 PM Reporting Lab: [address] [address] Performing Lab: [address] [address] HEMOGLOBIN A1C 6.4 H 4.0-5.6 Feb 09, 2024 08:56 AM [facility] BASIC METABOLIC PANEL (fasting) Specimen Type: SERUM No comment entered. Ordering Provider: AMY HENRY Report Released Date/Time: Aug 12, 2023 02:58 PM Reporting Lab: [address] [address] Performing Lab: [address] [address] UREA NITROGEN 19 mg/dL 7-25 GLUCOSE 119 mg/dL H 65-100 SODIUM 142 mmol/L 135-145 POTASSIUM 4.4 mmol/L 3.5-5.0 CHLORIDE 104 mmol/L 100-110 CO2 28 meq/L 20-30 CREATININE, Serum 1.15 mg/dL 0.50-1.40 eGFR(CKD-EPI 2020) 76 mL/min >60 Feb 09, 2024 08:56 AM [facility] LIVER FUNCTION Specimen Type: SERUM No comment entered. Ordering Provider: AMY HENRY Report Released Date/Time: Aug 12, 2023 02:58 PM Reporting Lab: [address] [address] Performing Lab: [place] [id number] PROTEIN,TOTAL 6.6 g/dL 6.0-8.3 ALBUMIN 3.9 g/dL 3.5-5.0 ALKALINE PHOSPHATASE 61 U/L 40-150 AST 24 U/L 5-34 ALT 35 U/L BILIRUBIN, TOTAL 0.5 mg/dL 0.2-1.2 Feb 09, 2024 08:56 AM [facility] CBC AND DIFF (AUTO) Specimen Type: BLOOD No comment entered. Ordering Provider: AMY HENRY Report Released Date/Time: Aug 12, 2023 02:58 PM Reporting Lab: [facility] [address] [address] Performing Lab: [facility] [address] [address] WBC 4.03 10*3/uL L 4.50-11.00 RBC 4.62 10*6/uL 4.23-5.66 HGB 13.3 g/dL 12.8-17 HCT 40.8 39.2-50.4 MCV 88.3 fL 82-99 MCHC 32.6 g/dL 30.8-35.1 PLT 179 10*3/uL 140-360 RDW-CV 12.2 12.0-16.0 [place], Abs 0.37 10*3/uL 0.30-1.10 MCH 28.8 pg 26.2-32.6 Neut % 60.8 43.7-75.8 Lymph % 24.1 14.0-42.3 [place] % 9.2 5.1-13.7 Eos % 4.7 0.4-6.8 [...] 11, 2024 03:00 PM VA-TOBACCO NEVER USED [facility] Tobacco Use History This section includes a history of the smoking, or tobacco-related health factors, that were collected on or before the date of the Encounter. The data comes from the [place] facility where the Encounter took place. Date/Time Smoking Status/Tobac co Use Comment Facility Feb 12, 2023 03:00 PM VA-TOBACCO NEVER USED [place] [facility] [place] [facility] Feb 14, 2022 03:00 PM VA-TOBACCO NEVER USED [place] [facility] [place] [facility] Oct 27, 2020 03:30 PM VA-TOBACCO NEVER USED [place] [facility] [place] [facility] Aug 25, 2018 04:16 PM VA-TOBACCO DOESNT USE WI 30 MIN WAKEUP [place] [facility] [place] [facility] Aug 25, 2018 04:16 PM VA-TOBACCO USE > 15 LESS THAN 30 YEARS [place] [facility] [place] [facility] Aug 25, 2018 04:16 PM VA-TOBACCO USE ADVICE [place] [facility] [place] [facility] Aug 25, 2018 04:16 PM VA-TOBACCO USE LEAD FORMER NO [place] [facility] [place] [facility] Aug 25, 2018 04:16 PM VA-TOBACCO USE MED NO [place] [facility] [place] [facility] Aug 25, 2018 04:16 PM VA-TOBACCO USER SOME DAYS [place] [facility] [place] [facility] Oct 07, 2017 11:55 AM CURRENT SMOKER 1 cigar a few times a year [place] [facility] [place] [facility] Oct 07, 2017 11:55 AM V1-PT NOT INTERESTED IN QUIT TOBACCO USE [place] [facility] [place] [facility] Oct 29, 2016 08:57 AM LIFETIME NON-TOBACCO USER [place] [facility] [place] [facility] Encounter Notes: All associated encounter notes This section contains the clinical notes associated to the Encounter. Date/Time Encounter Note(s) Provider Source Feb 25, 2024 04:21 PM ACUPUNCTURE NOTE: LOCAL TITLE: ACUPUNCTURE TREATMENT STANDARD TITLE: ACUPUNCTURE NOTE DATE OF NOTE: FEB 25, 2024@16:21 ENTRY DATE: FEB 25, 2024@16:21:49 AUTHOR: MAYI RAZO EXP COSIGNER: URGENCY: STATUS: COMPLETED CARD,JOANNA Jones JR is a 53 WHITE MALE who presents with Low back pain, sciatica, neck pain. 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 Pain is bilateral lumbar pain with occasional [...] stresses RESPONSE TO PREVIOUS TREATMENT. reports he had solid relief that lasted several weeks since his last visit. He reports that he has been working a lot of overtime in the past 2 weeks and has noted an increase in his right-sided low back pain that started about a week ago. He reports that he currently has a 6/10 pain level in his low back but his upper back and shoulder still feels improved. _ OBJECTIVE General: . 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 Oral consent [...] years, a new consult is required /betty/ SO [facility] SPEC Signed: 02/25/2024 16:23 MAYI RAZO CNTRL [facility]
--- OUTSIDE RECORDS SUMMARY | 2024-10-25 10:45 | XMS_ITS | Encounter Summary ---
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 Organization [place] Address [address] [place] [address] Care Team Providers Care Bail Agent Name Role Phone LEO FORRESTER Primary Care [...] Suresh's Name Patient's Relationship to Policy Suresh [facility] CE ORGANIZAT ION COH G AND E May 10, 2024 [id number] [phone] [facility] CAREMARK PRESCRIPT ION [facility] May 10, 2024 [id number] [phone] [facility] PATIENT CIGNA POINT OF SERVICE [facility] Feb 08, 2018 [id number] DOMI,[facility] ER PATIENT CIGNA BEHAVIORAL HEALTH MENTAL HEALTH [facility] Feb 08, 2018 [id number] DOMI[facility] PATIENT CIGNA PHARMACY PRESCRIPT ION [facility] Feb 08, 2018 [id number] [phone] DOMI,[facility] PATIENT [facility] May 10, 2019 [id number] [phone] JOANNA DURON JR PATIENT OPTUM RX PRESCRIPT ION HEALT H NEW ENGL [facility] May 10, 2019 [facility] [id number] JOANNA DURON JR PATIENT Selected Encounter This section includes the information on record at [place] for the Encounter. Date/Time Encounter Type Encounter Description Reason Pro vider Source IHE Encounter Template Text not used by [place]
--- OUTSIDE RECORDS SUMMARY | 2024-10-25 10:45 | XMS_ITS ---
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 Address [address] [place] [address] Care Team Providers Care Drive In Teller Name Role Phone LEO FORRESTER Primary Care [...] Suresh's Name Patient's Relationship to Policy Suresh [facility] ORGANIZAT ION COH G AND E May 10, 2024 [id number] [phone] [facility] PATIENT CAREMARK PRESCRIPT ION [facility] May 10, 2024 [id number] [phone] CARD,SP ER PATIENT CIGNA POINT OF SERVICE [facility] Feb 08, 2018 [id number] CARD,[facility] ER PATIENT CIGNA BEHAVIORAL HEALTH MENTAL HEALTH [facility] Feb 08, 2018 [id number] CARD,[facility] PATIENT CIGNA PHARMACY PRESCRIPT ION [facility] Feb 08, 2018 [id number] [phone] CARD,[facility] May 10, 2019 [id number] [phone] JOANNA DURON JR PATIENT OPTUM RX PRESCRIPT ION HEALT H NEW ENGL [facility] May 10, 2019 [facility] [id number] DOMI BAUTISTATRACEYKIRAN PATIENT Selected Encounter This section includes the information on record at [place] for the Encounter. Date/Time Encounter Type Encounter Description Reason Pro vider Source Aug 03, 2024 03:53 PM Outpatient Encounter PRIMARY CARE/MEDICINE IHE Encounter Template Text not used by [place] Plan of Treatment: Future Appointments (+ 6 months) and Future Tests (+/- 45 days) The Plan of Treatment section includes future care activities for the patient from all [place] treatmentfaselect specialty hospitalities. This section includes future appointments and future orders which are active, pending or scheduled. Future Appointments This section includes appointments that were scheduled to occur 6 months from the date of the Encounter, up to a maximum of 20 appointments. The data comes from all [place] treatment facilities. Appointment Date/Time Appointment Type Appointme nt Facility Name Aug 16, 2024 03:00 PM AMBULATORY - MEDICINE [place] [facility] Sep 02, 2024 02:10 PM AMBULATORY - MEDICINE [place] [place] [facility] Sep 08, 2024 03:00 PM AMBULATORY - PSYCHIATRY [place] [facility] [place] [facility] Sep 23, 2024 08:00 AM AMBULATORY - MEDICINE [place] C [place] [facility] Sep 23, 2024 03:00 PM AMBULATORY - PSYCHIATRY [place] [facility] [place] [facility] Sep 29, 2024 08:00 AM AMBULATORY - MEDICINE [place] C [place] [facility] Oct 05, 2024 03:00 PM AMBULATORY - MEDICINE [place] C [place] [facility] Oct 14, 2024 03:00 PM AMBULATORY - MEDICINE [place] C [place] [facility] Oct 26, 2024 03:00 PM AMBULATORY - PSYCHIATRY [place] [facility] [place] [facility] Oct 28, 2024 03:00 PM AMBULATORY - MEDICINE [place] C [place] [facility] Nov 02, 2024 09:00 AM AMBULATORY - MEDICINE [place] C [place] [facility] Nov 09, 2024 03:30 PM AMBULATORY - MEDICINE [place] C [place] [facility] Dec 02, 2024 03:00 PM AMBULATORY - MEDICINE [place] C [place] [facility] Dec 03, 2024 08:00 AM AMBULATORY - MEDICINE MO C [place] [facility] Jan 04, 2025 03:00 PM AMBULATORY - MEDICINE [place] C [place] [facility] Jan 25, 2025 08:00 AM [facility]UL[facility] [place] [facility] Lab Results: +/- 30 days of the encounter This section includes the Chemistry and Hematology Lab Results on record with [place] for the patient. Radiology Reports and Pathology Reports are provided separately, in subsequent sections. Lab Results This section contains the Chemistry/Hematology Results that were resulted 30 days before or 30 daysafter the date of the Encounter. Date/Time Source Result Type Result - Unit Interpretation Reference Range Comment Aug 16, 2024 03:55 PM [facility] HEMOGLOBIN A1C PANEL Specimen Type: BLOOD Comment: Values obtained from A1C measurements can vary. For atypical A1C assays, a reported value of 7.0 could actually be between 6.72 and 7.28 if measured by a reference method. A reported value of 9.0 could actually be between 8.73 and 9.27. Ref: http://www.ngs p.org/CAPdata. asp Ordering Provider: LEO FORRESTER Report Released Date/Time: Jul 30, 2024 11:24 AM Reporting Lab: [facility] [address] [facility] [address] Performing Lab: [address] [address] HEMOGLOBIN A1C 6.3 H 4.0-5.6 Aug 16, 2024 03:55 PM [facility] LIPID PANEL FASTING Specimen Type: SERUM No comment entered. Ordering Provider: LEO FORRESTER Report Released Date/Time: Jul 30, 2024 11:24 AM Reporting Lab: [facility] [address] [facility] [address] Performing Lab: [address] [address] CHOLESTEROL 129 mg/dL TRIGLYCERIDE 86 mg/dL 0-150 LDL calculated 62 mg/dL 0-129 CHOL/HDL 2.6 HDL CHOLESTEROL 50 mg/dL 40-60 Aug 16, 2024 03:55 PM [facility] MICROALBUMIN CREATININE RATIO PANEL Specimen Type: URINE No comment entered. Ordering Provider: LEO FORRESTER Report Released Date/Time: Jul 30, 2024 11:24 AM Reporting Lab: [facility] [address] [address] Performing Lab: [facility] [address] [facility] [address] MICROALBUMIN/C REATININE RATIO 249.6 mg/g H 0-29.9 MICROALBUMIN,Q UANTITATIVE 19.8 mg/dL RR UNAVAIL CREATININE URINE 79.34 mg/dL Aug 16, 2024 03:55 PM [facility] BASIC METABOLIC PANEL (fasting) Specimen Type: SERUM No comment entered. Ordering Provider: LEO FORRESTER Report Released Date/Time: Jul 30, 2024 11:24 AM Reporting Lab: [facility] [address] [address] Performing Lab: [address] [address] UREA NITROGEN 23 mg/dL 7-25 GLUCOSE 198 mg/dL H 65-100 SODIUM 141 mmol/L 135-145 POTASSIUM 4.7 mmol/L 3.5-5.0 CHLORIDE 107 mmol/L 100-110 CO2 27 meq/L 20-30 CREATININE, Serum 1.35 mg/dL 0.50-1.40 eGFR(CKD-EPI 2020) 63 mL/min >60 Social History: Smoking Status (Most current) and Tobacco Use (All prior to encounter date) This section includes the most current, and the historical, smoking and tobacco- related health factors from the [place] facility where the Encounter took place. Current Smoking Status This section includes the most current smoking, or tobacco-related health factor, from the [place] facility where the Encounter took place. Date/Time Current Smoking Status Comment Rafi wise Feb 11, 2024 03:00 PM VA-TOBACCO NEVER USED [facility] Tobacco Use History This section includes a history of the smoking, or tobacco-related health factors, that were collected on or before the date of the Encounter. The data comes from the [facility] where the Encounter took place. Date/Time Smoking Status/Tobac co Use Comment Facility Feb 12, 2023 03:00 PM VA-TOBACCO [facility] USED [facility] Feb 14, 2022 03:00 PM VA-TOBACCO NEVER USED [facility] Oct 27, 2020 03:30 PM VA-TOBACCO NEVER USED [place] [facility] Aug 25, 2018 04:16 PM VA-TOBACCO DOESNT USE WI 30 MIN WA[facility]UP [facility] Aug 25, 2018 04:16 PM VA-TOBACCO USE > 15 LESS THAN 30 YEARS [place] [facility] Aug 25, 2018 04:16 PM VA-TOBACCO USE ADVICE [facility]SN 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 [place] [facility] Aug 25, 2018 04:16 PM VA-TOBACCO USE MED NO [place] [facility] Aug 25, 2018 04:16 PM VA-TOBACCO USER SOME DAYS [facility] Oct 07, 2017 11:55 AM CURRENT SMOKER 1 cigar a few times a year [place] [facility] Oct 07, 2017 11:55 AM V1-PT NOT INTERESTED IN QUIT TOBACCO USE [facility] Oct 29, 2016 08:57 AM LIFETIME NON-TOBACCO USER [facility] Encounter Notes: All associated encounter notes This section contains the clinical notes associated to the Encounter. Date/Time Encounter Note(s) Provider Source Aug 03, 2024 03:53 PM ADMINISTRATIVE NOTE: LOCAL TITLE: ADMINISTRATIVE NOTE STANDARD TITLE: ADMINISTRATIVE NOTE DATE OF NOTE: AUG 03, 2024@15:53 ENTRY DATE: AUG 03, 2024@15:53:22 AUTHOR: BENITO SHANKAR EXP COSIGNER: URGENCY: STATUS: COMPLETED AMSA SPOKE TO ON THE TELEPHONE AND INFORMED HIM OF UPCOMING APPT AND THAT LABWORK IS NEEDED. /betty/ BENITO SHANKAR AMSA Signed: 08/03/2024 15:53 BENITO SHANKAR CNTRL [facility]
--- OUTSIDE RECORDS SUMMARY | 2024-10-25 10:45 | XMS_ITS ---
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 Address [address] [place] [address] Care Team Providers Care Dumper Bulk System Name Role Phone LEO FORRESTER Primary Care [...] Name Patient's Relationship to Policy Suresh [facility]LY [facility] ORGANIZAT ION COH G AND E May 10, 2024 [id number] [facility] ER PATIENT [place] PRESCRIPT ION [facility] May 10, 2024 [id number] CARD,SP ER PATIENT [employer] POINT OF SERVICE [facility] Feb 08, 2018 [id number] CARD,SP ER PATIENT [employer] BEHAVIORAL HEALTH MENTAL HEALTH [facility] Feb 08, 2018 [id number] CARD,[facility] ER PATIENT [employer] PHARMACY PRESCRIPT ION [facility] Feb 08, 2018 [id number] CARD,[facility] ER [facility]IENT [facility] May 10, 2019 [id number] JOANNA DURON JR PATIENT [facility] RX PRESCRIPT ION [facility] [place] [facility] May 10, 2019 [facility] [id number] DOMI BAUTISTAJOANNA PATIENT Selected Encounter This section includes the information on record at [place] for the Encounter. Date/Time Encounter Type Encounter Description Reason Provider Source Feb 25, 2024 06:41 AM Outpatient Encounter PRIMARY CARE/MEDICINE AGATA LOWE Deion Encounter Template Text not used by [place] Plan of Treatment: Future Appointments (+ 6 months) and Future Tests (+/- 45 days) The Plan of Treatment section includes future care activities for the patient [facility] [place] [facility] This section includes future appointments and future orders which are active, pending or scheduled. Future Appointments This section includes appointments that were scheduled to occur 6 months from the date of the Encounter, up to a maximum of 20 appointments. The data comes from all [place] treatment facilities. Appointment Date/Time Appointment Type Appointme nt Facility Name Feb 26, 2024 03:00 PM AMBULATORY - MEDICINE [place] [facility] March 31, 2024 03:00 PM AMBULATORY - MEDICINE [place] [place] [facility] April 01, 2024 03:00 PM AMBULATORY - MEDICINE [place] [place] [facility] May 27, 2024 03:00 PM AMBULATORY - MEDICINE [place] [place] [facility] Jun 02, 2024 03:00 PM AMBULATORY - MEDICINE [place] [place] [facility] Jun 30, 2024 03:00 PM AMBULATORY - MEDICINE [place] [facility] [place] [place] [facility] Aug 16, 2024 03:00 PM AMBULATORY - MEDICINE [place] [facility] Lab Results: +/- 30 days of the encounter This section includes the Chemistry and Hematology Lab Results on record with [place] for the patient. Radiology Reports and Pathology Reports are provided separately, in subsequent sections. Lab Results This section contains the Chemistry/Hematology Results that were resulted 30 days before or 30 daysafter the date of the Encounter. Date/Time Source Result Type Result - Unit Interpretation Reference Range Comment Feb 09, 2024 08:57 AM [place] [facility] [place] [facility] HEPATITIS A ANTIBODY (IgM) Specimen Type: SERUM Comment: A Reactive result ( Positive prior to 08/23/13) indicates recent infection with Hepatitis A virus. Hepatitis A IgM antibodies may persist for 3-6 months after acute Hepatitis A infection. Ordering Provider: AMY HENRY Report Released Date/Time: Jan 23, 2024 11:44 AM Reporting Lab: [facility] [address] [address] Performing Lab: [address] [address] HEPATITIS A ANTIBODY (IgM) Non Reactive Non Reactive Feb 09, 2024 08:56 AM [facility] HEMOGLOBIN A1C PANEL Specimen Type: [...] Aug 12, 2023 02:58 PM Reporting Lab: [facility] [address] [address] Performing Lab: [address] [address] HEMOGLOBIN A1C 6.4 H 4.0-5.6 Feb 09, 2024 08:56 AM [facility] LIPID PANEL FASTING Specimen Type: SERUM No comment entered. Ordering Provider: AMY HENRY Report Released Date/Time: Aug 12, 2023 02:58 PM Reporting Lab: [facility] [address] [address] Performing Lab: [address] [address] CHOLESTEROL 138 mg/dL TRIGLYCERIDE 56 mg/dL 0-150 LDL calculated 74 mg/dL 0-129 CHOL/HDL 2.6 HDL CHOLESTEROL 53 mg/dL 40-60 Feb 09, 2024 08:56 AM [facility] BASIC METABOLIC PANEL (fasting) Specimen Type: SERUM No comment entered. Ordering Provider: AMY HENRY Report Released Date/Time: Aug 12, 2023 02:58 PM Reporting Lab: [facility] [address] [address] Performing Lab: [address] [address] UREA NITROGEN 19 mg/dL 7-25 GLUCOSE 119 mg/dL H 65-100 SODIUM 142 mmol/L 135-145 POTASSIUM 4.4 mmol/L 3.5-5.0 CHLORIDE 104 mmol/L 100-110 CO2 28 meq/L 20-30 CREATININE, Serum 1.15 mg/dL 0.50-1.40 eGFR(CKD-EPI 2020) 76 mL/min >60 Feb 09, 2024 08:56 AM [facility] LIVER FUNCTION Specimen Type: SERUM No comment entered. Ordering Provider: AMY HENRY Report Released Date/Time: Aug 12, 2023 02:58 PM Reporting Lab: [address] [address] Performing Lab: [address] [address] PROTEIN,TOTAL 6.6 g/dL 6.0-8.3 ALBUMIN 3.9 g/dL 3.5-5.0 ALKALINE PHOSPHATASE 61 U/L 40-150 AST 24 U/L 5-34 ALT 35 U/L BILIRUBIN, TOTAL 0.5 mg/dL 0.2-1.2 Feb 09, 2024 08:56 AM [facility] CBC AND DIFF (AUTO) Specimen Type: BLOOD No comment entered. Ordering Provider: AMY HENRY Report Released Date/Time: Aug 12, 2023 02:58 PM Reporting Lab: [address] [address] Performing Lab: [address] [address] WBC 4.03 10*3/uL L 4.50-11.00 RBC 4.62 10*6/uL 4.23-5.66 HGB 13.3 g/dL 12.8-17 HCT 40.8 39.2-50.4 MCV 88.3 fL 82-99 MCHC 32.6 g/dL 30.8-35.1 PLT 179 10*3/uL 140-360 RDW-CV 12.2 12.0-16.0 [place], Abs 0.37 10*3/uL 0.30-1.10 MCH 28.8 pg 26.2-32.6 Neut % 60.8 43.7-75.8 Lymph % 24.1 14.0-42.3 [place] % 9.2 5.1-13.7 Eos % 4.7 0.4-6.8 [...] and tobacco- related health factors from the [place] facility where the Encounter took place. Current Smoking Status This section includes the most current smoking, or tobacco-related health factor, from the [place] facility where the Encounter took place. Date/Time Current Smoking Status Comment [facility] Feb 11, 2024 03:00 PM VA-TOBACCO [facility]ED [facility] Tobacco Use History This section includes a history of the smoking, or tobacco-related health factors, that were collected on or before the date of the Encounter. The data comes from the [place] facility where the Encounter took place. Date/Time Smoking Status/Tobac co Use Comment [facility] Feb 12, 2023 03:00 PM VA-TOBACCO [facility]ED [facility] Feb 14, 2022 03:00 PM VA-TOBACCO [facility] USED [place] [facility] Oct 27, 2020 03:30 PM VA-TOBACCO [facility] USED [facility] Aug 25, 2018 04:16 PM VA-TOBACCO DOESNT USE WI 30 MIN WAKEUP [facility] Aug 25, 2018 04:16 PM VA-TOBACCO USE > 15 LESS THAN 30 YEARS [facility] Aug 25, 2018 04:16 PM VA-TOBACCO USE ADVICE [facility] Aug 25, 2018 04:16 PM 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 [facility] Aug 25, 2018 04:16 PM VA-TOBACCO USE MED NO [facility] Aug 25, 2018 04:16 PM VA-TOBACCO USER SOME DAYS [facility] Oct 07, 2017 11:55 AM CURRENT SMOKER 1 cigar a few times a year [facility] Oct 07, 2017 11:55 AM V1-PT NOT INTERESTED IN QUIT TOBACCO USE [facility] Oct 29, 2016 08:57 AM LIFETIME NON-TOBACCO USER [facility] Encounter Notes: All associated encounter notes This section contains the clinical notes associated to the Encounter. Date/Time Encounter Note(s) Provider Source Feb 25, 2024 06:41 AM PRIMARY CARE SECUR E MESSAGING: [facility] TITLE: PRIMARY CARE SECURE MESSAGING STANDARD TITLE: PRIMARY CARE SECURE MESSAGING DATE OF NOTE: FEB 25, 2024@06:41 ENTRY DATE: FEB 25, 2024@07:41:36 AUTHOR: AGATA LOWE COSIGNER: URGENCY: STATUS: COMPLETED ------Original Message ------- Sent: 02/24/2024 07:20 PM ET From: JOANNA DURON To: Jimmy HENRY_PRIMARY CARE_[facility] Subject: Medication:Prescription Need my prescription for sildenafil refilled please. ------Original Message ------- Sent: 02/25/2024 07:41 AM ET From: AGATA LOWE To: JOANNA DURON Subject: Medication:Prescription HI I will forward your request to Dr. Jeane Seals /betty/ AGATA LOWE Registered Nurse Signed: 02/25/2024 07:41 Receipt Acknowledged By: 02/25/2024 08:16 /betty/ AMY HENRY MD STAFF PHYSICIAN AGATA LOWE [facility]
--- OUTSIDE RECORDS SUMMARY | 2024-10-25 10:45 | XMS_ITS ---
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 Address [address] [place] [address] Care Team Providers Care Workers' Compensation Hearings Officer Name Role Phone LEO FORRESTER Primary [...] Suresh's Name Patient's Relationship to Policy Suresh [facility] CE ORGANIZAT ION COH G AND E May 10, 2024 [id number] [facility] ER PATIENT [place] PRESCRIPT ION [facility] May 10, 2024 [id number] [phone] CARD,SP ER PATIENT [employer] POINT OF SERVICE [facility] Feb 08, 2018 [id number] CARD,[facility] ER PATIENT [employer] BEHAVIORAL HEALTH MENTAL HEALTH [facility] Feb 08, 2018 [id number] CARD,[facility] ER PATIENT [employer] PHARMACY PRESCRIPT ION [facility] Feb 08, 2018 [id number] CARD,[facility] ER PATIENT [facility] SPECIAL [facility] May 10, 2019 [id number] DOMI BAUTISTAJOANNA PATIENT [facility] RX PRESCRIPT ION HEALT H [place] [facility] May 10, 2019 [facility] [id number] DOMI BAUTISTAJOANNA PATIENT Selected Encounter This section includes the information on record at [place] for the Encounter. Date/Time Encounter Type Encounter Description Reason Provider Source May 27, 2024 03:00 PM MANUAL THERAPY 1/> [employer] ICD-10-CM M54.2 Cervicalgia MARY JO MATHIS Deion Encounter Template Text not used by [place] Assessments - Encounter Diagnoses This section includes the primary and secondary diagnoses documented for the Encounter. Date/Time Primary/Secondary Diagnosis Diagnosis Name Provider Source Jun 28, 2024 07:41 AM PRIMARY Cervicalgia MARY JO MATHIS [place] [place] [facility] Jun 28, 2024 07:41 AM SECONDARY Other low back pain MARY JO MATHIS [place] [facility] [place] [facility] Plan of Treatment: Future Appointments (+ 6 months) and Future Tests (+/- 45 days) The Plan of Treatment section includes future care activities for the patient from all [place] [facility]. This section includes future appointments and future orders which are active, pending or scheduled. Future Appointments This section includes appointments that were scheduled to occur 6 months from the date of the Encounter, up to a maximum of 20 appointments. The data comes from all [place] treatment facilities. Appointment Date/Time Appointment Type Appointme nt Facility Name Jun 02, 2024 03:00 PM AMBULATORY - MEDICINE [facility] [place] [facility] Jun 30, 2024 03:00 PM AMBULATORY - MEDICINE [place] C [place] [facility] Aug 16, 2024 03:00 PM AMBULATORY - MEDICINE [place] C [place] [facility] Sep 02, 2024 02:10 PM AMBULATORY - MEDICINE [place] C [place] [facility] Sep 08, 2024 03:00 PM AMBULATORY - PSYCHIATRY [place] [facility] [place] [facility] Sep 23, 2024 08:00 AM AMBULATORY - MEDICINE [facility] [place] [facility] Sep 23, 2024 03:00 PM AMBULATORY - PSYCHIATRY [place] [facility] [place] [facility] Sep 29, 2024 08:00 AM AMBULATORY - MEDICINE [place] C [place] [facility] Oct 05, 2024 03:00 PM AMBULATORY - MEDICINE [place] C [place] [facility] Oct 14, 2024 03:00 PM AMBULATORY - MEDICINE [place] C [facility] [place] [facility] Oct 26, 2024 03:00 PM AMBULATORY - PSYCHIATRY [place] [facility] [place] [facility] Oct 28, 2024 03:00 PM AMBULATORY - MEDICINE [place] C [place] [place] [facility] Nov 02, 2024 09:00 AM AMBULATORY - MEDICINE [place] C [place] [place] [facility] Nov 09, 2024 03:30 PM AMBULATORY - MEDICINE [place] C [place] [facility] Social History: Smoking Status (Most current) and Tobacco Use (All prior to encounter date) This section includes the most current, and the historical, smoking and tobacco- related health factors from the [place] facility where the Encounter took place. Current Smoking Status This section includes the most current smoking, or tobacco-related health factor, from the [place] facility where the Encounter took place. Date/Time Current Smoking Status Comment [facility] it Feb 11, 2024 03:00 PM VA-TOBACCO NEVER USED [place] [facility] Tobacco Use History This section includes a history of the smoking, or tobacco-related health factors, that were collected on or before the date of the Encounter. The data comes from the [place] facility where the Encounter took place. Date/Time Smoking Status/Tobac co Use Comment Facility Feb 12, 2023 03:00 PM VA-TOBACCO NEVER USED [place] [facility] [place] [facility] Feb 14, 2022 03:00 PM VA-TOBACCO NEVER USED [place] [facility] [place] [facility] Oct 27, 2020 03:30 PM VA-TOBACCO NEVER USED [place] [facility] [place] [facility] Aug 25, 2018 04:16 PM VA-TOBACCO DOESNT USE WI 30 MIN WAKEUP [place] [facility] [place] [facility] Aug 25, 2018 04:16 PM VA-TOBACCO USE > 15 LESS THAN 30 YEARS [place] [facility] [place] [facility] Aug 25, 2018 04:16 PM VA-TOBACCO USE ADVICE [place] [facility] [place] [facility] Aug 25, 2018 04:16 PM VA-TOBACCO USE 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 Aug 25, 2018 04:16 PM [facility] Aug 25, 2018 04:16 PM [facility]ACCO [facility]ER SOME [facility]YS [facility] Oct 07, 2017 11:55 AM CURRENT SMOKER 1 cigar a few times a year [facility] Oct 07, 2017 11:55 AM V1-PT NOT INTERESTED IN QUIT [facility]ACCO [facility] Oct 29, 2016 08:57 AM LIFETIME NON-TOBACCO USER [facility] Encounter Notes: All associated encounter notes This section contains the clinical notes associated to the Encounter. Date/Time Encounter Note(s) Provider Source May 27, 2024 02:52 PM CHIROPRACTIC NOTE: LOCAL TITLE: CHIROPRACTOR PROGRESS NOTE STANDARD TITLE: CHIROPRACTIC NOTE DATE OF NOTE: MAY 27, 2024@14:52 ENTRY DATE: MAY 27, 2024@14:52:52 AUTHOR: MARY JO MATHIS COSIGNER: URGENCY: STATUS: COMPLETED CARDJOANNA JR is a 53 WHITE MALE with prior history of COMBAT SERVICE INDICATED: No POS: PERIOD OF SERVICE - OTHER OR NONE SERVICE BRANCH: Friday Service Connected Disabilities with % Eligibility: Active Problem Shared care - image consultant and GP Z76 01/29/2021 AMY HENRY Type 2 diabetes mellitus controlled 10/27/2020 AMY HENRY JAWED Acquired polycystic kidney disease 02/23/2018 AMY HENRY JAWED Low back pain M54.50 02/14/2022 ORLIN HENRYED JAWED Hyperuricemia E79.0 10/29/2016 ORLIN HENRYED JAWED Psoriasis L40.4 10/29/2016 AMY HENRY JAWED Obstructive sleep apnea G47.33 02/27/2017 ORLIN HENRYED JAWED Obesity E66.8 10/29/2016 AMY HENRY JAWBONILLA Past Surgeries: Patient [place] [facility] with C/O swelling in his right knee. He states that X-rays reveal OA. He just got home from [place] and met up with his son who arrived from the [facility] after 10 months. Patient also has a new grandson Vet reports that his neck is pretty good but a little stiff and some pain. His low back is stiff after driving 10 hours yesterday. Temporal: worse in mornings. And a 08/19 [...] lifting and a lot of PT. Prior caretaker resort: None Activities: exercises at gym and lifts light weights. 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 He looks down and up when he [...] Supine gluteal stretching as per palpation Objectives 05/27/24: Hypertonic tender C/sp mm, bilat and L/S spine Restrictions cervical, lumbar Treatment: Corrective/Active Manual therapy 8 min supine cervical F/D mechanical lumbar traction w flex and lat bending CMT cervical supine Treatment carried out today and well tolerated with relief expressed. The prognosis, at this time, is fair to good. Plan: followed by Acupuncture. Patient agrees to self manage and call this clinic if needed. Short term goals include improvement in excess [...] core stability, balance, and pain modulation. Visit 6 F/U NA Seek urgent care as needed. CMT: chiropractic manipulative therapy SMT: Spinal Manipulative Therapy F/D: Flexion Distraction MFR: Myofascial Release S-I: Sacroiliac MFTP: Myofascial Trigger Point NRS: Numeric Rating Scale N/T: Numbness/Tingling PIR: Post isometric relaxation /es/ MARY JO MATHIS D.C. CHIROPRACTOR Signed: 05/27/2024 15:33 MARY JO MATHIS 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
--- OUTSIDE RECORDS SUMMARY | 2024-10-25 10:45 | XMS_ITS | Encounter Summary ---
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 [facility] [place] Address [address] [place] [address] Care Team Providers Care Dog Groomer Name Role Phone LEO FORRESTER Primary Care [...] Name Patient's Relationship to Policy Suresh [facility] CE ORGANIZAT ION COH G AND E May 10, 2024 [id number] [phone] [facility] SAULT,[facility] ER PATIENT [place] PRESCRIPT ION [facility] May 10, 2024 [id number] [phone] CARD,[facility] ER PATIENT CIGNA POINT OF SERVICE [facility] Feb 08, 2018 [id number] CARD,[facility] ER PATIENT [employer]NA BEHAVIORAL HEALTH MENTAL HEALTH [facility] Feb 08, 2018 [id number] CARD,[facility] ER PATIENT CIGNA PHARMACY PRESCRIPT ION [facility] Feb 08, 2018 [id number] CARD,[facility] ER PATIENT [facility] SPECIAL CLASS [facility] May 10, 2019 [id number] JOANNA DURON JR PATIENT [employer] RX PRESCRIPT ION HEALT H NEW ENGL [facility] May 10, 2019 [facility] [id number] DOMI BAUTISTAJOANNA PATIENT Selected Encounter This section includes the information on record at [place] for the Encounter. Date/Time Encounter Type Encounter Description Reason Provider Source Aug 16, 2024 03:00 PM OFFICE O/P EST MOD 30 MIN PRIMARY CARE/MEDICINE ICD-10-CM E11.9 Type 2 diabetes mellitus without complications FURCOLO,LEO IHE Encounter Template Text not used by [place] Assessments - Encounter Diagnoses This section includes the primary and secondary diagnoses documented for the Encounter. Date/Time Primary/Secondary Diagnosis Diagnosis Name Provider Source Aug 16, 2024 04:54 PM PRIMARY Type 2 diabetes mellitus without complications FURCOLO,LEO [facility] [place] [facility] Aug 16, 2024 04:54 PM SECONDARY Guttate psoriasis FURCOLO,LEO [facility] [place] [facility] Aug 16, 2024 04:54 PM SECONDARY Hyperuricemia w/o signs of inflam arthrit and tophaceous dis FURCOLO,LEO [facility] [place] [facility] Aug 16, 2024 04:54 PM SECONDARY Low back pain, unspecified FURCOLO,LEO [facility] [place] [facility] Aug 16, 2024 04:54 PM SECONDARY Obstructive sleep apnea (adult) (pediatric) FURCOLO,LEO [facility] [place] [facility] Aug 16, 2024 04:54 PM SECONDARY Polycystic kidney, adult type FURCOLO,LEO [facility] [place] [facility] Plan of Treatment: Future Appointments (+ 6 months) and Future Tests (+/- 45 days) The Plan of Treatment section includes future care activities for the patient from all [place] treatmentfacilities. This section includes future appointments and future orders which are active, pending or scheduled. Future Appointments This section includes appointments that were scheduled to occur 6 months from the date of the Encounter, up to a maximum of 20 appointments. The data comes from all [place] treatment facilities. Appointment Date/Time Appointment Type Appointme nt Facility Name Sep 02, 2024 02:10 PM AMBULATORY - MEDICINE [facility] [place] [facility] Sep 08, 2024 03:00 PM AMBULATORY - PSYCHIATRY [facility] [place] [facility] Sep 23, 2024 08:00 AM AMBULATORY - MEDICINE [facility] [place] [facility] Sep 23, 2024 03:00 PM AMBULATORY - PSYCHIATRY [facility] [place] [facility] Sep 29, 2024 08:00 AM AMBULATORY - MEDICINE [facility] [place] [facility] Oct 05, 2024 03:00 PM AMBULATORY - MEDICINE [facility] [place] [facility] Oct 14, 2024 03:00 PM AMBULATORY - MEDICINE [facility] [place] [facility] Oct 26, 2024 03:00 PM AMBULATORY - PSYCHIATRY [facility] [place] [facility] Oct 28, 2024 03:00 PM AMBULATORY - MEDICINE [facility] [place] [facility] Nov 02, 2024 09:00 AM AMBULATORY - MEDICINE [facility] [place] [facility] Nov 09, 2024 03:30 PM AMBULATORY - MEDICINE [facility] [place] [facility] Dec 02, 2024 03:00 PM AMBULATORY - MEDICINE [facility] [place] [facility] Dec 03, 2024 08:00 AM AMBULATORY - MEDICINE [facility] [place] [facility] Jan 04, 2025 03:00 PM AMBULATORY - MEDICINE [facility] [place] [facility] Jan 25, 2025 08:00 AM AMBULATORY - MEDICINE [facility] [place] [facility] Feb 14, 2025 03:00 PM AMBULATORY - MEDICINE [facility] [place] [facility] Active, Pending, and Scheduled Orders This section includes a listing of several types of active, pending, and scheduled orders, including clinic medications orders, diagnostic test orders, procedure orders and consult orders; where the start date of the order is 45 days before the date of the Encounter or 45 days after the date of theEncounter. The data comes from all [place] treatment facilities. Test Date/Time Test Type Test Details Facility Name Sep 23, 2024 08:27 AM Consult Order COMMUNITY CARE-MRI Cons Book Jacket Cover Machine Operator's Choice [facility] [place] [facility] Lab Results: +/- 30 days of [...] Range Comment Aug 16, 2024 03:55 PM [facility] HEMOGLOBIN A1C PANEL Specimen Type: BLOOD Comment: [...] Jul 30, 2024 11:24 AM Reporting Lab: [address] [address] Performing Lab: [address] [address] HEMOGLOBIN A1C 6.3 H 4.0-5.6 Aug 16, 2024 03:55 PM [facility] LIPID PANEL FASTING Specimen Type: SERUM No comment entered. Ordering Provider: LEO FORRESTER Report Released Date/Time: Jul 30, 2024 11:24 AM Reporting Lab: [address] [address] Performing Lab: [address] [address] CHOLESTEROL 129 mg/dL TRIGLYCERIDE 86 mg/dL 0-150 LDL calculated 62 mg/dL 0-129 CHOL/HDL 2.6 HDL CHOLESTEROL 50 mg/dL 40-60 Aug 16, 2024 03:55 PM [facility] MICROALBUMIN CREATININE RATIO PANEL Specimen Type: URINE No comment entered. Ordering Provider: LEO FORRESTER Report Released Date/Time: Jul 30, 2024 11:24 AM Reporting Lab: [address] [address] Performing Lab: [facility] [address] [facility] [address] MICROALBUMIN/C REATININE RATIO 249.6 mg/g H 0-29.9 MICROALBUMIN,Q UANTITATIVE 19.8 mg/dL RR UNAVAIL CREATININE URINE 79.34 mg/dL Aug 16, 2024 03:55 PM [facility] BASIC METABOLIC PANEL (fasting) Specimen Type: SERUM No comment entered. Ordering Provider: LEO FORRESTER Report Released Date/Time: Jul 30, 2024 11:24 AM Reporting Lab: [facility] [address] [facility] [address] Performing Lab: [address] [address] UREA NITROGEN 23 mg/dL 7-25 GLUCOSE 198 mg/dL H 65-100 SODIUM 141 mmol/L 135-145 POTASSIUM 4.7 mmol/L 3.5-5.0 CHLORIDE 107 mmol/L 100-110 CO2 27 meq/L 20-30 CREATININE, Serum 1.35 mg/dL 0.50-1.40 eGFR(CKD-EPI 2020) 63 mL/min >60 Vital Signs: All taken on the encounter date This section contains inpatient and outpatient Vital Signs collected on the date of the Encounter. Date/Time Temperature Pulse Blood Pressure Respiratory Rate SP02 Pain Height Weight Body Mass Index Source Aug 16, 2024 03:21 PM 98.6 68 135/80 16 96 4 256 33 [facility] Social History: Smoking Status (Most current) [...] place. Date/Time Current Smoking Status Comment Facil ity Feb 11, 2024 03:00 PM VA-TOBACCO NEVER USED [facility] Tobacco Use History This section includes a history of the smoking, or tobacco-related health factors, that were collected on or before the date of the Encounter. The data comes from the [place] facility where the Encounter took place. Date/Time Smoking Status/Tobac co Use Comment Facility Feb 12, 2023 03:00 PM VA-TOBACCO NEVER USED [facility] [place] [facility] Feb 14, 2022 03:00 PM VA-TOBACCO NEVER USED [facility] [place] [facility] Oct 27, 2020 03:30 PM VA-TOBACCO NEVER USED [facility] [place] [facility] Aug 25, 2018 04:16 PM VA-TOBACCO DOESNT USE WI 30 MIN WAKEUP [facility] [place] [facility] Aug 25, 2018 04:16 PM VA-TOBACCO USE > 15 LESS THAN 30 YEARS [facility] [place] [facility] Aug 25, 2018 04:16 PM VA-TOBACCO USE ADVICE [facility] [place] [facility] Aug 25, 2018 04:16 PM VA-TOBACCO USE 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 LUBE OPERATOR NO [facility] [place] [facility] Aug 25, 2018 04:16 PM VA-TOBACCO USE MED NO [facility] [place] [facility] Aug 25, 2018 04:16 PM VA-TOBACCO USER SOME DAYS [facility] [place] [facility] Oct 07, 2017 11:55 AM CURRENT SMOKER 1 cigar a few times a year [facility] [place] [facility] Oct 07, 2017 11:55 AM V1-PT NOT INTERESTED IN QUIT TOBACCO USE [facility] [place] [facility] Oct 29, 2016 08:57 AM LIFETIME NON-TOBACCO USER [facility] [place] [facility] Encounter Notes: All associated encounter notes This section contains the clinical notes associated to the Encounter. Date/Time Encounter Note(s) Provider Source Aug 17, 2024 08:10 AM LETTERS: LOCAL TITLE: PATIENT LETTER (T) STANDARD TITLE: LETTERS DATE OF NOTE: AUG 17, 2024@08:10 ENTRY DATE: AUG 17, 2024@08:10:45 AUTHOR: LOE FORRESTER EXP COSIGNER: URGENCY: STATUS: COMPLETED [facility] Toll Free Number Primary Care Telephone Assistance can be reached at extension [phone] [facility] scheduling can be reached at extension [phone] [facility] scheduling can be reached at ext [phone] JASPER A CARD JR [address], [place], [address] Dear , Your recent test results are as follows: stable kidney function stable diabetes excellent cholesterol panel LAB CHEMISTRY & HEMATOLOGY Collection DT Specimen Test Name Result Units Ref Range 08/16/2024 15:55 URINE mALB/Cr 249.6 H mg/G 0 - 29.9 MicroAl 19.8 mg/dL Ref: RR UNAVAIL CREATININE URINE 79.34 mg/dL 08/16/2024 15:55 BLOOD !! HEMOGLOBIN A1C 6.3 H % 4.0 - 5.6 08/16/2024 15:55 SERUM CREATININE, Serum 1.35 mg/dL 0.50 - 1.40 eGFR(CKD-EPI 2020 63 mL/min Ref: >=60 SODIUM 141 mmol/L 135 - 145 POTASSIUM 4.7 mmol/L 3.5 - 5.0 CHLORIDE 107 mmol/L 100 - 110 CO2 27 mEq/L 20 - 30 UREA NITROGEN 23 mg/dL 7 - 25 GLUCOSE 198 H mg/dL 65 - 100 CHOLESTEROL 129 mg/dL <7 - 199 TRIGLYCERIDE 86 mg/dL 0 - 150 LDL calculated 62 mg/dL 0 - 129 CHOL/HDL 2.6 HDL CHOLESTEROL 50 mg/dL 40 - 60 Upcoming Appointments: 09/06/2024 15:00 CWM/NO/ACUPUNCTURE R2 10/05/2024 15:00 CWM/NO/ACUPUNCTURE R2 11/09/2024 15:30 CWM/NO/OPTOMETRY/MERHAR 02/14/2025 15:00 CWM/NO/PACT EIGHT Sincerely, Your Primary Care Team [facility] [address] [facility] [address] [place] [address] [place] [address] [phone] [facility] [address] [place] [address] [place] [address] [phone] [facility] [address] [facility] [place] [address] [place] [address] [phone] LEO FORRESTER [facility] Aug 16, 2024 03:25 PM PHYSICIAN NOTE: LOCAL TITLE: MD NOTE STANDARD TITLE: PHYSICIAN NOTE DATE OF NOTE: AUG 16, 2024@15:25 ENTRY DATE: AUG 16, 2024@15:25:30 AUTHOR: LEO FORRESTERIGNER: URGENCY: STATUS: COMPLETED CARD,JOANNA Jones JR is a 54 year old WHITE MALE who is being seen today in primary care for routine follow up. ==== CARE TEAM ==== Community Primary Care Provider: none [facility]: acupuncture chiropractor nephrology- prev saw Dr. Stone 2021 [facility]: derm- Dr. Wayne- psoriasis- gets shots every 8 weeks nephrology- used to see Dr. 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 Cervicalgia 2. Type 2 diabetes mellitus controlled by diet 3. Acquired polycystic kidney disease 4. Low back pain 5. Hyperuricemia 6. Psoriasis 7. Obstructive sleep apnea on cpap 8. 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 Active and Recently Outpatient Medications (excluding Supplies): Active Outpatient Medications Status 1) ALLOPURINOL 300MG TAB TAKE ONE TABLET BY MOUTH EVERY ACTIVE DAY FOR GOUT 2) AMLODIPINE BESYLATE 5MG TAB TAKE ONE TABLET BY MOUTH ACTIVE ONCE DAILY FOR BLOOD PRESSURE/HEART, DO NOT TAKE WITH GRAPEFRUIT JUICE 3) DM 10/GUAIFENESN 100MG/5ML (AF & SF) LIQ TAKE 5 MLS ACTIVE BY MOUTH EVERY 6 HOURS NEEDED 4) ROSUVASTATIN CA 10MG TAB TAKE ONE TABLET BY MOUTH ACTIVE ONCE DAILY FOR CHOLESTEROL 5) SILDENAFIL CITRATE 50MG TAB TAKE ONE TABLET BY MOUTH ACTIVE ONCE DAILY TAKE 1 HOUR PRIOR TO SEXUAL ACTIVITY Active Non-VA Medications Status 1) Non-VA GUSELKUMAB 100MG/ML INJ 1ML SYR 100MG (1ML) ACTIVE SUBCUTANEOUSLY [id number] 2) Non-VA LISINOPRIL 10MG TAB 10MG BY MOUTH EVERY 10 ACTIVE DAYS 7 Total Medications ==== REVIEW OF SYMPTOMS ==== POSITIVE FOR: NEGATIVE FOR: CONSTITUTION: no weight loss/gain, fatigue, fevers, night sweats HEENT: no vision problems, hearing loss,swallowing difficulties, sinus pain CV: no chest pain, palpitations, dyspnea on exertion, orthopnea RESP: no cough, shortness of breath, wheezing GI: no abdominal pain, N/V/D, constipation, blood in stool, normal appetite : no urinary frequency, nocturia, hematuria MUSC: no joint pain, joint swelling, muscle aches NEURO: no headaches, dizziness, memory loss, tremor, weakness PSYCH: no depression, anxiety, suicidal or homicidal thoughts SKIN: no rash, new skin lesions ==== PHYSICAL EXAM ==== Vitals: - - - - - - - B/P: 135/80 (08/16/2024 15:21) pulse: 68 (08/16/2024 15:) resp: 16 (08/16/2024 15:) temp: 98.6 F [37.0 C] (08/16/2024 15:21) Ht: 74 in [188.0 cm] (02/11/2024 14:50) Wgt: 256 lb [116.12 kg] (08/16/2024 15:21) BMI: BMI: 32.9 Exam: - - - - - - - RRR S1 S2 LCTA bilat no LE edmea ==== RECENT LABS ==== BMP (FASTING) Collection DT Specimen Test Name Result Units Ref Range 02/09/2024 08:56 SERUM UREA NITROGEN 19 mg/dL 7 - 25 02/09/2024 08:56 SERUM GLUCOSE 119 H mg/dL 65 - 100 02/09/2024 08:56 SERUM SODIUM 142 mmol/L 135 - 145 02/09/2024 08:56 SERUM POTASSIUM 4.4 mmol/L 3.5 - 5.0 02/09/2024 08:56 SERUM CHLORIDE 104 mmol/L 100 - 110 02/09/2024 08:56 SERUM CO2 28 mEq/L 20 - 30 02/09/2024 08:56 SERUM CREATININE, Serum 1.15 mg/dL 0.50 - 1.40 04/04/2021 07:34 SERUM eGFR (IDMS) >60 Ref: >=60 LIVER PANEL TREND Collection DT Spec AST ALT T BILI ALK JOSEPH T. PROT ALBUMIN 02/09/2024 08:56 SERUM 24 35 0.5 61 6.6 3.9 08/06/2023 07:33 SERUM 57 4.1 08/06/2023 07:32 SERUM 28 41 0.4 57 7.2 4.2 04/23/2022 14:33 SERUM 30 34 0.5 57 7.1 4.1 04/18/2022 07:31 SERUM 4.1 LIPID PANEL TREND Collection DT Spec CHOL HDL CHO/HDL LDL-c TRIG 02/09/2024 08:56 SERUM 138 53 2.6 74 56 08/06/2023 07:32 SERUM 213 H 53 4.0 138 H 108 01/03/2023 07:34 SERUM 210 H 49 02/06/2022 07:23 SERUM 192 46 4.2 135 H 53 04/04/2021 07:34 SERUM 192 50 3.8 126 81 CBC TREND Collection DT Spec WBC RBC HGB HCT MCV MCH PLT 02/09/2024 08:56 BLOOD 4.03 L 4.62 13.3 40.8 88.3 28.8 179 08/06/2023 07:33 BLOOD 3.82 L 4.72 13.9 42.4 89.8 29.4 200 01/03/2023 07:34 BLOOD 4.51 4.80 14.0 42.1 87.7 29.2 191 02/06/2022 07:23 BLOOD 4.07 L 5.34 15.2 47.1 88.2 28.5 194 04/04/2021 07:34 BLOOD 3.76 L 4.43 12.8 40.2 90.7 28.9 187 PSA TREND Collection DT Spec PSA SR- 02/06/2022 07:23 SERUM 0.62 HEMOGLOBIN A1C TREND Collection DT Spec HGBA1c 02/09/2024 08:56 BLOOD 6.4 H 08/06/2023 07:33 BLOOD 5.7 H 02/06/2022 07:23 BLOOD 5.7 H 04/04/2021 07:34 BLOOD 5.7 H 10/23/2020 13:20 BLOOD 6.7 H ==== ASSESSMENT AND PLAN ==== Active problems - Computerized Problem List is the source for the followin. Cervicalgia 2. Type 2 diabetes mellitus controlled by diet 3. Acquired polycystic kidney disease- will refill lisinopril 10 mg daily. states will eb seeing [facility] data base design analyst- last seen in 2021. due for labs- will do today 4. Low back pain 5. Hyperuricemia 6. Psoriasis- will place communtiy derm consult- prev was done with [employer] insurance 7. Obstructive sleep apnea on cpap 8. Obesity ==== HEALTH MAINTENANCE ==== Colonoscopy - last done June 2023 Abdominal Aortic Aneurysm Screening (due at age 65 if smoker/prev smoker) - Prostate screening - Tetanus: due every 10 years Pneumonia Vacccine: Flu Vaccine: due yearly Covid Vaccine: due yearly ==== FOLLOW UP ==== f/u in 6 mo VISIT TYPE: a MODERATE complexity visit where 30 minutes was spent in direct patient care, review of records and documentation. Upcoming Appointments: 09/06/2024 15:00 CWM/NO/ACUPUNCTURE R2 10/05/2024 15:00 CWM/NO/ACUPUNCTURE R2 11/09/2024 15:30 CWM/NO/OPTOMETRY/MERHAR /es/ Vanessa SCHROEDEROBladimir PHYSICIAN Signed: 08/16/2024 16:54 LEO FORRESTER [facility] [place] [facility] Aug 16, 2024 03:15 PM PREVENTIVE MEDICIN E NURSING NOTE: LOCAL TITLE: CLINICAL REMINDERS/NURSING STANDARD TITLE: PREVENTIVE MEDICINE NURSING NOTE DATE OF NOTE: AUG 16, 2024@15:15 ENTRY DATE: AUG 16, 2024@15:15:26 AUTHOR: YOSEF BELLE EXP COSIGNER: URGENCY: STATUS: COMPLETED CLINICAL REMINDERS/NURSING Has ADDENDA Suicide Screen: C-SSRS Screening [place] Suicide Severity Rating Scale (C-SSRS) screener 1. Over the past month, have you wished you were or wished you could go to sleep and not wake up? Yes 2. Over the past month, have you had any actual thoughts of killing yourself? No 3. Over the past month, have you been thinking about how you might do this? Response not required due to responses to other questions. 4. Over the past month, have you had these thoughts and had some intention of acting on them? Response not required due to responses to other questions. 5. Over the past month, have you started to work out or worked out the details of how to kill yourself? Response not required due to responses to other questions. 6. If yes, at any time in the past month did you intend to carry out this plan? Response not required due to responses to other questions. 7. In your lifetime, have you ever done anything, started to do anything, or prepared to do anything to end your life (for example, collected pills, obtained a gun, gave away valuables, went to the roof but didn't jump)? No 8. If YES, was this within the past 3 months? Response not required due to responses to other questions. Depression Screening: Perform PHQ-2 A PHQ-2 screen was performed. The score was 2 which is a negative screen for depression. Over the past two weeks, how often have you been bothered by the following problems? 1. Little interest or pleasure in doing things Not at all 2. Feeling down, depressed, or hopeless More than half the days /betty/ YOSEF BELLE LPN License Practical Nurse Signed: 08/16/2024 15:25 08/16/2024 ADDENDUM STATUS: COMPLETED Homelessness/Food Insecurity Screen: In the past 2 months, have you been living in stable housing that you own, rent, or stay in as part of a household? Yes - Living in stable housing. Are you worried or concerned that in the next 2 months you may NOT have stable housing that you own, rent, or stay in as part of a household? No - Not worried about housing near future [facility] reports the following: Within the past 12 months, you worried whether your food would run out before you got money to buy more. Never true Within the past 12 months, the food you bought just didn't last and you didn't have money to get more. Never true Influenza Immunization: Deferral / Refusal The patient declines to receive the recommended dose of seasonal influenza vaccine. Immunization: INFLUENZA, UNSPECIFIED FORMULATION Refusal Reason: PATIENT DECISION Patient refuses all immunization(s) in the FLU group Date Documented: 08/16/24 16:04 COVID-19 Immunization: Refused Moderna Monovalent COVID-19 vaccine Immunization: COVID-19 (MODERNA), MRNA, LNP-S, PF, 50 MCG/0.5 ML (AGES 12+ YEARS) Refusal Reason: PATIENT DECISION Patient refuses all immunization(s) in the COVID-19 group Date Documented: 08/16/24 16:04 irina/ YOSEF BELLE LPN License Practical Nurse Signed: 08/16/2024 16:04 YOSEF BELLE [facility]
--- OUTSIDE RECORDS SUMMARY | 2024-10-25 10:45 | XMS_ITS | Encounter Summary ---
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 ([place]) Organization Department of Vetera ns Affairs ([place]) Address [address] [place] [address] Care Team Providers Care Barrel Cutter Name Role Phone LEO PERALES Primary Care Provider Unavailabl e Insurance Providers: [...] COH G AND E May 10, 2024 [id number] [facility] ER PATIENT [facility] PRESCRIPT ION [facility] May 10, 2024 [id number] [phone] CARD,SP ER PATIENT [employer] [facility] [place] Feb 08, 2018 [id number] [phone] CARD,SP ER PATIENT [employer] [facility]AL [facility] [place] Feb 08, 2018 [id number] CARD,[facility] ER PATIENT [employer] [facility] PRESCRIPT ION [place] Feb 08, 2018 [id number] CARD,[facility] ER [facility]IENT [facility] May 10, 2019 [id number] JOANNA DURON JR PATIENT [facility] RX PRESCRIPT ION HEALT H [place] [facility] May 10, 2019 [facility] [id number] DOMI BAUTISTAJOANNA PATIENT Selected Encounter This section includes the information on record at ID for the Encounter. Date/Time Encounter Type Encounter Description Reason Provider Source Jul 19, 2024 01:30 PM Outpatient Encounter PRIMARY CARE/MEDICINE RUTHY CHAVIRA Encounter Template Text not used by ID Plan of Treatment: Future Appointments (+ 6 months) and Future Tests (+/- 45 days) The Plan of Treatment section includes future care activities for the patient [facility] all [facility] This section includes future appointments and future orders which are active, pending or scheduled. Future Appointments This section includes appointments that were scheduled to occur 6 months from the date of the Encounter, up to a maximum of 20 appointments. The data comes from all ID treatment facilities. Appointment Date/Time Appointment Type Appointme nt Facility Name Aug 16, 2024 03:00 PM AMBULATORY - MEDICINE ID [facility] [place] [facility] Sep 02, 2024 02:10 PM AMBULATORY - MEDICINE ID C [facility] [place] [facility] Sep 08, 2024 03:00 PM AMBULATORY - PSYCHIATRY ID [facility] [place] [facility] Sep 23, 2024 08:00 AM AMBULATORY - MEDICINE ID C [facility] [place] [facility] Sep 23, 2024 03:00 PM AMBULATORY - PSYCHIATRY ID [facility] [place] [facility] Sep 29, 2024 08:00 AM AMBULATORY - MEDICINE ID C [facility] [place] [facility] Oct 05, 2024 03:00 PM AMBULATORY - MEDICINE ID C [facility] [place] [facility] Oct 14, 2024 03:00 PM AMBULATORY - MEDICINE ID [facility] [place] [facility] Oct 26, 2024 03:00 PM AMBULATORY - PSYCHIATRY ID [facility] [place] [facility] Oct 28, 2024 03:00 PM AMBULATORY - MEDICINE ID [facility] [place] [facility] Nov 02, 2024 09:00 AM AMBULATORY - MEDICINE ID C [facility] [place] [facility] Nov 09, 2024 03:30 PM AMBULATORY - MEDICINE ID C [facility] [place] [facility] Dec 02, 2024 03:00 PM AMBULATORY - MEDICINE ID [facility] [place] [facility] Dec 03, 2024 08:00 AM [facility] Jan 04, 2025 03:00 PM AMBULATORY - MEDICINE ID C [facility] Lab Results: +/- 30 days of the encounter This section includes the Chemistry and Hematology Lab Results on record with ID for the patient. Radiology Reports and Pathology Reports are provided separately, in subsequent sections. Lab Results This section contains the Chemistry/Hematology Results that were resulted 30 days before or 30 daysafter the date of the Encounter. Date/Time Source Result Type Result - Unit Interpretation Reference Range Comment Aug 16, 2024 03:55 PM [facility] HEMOGLOBIN A1C PANEL Specimen Type: BLOOD Comment: Values obtained from A1C measurements can vary. For atypical A1C assays, a reported value of 7.0 could actually be between 6.72 and 7.28 if measured by a reference method. A reported value of 9.0 could actually be between 8.73 and 9.27. Ref: http://www.ngs p.org/CAPdata. asp Ordering Provider: LEO PERALES Report Released Date/Time: Jul 30, 2024 11:24 AM Reporting Lab: [facility] [address] [facility] [address] Performing Lab: [address] [address] HEMOGLOBIN A1C 6.3 H 4.0-5.6 Aug 16, 2024 03:55 PM [facility] LIPID PANEL FASTING Specimen Type: SERUM No comment entered. Ordering Provider: LEO PERALES Report Released Date/Time: Jul 30, 2024 11:24 AM Reporting Lab: [facility] [address] [facility] [address] Performing Lab: [address] [address] CHOLESTEROL 129 mg/dL TRIGLYCERIDE 86 mg/dL 0-150 LDL calculated 62 mg/dL 0-129 CHOL/HDL 2.6 HDL CHOLESTEROL 50 mg/dL 40-60 Aug 16, 2024 03:55 PM [facility] MICROALBUMIN CREATININE RATIO PANEL Specimen Type: URINE No comment entered. Ordering Provider: LEO PERALES Report Released Date/Time: Jul 30, 2024 11:24 AM Reporting Lab: [address] [address] Performing Lab: [address] [address] MICROALBUMIN/C REATININE RATIO 249.6 mg/g H 0-29.9 MICROALBUMIN,Q UANTITATIVE 19.8 mg/dL RR UNAVAIL CREATININE URINE 79.34 mg/dL Aug 16, 2024 03:55 PM [facility] BASIC METABOLIC PANEL (fasting) Specimen Type: SERUM No comment entered. Ordering Provider: LEO PERALES Report Released Date/Time: Jul 30, 2024 11:24 AM Reporting Lab: [address] [address] Performing Lab: [address] [address] UREA NITROGEN 23 mg/dL 7-25 GLUCOSE 198 [...] and tobacco- related health factors from the ID facility where the Encounter took place. Current Smoking Status This section includes the most current smoking, or tobacco-related health factor, from the ID facility where the Encounter took place. Date/Time Current Smoking Status Comment Facil billie Feb 11, 2024 03:00 PM ID-TOBACCO NEVER USED [facility] Tobacco Use History This section includes a history of the smoking, or tobacco-related health factors, that were collected on or before the date of the Encounter. The data comes from the [facility] where the Encounter took place. Date/Time Smoking Status/Tobac co Use Comment Facility Feb 12, 2023 03:00 PM VA-TOBACCO NEVER USED ID [facility] [place] [facility] Feb 14, 2022 03:00 PM VA-TOBACCO NEVER USED VA [facility] [place] [facility] Oct 27, 2020 03:30 PM VA-TOBACCO NEVER USED VA [facility] [place] [facility] Aug 25, 2018 04:16 PM VA-TOBACCO DOESNT USE WI 30 MIN WAKEUP ID [facility] [place] [facility] Aug 25, 2018 04:16 PM VA-TOBACCO USE > 15 LESS THAN 30 YEARS ID [facility] [place] [facility] Aug 25, 2018 04:16 PM VA-TOBACCO USE ADVICE ID [facility] [place] [facility] Aug 25, 2018 04:16 PM 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 ID [facility] Aug 25, 2018 04:16 PM VA-TOBACCO USE MED NO ID [facility] [place] [facility] Aug 25, 2018 04:16 PM VA-TOBACCO USER SOME DAYS ID [facility] [place] [facility] Oct 07, 2017 11:55 AM CURRENT SMOKER 1 cigar a few times a year ID [facility] [place] [facility] Oct 07, 2017 11:55 AM V1-PT NOT INTERESTED IN QUIT TOBACCO USE ID [facility] [place] [facility] Oct 29, 2016 08:57 AM LIFETIME NON-TOBACCO USER ID [facility] [place] [facility] Encounter Notes: All associated encounter notes This section contains the clinical notes associated to the Encounter. Date/Time Encounter Note(s) Provider Source Jul 19, 2024 01:30 PM PRIMARY CARE SECUR E MESSAGING: LOCAL TITLE: PRIMARY CARE SECURE MESSAGING STANDARD TITLE: PRIMARY CARE SECURE MESSAGING DATE OF NOTE: JUL 19, 2024@13:30 ENTRY DATE: JUL 19, 2024@13:30:29 AUTHOR: RUTHY CHAVIRA EXP COSIGNER: URGENCY: STATUS: COMPLETED ------Original Message ------- Sent: 07/17/2024 07:10 AM ET From: JOANNA DURON To: Rosamaria PERALES _ PRIMARY CARE_[facility] Subject: Medication:Refill I need my medication that has to be refilled. My gout medicine and my blood pressure. Thank you ------Original Message ------- Sent: 07/19/2024 01:30 PM ET From: RUTHY CHAVIRA To: JOANNA DURON Subject: Medication:Refill Good Afternoon Mr. Duron, I see that you take Allopurinol for Gout and Amlodipine for blood pressure. I will alert Dr. Perales to your need for renewals of these medications. Are there any other medications that you need at this time? Respectfully, Ruthy Chavira RN /betty/ RUTHY CHAVIRA RN REGISTERED NURSE Signed: 07/19/2024 13:30 Receipt Acknowledged By: 07/19/2024 15:28 /betty/ LEO PERALES D.O. PHYSICIAN RUTHY CHAVIRA ID [facility] TR[facility]
--- OUTSIDE RECORDS SUMMARY | 2024-10-25 10:46 | XMS_ITS | Encounter Summary ---
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 [place] Organization [place] Address [address] [place] [address] Care Team Providers Care Garnett Feeder Name Role Phone LEO FORRESTER Primary Care [...] Suresh's Name Patient's Relationship to Policy Suresh [facility] CE ORGANIZAT ION COH G AND E May 10, 2024 [id number] [facility]IENT [facility] PRESCRIPT ION [facility] May 10, 2024 [id number] [phone] CARD,[facility] ER PATIENT [employer] POINT OF SERVICE [facility] Feb 08, 2018 [id number] [phone] CARD,[facility] ER PATIENT [facility] MENTAL [facility] Feb 08, 2018 [id number] CARD,[facility] ER PATIENT [facility] PRESCRIPT ION [facility] Feb 08, 2018 [id number] [phone] CARD,[facility] PATIENT [facility] May 10, 2019 [id number] JOANNA DURON JR PATIENT [facility] RX PRESCRIPT ION HEALT H [place] [facility] May 10, 2019 [facility] [id number] JOANNA DURON JR PATIENT Selected Encounter This section includes the information on record at MA for the Encounter. Date/Time Encounter Type Encounter Description Reason Pro vider Source Aug 18, 2024 03:44 PM Outpatient Encounter RENAL/NEPHROL(EXCEPT DIALYSIS) IHE Encounter Template Text not used by MA Plan of Treatment: Future Appointments (+ 6 months) and Future Tests (+/- 45 days) The Plan of Treatment section includes future care activities for the patient from all [place] treatmentuniversal health servicesities. This section includes future appointments and future orders which are active, pending or scheduled. Future Appointments This section includes appointments that were scheduled to occur 6 months from the date of the Encounter, up to a maximum of 20 appointments. The data comes from all [place] treatment facilities. Appointment Date/Time Appointment Type Appointme nt Facility Name Sep 02, 2024 02:10 PM AMBULATORY - MEDICINE [facility] [place] [facility] Sep 08, 2024 03:00 PM AMBULATORY - PSYCHIATRY [facility] [place] [facility] Sep 23, 2024 08:00 AM AMBULATORY - MEDICINE [place] C [facility] [place] [facility] Sep 23, 2024 03:00 PM AMBULATORY - PSYCHIATRY [facility] [place] [facility] Sep 29, 2024 08:00 AM AMBULATORY - MEDICINE [place] [facility] [facility] Oct 05, 2024 03:00 PM AMBULATORY - MEDICINE [facility] [facility] Oct 14, 2024 03:00 PM AMBULATORY - MEDICINE [facility] [place] [facility] Oct 26, 2024 03:00 PM AMBULATORY - PSYCHIATRY [facility] [place] [facility] Oct 28, 2024 03:00 PM AMBULATORY - MEDICINE [facility] [facility] Nov 02, 2024 09:00 AM AMBULATORY - MEDICINE [facility] [place] [facility] Nov 09, 2024 03:30 PM AMBULATORY - MEDICINE [facility] [place] [facility] Dec 02, 2024 03:00 PM [facility] Dec 03, 2024 08:00 AM AMBULATORY - MEDICINE [facility] Jan 04, 2025 03:00 PM AMBULATORY - MEDICINE [facility] Jan 25, 2025 08:00 AM AMBULATORY - MEDICINE [facility] Feb 14, 2025 03:00 PM [facility] Active, Pending, and Scheduled Orders This section includes a listing of several types of active, pending, and scheduled orders, including clinic medications orders, diagnostic test orders, procedure orders and consult orders; where the start date of the order is 45 days before the date of the Encounter or 45 days after the date of theEncounter. The data comes from all MA treatment facilities. Test Date/Time Test Type Test Details Facility Name Sep 23, 2024 08:27 AM Consult Order COMMUNITY CARE-MRI Cons Plan Nurse's Choice [facility] Lab Results: +/- 30 days of the encounter This section includes the Chemistry and Hematology Lab Results on record with MA for the patient. Radiology Reports and Pathology Reports are provided separately, in subsequent sections. Lab Results This section contains the Chemistry/Hematology Results that were resulted 30 days before or 30 daysafter the date of the Encounter. Date/Time Source Result Type Result - Unit Interpretation Reference Range Comment Aug 16, 2024 03:55 PM [facility] HEMOGLOBIN A1C PANEL Specimen Type: BLOOD Comment: [...] Jul 30, 2024 11:24 AM Reporting Lab: [address] [address] Performing Lab: [address] [address] HEMOGLOBIN A1C 6.3 H 4.0-5.6 Aug 16, 2024 03:55 PM [facility] LIPID PANEL FASTING Specimen Type: SERUM No comment entered. Ordering Provider: LEO FORRESTER Report Released Date/Time: Jul 30, 2024 11:24 AM Reporting Lab: [facility] [address] [facility] [address] Performing Lab: [facility] [address] [facility] [address] CHOLESTEROL 129 mg/dL TRIGLYCERIDE 86 mg/dL 0-150 LDL calculated 62 mg/dL 0-129 CHOL/HDL 2.6 HDL CHOLESTEROL 50 mg/dL 40-60 Aug 16, 2024 03:55 PM [facility] MICROALBUMIN CREATININE RATIO PANEL Specimen Type: URINE No comment entered. Ordering Provider: LEO FORRESTER Report Released Date/Time: Jul 30, 2024 11:24 AM Reporting Lab: [address] [address] Performing Lab: [address] [address] MICROALBUMIN/C REATININE RATIO 249.6 mg/g H 0-29.9 MICROALBUMIN,Q UANTITATIVE 19.8 mg/dL RR UNAVAIL CREATININE URINE 79.34 mg/dL Aug 16, 2024 03:55 PM [facility] BASIC METABOLIC PANEL (fasting) Specimen Type: SERUM No comment entered. Ordering Provider: LEO FORRESTER Report Released Date/Time: Jul 30, 2024 11:24 AM Reporting Lab: [facility] [address] [facility] [address] Performing Lab: [address] [address] UREA NITROGEN 23 mg/dL 7-25 GLUCOSE 198 [...] and tobacco- related health factors from the MA facility where the Encounter took place. Current Smoking Status This section includes the most current smoking, or tobacco-related health factor, from the [place] facility where the Encounter took place. Date/Time Current Smoking Status Comment Facil it Feb 11, 2024 03:00 PM VA-TOBACCO NEVER USED [place] [facility] [place] [facility] Tobacco Use History This section includes a history of the smoking, or tobacco-related health factors, that were collected on or before the date of the Encounter. The data comes from the [place] facility where the Encounter took place. Date/Time Smoking Status/Tobac co Use Comment Facility Feb 12, 2023 03:00 PM VA-TOBACCO NEVER USED VA [facility] [place] [facility] Feb 14, 2022 03:00 PM VA-TOBACCO NEVER USED VA [facility] [place] [facility] Oct 27, 2020 03:30 PM VA-TOBACCO NEVER USED [facility] [place] [facility] Aug 25, 2018 04:16 PM VA-TOBACCO DOESNT USE WI 30 MIN WAKEUP [place] [facility] [place] [facility] Aug 25, 2018 04:16 PM VA-TOBACCO USE > 15 LESS THAN 30 YEARS [place] [facility] [place] [facility] Aug 25, 2018 04:16 PM VA-TOBACCO USE ADVICE [place] [facility] [place] [place] [facility] Aug 25, 2018 04:16 PM VA-TOBACCO USE [place] NO [place] [facility] [place] [facility] Aug 25, 2018 04:16 PM VA-TOBACCO USE MED NO [place] [facility] [place] [facility] Aug 25, 2018 04:16 PM VA-TOBACCO USER SOME DAYS [facility] [place] [facility] Oct 07, 2017 11:55 AM CURRENT SMOKER 1 cigar a few times a year [place] [facility] [place] [facility] Oct 07, 2017 11:55 AM V1-PT NOT INTERESTED IN QUIT TOBACCO USE [facility] [place] [facility] Oct 29, 2016 08:57 AM LIFETIME NON-TOBACCO USER [place] [facility] [place] [facility] Encounter Notes: All associated encounter notes This section contains the clinical notes associated to the Encounter. Date/Time Encounter Note(s) Provider Source Aug 18, 2024 03:44 PM TELEPHONE ENCOUNTE R NOTE: LOCAL TITLE: TELEPHONE NOTE/SPECIALTY CLINIC STANDARD TITLE: TELEPHONE ENCOUNTER NOTE DATE OF NOTE: AUG 18, 2024@15:44 ENTRY DATE: AUG 18, 2024@15:45:05 AUTHOR: SHIMON ERICKSON SA COSIGNER: URGENCY: STATUS: COMPLETED TELEPHONE NOTE/SPECIALTY CLINIC Has ADD[facility], per provider. Please discontinue consult. Vet is an established patient with Dr. Hassan-last seen January 2023. A 30 minute F2F F/U should be scheduled instead. There was no RTC enetered, RIMAA enetered an RTC for the and scheduled the for 09/29/2024 at 8:00am. [place] informed the [facility] that he had labs completed already. /brayden ERICKSON Signed: 08/18/2024 15:52 Receipt Acknowledged By: 08/19/2024 08:49 /brayden KOEHLER LPN LICENSED PRACTICAL NURSE 08/24/2024 13:19 /betty/ MIGUELANGEL HASSAN M.D. [employer]FT PNEUDRAULICS REPAIRER PORTABLE SAWYER 08/19/2024 ADDENDUM STATUS: COMPLETED Nurse called this and explained that the lab work he had done was not all the required labs and that she requires the labs to be no earlier than 4 weeks before the appointment and must be completed at least the week prior to the appointment. I also explained that because it has been so long since he has seen Dr Hassan that there will need to be a complete nephrology panel done for this appointment. [place] in agreement and will obtain labs in September prior to the appointment. He understands these are all non-fasting labs. /brayden KOEHLER LPN LICENSED PRACTICAL NURSE Signed: 08/19/2024 08:55 [facility]
--- OUTSIDE RECORDS SUMMARY | 2024-10-25 10:46 | XMS_ITS | Encounter Summary ---
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 [place] Organization [facility] [facility] [place] Address [address] [place] [address] Care Team Providers Care Telecom Specialist Name Role Phone LEO FORRESTER Primary Care [...] Suresh's Name Patient's Relationship to Policy Suresh [facility]GANIZAT [facility]ON [facility] AND E May 10, 2024 [id number] [phone] [facility] ER PATIENT [place] PRESCRIPT ION [facility] May 10, 2024 [id number] [phone] [facility] ER PATIENT [employer] POINT OF SERVICE [facility] Feb 08, 2018 [id number] [facility] ER PATIENT [employer] BEHAVIORAL HEALTH MENTAL HEALTH [facility] Feb 08, 2018 [id number] [facility] ER PATIENT [employer] PHARMACY PRESCRIPT ION [facility] Feb 08, 2018 [id number] [facility] ER PATIENT [facility] May 10, 2019 [id number] JOANNA DURON JR PATIENT [facility] RX PRESCRIPT ION HEALT H [facility] May 10, 2019 [facility] [id number] DOMI BAUTISTAJOANNA PATIENT Selected Encounter This section includes the information on record at [place] for the Encounter. Date/Time Encounter Type Encounter Description Reason Provider Source Aug 31, 2024 11:25 AM PRO PHONE CALL 5-10 MIN TELEPHONE ICD-10-CM F32.A Depression, unspecified RAMYA RODRIGUEZ IHE Encounter Template Text not used by [place] Assessments - Encounter Diagnoses This section includes the primary and secondary diagnoses documented for the Encounter. Date/Time Primary/Secondary Diagnosis Diagnosis Name Provider Source Aug 31, 2024 11:25 AM PRIMARY Depression, unspecified RAMYA RODRIGUEZ [place] [facility] [place] [facility] Plan of Treatment: Future Appointments (+ 6 months) and Future Tests (+/- 45 days) The Plan of Treatment section includes future care activities for the patient from all [place] [facility]. This section includes future appointments and future [...] - MEDICINE PR C [facility] [place] [facility] Sep 08, 2024 03:00 PM AMBULATORY - PSYCHIATRY [place] [facility] [place] [facility] Sep 23, 2024 08:00 AM AMBULATORY - MEDICINE PR C [facility] [place] [facility] Sep 23, 2024 03:00 PM AMBULATORY - PSYCHIATRY [place] [facility] [place] [facility] Sep 29, 2024 08:00 AM AMBULATORY - MEDICINE PR C NTRL [facility] [place] [facility] Oct 05, 2024 03:00 PM AMBULATORY - MEDICINE PR C NTRL [facility] [facility] Oct 14, 2024 03:00 PM AMBULATORY - MEDICINE PR C [facility]L [facility] [place] [facility] Oct 26, 2024 03:00 PM AMBULATORY - PSYCHIATRY PR [facility] [place] [facility] Oct 28, 2024 03:00 PM AMBULATORY - MEDICINE PR C [facility]L [facility] [facility] Nov 02, 2024 09:00 AM AMBULATORY - MEDICINE PR C [facility]L [facility] [facility] Nov 09, 2024 03:30 PM AMBULATORY - MEDICINE PR C N[facility]L [facility] [facility] Dec 02, 2024 03:00 PM AMBULATORY - MEDICINE PR C [facility] [facility] Dec 03, 2024 08:00 AM AMBULATORY - MEDICINE PR C NTRL [facility] [facility] Jan 04, 2025 03:00 PM AMBULATORY - MEDICINE PR C [facility]L [facility] [place] [facility] Jan 25, 2025 08:00 AM AMBULATORY - MEDICINE PR C N[facility]L [facility] [place] [facility] Feb 14, 2025 03:00 PM AMBULATORY - MEDICINE [facility] Active, Pending, and Scheduled Orders This section includes a listing of several types of active, pending, and scheduled orders, including clinic medications orders, diagnostic test orders, procedure orders and consult orders; where the start date of the order is 45 days before the date of the Encounter or 45 days after the date of theEncounter. The data comes from all [place] treatment facilities. Test Date/Time Test Type Test Details Facility Name Sep 23, 2024 08:27 AM Consult Order COMMUNITY CARE-MRI Cons Area Director Of Home Health Sales's Choice PR [facility] Oct 14, 2024 03:46 PM Consult Order REHAB MEDI CINE/NHM OUTPT Cons Area Director Of Home Health Sales's Choice [facility] Lab Results: +/- 30 days of [...] Result - Unit Interpretation Reference Range Comment Sep 23, 2024 08:37 AM [facility] PO4 Specimen Type: SERUM No comment entered. Ordering Provider: WILLIAN CHAVEZ Report Released Date/Time: Aug 19, 2024 08:57 AM Reporting Lab: [facility] [address] [address] Performing Lab: [facility] [place] [facility] [address] [facility] [address] PO4 3.1 mg/dL 2.5-5.0 Sep 23, 2024 08:37 AM [facility] PTH INTACT Specimen Type: SERUM No comment entered. Ordering Provider: WILLIAN CHAVEZ Report Released Date/Time: Aug 19, 2024 08:57 AM Reporting Lab: [facility] [place] [facility] [address] [facility] [address] Performing Lab: [facility] [place] [address] [address] PTH INTACT 41.9 pg/mL Sep 23, 2024 08:37 AM [facility] URIC ACID Specimen Type: SERUM No comment entered. Ordering Provider: WILLIAN CHAVEZ Report Released Date/Time: Aug 19, 2024 08:57 AM Reporting Lab: [facility] [place] [address] [address] Performing Lab: [facility] [place] [address] [address] URIC ACID 9.1 mg/dL H 3.5-7.2 Sep 23, 2024 08:37 AM [facility] VITAMIN D (25-[place]) Specimen Type: SERUM No comment entered. Ordering Provider: WILLIAN CHAVEZ Report Released Date/Time: Aug 19, 2024 08:57 AM Reporting Lab: [facility] [place] [address] [address] Performing Lab: [facility] [place] [address] [address] VITAMIN D (25-[place]) 30 ng/mL -50 Sep 23, 2024 08:37 AM [facility] MAGNESIUM Specimen Type: SERUM No comment entered. Ordering Provider: WILLIAN CHAVEZ Report Released Date/Time: Aug 19, 2024 08:57 AM Reporting Lab: [facility] [place] [address] [address] Performing Lab: [facility] [address] [facility] [address] MAGNESIUM 1.9 mg/dL 1.6-2.6 Sep 23, 2024 08:37 AM [facility] FERRITIN Specimen Type: SERUM No comment entered. Ordering Provider: WILLIAN CHAVEZ A Report Released Date/Time: Aug 19, 2024 08:57 AM Reporting Lab: [facility] [address] [facility] [address] Performing Lab: [facility] [address] FERRITIN 418 ng/mL H 20-300 Sep 23, 2024 08:37 AM [facility] BASIC METABOLIC PANEL (non-fasting) Specimen Type: SERUM No comment entered. Ordering Provider: WILLIAN CHAVEZ A Report Released Date/Time: Aug 19, 2024 08:57 AM Reporting Lab: [facility] [address] [facility] [address] Performing Lab: [address] [address] UREA NITROGEN 20 mg/dL 7-25 GLUCOSE 137 mg/dL H 65-100 SODIUM 138 mmol/L 135-145 POTASSIUM 4.2 mmol/L 3.5-5.0 CHLORIDE 100 mmol/L 100-110 CO2 26 meq/L 20-30 CREATININE, Serum 1.20 mg/dL 0.50-1.40 eGFR(CKD-EPI 2020) 72 mL/min >60 Sep 23, 2024 08:37 AM [facility] MICROALBUMIN CREATININE RATIO PANEL Specimen Type: URINE No comment entered. Ordering Provider: WILLIAN CHAVEZ Report Released Date/Time: Aug 19, 2024 08:57 AM Reporting Lab: [facility] [address] [facility] [address] Performing Lab: [address] [address] MICROALBUMIN/C REATININE RATIO 429.6 mg/g H 0-29.9 MICROALBUMIN,Q UANTITATIVE 54.3 mg/dL RR UNAVAIL CREATININE URINE 126.39 mg/dL Sep 23, 2024 08:37 AM [facility] [place] [facility] IRON & TIBC PANEL Specimen Type: SERUM No comment entered. Ordering Provider: WILLIAN CHAVEZ Report Released Date/Time: Aug 19, 2024 08:57 AM Reporting Lab: [facility] [place] [facility] [address] [facility] [address] Performing Lab: [place] CNTRL [place] [facility] [address] [facility] [address] TIBC 350 ug/dL 204-475 IRON 120 ug/dL 40-160 Transferrin Saturation 34.3 20.0-50.0 Transferrin (TRF) 265 mg/dL 200-360 Sep 23, 2024 08:37 AM [facility] [place] [facility] CHOLESTEROL Specimen Type: SERUM No comment entered. Ordering Provider: WILLIAN CHAVEZ A Report Released Date/Time: Aug 19, 2024 08:57 AM Reporting Lab: [facility] [place] [facility] [address] [facility] [address] Performing Lab: [facility]N [place] [address] [address] CHOLESTEROL 188 mg/dL Sep 23, 2024 08:37 AM [facility] HDL CHOLESTEROL Specimen Type: SERUM No comment entered. Ordering Provider: WILLIAN CHAVEZ Report Released Date/Time: Aug 19, 2024 08:57 AM Reporting Lab: [facility] [place] [facility] [address] [facility] [address] Performing Lab: [place] [facility]L [place] [facility] [address] [facility] [address] HDL CHOLESTEROL 55 mg/dL 40-60 Sep 23, 2024 08:37 AM [facility] [place] [facility] CALCIUM Specimen Type: SERUM No comment entered. Ordering Provider: WILLIAN CHAVEZ A Report Released Date/Time: Aug 19, 2024 08:57 AM Reporting Lab: [facility] [place] [address] [address] Performing Lab: [place] [facility]L [place] [facility] [address] [facility] [address] CALCIUM 9.4 mg/dL 8.5-10.2 Sep 23, 2024 08:37 AM [facility] ALBUMIN Specimen Type: SERUM No comment entered. Ordering Provider: WILLIAN CHAVEZ Report Released Date/Time: Aug 19, 2024 08:57 AM Reporting Lab: [facility] [address] [address] Performing Lab: [facility]ITAL[facility]ETS [address] [address] ALBUMIN 4.1 g/dL 3.5-5.0 Sep 23, 2024 08:37 AM [facility] ALKALINE PHOSPHATASE Specimen Type: SERUM No comment entered. Ordering Provider: WILLIAN CHAVEZ Report Released Date/Time: Aug 19, 2024 08:57 AM Reporting Lab: [address] [address] Performing Lab: [facility]ITALUSE[address] [address] ALKALINE PHOSPHATASE 62 U/L 40-150 Sep 23, 2024 08:37 AM [facility] CBC Specimen Type: BLOOD No comment entered. Ordering Provider: WILLIAN CHAVEZ Report Released Date/Time: Aug 19, 2024 08:57 AM Reporting Lab: [facility] [address] [address] Performing Lab: [facility]ITALUSETS [address] [address] WBC 4.70 10*3/uL 4.50-11.00 RBC 4.71 10*6/uL 4.23-5.66 HGB 13.8 g/dL 12.8-17 HCT 41.4 39.2-50.4 MCV 87.9 fL 82-99 MCHC 33.3 g/dL 30.8-35.1 PLT 198 10*3/uL 140-360 RDW-CV 12.7 12.0-16.0 MCH 29.3 pg 26.2-32.6 Aug 16, 2024 03:55 PM [facility] HEMOGLOBIN A1C PANEL Specimen Type: BLOOD [...] Jul 30, 2024 11:24 AM Reporting Lab: [address] [address] Performing Lab: [address] [address] HEMOGLOBIN A1C 6.3 H 4.0-5.6 Aug 16, 2024 03:55 PM [facility] LIPID PANEL FASTING Specimen Type: SERUM No comment entered. Ordering Provider: LEO FORRESTER Report Released Date/Time: Jul 30, 2024 11:24 AM Reporting Lab: [facility] [address] [facility] [address] Performing Lab: [address] [address] CHOLESTEROL 129 mg/dL TRIGLYCERIDE 86 mg/dL 0-150 LDL calculated 62 mg/dL 0-129 CHOL/HDL 2.6 HDL CHOLESTEROL 50 mg/dL 40-60 Aug 16, 2024 03:55 PM [facility] MICROALBUMIN CREATININE RATIO PANEL Specimen Type: URINE No comment entered. Ordering Provider: LEO FORRESTER Report Released Date/Time: Jul 30, 2024 11:24 AM Reporting Lab: [address] [address] Performing Lab: [address] [address] MICROALBUMIN/C REATININE RATIO 249.6 mg/g H 0-29.9 MICROALBUMIN,Q UANTITATIVE 19.8 mg/dL RR UNAVAIL CREATININE URINE 79.34 mg/dL Aug 16, 2024 03:55 PM [place] [facility] [facility] BASIC METABOLIC PANEL (fasting) Specimen Type: SERUM No comment entered. Ordering Provider: LEO FORRESTER Report Released Date/Time: Jul 30, 2024 11:24 AM Reporting Lab: PR [facility] [address] [facility] [address] Performing Lab: [facility] [address] [facility] [address] UREA NITROGEN 23 mg/dL 7-25 GLUCOSE 198 [...] took place. Date/Time Current Smoking Status Comment [facility] Feb 11, 2024 03:00 PM VA-TOBACCO NEVER USED [facility] Tobacco Use History This section includes a history of the smoking, or tobacco-related health factors, that were collected on or before the date of the Encounter. The data comes from the [place] facility where the Encounter took place. Date/Time Smoking Status/Tobac co Use Comment Facility Feb 12, 2023 03:00 PM VA-TOBACCO NEVER USED [place] [facility] [facility] Feb 14, 2022 03:00 PM VA-TOBACCO NEVER USED PR CNTRL [place] [facility] Oct 27, 2020 03:30 PM VA-TOBACCO NEVER USED [facility] [facility] Aug 25, 2018 04:16 PM VA-TOBACCO DOESNT USE WI 30 MIN WAKEUP PR CNTRL [facility] [facility] Aug 25, 2018 04:16 PM VA-TOBACCO USE > 15 LESS THAN 30 YEARS PR CNTRL [place] [facility] Aug 25, 2018 04:16 PM VA-TOBACCO USE ADVICE [facility] Aug 25, 2018 04:16 PM VA-TOBACCO USE DOLL REPAIRER NO [facility] Aug 25, 2018 04:16 PM VA-TOBACCO USE MED NO [facility] Aug 25, 2018 04:16 PM VA-TOBACCO USER SOME DAYS [facility] Oct 07, 2017 11:55 AM CURRENT SMOKER 1 cigar a few times a year [facility] Oct 07, 2017 11:55 AM V1-PT NOT INTERESTED IN QUIT TOBACCO USE [facility] Oct 29, 2016 08:57 AM LIFETIME NON-TOBACCO USER [facility] Encounter Notes: All associated encounter notes This section contains the clinical notes associated to the Encounter. Date/Time Encounter Note(s) Provider Source Aug 31, 2024 11:25 AM SOCIAL WORK NOTE: LOCAL TITLE: SOCIAL WORK NOTE STANDARD TITLE: SOCIAL WORK NOTE DATE OF NOTE: AUG 31, 2024@11:25 ENTRY DATE: AUG 31, 2024@11:25:51 AUTHOR: RAMYA RODRIGUEZ EXP COSIGNER: URGENCY: STATUS: COMPLETED SOCIAL WORK NOTE Has ADDENDA Status Check-In Note Patient Summary: Address: [address] [place] [address] [place] [address] County: [place] Marital Status: Age: 54 Episcopal: UNKNOWN/NO PREFERENCE Sex: MALE Occupation: UNKNOWN Period of Service: [employer] of Service: Combat: NO POW: Eligibility: SERVICE CONNECTED 50% to 100% Status: VERIFIED Means Test: NO LONGER REQUIRED NOK: RAFAT MORALES Relation: SPOUSE Phone: , Active problems - Computerized Problem List is the source for the followin. Cervicalgia 2. Type 2 diabetes mellitus controlled by diet 3. Acquired polycystic kidney disease 4. Low back pain 5. Hyperuricemia 6. Psoriasis 7. Obstructive sleep apnea 8. Obesity Active and Recently Outpatient Medications (excluding Supplies): [...] BY MOUTH EVERY 6 HOURS NEEDED 4) LISINOPRIL 10MG TAB TAKE ONE TABLET BY MOUTH ONCE ACTIVE DAILY TO CONTROL BLOOD PRESSURE 5) ROSUVASTATIN CA 10MG TAB TAKE ONE TABLET BY MOUTH ACTIVE ONCE DAILY FOR CHOLESTEROL 6) SILDENAFIL CITRATE 50MG TAB TAKE ONE TABLET BY MOUTH ACTIVE ONCE DAILY TAKE 1 HOUR PRIOR TO SEXUAL ACTIVITY Active Non-VA Medications Status 1) Non-VA GUSELKUMAB 100MG/ML INJ 1ML SYR 100MG (1ML) ACTIVE SUBCUTANEOUSLY [id number] Total Medications Symptom check-in: no changes Anything new to report or urgent needs we should be aware of: no Any suicidal ideation of any kind to report: no [X} Remind about upcoming appointments: 09/02/2024 14:10 [facility] CARE-DERMATOLOGY 09/06/2024 15:00 CWM/NO/ACUPUNCTURE R2 09/08/2024 15:00 CWM/NO/PCMHI/PSYCHOLOGIST 09/29/2024 08:00 CWM/NO/NEPHROLOGY/PROV 10/05/2024 15:00 CWM/NO/ACUPUNCTURE R2 11/09/2024 15:30 CWM/NO/OPTOMETRY/MERHAR 02/14/2025 15:00 CWM/NO/PACT EIGHT [X} Explain what to expect in the future MH visit. [X} Ask what their expectations are about the appointment. Provide instructions if they are in crisis while waiting: [X} Text or call [phone] then press 1 for the Veterans Crisis Line, or chat online at [email or web address] [X} Contact our Walk-In Clinic for a rhry-rs-koua, virtual, or telephone visit with one of our MH staff at [phone] if you need support while waiting. Please be aware that we cannot initiate medications in our Walk-In Clinic. The following was addressed with patient: Yes -Determined the urgency of need for care. Yes -Identified the appropriate setting for subsequent evaluation and treatment. Yes -Arranged for treatment, as appropriate. Yes -Provided with the name and contact information for a mental health professional that they can contact, even before they begin treatment if they have questions or concerns, as well instructions about accessing emergency services, as needed. Yes -Responded to the patients questions or concerns and facilitated engagement in care. /betty/ Ramya Rodriguez [facility] Learning Support Services Director Signed: 08/31/2024 11:41 09/13/2024 ADDENDUM STATUS: COMPLETED TW assessed regarding diagnosis of Depression, unspecified. F32.Robert /betty/ Ramya Rodriguez [facility] Learning Support Services Director Signed: 09/13/2024 08:47 RAMYA RODRIGUEZ PR CN[facility]L [facility]
--- OUTSIDE RECORDS SUMMARY | 2024-10-25 10:46 | XMS_ITS | Encounter Summary ---
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 [facility] [place] Address [address] [place] [address] Care Team Providers Care Live Source Operator Name Role Phone LEO FORRESTER Primary [...] Suresh's Name Patient's Relationship to Policy Suresh [facility] CE ORGANIZAT ION COH G AND E May 10, 2024 [id number] [facility] ER PATIENT [place] PRESCRIPT ION [facility] May 10, 2024 [id number] [phone] CARD,[facility] ER PATIENT [employer] POINT OF SERVICE [facility] Feb 08, 2018 [id number] CARD,[facility] ER PATIENT [employer] BE[facility]IORAL [facility] MENTAL HEALTH [facility] Feb 08, 2018 [id number] CARD,[facility] ER PATIENT [employer] PHARMAC[facility] PRESCRIPT ION [facility] Feb 08, 2018 [id number] CARD,[facility] ER PATIENT [facility] May 10, 2019 [id number] JOANNA DURON JR PATIENT [facility] RX PRESCRIPT ION HEALT H [facility] [place] May 10, 2019 [facility] [id number] DOMI BAUTISTAJOANNA PATIENT Selected Encounter This section includes the information on record at [place] for the Encounter. Date/Time Encounter Type Encounter Description Reason Provider Source Sep 23, 2024 08:00 AM OFFICE O/P EST SF 10 MIN QUALITY LEAD ICD-10-CM M54.2 Cervicalgia MARY JO MATHIS Deion Encounter Template Text not used by [place] Assessments - Encounter Diagnoses This section includes the primary and secondary diagnoses documented for the Encounter. Date/Time Primary/Secondary Diagnosis Diagnosis Name Provider Source Sep 23, 2024 09:51 AM PRIMARY Cervicalgia MARY JO MATHIS [place] [facility] [place] [facility] Plan of Treatment: Future Appointments [...] Appointment Type Appointme nt Facility Name Sep 29, 2024 08:00 AM AMBULATORY - MEDICINE [place] [facility] [place] [facility] Oct 05, 2024 03:00 PM AMBULATORY - MEDICINE [place] [facility] [place] [facility] Oct 14, 2024 03:00 PM AMBULATORY - MEDICINE [place] [facility] [place] [facility] Oct 26, 2024 03:00 PM AMBULATORY - PSYCHIATRY [place] [facility] [place] [facility] Oct 28, 2024 03:00 PM AMBULATORY - MEDICINE [place] [facility] [place] [facility] Nov 02, 2024 09:00 AM AMBULATORY - MEDICINE [place] [facility] [place] [facility] Nov 09, 2024 03:30 PM AMBULATORY - MEDICINE [place] [facility] [place] [facility] Dec 02, 2024 03:00 PM AMBULATORY - MEDICINE [place] [facility] [place] [facility] Dec 03, 2024 08:00 AM AMBULATORY - MEDICINE [place] [facility] [place] [facility] Jan 04, 2025 03:00 PM AMBULATORY - MEDICINE [place] [facility] [place] [facility] Jan 25, 2025 08:00 AM AMBULATORY - MEDICINE [place] [facility] [place] [facility] Feb 14, 2025 03:00 PM AMBULATORY - MEDICINE [place] [facility] [place] [facility] Active, Pending, and Scheduled Orders This section includes a listing of several types of active, pending, and scheduled orders, including clinic medications orders, diagnostic test orders, procedure orders and consult orders; where the start date of the order is 45 days before the date of the Encounter or 45 days after the date of theEncounter. The data comes from all [place] treatment facilities. Test Date/Time Test Type Test Details Facility Name Sep 23, 2024 08:27 AM Consult Order COMMUNITY CARE-MRI Cons Front End Specialist's Choice [place] [facility] [place] [facility] Oct 14, 2024 03:46 PM Consult Order REHAB MEDI CINE/[facility] OUTPT Cons Front End Specialist's Choice [place] [facility] Lab Results: +/- [...] Range Comment Sep 23, 2024 08:37 AM [facility] PO4 Specimen Type: SERUM No comment entered. Ordering Provider: ORIN CHAVEZ Report Released Date/Time: Aug 19, 2024 08:57 AM Reporting Lab: [facility] [place] [facility] [address] [address] Performing Lab: [facility] [address] [address] PO4 3.1 mg/dL 2.5-5.0 Sep 23, 2024 08:37 AM [facility] PTH INTACT Specimen Type: SERUM No comment entered. Ordering Provider: ORIN CHAVEZ Report Released Date/Time: Aug 19, 2024 08:57 AM Reporting Lab: [place] [facility] [place] [facility] [address] [address] Performing Lab: [place] [facility] [place] [facility] [address] [address] PTH INTACT 41.9 pg/mL 10-65 Sep 23, 2024 08:37 AM [facility] URIC ACID Specimen Type: SERUM No comment entered. Ordering Provider: ORIN CHAVEZ Report Released Date/Time: Aug 19, 2024 08:57 AM Reporting Lab: [place] [facility] [facility] [address] [address] Performing Lab: [place] [facility] [facility] [address] [address] URIC ACID 9.1 mg/dL H 3.5-7.2 Sep 23, 2024 08:37 AM [facility] VITAMIN D (25-[place]) Specimen Type: SERUM No comment entered. Ordering Provider: ORIN CHAVEZ Report Released Date/Time: Aug 19, 2024 08:57 AM Reporting Lab: [facility] [place] [facility] [address] [address] Performing Lab: [place] [facility] [facility] [address] [address] VITAMIN D (25-OH) 30 ng/mL 20-50 Sep 23, 2024 08:37 AM [facility] MAGNESIUM Specimen Type: SERUM No comment entered. Ordering Provider: ORIN CHAVEZ Report Released Date/Time: Aug 19, 2024 08:57 AM Reporting Lab: [facility] [place] [facility] [address] [address] Performing Lab: [place] [facility] [place] [facility] [address] [address] MAGNESIUM 1.9 mg/dL 1.6-2.6 Sep 23, 2024 08:37 AM [facility] TRN [facility] FERRITIN Specimen Type: SERUM No comment entered. Ordering Provider: ORIN CHAVEZ Report Released Date/Time: Aug 19, 2024 08:57 AM Reporting Lab: [address] [address] Performing Lab: [address] [address] FERRITIN 418 ng/mL H 20-300 Sep 23, 2024 08:37 AM [facility] BASIC METABOLIC PANEL (non-fasting) Specimen Type: SERUM No comment entered. Ordering Provider: ORIN CHAVEZ Report Released Date/Time: Aug 19, 2024 08:57 AM Reporting Lab: [address] [address] Performing Lab: [address] [address] UREA NITROGEN 20 mg/dL 7-25 GLUCOSE 137 mg/dL H 65-100 SODIUM 138 mmol/L 135-145 POTASSIUM 4.2 mmol/L 3.5-5.0 CHLORIDE 100 mmol/L 100-110 CO2 26 meq/L 20-30 CREATININE, Serum 1.20 mg/dL 0.50-1.40 eGFR(CKD-EPI 2020) 72 mL/min >60 Sep 23, 2024 08:37 AM [facility] MICROALBUMIN CREATININE RATIO PANEL Specimen Type: URINE No comment entered. Ordering Provider: ORIN CHAVEZ Report Released Date/Time: Aug 19, 2024 08:57 AM Reporting Lab: [address] [address] Performing Lab: [address] [address] MICROALBUMIN/C REATININE RATIO 429.6 mg/g H 0-29.9 MICROALBUMIN,Q UANTITATIVE 54.3 mg/dL RR UNAVAIL CREATININE URINE 126.39 mg/dL Sep 23, 2024 08:37 AM [facility] IRON & TIBC PANEL Specimen Type: SERUM No comment entered. Ordering Provider: ORIN CHAVEZ Report Released Date/Time: Aug 19, 2024 08:57 AM Reporting Lab: [address] [address] Performing Lab: [place] [facility] [place] [facility] [address] [address] TIBC 350 ug/dL 204-475 IRON 120 ug/dL 40-160 Transferrin Saturation 34.3 20.0-50.0 Transferrin (TRF) 265 mg/dL 200-360 Sep 23, 2024 08:37 AM [facility] [place] [facility] CHOLESTEROL Specimen Type: SERUM No comment entered. Ordering Provider: ORIN CHAVEZ Report Released Date/Time: Aug 19, 2024 08:57 AM Reporting Lab: [place] [facility] [place] [facility] [address] [address] Performing Lab: [place] [facility] [place] [address] [address] CHOLESTEROL 188 mg/dL Sep 23, 2024 08:37 AM [facility] [place] [facility] HDL CHOLESTEROL Specimen Type: SERUM No comment entered. Ordering Provider: ORIN CHAVEZ Report Released Date/Time: Aug 19, 2024 08:57 AM Reporting Lab: [place] [facility] [place] [facility] [address] [address] Performing Lab: [place] [facility] [place] [facility] [address] [address] HDL CHOLESTEROL 55 mg/dL 40-60 Sep 23, 2024 08:37 AM [facility] CALCIUM Specimen Type: SERUM No comment entered. Ordering Provider: ORIN CHAVEZ Report Released Date/Time: Aug 19, 2024 08:57 AM Reporting Lab: [place] [facility] [place] [facility] [address] [address] Performing Lab: [place] [facility] [place] [facility] [address] [address] CALCIUM 9.4 mg/dL 8.5-10.2 Sep 23, 2024 08:37 AM [place] [facility] [facility] ALBUMIN Specimen Type: SERUM No comment entered. Ordering Provider: ORIN CHAVEZ Report Released Date/Time: Aug 19, 2024 08:57 AM Reporting Lab: [place] [facility] [facility] [address] [address] Performing Lab: [facility]ITALR[facility]ITALTRN [facility] [address] [address] ALBUMIN 4.1 g/dL 3.5-5.0 Sep 23, 2024 08:37 AM [facility] ALKALINE PHOSPHATASE Specimen Type: SERUM No comment entered. Ordering Provider: ORIN CHAVEZ Report Released Date/Time: Aug 19, 2024 08:57 AM Reporting Lab: [facility]ITALRUSA [facility]PITALTRN [facility] [address] [address] Performing Lab: [facility]N [facility]USE[address] [address] ALKALINE PHOSPHATASE 62 U/L 40-150 Sep 23, 2024 08:37 AM [facility]N [facility] CBC Specimen Type: BLOOD No comment entered. Ordering Provider: ORIN CHAVEZ Report Released Date/Time: Aug 19, 2024 08:57 AM Reporting Lab: [facility]ITALTRN [facility] [address] [address] Performing Lab: [facility]ITALTRN [facility] [address] [address] WBC 4.70 10*3/uL 4.50-11.00 RBC 4.71 10*6/uL 4.23-5.66 HGB 13.8 g/dL 12.8-17 HCT 41.4 39.2-50.4 MCV 87.9 fL 82-99 MCHC 33.3 g/dL 30.8-35.1 PLT 198 10*3/uL 140-360 RDW-CV 12.7 12.0-16.0 MCH 29.3 pg 26.2-32.6 Social History: Smoking Status (Most current) and [...] 11, 2024 03:00 PM [place]-TOBACCO NEVER USED [facility] [place] [facility] Tobacco Use History This section includes a history of the smoking, or tobacco-related health factors, that were collected on or before the date of the Encounter. The data comes from the [place] facility where the Encounter took place. Date/Time Smoking Status/Tobac co Use Comment Facility Feb 12, 2023 03:00 PM VA-TOBACCO NEVER USED [place] [facility] [place] [facility] Feb 14, 2022 03:00 PM VA-TOBACCO NEVER USED [place] [facility] [facility] Oct 27, 2020 03:30 PM VA-TOBACCO NEVER USED [place] [facility] [place] [facility] Aug 25, 2018 04:16 PM VA-TOBACCO DOESNT USE WI 30 MIN WAKEUP [place] [facility] [place] [facility] Aug 25, 2018 04:16 PM VA-TOBACCO USE > 15 LESS THAN 30 YEARS [place] [facility] [facility] Aug 25, 2018 04:16 PM VA-TOBACCO USE ADVICE [place] [facility] [place] [facility] Aug 25, 2018 04:16 PM 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 [place] [facility] [facility] Aug 25, 2018 04:16 PM VA-TOBACCO USE MED NO [place] [facility] [place] [facility] Aug 25, 2018 04:16 PM VA-TOBACCO USER SOME DAYS [place] [facility] [place] [facility] Oct 07, 2017 11:55 AM CURRENT SMOKER 1 cigar a few times a year [place] [facility] [facility] Oct 07, 2017 11:55 AM V1-PT NOT INTERESTED IN QUIT TOBACCO USE [place] [facility] [place] [facility] Oct 29, 2016 08:57 AM LIFETIME NON-TOBACCO USER [place] [facility] [facility] Encounter Notes: All associated encounter notes This section contains the clinical notes associated to the Encounter. 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: [employer] Connected Disabilities with % Eligibility: Active Problem Shared care - compliance consultant and GP Z76 01/29/2021 AMY HENRYED Type 2 diabetes mellitus controlled 10/27/2020 CARL,AMY JAWED Acquired polycystic kidney disease 02/23/2018 CARL,ORLINED JAWED Low back pain M54.50 02/14/2022 CARL,TERESAAMMED JAWED Hyperuricemia E79.0 10/29/2016 ROMLALITHA,ORLINED JAWED Psoriasis L40.4 10/29/2016 CARL,ORLINED JAWED Obstructive sleep apnea G47.33 02/27/2017 CARL,ORLINED JAWED Obesity E66.8 10/29/2016 CARL,AMY JAWED Past Surgeries: Patient [facility] [place] [facility] with C/O left sided neck pain that travels into his left arm into 1-3 fingers with N/T. He C/O loss of strength that he notices when holding something. Vet recalls no trauma. Temporal: worse in mornings. And a 10/10 [...] lifting and a lot of PT. 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 He looks down and up when he [...] ~ Supine gluteal stretching as per palpation ====== Objectives 09/23/24: Cervical spine ROMS C/C is provoked with extension and left rotation other motions are full and non-painful Orthopedic tests: Upper extremity tension test + C/C on left Bakody's sign on left Pos relief Hypertonic tender C/sp mm, bilat and L/S spine Restrictions cervical Treatment: Corrective/Active Manual therapy 8 min supine cervical CMT low force AT cervical supine Treatment carried out today and well tolerated with minimal relief expressed. The prognosis, at this time, is fair to good. Plan: followed by Acupuncture. Patient agrees to a MRI consult Short term goals include improvement in excess [...] core stability, balance, and pain modulation. Visit 7 F/U next week Seek urgent care as needed. CMT: chiropractic manipulative therapy SMT: Spinal Manipulative Therapy F/D: Flexion Distraction MFR: Myofascial Release S-I: Sacroiliac MFTP: Myofascial Trigger Point NRS: Numeric Rating Scale N/T: Numbness/Tingling PIR: Post isometric relaxation /es/ MARY JO MATHIS D.C. CHIROPRACTOR Signed: 09/23/2024 09:54 MARY JO MATHIS [facility]
--- OUTSIDE RECORDS SUMMARY | 2024-10-25 10:46 | XMS_ITS | Encounter Summary ---
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 Organization [facility]) Address [address] [place] [id number] Care Team Providers Care Pilates Instructor Name Role Phone LEO FORRESTER Primary Care [...] Suresh's Name Patient's Relationship to Policy Suresh [facility] AND E May 10, 2024 [id number] [phone] [facility] ER PATIENT [place] PRESCRIPT ION [facility] May 10, 2024 [id number] [phone] CARD,SP ER PATIENT [employer] POINT OF SERVICE [facility] Feb 08, 2018 [id number] CARD,[facility] ER PATIENT [employer] BEHAVIORAL HEALTH MENTAL HEALTH [facility] Feb 08, 2018 [id number] CARD,[facility] ER PATIENT [employer] PHARMACY PRESCRIPT ION [facility] Feb 08, 2018 [id number] CARD,[facility] ER PATIENT [facility] May 10, 2019 [id number] DOMI JOANNA PATIENT [facility] RX PRESCRIPT ION [facility] May 10, 2019 [facility] [id number] JOANNA DURON JR PATIENT Selected Encounter This section includes the information on record at MD for the Encounter. Date/Time Encounter Type Encounter Description Reason Provider Source Sep 08, 2024 03:00 PM PSYTX W PT 45 MINUTES PCMHI INDIV ICD-10-CM F33.1 Major depressive disorder, recurrent, moderate SANAM BAPTISTE IHE Encounter Template Text not used by MD Assessments - Encounter Diagnoses This section includes the primary and secondary diagnoses documented for the Encounter. Date/Time Primary/Secondary Diagnosis Diagnosis Name Provider Source Sep 10, 2024 02:56 PM PRIMARY Major depressive disorder, recurrent, moderate SANAM BAPTISTE [place] [facility] [place] [facility] Sep 10, 2024 02:56 PM SECONDARY Generalized anxiety disorder SANAM BAPTISTE MD [facility] [place] [facility] Sep 10, 2024 02:56 PM SECONDARY Low back pain, unspecified SANAM BAPTISTE MD [facility] [place] [facility] Sep 10, 2024 02:56 PM SECONDARY Polycystic kidney, adult type SANAM BAPTISTE MD [facility] [place] [facility] Sep 10, 2024 02:56 PM SECONDARY Psych & behavrl factors assoc w disord or dis classd elswhr SANAM BAPTISTE MD [facility] [place] [facility] Plan of Treatment: Future Appointments (+ 6 months) and Future Tests (+/- 45 days) The Plan of Treatment section includes future care activities for the patient from all MD treatmentfacilities. This section includes future appointments and future orders which are active, pending or scheduled. Future Appointments This section includes appointments that were scheduled to occur 6 months from the date of the Encounter, up to a maximum of 20 appointments. The data comes from all MD treatment facilities. Appointment Date/Time Appointment Type Appointme nt Facility Name Sep 23, 2024 08:00 AM AMBULATORY - MEDICINE MD [facility] [place] [facility] Sep 23, 2024 03:00 PM AMBULATORY - PSYCHIATRY MD [facility] [place] [facility] Sep 29, 2024 08:00 AM AMBULATORY - MEDICINE [facility] [place] [place] [facility] Oct 05, 2024 03:00 PM AMBULATORY - MEDICINE [facility] [facility] Oct 14, 2024 03:00 PM AMBULATORY - MEDICINE [facility] [place] [facility] Oct 26, 2024 03:00 PM AMBULATORY - PSYCHIATRY [facility] [place] [facility] Oct 28, 2024 03:00 PM AMBULATORY - MEDICINE [facility] [place] [facility] Nov 02, 2024 09:00 AM AMBULATORY - MEDICINE [facility] [place] [facility] Nov 09, 2024 03:30 PM AMBULATORY - MEDICINE [facility] [place] [facility] Dec 02, 2024 03:00 PM AMBULATORY - MEDICINE [facility] [place] [facility] Dec 03, 2024 08:00 AM AMBULATORY - MEDICINE [facility] [place] [facility] Jan 04, 2025 03:00 PM AMBULATORY - MEDICINE MD C [facility] [place] [facility] Jan 25, 2025 08:00 AM AMBULATORY - MEDICINE [facility] [place] [facility] Feb 14, 2025 03:00 PM AMBULATORY - MEDICINE MD C [facility] [place] [facility] Active, Pending, and Scheduled Orders This section includes a listing of several types of active, pending, and scheduled orders, including clinic medications orders, diagnostic test orders, procedure orders and consult orders; where the start date of the order is 45 days before the date of the Encounter or 45 days after the date of theEncounter. The data comes from all MD treatment facilities. Test Date/Time Test Type Test Details Facility Name Sep 23, 2024 08:27 AM Consult Order COMMUNITY CARE-MRI Cons Herb Doctor's Choice [facility] [place] [facility] Oct 14, 2024 03:46 PM Consult Order REHAB MEDI CINE/NHM OUTPT Cons Herb Doctor's Choice [facility] [place] [facility] Lab Results: +/- 30 days of [...] Range Comment Sep 23, 2024 08:37 AM [facility] [place] [facility] URIC ACID Specimen Type: SERUM No comment entered. Ordering Provider: WILLIAN CHAVEZ Report Released Date/Time: Aug 19, 2024 08:57 AM Reporting Lab: [facility] [place] [address] [address] Performing Lab: [place] [facility] [place] [address] [address] URIC ACID 9.1 mg/dL H 3.5-7.2 Sep 23, 2024 08:37 AM [facility] PTH INTACT Specimen Type: SERUM No comment entered. Ordering Provider: WILLIAN CHAVEZ Report Released Date/Time: Aug 19, 2024 08:57 AM Reporting Lab: [facility] [place] [address] [address] Performing Lab: [facility] [place] [address] [address] PTH INTACT 41.9 pg/mL -65 Sep 23, 2024 08:37 AM [facility] PO4 Specimen Type: SERUM No comment entered. Ordering Provider: WILLIAN CHAVEZ Report Released Date/Time: Aug 19, 2024 08:57 AM Reporting Lab: [facility] [place] [address] [address] Performing Lab: [place] [facility] [place] [address] [address] PO4 3.1 mg/dL 2.5-5.0 Sep 23, 2024 08:37 AM [facility] VITAMIN D (25-OH) Specimen Type: SERUM No comment entered. Ordering Provider: WILLIAN CHAVEZ Report Released Date/Time: Aug 19, 2024 08:57 AM Reporting Lab: [facility] [place] [address] [address] Performing Lab: [place] [facility] [place] [address] VITAMIN D (25-OH) 30 ng/mL 20-50 Sep 23, 2024 08:37 AM [facility] MAGNESIUM Specimen Type: SERUM No comment entered. Ordering Provider: WILLIAN CHAVEZ Report Released Date/Time: Aug 19, 2024 08:57 AM Reporting Lab: [address] [address] Performing Lab: [address] [address] MAGNESIUM 1.9 mg/dL 1.6-2.6 Sep 23, 2024 08:37 AM [facility] FERRITIN Specimen Type: SERUM No comment entered. Ordering Provider: WILLIAN CHAVEZ Report Released Date/Time: Aug 19, 2024 08:57 AM Reporting Lab: [address] [address] Performing Lab: [address] [address] FERRITIN 418 ng/mL H 20-300 Sep 23, 2024 08:37 AM [facility] MICROALBUMIN CREATININE RATIO PANEL Specimen Type: URINE No comment entered. Ordering Provider: WILLIAN CHAVEZ Report Released Date/Time: Aug 19, 2024 08:57 AM Reporting Lab: [address] [address] Performing Lab: [address] [address] MICROALBUMIN/C REATININE RATIO 429.6 mg/g H 0-29.9 MICROALBUMIN,Q UANTITATIVE 54.3 mg/dL RR UNAVAIL CREATININE URINE 126.39 mg/dL Sep 23, 2024 08:37 AM [facility] IRON & TIBC PANEL Specimen Type: SERUM No comment entered. Ordering Provider: WILLIAN CHAVEZ Report Released Date/Time: Aug 19, 2024 08:57 AM Reporting Lab: [address] [address] Performing Lab: [facility] [place] [facility] [address] [facility] [address] TIBC 350 ug/dL 204-475 IRON 120 ug/dL 40-160 Transferrin Saturation 34.3 20.0-50.0 Transferrin (TRF) 265 mg/dL 200-360 Sep 23, 2024 08:37 AM [facility] [place] [facility] CHOLESTEROL Specimen Type: SERUM No comment entered. Ordering Provider: WILLIAN CHAVEZ Report Released Date/Time: Aug 19, 2024 08:57 AM Reporting Lab: [facility] [place] [facility] [address] [facility] [address] Performing Lab: [place] [facility] [place] [address] [address] CHOLESTEROL 188 mg/dL Sep 23, 2024 08:37 AM [facility] [place] [facility] HDL CHOLESTEROL Specimen Type: SERUM No comment entered. Ordering Provider: WILLIAN CHAVEZ Report Released Date/Time: Aug 19, 2024 08:57 AM Reporting Lab: [facility] [place] [facility] [address] [facility] [address] Performing Lab: [facility] [place] [facility] [address] [facility] [address] HDL CHOLESTEROL 55 mg/dL 40-60 Sep 23, 2024 08:37 AM [facility] CALCIUM Specimen Type: SERUM No comment entered. Ordering Provider: WILLIAN CHAVEZ Report Released Date/Time: Aug 19, 2024 08:57 AM Reporting Lab: [facility] [place] [facility] [address] [facility] [address] Performing Lab: [facility] [place] [facility] [address] [facility] [address] CALCIUM 9.4 mg/dL 8.5-10.2 Sep 23, 2024 08:37 AM [facility] [place] [facility] ALBUMIN Specimen Type: SERUM No comment entered. Ordering Provider: WILLIAN CHAVEZ Report Released Date/Time: Aug 19, 2024 08:57 AM Reporting Lab: [facility] [place] [facility] [address] [facility] [address] Performing Lab: [facility] [address] [facility] [address] ALBUMIN 4.1 g/dL 3.5-5.0 Sep 23, 2024 08:37 AM [facility] BASIC METABOLIC PANEL (non-fasting) Specimen Type: SERUM No comment entered. Ordering Provider: WILLIAN CHAVEZ A Report Released Date/Time: Aug 19, 2024 08:57 AM Reporting Lab: [facility] [address] [facility] [address] Performing Lab: [facility] [address] [address] UREA NITROGEN 20 mg/dL 7-25 GLUCOSE 137 mg/dL H 65-100 SODIUM 138 mmol/L 135-145 POTASSIUM 4.2 mmol/L 3.5-5.0 CHLORIDE 100 mmol/L 100-110 CO2 26 meq/L 20-30 CREATININE, Serum 1.20 mg/dL 0.50-1.40 eGFR(CKD-EPI 2020) 72 mL/min >60 Sep 23, 2024 08:37 AM [facility] ALKALINE PHOSPHATASE Specimen Type: SERUM No comment entered. Ordering Provider: WILLIAN CHAVEZ Report Released Date/Time: Aug 19, 2024 08:57 AM Reporting Lab: [facility] [address] [address] Performing Lab: [facility] [address] [address] ALKALINE PHOSPHATASE 62 U/L 40-150 Sep 23, 2024 08:37 AM [facility] CBC Specimen Type: BLOOD No comment entered. Ordering Provider: WILLIAN CHAVEZ Report Released Date/Time: Aug 19, 2024 08:57 AM Reporting Lab: [facility] [address] [facility] [address] Performing Lab: [facility] [address] [address] WBC 4.70 10*3/uL 4.50-11.00 RBC 4.71 10*6/uL 4.23-5.66 HGB 13.8 g/dL 12.8-17 HCT 41.4 39.2-50.4 MCV 87.9 fL 82-99 MCHC 33.3 g/dL 30.8-35.1 PLT 198 10*3/uL 140-360 RDW-CV 12.7 12.0-16.0 MCH 29.3 pg 26.2-32.6 Aug 16, 2024 03:55 PM [facility] HEMOGLOBIN A1C PANEL Specimen Type: BLOOD [...] Jul 30, 2024 11:24 AM Reporting Lab: [address] [address] Performing Lab: [address] [address] HEMOGLOBIN A1C 6.3 H 4.0-5.6 Aug 16, 2024 03:55 PM [facility] LIPID PANEL FASTING Specimen Type: SERUM No comment entered. Ordering Provider: LEO FORRESTER Report Released Date/Time: Jul 30, 2024 11:24 AM Reporting Lab: [address] [address] Performing Lab: [address] [address] CHOLESTEROL 129 mg/dL TRIGLYCERIDE 86 mg/dL 0-150 LDL calculated 62 mg/dL 0-129 CHOL/HDL 2.6 HDL CHOLESTEROL 50 mg/dL 40-60 Aug 16, 2024 03:55 PM [facility] BASIC METABOLIC PANEL (fasting) Specimen Type: SERUM No comment entered. Ordering Provider: LEO FORRESTER Report Released Date/Time: Jul 30, 2024 11:24 AM Reporting Lab: [facility] [address] [facility] [address] Performing Lab: [address] [address] UREA NITROGEN 23 mg/dL 7-25 GLUCOSE 198 mg/dL H 65-100 SODIUM 141 mmol/L 135-145 POTASSIUM 4.7 mmol/L 3.5-5.0 CHLORIDE 107 mmol/L 100-110 CO2 27 meq/L 20-30 CREATININE, Serum 1.35 mg/dL 0.50-1.40 eGFR(CKD-EPI 2020) 63 mL/min >60 Aug 16, 2024 03:55 PM [facility] MICROALBUMIN CREATININE RATIO PANEL Specimen Type: URINE No comment entered. Ordering Provider: LEO FORRESTER Report Released Date/Time: Jul 30, 2024 11:24 AM Reporting Lab: [address] [address] Performing Lab: [address] [address] MICROALBUMIN/C REATININE RATIO 249.6 mg/g H 0-29.9 MICROALBUMIN,Q UANTITATIVE 19.8 mg/dL RR UNAVAIL CREATININE URINE 79.34 mg/dL Social History: Smoking Status (Most current) and Tobacco Use (All prior to encounter date) This section includes the most current, and the historical, smoking and tobacco- related health factors from the MD facility where the Encounter took place. Current Smoking Status This section includes the most current smoking, or tobacco-related health factor, from the MD facility where the Encounter took place. Date/Time Current Smoking Status Comment [facility] Feb 11, 2024 03:00 PM VA-TOBACCO NEVER USED [facility] Tobacco Use History This section includes a history of the smoking, or tobacco-related health factors, that were collected on or before the date of the Encounter. The data comes from the MD facility where the Encounter took place. Date/Time Smoking Status/Tobac co Use Comment Facility Feb 12, 2023 03:00 PM VA-TOBACCO NEVER USED [facility] Feb 14, 2022 03:00 PM VA-TOBACCO NEVER USED [facility] Oct 27, 2020 03:30 PM VA-TOBACCO NEVER USED [facility] Aug 25, 2018 04:16 PM VA-TOBACCO DOESNT USE WI 30 MIN WAKEUP [facility] Aug 25, 2018 04:16 PM VA-TOBACCO USE > 15 LESS THAN 30 YEARS [facility] Aug 25, 2018 04:16 PM VA-TOBACCO USE ADVICE [facility] Aug 25, 2018 04:16 PM 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 [facility] Aug 25, 2018 04:16 PM VA-TOBACCO USE MED NO MD [facility] Aug 25, 2018 04:16 PM VA-TOBACCO USER SOME DAYS [facility] Oct 07, 2017 11:55 AM CURRENT SMOKER 1 cigar a few times a year [facility] Oct 07, 2017 11:55 AM V1-PT NOT INTERESTED IN QUIT TOBACCO USE [facility] Oct 29, 2016 08:57 AM LIFETIME NON-TOBACCO USER [facility] Encounter Notes: All associated encounter notes This section contains the clinical notes associated to the Encounter. Date/Time Encounter Note(s) Provider Source Sep 08, 2024 05:47 AM MENTAL HEALTH CONSULT: LOCAL TITLE: PC-[facility] INTEGRATION/CONSULT REPORT STANDARD TITLE: MENTAL HEALTH CONSULT DATE OF NOTE: SEP 08, 2024@05:47 ENTRY DATE: SEP 08, 2024@05:47:31 AUTHOR: MARII BAPTISTE COSIGNER: URGENCY: STATUS: COMPLETED [facility] HEALTH ASSESSMENT NOTE DURATION: 50 mins REFERRING PROVIDER: PCPDiaz REASON FOR REFERRAL: grief and loss, depression, chronic pain Informed consent and limits of confidentiality were provided. Mr. Duron is a 54 years-old, , white male [place] with a PMH of CKD, low back pain, bilateral knee pain, psoriasis, sleep apnea, major depressive disorder, and generalized anxiety disorder. [place] was identified by two means, date of and full name. CHIEF COMPLAINT: [place] last met conventional underwriter in [facility], 2018. endorsed worsening depression and anxiety over the past four-six months. He said that his father passed way two weeks ago with complications from CKD and his sister has been in the hospital also with complications from CKD/AFIB and CHF and is on dialysis. Moreover, explored how his brother is in [place] and he and his niece most help his siter and were mostly caring for his father before he passed. In addition, he explored concerns for his son of whom has joined the [employer], will be going on deployment to [place], and is a new father to his 9 month old grandson. Moreover, shared that he has problems with communication with his , is experiencing marital strain, and would like to improve his management of mood and communication skills, as well as focus and concentration. Furthermore, [place] identified how depression has been chronic since forced medical discharge from the [email or web address] and not being able to have the career he hoped for. He identified an ongoing schema that I am a failure in all I do and self defeating thoughts. FUNCTIONAL ASSESSMENT: o SLEEP: 4-5 hrs. 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- o COPING: golf (did this summer) other hobbies not done in a while: hunting, fishing, being out in nature, o PAIN/CHRONIC HEALTH CONDITIONS: prediabetes, chronic pain; CKD o CULTURE: yazidism INTERVENTION: Gathered psychosocial history and functioning Provided psychoeducation on stress response, effects of trauma, and stages of grief Provided psychoeducation on downward spiral of depression and benefits of CTB and behavioral activation Conducted SI/HI risk assessment Provided information on [facility] LETHALITY: Suicidal or homicidal ideation: No Suicidal or homicidal plans: No Suicidal or homicidal intention: No Previous suicide attempts: No RISK LEVEL IMPRESSION: [place] presents at low risk of harm to self and others at this time. SCREENERS: PHQ-9: 22, moderately severe depression, somewhat difficult PAULA-7: 17, severe anxiety, somewhat difficult DIAGNOSES: MDD, Moderate, Recurrent; PAULA; Psychological Factors Affecting a General Medical Condition (Chronic Pain; CKD) IMPRESSIONS/PLAN: Mr. Duron endorsed moderate depression and severe anxiety that worsened over the last 4-6 months. In addition, his father two weeks ago and jory suffers from CHK, heart health issues and is on dialysis. Moreover, he experience marital strain and difficulty with sleep and communication skills. In collaboration with [place] considering evidence-based treatment, clinical judgment and patient preference, options of treatment were offered. [place] agreed to EBP CBT in [facility] including relaxation training, cognitive restructuring and behavioral activation, as well as assertiveness skills training and sleep hygiene. He will also learn about other treatment options. He denied SI/HI or safety concerns and was reminded of [facility] and [facility] services. He will return to [facility] for roughly 4-6, individual sessions. He will return to [facility], 09/23 at 3pm. INTERDICIPLINARY TREATMENT PLANNING INVOLVING: Referring provider will be alerted of this plan ACTIVE PROBLEMS LIST Active problems - Computerized Problem List is the source for the followin. Cervicalgia 2. Type 2 diabetes mellitus controlled by diet 3. Acquired polycystic kidney disease 4. Low back pain 5. Hyperuricemia 6. Psoriasis 7. Obstructive sleep apnea 8. Obesity ALL ACTIVE MEDICATIONS Active Outpatient Medications (including Supplies): Active Outpatient [...] INJ 1ML SYR 100MG (1ML) ACTIVE SUBCUTANEOUSLY [id number] Total Medications /es/ MARII BAPTISTE, PhD STAFF PSYCHOLOGIST Signed: 09/10/2024 14:57 Receipt Acknowledged By: 09/10/2024 15:57 /betty/ LEO FORRESTER D.O. PHYSICIAN MARII BAPTISTE CNT[facility]
--- OUTSIDE RECORDS SUMMARY | 2024-10-25 10:46 | XMS_ITS | Encounter Summary ---
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 [place] [facility] [place] Address [address] [place] [id number] Care Team Providers Care Reconciliation Clerk Name Role Phone LEO FORRESTER Primary Care [...] COH G AND E May 10, 2024 [id number] [facility] ER PATIENT [place] PRESCRIPT ION [facility] May 10, 2024 [id number] [phone] CARD,SP ER PATIENT [employer] POINT OF SERVICE [facility] Feb 08, 2018 [id number] [phone] CARD,[facility] ER PATIENT [employer] [facility] Feb 08, 2018 [id number] CARD,[facility] ER PATIENT [employer] PH[facility] PRESCRIPT ION [facility] Feb 08, 2018 [id number] CARD,[facility] ER PATIENT [facility] May 10, 2019 [id number] DOMI JOANNA PATIENT [facility] RX PRESCRIPT ION [facility] H [place] [facility] May 10, 2019 [facility] [id number] JOANNA DURON JR PATIENT Selected Encounter This section includes the information on record at [place] for the Encounter. Date/Time Encounter Type Encounter Description Reason Provider Source Sep 23, 2024 03:00 PM PSYTX W PT 45 MINUTES PCMHI INDIV ICD-10-CM F33.1 Major depressive disorder, recurrent, moderate SANAM BAPTISTE E Encounter Template Text not used by [place] Assessments - Encounter Diagnoses This section includes the primary and secondary diagnoses documented for the Encounter. Date/Time Primary/Secondary Diagnosis Diagnosis Name Provider Source Sep 24, 2024 02:18 PM PRIMARY Major depressive disorder, recurrent, moderate SANAM BAPTISTE [place] [facility] [place] [facility] Sep 24, 2024 02:18 PM SECONDARY Generalized anxiety disorder SANAM BAPTISTE [place] [facility] [place] [facility] Sep 24, 2024 02:18 PM SECONDARY Low back pain, unspecified SANAM BAPTISTE [place] [facility] [place] [facility] Sep 24, 2024 02:18 PM SECONDARY Polycystic kidney, adult type SANAM BAPTISTE [place] [facility] [place] [facility] Sep 24, 2024 02:18 PM SECONDARY Psych & behavrl factors assoc w disord or dis classd elswhr SANAM BAPTISTE [place] [facility] [place] [facility] Plan of Treatment: Future Appointments (+ [...] 29, 2024 08:00 AM AMBULATORY - MEDICINE [facility] [place] [facility] Oct 05, 2024 03:00 PM AMBULATORY - MEDICINE [place] [facility] [place] [facility] [facility] Oct 14, 2024 03:00 PM AMBULATORY [facility] MEDICINE [facility] [place] [facility] Oct 26, 2024 03:00 PM AMBULATORY - PSYCHIATRY [facility] [place] [facility] Oct 28, 2024 03:00 PM AMBULATORY [facility] MEDICINE [facility] [place] [facility] Nov 02, 2024 09:00 AM AMBULATORY - MEDICINE [facility] [place] [facility] Nov 09, 2024 03:30 PM AMBULATORY - MEDICINE [facility] [place] [facility] Dec 02, 2024 03:00 PM AMBULATORY - MEDICINE [facility] [place] [facility] Dec 03, 2024 08:00 AM AMBULATORY - MEDICINE [facility] [place] [facility] Jan 04, 2025 03:00 PM AMBULATORY - MEDICINE [place] [facility] [place] [facility] Jan 25, 2025 08:00 AM AMBULATORY - MEDICINE [place] [facility] [facility] Feb 14, 2025 03:00 PM AMBULATORY - MEDICINE [place] [facility] [place] [facility] Active, Pending, and Scheduled Orders This [...] 08:27 AM Consult Order COMMUNITY CARE-MRI Cons Director Of Physical Education's Choice [place] [facility] [place] [facility] Oct 14, 2024 03:46 PM Consult Order REHAB MEDI CINE/NHM OUTPT Cons Director Of Physical Education's Choice [place] [facility] [place] [facility] Lab Results: +/- 30 days of [...] Range Comment Sep 23, 2024 08:37 AM [place] [facility] [facility] PO4 Specimen Type: SERUM No comment entered. Ordering Provider: ORIN CHAVEZ Report Released Date/Time: Aug 19, 2024 08:57 AM Reporting Lab: [facility] [address] [facility] [address] Performing Lab: [facility]ITALRL TRN [facility] [address] [facility] [address] PO4 3.1 mg/dL 2.5-5.0 Sep 23, 2024 08:37 AM [facility] PTH INTACT Specimen Type: SERUM No comment entered. Ordering Provider: ORIN CHAVEZ Report Released Date/Time: Aug 19, 2024 08:57 AM Reporting Lab: [facility]ITALRMARSH[facility] SOUTHN [facility] CENTERUSE[address] [address] Performing Lab: [facility]ITAL[facility] SOUTHN [facility] CENTERUSETS [address] [address] PTH INTACT 41.9 pg/mL 65 Sep 23, 2024 08:37 AM [facility] VITAMIN D (25-[place]) Specimen Type: SERUM No comment entered. Ordering Provider: ORIN CHAVEZ Report Released Date/Time: Aug 19, 2024 08:57 AM Reporting Lab: [facility]ITALRM[facility] SOUTHN [facility] CENTERUSETS [address] [address] Performing Lab: [facility]ITALRMARSH[facility] SOUTHN [facility]ENTERUSETS [address] [address] VITAMIN D (25-[place]) 30 ng/mL 20-50 Sep 23, 2024 08:37 AM [facility] URIC ACID Specimen Type: SERUM No comment entered. Ordering Provider: ORIN CHAVEZ Report Released Date/Time: Aug 19, 2024 08:57 AM Reporting Lab: [facility] DOTHANTRN [facility] CENTERUSETS [address] [address] Performing Lab: [facility] DOTHANTRN [facility] CENTERUSETS [address] [address] URIC ACID 9.1 mg/dL H 3.5-7.2 Sep 23, 2024 08:37 AM [facility] MAGNESIUM Specimen Type: SERUM No comment entered. Ordering Provider: ORIN CHAVEZ Report Released Date/Time: Aug 19, 2024 08:57 AM Reporting Lab: [facility] [address] [facility] [address] Performing Lab: [facility] [address] [facility] [address] MAGNESIUM 1.9 mg/dL 1.6-2.6 Sep 23, 2024 08:37 AM [facility] FERRITIN Specimen Type: SERUM No comment entered. Ordering Provider: ORIN CHAVEZ Report Released Date/Time: Aug 19, 2024 08:57 AM Reporting Lab: [address] [address] Performing Lab: [address] [address] FERRITIN 418 ng/mL H 20-300 Sep 23, 2024 08:37 AM [facility] MICROALBUMIN CREATININE RATIO PANEL Specimen Type: URINE No comment entered. Ordering Provider: ORIN CHAVEZ Report Released Date/Time: Aug 19, 2024 08:57 AM Reporting Lab: [address] [address] Performing Lab: [facility] [address] [address] MICROALBUMIN/C REATININE RATIO 429.6 mg/g H 0-29.9 MICROALBUMIN,Q UANTITATIVE 54.3 mg/dL RR UNAVAIL CREATININE URINE 126.39 mg/dL Sep 23, 2024 08:37 AM [facility] IRON & TIBC PANEL Specimen Type: SERUM No comment entered. Ordering Provider: ORIN CHAVEZ Report Released Date/Time: Aug 19, 2024 08:57 AM Reporting Lab: [facility] [address] [address] Performing Lab: [address] [address] TIBC 350 ug/dL 204-475 IRON 120 ug/dL 40-160 Transferrin Saturation 34.3 20.0-50.0 Transferrin (TRF) 265 mg/dL 200-360 Sep 23, 2024 08:37 AM [place] [facility] [place] [facility] CHOLESTEROL Specimen Type: SERUM No comment entered. Ordering Provider: ORIN CHAVEZ Report Released Date/Time: Aug 19, 2024 08:57 AM Reporting Lab: [place] [address] [address] Performing Lab: [place] [facility] [place] [address] [address] CHOLESTEROL 188 mg/dL Sep 23, 2024 08:37 AM [facility] [place] [facility] HDL CHOLESTEROL Specimen Type: SERUM No comment entered. Ordering Provider: ORIN CHAVEZ Report Released Date/Time: Aug 19, 2024 08:57 AM Reporting Lab: [facility] [place] [address] [address] Performing Lab: [place] [address] [address] HDL CHOLESTEROL 55 mg/dL 40-60 Sep 23, 2024 08:37 AM [facility] CALCIUM Specimen Type: SERUM No comment entered. Ordering Provider: ORIN CHAVEZ Report Released Date/Time: Aug 19, 2024 08:57 AM Reporting Lab: [facility] [place] [place] [address] [address] Performing Lab: [place] [place] [address] [address] CALCIUM 9.4 mg/dL 8.5-10.2 Sep 23, 2024 08:37 AM [facility] [place] [facility] BASIC METABOLIC PANEL (non-fasting) Specimen Type: SERUM No comment entered. Ordering Provider: ORIN CHAVEZ Report Released Date/Time: Aug 19, 2024 08:57 AM Reporting Lab: [place] [facility] [place] [address] [address] Performing Lab: [place] [place] [address] [address] UREA NITROGEN 20 mg/dL 7-25 GLUCOSE 137 mg/dL H 65-100 SODIUM 138 mmol/L 135-145 POTASSIUM 4.2 mmol/L 3.5-5.0 CHLORIDE 100 mmol/L 100-110 CO2 26 meq/L 20-30 CREATININE, Serum 1.20 mg/dL 0.50-1.40 eGFR(CKD-EPI 2020) 72 mL/min >60 Sep 23, 2024 08:37 AM [facility] ALBUMIN Specimen Type: SERUM No comment entered. Ordering Provider: ORIN CHAVEZ Report Released Date/Time: Aug 19, 2024 08:57 AM Reporting Lab: [address] [address] Performing Lab: [address] [address] ALBUMIN 4.1 g/dL 3.5-5.0 Sep 23, 2024 08:37 AM [facility] ALKALINE PHOSPHATASE Specimen Type: SERUM No comment entered. Ordering Provider: ORIN CHAVEZ Report Released Date/Time: Aug 19, 2024 08:57 AM Reporting Lab: [address] [address] Performing Lab: [address] [address] ALKALINE PHOSPHATASE 62 U/L 40-150 Sep 23, 2024 08:37 AM [facility] CBC Specimen Type: BLOOD No comment entered. Ordering Provider: ORIN CHAVEZ Report Released Date/Time: Aug 19, 2024 08:57 AM Reporting Lab: [address] [address] Performing Lab: [address] [address] WBC 4.70 10*3/uL 4.50-11.00 RBC 4.71 10*6/uL [...] took place. Date/Time Current Smoking Status Comment [facility] Feb 11, 2024 03:00 PM VA-TOBACCO NEVER USED [place] [facility] [place] [facility] Tobacco Use History This section includes a history of the smoking, or tobacco-related health factors, that were collected on or before the date of the Encounter. The data comes from the [place] facility where the Encounter took place. Date/Time Smoking Status/Tobac co Use Comment Facility Feb 12, 2023 03:00 PM VA-TOBACCO NEVER USED [facility] [facility] Feb 14, 2022 03:00 PM VA-TOBACCO NEVER USED [facility] [facility] Oct 27, 2020 03:30 PM VA-TOBACCO NEVER USED [facility] [facility] Aug 25, 2018 04:16 PM VA-TOBACCO DOESNT USE WI 30 MIN WAKEUP [place] [facility] [place] [facility] Aug 25, 2018 04:16 PM VA-TOBACCO USE > 15 LESS THAN 30 YEARS [place] [facility] [facility] Aug 25, 2018 04:16 PM VA-TOBACCO USE ADVICE [facility] [place] [facility] Aug 25, 2018 04:16 PM VA-TOBACCO USE LODE MINER BLASTING NO [facility] [facility] Aug 25, 2018 04:16 PM VA-TOBACCO USE MED NO [facility] [place] [facility] Aug 25, 2018 04:16 PM VA-TOBACCO USER SOME DAYS [facility] [place] [facility] Oct 07, 2017 11:55 AM CURRENT SMOKER 1 cigar a few times a year [place] [facility] [place] [facility] Oct 07, 2017 11:55 AM V1-PT NOT INTERESTED IN QUIT TOBACCO USE [facility] Oct 29, 2016 08:57 AM LIFETIME NON-TOBACCO USER [facility] Encounter Notes: All associated encounter notes This section contains the clinical notes associated to the Encounter. Date/Time Encounter Note(s) Provider Source Sep 23, 2024 05:31 AM [facility]: LOCAL TITLE: PRIMARY MENTAL HEALTH OUTPATIENT FOLLOW UP NOTE STANDARD TITLE: MENTAL HEALTH OUTPATIENT NOTE DATE OF NOTE: SEP 23, 2024@05:31 ENTRY DATE: SEP 23, 2024@05:31:43 AUTHOR: MARII BAPTISTE COSIGNER: URGENCY: STATUS: COMPLETED PC-[facility] OUTPATIENT F/U NOTE DURATION: 30 mins Mr. Duron is a 54 years-old, , white male with a PMH of CKD, low back pain, bilateral knee pain, psoriasis, sleep apnea, major depressive disorder, and generalized anxiety disorder. [place] was identified by two means, date of and full name. This was the second session between investigative writer and . Results on measures were reviewed. shared that symptoms felt slightly better as he is starting to talk more about his thoughts and feelings. He said that he is sharing more and talking more with his , although there is still room for improvement, he noted. He explored problems with anger towards himself and others and self-defeating thoughts. Options of topics to explore for today were reviewed and he identified interest in working on anger and automatic negative thoughts. Healing from anger handouts from seeking safety were briefly explored, healthy versus unhealthy anger, and habits of healthy anger explored. He identified with functions of unhealthy anger and avoiding vulnerable emotions. He identified feeling weak if he asked for help or shared more about his feelings with his , and aims to work on this. He identified self-criticism and judgment and aims to work on these extreme thoughts and cognitive distortions which will be explored in more depth next session. Handouts were briefly reviewed. He endorsed passing thoughts of being better off but no plan or intent. SCREENERS: PHQ-9: 15, moderate severe, somewhat difficult PAULA-7: 14, moderate anxiety, somewhat difficult DIAGNOSES: MDD, Moderate, Recurrent; PAULA; Psychological Factors Affecting a General Medical Condition (Chronic Pain; CKD) IMPRESSIONS/PLAN: Mr. Duron endorsed moderate depression and severe anxiety that worsened over the last 4-6 months. In addition, his father two weeks ago and sister suffers from CHK, heart health issues and is on dialysis. Moreover, he experience marital strain and difficulty with sleep and communication skills. In collaboration with [place] considering evidence-based treatment, clinical judgment and patient preference, options of treatment were offered. agreed to EBP CBT in [facility] including relaxation training, cognitive restructuring and behavioral activation, as well as assertiveness skills training and sleep hygiene. He will also learn about other MH treatment options. He denied SI/HI or safety concerns and was reminded of [facility] services. He will return to -[facility] for roughly 3-4, individual sessions. He will return to -[facility], 10/12 at 3pm. /betty/ MARII BAPTISTE, PhD STAFF PSYCHOLOGIST Signed: 09/24/2024 14:19 MARII BAPTISTE [place] [facility]
--- OUTSIDE RECORDS SUMMARY | 2024-10-25 10:46 | XMS_ITS | Encounter Summary ---
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 Name Role Phone LEO FORRESTER Primary Care [...] Patient's Relationship to Policy Suresh [facility] ORGANIZAT ION COH G AND E May 10, 2024 [id number] [facility] ER PATIENT [place] PRESCRIPT ION [facility] May 10, 2024 [id number] CARD,SP ER PATIENT [employer] POINT OF SERVICE [facility] Feb 08, 2018 [id number] CARD,SP ER PATIENT [employer] BEHAVIORAL HEALTH MENTAL [facility] Feb 08, 2018 [id number] CARD,[facility] ER PATIENT [employer] PHARMACY PRESCRIPT ION [facility] Feb 08, 2018 [id number] [phone] CARD,[facility] May 10, 2019 [id number] JOANNA DURON JR PATIENT OPTUM RX PRESCRIPT ION [facility] May 10, 2019 [facility] [id number] DOMI BAUTISTATRACEYKIRAN PATIENT Selected Encounter This section includes the information on record at [place] for the Encounter. Date/Time Encounter Type Encounter Description Reason Pro vider Source Sep 08, 2024 02:43 PM Outpatient Encounter PRIMARY CARE/MEDICINE IHE Encounter Template Text not used by [place] Plan of Treatment: Future Appointments (+ 6 months) and Future Tests (+/- 45 days) The Plan of Treatment section includes future care activities for the patient from all [place] [facility]. This section includes future appointments and future [...] 23, 2024 08:00 AM AMBULATORY - MEDICINE [place] [facility] [facility] Sep 23, 2024 03:00 PM AMBULATORY - PSYCHIATRY [place] [facility] [place] [facility] Sep 29, 2024 08:00 AM AMBULATORY - MEDICINE [place] [facility] [facility] Oct 05, 2024 03:00 PM AMBULATORY - MEDICINE [place] [facility] [place] [facility] Oct 14, 2024 03:00 PM AMBULATORY - MEDICINE [place] [facility] [place] [facility] Oct 26, 2024 03:00 PM AMBULATORY - PSYCHIATRY [place] [facility] [place] [facility] Oct 28, 2024 03:00 PM AMBULATORY - MEDICINE [place] [facility] [facility] Nov 02, 2024 09:00 AM AMBULATORY - MEDICINE [place] [facility] [place] [facility] Nov 09, 2024 03:30 PM AMBULATORY - MEDICINE [place] [facility] [facility] Dec 02, 2024 03:00 PM AMBULATORY - MEDICINE [place] [facility] [facility] Dec 03, 2024 08:00 AM AMBULATORY - MEDICINE [place] [facility] [place] [facility] Jan 04, 2025 03:00 PM AMBULATORY - MEDICINE [place] [facility] [place] [facility] Jan 25, 2025 08:00 AM AMBULATORY - MEDICINE [place] [facility] [facility] Feb 14, 2025 03:00 PM AMBULATORY - MEDICINE [place] [facility] Active, Pending, and Scheduled Orders This section includes a listing of several types of active, pending, and scheduled orders, including clinic medications orders, diagnostic test orders, procedure orders and consult orders; where the start date of the order is 45 days before the date of the Encounter or 45 days after the date of theEncounter. The data comes from all [place] treatment facilities. Test Date/Time Test Type Test Details Facility Name Sep 23, 2024 08:27 AM Consult Order COMMUNITY CARE-MRI Cons Knockdown Man's Choice [place] [facility] Oct 14, 2024 03:46 PM Consult Order REHAB MEDI CINE/NHM OUTPT Cons Knockdown Man's Choice [facility] Lab Results: +/- 30 days of the encounter This section includes the Chemistry and Hematology Lab Results on record with [place] for the patient. Radiology Reports and Pathology Reports are provided separately, in subsequent sections. Lab Results This section contains the Chemistry/Hematology Results that were resulted 30 days before or 30 daysafter the date of the Encounter. Date/Time Source Result Type Result - Unit Interpretation Reference Range Comment Sep 23, 2024 08:37 AM [facility] URIC ACID Specimen Type: SERUM No comment entered. Ordering Provider: WILLIAN CHAVEZ Report Released Date/Time: Aug 19, 2024 08:57 AM Reporting Lab: [facility] [place] [address] [address] Performing Lab: [facility] [address] [address] URIC ACID 9.1 mg/dL H 3.5-7.2 Sep 23, 2024 08:37 AM [facility] PTH INTACT Specimen Type: SERUM No comment entered. Ordering Provider: WILLIAN CHAVEZ Report Released Date/Time: Aug 19, 2024 08:57 AM Reporting Lab: [facility] [address] Performing Lab: [place] [facility] [facility] [address] [facility] [address] PTH INTACT 41.9 pg/mL -65 Sep 23, 2024 08:37 AM [place] [facility] [facility] PO4 Specimen Type: SERUM No comment entered. Ordering Provider: WILLIAN CHAVEZ Report Released Date/Time: Aug 19, 2024 08:57 AM Reporting Lab: [facility] [place] [facility] [address] [facility] [address] Performing Lab: [place] [facility] [place] [facility] [address] [facility] [address] PO4 3.1 mg/dL 2.5-5.0 Sep 23, 2024 08:37 AM [facility] VITAMIN D (25-OH) Specimen Type: SERUM No comment entered. Ordering Provider: WILLIAN CHAVEZ Report Released Date/Time: Aug 19, 2024 08:57 AM Reporting Lab: [place] [facility] [place] [facility] [address] [facility] [address] Performing Lab: [facility] [place] [address] [address] VITAMIN D (25-OH) 30 ng/mL -50 Sep 23, 2024 08:37 AM [facility] MAGNESIUM Specimen Type: SERUM No comment entered. Ordering Provider: WILLIAN CHAVEZ Report Released Date/Time: Aug 19, 2024 08:57 AM Reporting Lab: [facility] [place] [address] [address] Performing Lab: [place] [address] [address] MAGNESIUM 1.9 mg/dL 1.6-2.6 Sep 23, 2024 08:37 AM [facility] FERRITIN Specimen Type: SERUM No comment entered. Ordering Provider: WILLIAN CHAVEZ Report Released Date/Time: Aug 19, 2024 08:57 AM Reporting Lab: [facility] [place] [address] [address] Performing Lab: [place] [facility] [facility] [address] [facility] [address] FERRITIN 418 ng/mL H 20-300 Sep 23, 2024 08:37 AM [facility] [place] [facility] MICROALBUMIN CREATININE RATIO PANEL Specimen Type: URINE No comment entered. Ordering Provider: WILLIAN CHAVEZ Report Released Date/Time: Aug 19, 2024 08:57 AM Reporting Lab: [facility] [address] [facility] [address] Performing Lab: [facility]N [facility] [address] [facility] [address] MICROALBUMIN/C REATININE RATIO 429.6 mg/g H 0-29.9 MICROALBUMIN,Q UANTITATIVE 54.3 mg/dL RR UNAVAIL CREATININE URINE 126.39 mg/dL Sep 23, 2024 08:37 AM [facility] IRON & TIBC PANEL Specimen Type: SERUM No comment entered. Ordering Provider: WILLIAN CHAVEZ Report Released Date/Time: Aug 19, 2024 08:57 AM Reporting Lab: [facility] [address] [facility] [address] Performing Lab: [facility] [address] [facility] [address] TIBC 350 ug/dL 204-475 IRON 120 ug/dL 40-160 Transferrin Saturation 34.3 20.0-50.0 Transferrin (TRF) 265 mg/dL 200-360 Sep 23, 2024 08:37 AM [facility] CHOLESTEROL Specimen Type: SERUM No comment entered. Ordering Provider: WILLIAN CHAEVZ Report Released Date/Time: Aug 19, 2024 08:57 AM Reporting Lab: [facility] [address] [facility] [address] Performing Lab: [facility] [address] [address] CHOLESTEROL 188 mg/dL Sep 23, 2024 08:37 AM [facility] HDL CHOLESTEROL Specimen Type: SERUM No comment entered. Ordering Provider: CHAVEZ,WILLIAN EY A Report Released Date/Time: Aug 19, 2024 08:57 AM Reporting Lab: [facility] [address] [facility] [address] Performing Lab: [facility] [address] [facility] [address] HDL CHOLESTEROL 55 mg/dL 40-60 Sep 23, 2024 08:37 AM [facility] CALCIUM Specimen Type: SERUM No comment entered. Ordering Provider: WILLIAN CHAVEZ Report Released Date/Time: Aug 19, 2024 08:57 AM Reporting Lab: [facility] [address] [facility] [address] Performing Lab: [facility] [address] CALCIUM 9.4 mg/dL 8.5-10.2 Sep 23, 2024 08:37 AM [facility] ALBUMIN Specimen Type: SERUM No comment entered. Ordering Provider: WILLIAN CHAVEZ Report Released Date/Time: Aug 19, 2024 08:57 AM Reporting Lab: [facility]ITALN [address] [address] Performing Lab: [facility] [address] ALBUMIN 4.1 g/dL 3.5-5.0 Sep 23, 2024 08:37 AM [facility] BASIC METABOLIC PANEL (non-fasting) Specimen Type: SERUM No comment entered. Ordering Provider: WILLIAN CHAVEZ Report Released Date/Time: Aug 19, 2024 08:57 AM Reporting Lab: [facility]N [facility] [address] [facility] [address] Performing Lab: [facility] [address] [address] UREA NITROGEN 20 mg/dL 7-25 GLUCOSE 137 mg/dL H 65-100 SODIUM 138 mmol/L 135-145 POTASSIUM 4.2 mmol/L 3.5-5.0 CHLORIDE 100 mmol/L 100-110 CO2 26 meq/L 20-30 CREATININE, Serum 1.20 mg/dL 0.50-1.40 eGFR(CKD-EPI 2020) 72 mL/min >60 Sep 23, 2024 08:37 AM [facility] ALKALINE PHOSPHATASE Specimen Type: SERUM No comment entered. Ordering Provider: WILLIAN CHAVEZ Report Released Date/Time: Aug 19, 2024 08:57 AM Reporting Lab: [address] [address] Performing Lab: [address] [address] ALKALINE PHOSPHATASE 62 U/L 40-150 Sep 23, 2024 08:37 AM [facility] CBC Specimen Type: BLOOD No comment entered. Ordering Provider: WILLIAN CHAVEZ Report Released Date/Time: Aug 19, 2024 08:57 AM Reporting Lab: [address] [address] Performing Lab: [address] [address] WBC 4.70 10*3/uL 4.50-11.00 RBC 4.71 10*6/uL 4.23-5.66 HGB 13.8 g/dL 12.8-17 HCT 41.4 39.2-50.4 MCV 87.9 fL 82-99 MCHC 33.3 g/dL 30.8-35.1 PLT 198 10*3/uL 140-360 RDW-CV 12.7 12.0-16.0 MCH 29.3 pg 26.2-32.6 Aug 16, 2024 03:55 PM [facility] HEMOGLOBIN A1C PANEL Specimen Type: [...] Jul 30, 2024 11:24 AM Reporting Lab: [facility] [address] [facility] [address] Performing Lab: [facility]N [facility] [address] [facility] [address] HEMOGLOBIN A1C 6.3 H 4.0-5.6 Aug 16, 2024 03:55 PM [facility] LIPID PANEL FASTING Specimen Type: SERUM No comment entered. Ordering Provider: LEO FORRESTER Report Released Date/Time: Jul 30, 2024 11:24 AM Reporting Lab: [facility] [address] [facility] [address] Performing Lab: [facility] [address] CHOLESTEROL 129 mg/dL TRIGLYCERIDE 86 mg/dL 0-150 LDL calculated 62 mg/dL 0-129 CHOL/HDL 2.6 HDL CHOLESTEROL 50 mg/dL 40-60 Aug 16, 2024 03:55 PM [facility] BASIC METABOLIC PANEL (fasting) Specimen Type: SERUM No comment entered. Ordering Provider: LEO FORRESTER Report Released Date/Time: Jul 30, 2024 11:24 AM Reporting Lab: [facility] [address] [facility] [address] Performing Lab: [facility] [address] [address] UREA NITROGEN 23 mg/dL 7-25 GLUCOSE 198 mg/dL H 65-100 SODIUM 141 mmol/L 135-145 POTASSIUM 4.7 mmol/L 3.5-5.0 CHLORIDE 107 mmol/L 100-110 CO2 27 meq/L 20-30 CREATININE, Serum 1.35 mg/dL 0.50-1.40 eGFR(CKD-EPI 2020) 63 mL/min >60 Aug 16, 2024 03:55 PM [facility] MICROALBUMIN CREATININE RATIO PANEL Specimen Type: URINE No comment entered. Ordering Provider: LEO FORRESTER Report Released Date/Time: Jul 30, 2024 11:24 AM Reporting Lab: [facility] [address] [address] Performing Lab: [place] [facility] [place] [facility] [address] [facility] [address] MICROALBUMIN/C REATININE RATIO 249.6 mg/g H 0-29.9 [...] took place. Date/Time Current Smoking Status Comment [facility] Feb 11, 2024 03:00 PM VA-TOBACCO NEVER USED [facility] Tobacco Use History This section includes a history of the smoking, or tobacco-related health factors, that were collected on or before the date of the Encounter. The data comes from the [place] facility where the Encounter took place. Date/Time Smoking Status/Tobac co Use Comment Facility Feb 12, 2023 03:00 PM VA-TOBACCO NEVER USED [place] [facility] [place] [facility] Feb 14, 2022 03:00 PM VA-TOBACCO NEVER USED [place] [facility] [facility] Oct 27, 2020 03:30 PM VA-TOBACCO NEVER USED [place] [facility] [place] [facility] Aug 25, 2018 04:16 PM VA-TOBACCO DOESNT USE WI 30 MIN WAKEUP [place] [facility] [place] [facility] Aug 25, 2018 04:16 PM VA-TOBACCO USE > 15 LESS THAN 30 YEARS [place] [facility] [place] [facility] Aug 25, 2018 04:16 PM VA-TOBACCO USE ADVICE [facility] [place] [facility] Aug 25, 2018 04:16 PM VA-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 [facility] [place] [facility] Aug 25, 2018 04:16 PM VA-TOBACCO USE MED NO [facility] [facility] Aug 25, 2018 04:16 PM VA-TOBACCO USER SOME DAYS [facility] [place] [facility] Oct 07, 2017 11:55 AM CURRENT SMOKER 1 cigar a few times a year [facility] [place] [facility] Oct 07, 2017 11:55 AM V1-PT NOT INTERESTED IN QUIT TOBACCO [facility] Oct 29, 2016 08:57 AM LIFETIME NON-TOBACCO USER [facility] Encounter Notes: All associated encounter notes This section contains the clinical notes associated to the Encounter. Date/Time Encounter Note(s) Provider Source Sep 10, 2024 09:13 AM ADDENDUM: LOCAL TITLE: Addendum STANDARD TITLE: ADDENDUM DATE OF NOTE: SEP 10, 2024@09:13:42 ENTRY DATE: SEP 10, 2024@09:13:43 AUTHOR: ALINA PETTIT EXP COSIGNER: URGENCY: STATUS: COMPLETED Forwarding to Dr. Mathis for review. Please advise regarding RTC. /betty/ ALINA PUENTE Signed: 09/10/2024 09:14 Receipt Acknowledged By: 09/15/2024 16:29 /betty/ HINA ESTES DC CHIROPRACTOR for MARY JO MATHIS === --- Original Document --- 09/08/24 ADMINISTRATIVE NOTE: SPOKE TO CINDI AT [facility] AND WOULD LIKE TO RESUME SEEING THE CHIROPRACTOR, HE STATED THAT HE IS CURRENTLY OUT OF VISITS TO SEE PROVIDER. /betty/ BENITO PUENTE Signed: 09/08/2024 14:55 Receipt Acknowledged By: 09/10/2024 12:56 /betty/ ALINA PUENTE 09/15/2024 16:28 /betty/ HINA ESTES DC CHIROPRACTOR for MARY JO MATHIS 09/10/2024 ADDENDUM STATUS: COMPLETED Will enter RTC. Patient will be seen for evaluation and possible treatment of C/C. Will explain that [facility] guided by goals set with chiropractor . Engagement in active self-care is required in treatment plan. /betty/ MARY JO MATHIS D.C. CHIROPRACTOR Signed: 09/10/2024 09:41 09/10/2024 ADDENDUM STATUS: COMPLETED CINDI spoke with [place] and is scheduled for 09/23/24 at 8am. /betty/ ALINA PUENTE Signed: 09/10/2024 12:56 ALINA PETTIT [place] [facility] [facility] Sep 08, 2024 02:43 PM ADMINISTRATIVE NOTE: LOCAL TITLE: ADMINISTRATIVE NOTE STANDARD TITLE: ADMINISTRATIVE NOTE DATE OF NOTE: SEP 08, 2024@14:43 ENTRY DATE: SEP 08, 2024@14:43:54 AUTHOR: BENITO SHANKAR EXP COSIGNER: URGENCY: STATUS: COMPLETED ADMINISTRATIVE NOTE Has ADDENDA SPOKE TO [facility] AT [facility] AND WOULD LIKE TO RESUME SEEING THE CHIROPRACTOR, HE STATED THAT HE IS CURRENTLY OUT OF VISITS TO SEE PROVIDER. /betty/ BENITO SHANKAR [facility] Signed: 09/08/2024 14:55 Receipt Acknowledged By: 09/10/2024 12:56 /betty/ ALINA PUENTE 09/15/2024 16:28 /es/ HINA ESTES DC CHIROPRACTOR for MARY JO DEL 09/10/2024 ADDENDUM STATUS: COMPLETED Forwarding to Dr. Mathis for review. Please advise regarding RTC. /brayden PETTIT [facility] Signed: 09/10/2024 09:14 Receipt Acknowledged By: * AWAITING SIGNATURE * MARY JO MATHIS 09/10/2024 ADDENDUM STATUS: COMPLETED Will enter RTC. Patient will be seen for evaluation and possible treatment of C/C. Will explain that [facility] guided by goals set with chiropractor . Engagement in active self-care is required in treatment plan. /betty/ MARY JO MATHIS D.C. CHIROPRACTOR Signed: 09/10/2024 09:41 09/10/2024 ADDENDUM STATUS: COMPLETED CINDI spoke with and is scheduled for 09/23/24 at 8am. /betty/ ALINA PUENTE Signed: 09/10/2024 12:56 BENITO SHANKAR [facility]
--- OUTSIDE RECORDS SUMMARY | 2024-10-25 10:46 | XMS_ITS | Encounter Summary ---
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 [place] Organization [place] of [place] Address [address] [place] [id number] Care Team Providers Care Nutrition Professor Name Role Phone LEO FORRESTER Primary Care [...] [facility] E May 10, 2024 [id number] DOMI,[facility] ER PATIENT [place] PRESCRIPT ION [facility] May 10, 2024 [id number] DOMI,[facility] ER PATIENT [employer] POINT OF SERVICE [facility] Feb 08, 2018 [id number] DOMI,[facility] ER PATIENT [employer] BEHAVIORAL HEALTH MENTAL HEALTH [facility] Feb 08, 2018 [id number] DOMI,[facility] ER PATIENT [employer] PHARMACY PRESCRIPT ION [facility] Feb 08, 2018 [id number] DOMI,[facility] ER PATIENT [facility] May 10, 2019 [id number] JOANNA DURON JR PATIENT [facility] RX PRESCRIPT ION [facility] May 10, 2019 [facility] [id number] JOANNA DURON JR PATIENT Selected Encounter This section includes the information on record at [facility] for the Encounter. Date/Time Encounter Type Encounter Description Reason Pro vider Source IHE Encounter Template Text not used by VA
--- OUTSIDE RECORDS SUMMARY | 2024-10-25 10:47 | XMS_ITS | Encounter Summary ---
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 [place] [facility] [place] Address [address] [place] [address] Care Team Providers Care Theatrical Agent Name Role Phone LEO FORRESTER Primary [...] Suresh's Name Patient's Relationship to Policy Suresh [facility] CE ORGANIZAT ION COH G AND E May 10, 2024 [id number] [phone] [facility] ER PATIENT [place] PRESCRIPT ION [facility] May 10, 2024 [id number] [phone] CARD,[facility] ER PATIENT [employer] POINT OF SERVICE [facility] Feb 08, 2018 [id number] CARD,[facility] ER PATIENT [employer] BEHAVIORAL HEALTH MENTAL HEALTH [facility] Feb 08, 2018 [id number] CARD,[facility] ER PATIENT [employer] PHARMACY PRESCRIPT ION [facility] Feb 08, 2018 [id number] CARD,[facility] ER PATIENT [facility] May 10, 2019 [id number] DOMI BAUTISTAJOANNA PATIENT [employer] RX PRESCRIPT ION [facility] May 10, 2019 [facility] [id number] DOMI JOANNA PATIENT Selected Encounter This section includes the information on record at [place] for the Encounter. Date/Time Encounter Type Encounter Description Reason Provider Source Oct 12, 2024 03:00 PM PRO PHONE CALL 5-10 MIN TELEPHONE ICD-10-CM F33.1 Major depressive disorder, recurrent, moderate SANAM BAPTISTE IHE Encounter Template Text not used by [place] Assessments - Encounter Diagnoses This section includes the primary and secondary diagnoses documented for the Encounter. Date/Time Primary/Secondary Diagnosis Diagnosis Name Provider Source Oct 12, 2024 03:00 PM PRIMARY Major depressive disorder, recurrent, moderate SANAM BAPTISTE [facility] [place] [facility] Oct 12, 2024 03:00 PM SECONDARY Generalized anxiety disorder SANAM BAPTISTE [facility] [place] [facility] Plan of Treatment: Future Appointments (+ 6 months) and Future Tests (+/- 45 days) The Plan of Treatment section includes future care activities for the patient [facility] This section includes future appointments and future orders which are active, pending or scheduled. Future Appointments This section includes appointments that were scheduled to occur 6 months from the date of the Encounter, up to a maximum of 20 appointments. The data comes from all [place] treatment facilities. Appointment Date/Time Appointment Type Appointme nt Facility Name Oct 14, 2024 03:00 PM AMBULATORY - MEDICINE [facility] [place] [facility] Oct 26, 2024 03:00 PM AMBULATORY - PSYCHIATRY [facility] [place] [facility] Oct 28, 2024 03:00 PM AMBULATORY - MEDICINE [facility] [place] [facility] Nov 02, 2024 09:00 AM AMBULATORY - MEDICINE [facility] [place] [facility] Nov 09, 2024 03:30 PM AMBULATORY - MEDICINE [facility] [place] [facility] Dec 02, 2024 03:00 PM AMBULATORY - MEDICINE [facility] [place] [facility] Dec 03, 2024 08:00 AM AMBULATORY - MEDICINE [facility] [place] [facility] Jan 04, 2025 03:00 PM AMBULATORY - MEDICINE [facility] [place] [facility] Jan 25, 2025 08:00 AM AMBULATORY - MEDICINE [facility] [place] [facility] Feb 14, 2025 03:00 PM AMBULATORY - MEDICINE [facility] Active, Pending, and Scheduled Orders This section includes a listing of several types of active, pending, and scheduled orders, including clinic medications orders, diagnostic test orders, procedure orders and consult orders; where the start date of the order is 45 days before the date of the Encounter or 45 days after the date of theEncounter. The data comes from all [place] treatment facilities. Test Date/Time Test Type Test Details Facility Name Sep 23, 2024 08:27 AM Consult Order COMMUNITY CARE-MRI Cons Chemist Helper's Choice [facility] Oct 14, 2024 03:46 PM Consult Order REHAB MEDI CINE/NHM OUTPT Cons Chemist Helper's [facility] Lab Results: +/- 30 days of the encounter This section includes the Chemistry and Hematology Lab Results on record with [place] for the patient. Radiology Reports and Pathology Reports are provided separately, in subsequent sections. Lab Results This section contains the Chemistry/Hematology Results that were resulted 30 days before or 30 daysafter the date of the Encounter. Date/Time Source Result Type Result - Unit Interpretation Reference Range Comment Sep 23, 2024 08:37 AM [facility] URIC ACID Specimen Type: SERUM No comment entered. Ordering Provider: ORIN CHAVEZ Report Released Date/Time: Aug 19, 2024 08:57 AM Reporting Lab: [facility] [address] [facility] [address] Performing Lab: [facility]ENTERUSE[address] [address] URIC ACID 9.1 mg/dL H 3.5-7.2 Sep 23, 2024 08:37 AM [facility] PTH INTACT Specimen Type: SERUM No comment entered. Ordering Provider: ORIN CHAVEZ Report Released Date/Time: Aug 19, 2024 08:57 AM Reporting Lab: [facility] [place] [facility] [address] [facility] [address] Performing Lab: [facility] [place] [facility] [address] [facility] [address] PTH INTACT 41.9 pg/mL 10-65 Sep 23, 2024 08:37 AM [facility] [place] [facility] PO4 Specimen Type: SERUM No comment entered. Ordering Provider: ORIN CHAVEZ Report Released Date/Time: Aug 19, 2024 08:57 AM Reporting Lab: [facility] [place] [facility] [address] [facility] [address] Performing Lab: [facility] [place] [facility] [address] [facility] [address] PO4 3.1 mg/dL 2.5-5.0 Sep 23, 2024 08:37 AM [facility] [place] [facility] VITAMIN D (25-OH) Specimen Type: SERUM No comment entered. Ordering Provider: ORIN CHAVEZ Report Released Date/Time: Aug 19, 2024 08:57 AM Reporting Lab: [facility] [place] [facility] [address] [facility] [address] Performing Lab: [facility] [place] [facility] [address] [facility] [address] VITAMIN D (25-OH) 30 ng/mL 20-50 Sep 23, 2024 08:37 AM [facility] [place] [facility] MAGNESIUM Specimen Type: SERUM No comment entered. Ordering Provider: ORIN CHAVEZ Report Released Date/Time: Aug 19, 2024 08:57 AM Reporting Lab: [facility] [place] [facility] [address] [facility] [address] Performing Lab: [facility] [place] [facility] [address] [facility] [address] MAGNESIUM 1.9 mg/dL 1.6-2.6 Sep 23, 2024 08:37 AM [facility] [place] [facility] FERRITIN Specimen Type: SERUM No comment entered. Ordering Provider: ORIN CHAVEZ Report Released Date/Time: Aug 19, 2024 08:57 AM Reporting Lab: [facility] [place] [facility] [address] [facility] [address] Performing Lab: [facility]TRN [place] [facility] [address] [facility] [address] FERRITIN 418 ng/mL H 20-300 Sep 23, 2024 08:37 AM [facility] [place] [facility] MICROALBUMIN CREATININE RATIO PANEL Specimen Type: URINE No comment entered. Ordering Provider: ORIN CHAVEZ Report Released Date/Time: Aug 19, 2024 08:57 AM Reporting Lab: [facility] [place] [facility] [address] [facility] [address] Performing Lab: [facility]ENTER[facility] [address] [facility] [address] MICROALBUMIN/C REATININE RATIO 429.6 mg/g H 0-29.9 MICROALBUMIN,Q UANTITATIVE 54.3 mg/dL RR UNAVAIL CREATININE URINE 126.39 mg/dL Sep 23, 2024 08:37 AM [facility] IRON & TIBC PANEL Specimen Type: SERUM No comment entered. Ordering Provider: ORIN CHAVEZ Report Released Date/Time: Aug 19, 2024 08:57 AM Reporting Lab: [facility]ITALN [facility]ENTERUSETS [facility] [address] [facility] [address] Performing Lab: [facility]ITALN [facility]ENTERUSETS [facility] [address] [facility] [address] TIBC 350 ug/dL 204-475 IRON 120 ug/dL 40-160 Transferrin Saturation 34.3 20.0-50.0 Transferrin (TRF) 265 mg/dL 200-360 Sep 23, 2024 08:37 AM [facility] CHOLESTEROL Specimen Type: SERUM No comment entered. Ordering Provider: ORIN CHAVEZ Report Released Date/Time: Aug 19, 2024 08:57 AM Reporting Lab: [facility]ENTERTRN [facility]ENTERUSETS [facility] [address] [facility] [address] Performing Lab: [facility]N [facility]ENTERUSETS [facility] [address] [facility] [address] CHOLESTEROL 188 mg/dL Sep 23, 2024 08:37 AM [facility] CHOLESTEROL Specimen Type: SERUM No comment entered. Ordering Provider: ORIN CHAVEZ Report Released Date/Time: Aug 19, 2024 08:57 AM Reporting Lab: [facility] [address] [facility] [address] Performing Lab: [address] [address] HDL CHOLESTEROL 55 mg/dL 40-60 Sep 23, 2024 08:37 AM [facility] CALCIUM Specimen Type: SERUM No comment entered. Ordering Provider: ORIN CHAVEZ Report Released Date/Time: Aug 19, 2024 08:57 AM Reporting Lab: [address] [address] Performing Lab: [address] [address] CALCIUM 9.4 mg/dL 8.5-10.2 Sep 23, 2024 08:37 AM [facility] ALBUMIN Specimen Type: SERUM No comment entered. Ordering Provider: ORIN CHAVEZ Report Released Date/Time: Aug 19, 2024 08:57 AM Reporting Lab: [address] [address] Performing Lab: [address] [address] ALBUMIN 4.1 g/dL 3.5-5.0 Sep 23, 2024 08:37 AM [facility] BASIC METABOLIC PANEL (non-fasting) Specimen Type: SERUM No comment entered. Ordering Provider: ORIN CHAVEZ Report Released Date/Time: Aug 19, 2024 08:57 AM Reporting Lab: [address] [address] Performing Lab: [address] [address] UREA NITROGEN 20 mg/dL 7-25 GLUCOSE 137 mg/dL H 65-100 SODIUM 138 mmol/L 135-145 POTASSIUM 4.2 mmol/L 3.5-5.0 CHLORIDE 100 mmol/L 100-110 CO2 26 meq/L 20-30 CREATININE, Serum 1.20 mg/dL 0.50-1.40 eGFR(CKD-EPI 2020) 72 mL/min >60 Sep 23, 2024 08:37 AM [facility] ALKALINE PHOSPHATASE Specimen Type: SERUM No comment entered. Ordering Provider: ORIN CHAVEZ Report Released Date/Time: Aug 19, 2024 08:57 AM Reporting Lab: [facility] [address] [facility] [address] Performing Lab: [address] [address] ALKALINE PHOSPHATASE 62 U/L 40-150 Sep 23, 2024 08:37 AM [facility] CBC Specimen Type: BLOOD No comment entered. Ordering Provider: ORIN CHAVEZ Report Released Date/Time: Aug 19, 2024 08:57 AM Reporting Lab: [facility] [address] [facility] [address] Performing Lab: [address] [address] WBC 4.70 10*3/uL 4.50-11.00 RBC 4.71 10*6/uL [...] and tobacco- related health factors from the [place] facility where the Encounter took place. Current Smoking Status This section includes the most current smoking, or tobacco-related health factor, from the [place] facility where the Encounter took place. Date/Time Current Smoking Status Comment Facil billie Feb 11, 2024 03:00 PM VA-TOBACCO NEVER USED [facility] Tobacco Use History This section includes a history of the smoking, or tobacco-related health factors, that were collected on or before the date of the Encounter. The data comes from the [place] facility where the Encounter took place. Date/Time Smoking Status/Tobac co Use Comment Facility Feb 12, 2023 03:00 PM VA-TOBACCO NEVER USED [place] [facility] [place] [facility] Feb 14, 2022 03:00 PM [facility]ACCO [facility] Oct 27, 2020 03:30 PM VA-TOBACCO NEVER USED [facility] [place] [facility] Aug 25, 2018 04:16 PM VA-TOBACCO DOESNT USE WI 30 MIN WAKEUP [facility] Aug 25, 2018 04:16 PM VA-TOBACCO USE > 15 LESS THAN 30 YEARS [facility] Aug 25, 2018 04:16 PM VA-TOBACCO USE ADVICE 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 Oct 07, 2017 11:55 AM V1-PT NOT INTERESTED IN QUIT TOBACCO USE [facility] Oct 29, 2016 08:57 AM LIFETIME NON-TOBACCO USER [facility] Encounter Notes: All associated encounter notes This section contains the clinical notes associated to the Encounter. 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 He requested F2F appt for 3pm, and next available 10/26 at 3pm was scheduled. He denied SI/HI or safety concerns and confirmed knowing how to access emergent services and VCL if needed. DIAGNOSES: MDD, Moderate, Recurrent; PAULA /es/ MARII BAPTISTE, PhD STAFF PSYCHOLOGIST Signed: 10/15/2024 06:56 [facility]TISTE [facility]
--- OUTSIDE RECORDS SUMMARY | 2024-10-25 10:47 | XMS_ITS | Encounter Summary ---
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 [facility] [place] Address [address] [place] [address] Care Team Providers Care [place]ave [place] Hand Name Role Phone LEO FORRESTER Primary [...] COH G AND E May 10, 2024 [id number] [phone] [id number] [phone] [facility] ER PATIENT [place] PRESCRIPT ION [facility] May 10, 2024 [id number] CARD,[facility] ER PATIENT [employer] POINT OF SERVICE [facility] Feb 08, 2018 [id number] [facility] ER PATIENT [employer] BEHAVIORAL HEALTH MENTAL HEALTH [facility] Feb 08, 2018 [id number] CARD,[facility] ER PATIENT [facility] PHARMAC[facility] PRESCRIPT ION [facility] Feb 08, 2018 [id number] CARD,[facility] ER PATIENT [facility] May 10, 2019 [id number] JOANNA DURON JR PATIENT [facility] RX PRESCRIPT ION [facility] May 10, 2019 [facility] [id number] [phone] DOMI JOANNA PATIENT Selected Encounter This section includes the information on record at NH for the Encounter. Date/Time Encounter Type Encounter Description Reason Provider Source Oct 05, 2024 03:00 PM ACUPUNCT W/O STIMUL ADDL 15M [facility] TREATMENT ICD-10-CM M54.2 Cervicalgia GAUNYALUIS PHER M IHE Encounter Template Text not used by [place] Assessments - Encounter Diagnoses This section includes the primary and secondary diagnoses documented for the Encounter. Date/Time Primary/Secondary Diagnosis Diagnosis Name Provider Source Oct 05, 2024 03:34 PM PRIMARY Cervicalgia JAG RAZOO PHER M [place] [facility] [place] [facility] Oct 05, 2024 03:34 PM SECONDARY Low back pain, unspecified SUJATHAUNJAG ARAIZAO PHER M [place] [facility] [place] [facility] Oct 05, 2024 03:34 PM SECONDARY Pain in left arm SUJATHAUNYALUIS PHER M [place] [facility] [place] [facility] Oct 05, 2024 03:34 PM SECONDARY Pain in left shoulder SUJATHAUNYALUIS PHER M [place] [facility] [place] [facility] Oct 05, 2024 03:34 PM SECONDARY Pain in thoracic spine GAUNYAJAGO PHER M [place] [facility] [place] [facility] Plan [...] 14, 2024 03:00 PM AMBULATORY - MEDICINE [facility] [place] [facility] Oct 26, 2024 03:00 PM AMBULATORY - PSYCHIATRY [place] [facility] [place] [facility] Oct 28, 2024 03:00 PM AMBULATORY - MEDICINE [facility] [place] [facility] Nov 02, 2024 09:00 AM AMBULATORY - MEDICINE [facility] C [facility] [place] [facility] Nov 09, 2024 03:30 PM AMBULATORY - MEDICINE NH C [facility] [place] [facility] Dec 02, 2024 03:00 PM AMBULATORY - MEDICINE NH C [facility] [place] [facility] Dec 03, 2024 08:00 AM AMBULATORY - MEDICINE NH C [facility] [place] [facility] Jan 04, 2025 03:00 PM AMBULATORY - MEDICINE NH C [facility] [place] [facility] Jan 25, 2025 08:00 AM AMBULATORY - MEDICINE NH C [facility] [place] [facility] Feb 14, 2025 03:00 PM AMBULATORY - MEDICINE [facility] Active, Pending, and Scheduled Orders This section includes a listing of several types of active, pending, and scheduled orders, including clinic medications orders, diagnostic test orders, procedure orders and consult orders; where the start date of the order is 45 days before the date of the Encounter or 45 days after the date of theEncounter. The data comes from all [place] treatment facilities. Test Date/Time Test Type Test Details Facility Name Sep 23, 2024 08:27 AM Consult Order COMMUNITY CARE-MRI Cons [employer] Worker[facility] Choice [facility] Oct 14, 2024 03:46 PM Consult Order REHAB MEDI CINE/NH[facility] OUTPT Cons [employer] Worker's Choice [facility] Lab Results: +/- 30 days of [...] Range Comment Sep 23, 2024 08:37 AM [facility] PO4 Specimen Type: SERUM No comment entered. Ordering Provider: ORIN CHAVEZ Report Released Date/Time: Aug 19, 2024 08:57 AM Reporting Lab: [facility] [address] [address] Performing Lab: [facility] [place] [facility] [address] [facility] [address] PO4 3.1 mg/dL 2.5-5.0 Sep 23, 2024 08:37 AM [facility] [place] [facility] VITAMIN D (25-OH) Specimen Type: SERUM No comment entered. Ordering Provider: ORIN CHAVEZ Report Released Date/Time: Aug 19, 2024 08:57 AM Reporting Lab: [facility] [place] [facility] [address] [facility] [address] Performing Lab: [facility] [place] [address] [address] VITAMIN D (25-OH) 30 ng/mL 20-50 Sep 23, 2024 08:37 AM [facility] [place] [facility] PTH INTACT Specimen Type: SERUM No comment entered. Ordering Provider: ORIN CHAVEZ Report Released Date/Time: Aug 19, 2024 08:57 AM Reporting Lab: [facility] [place] [address] [address] Performing Lab: [facility] [place] [address] [address] PTH INTACT 41.9 pg/mL 65 Sep 23, 2024 08:37 AM [facility] URIC ACID Specimen Type: SERUM No comment entered. Ordering Provider: ORIN CHAVEZ Report Released Date/Time: Aug 19, 2024 08:57 AM Reporting Lab: [facility] [place] [address] [address] Performing Lab: [place] [facility] [place] [place] [address] [address] URIC ACID 9.1 mg/dL H 3.5-7.2 Sep 23, 2024 08:37 AM [facility] [place] [facility] MAGNESIUM Specimen Type: SERUM No comment entered. Ordering Provider: ORIN CHAVEZ Report Released Date/Time: Aug 19, 2024 08:57 AM Reporting Lab: [facility] [place] [address] [address] Performing Lab: [facility] [place] [facility] [address] [facility] [address] MAGNESIUM 1.9 mg/dL 1.6-2.6 Sep 23, 2024 08:37 AM [facility] FERRITIN Specimen Type: SERUM No comment entered. Ordering Provider: ORIN CHAVEZ Report Released Date/Time: Aug 19, 2024 08:57 AM Reporting Lab: [facility] [place] [facility] [address] [facility] [address] Performing Lab: [facility] [address] [facility] [address] FERRITIN 418 ng/mL H 20-300 Sep 23, 2024 08:37 AM [facility] MICROALBUMIN CREATININE RATIO PANEL Specimen Type: URINE No comment entered. Ordering Provider: ORIN CHAVEZ Report Released Date/Time: Aug 19, 2024 08:57 AM Reporting Lab: [facility] [address] [facility] [address] Performing Lab: [facility] [address] [address] MICROALBUMIN/C REATININE RATIO 429.6 mg/g H 0-29.9 MICROALBUMIN,Q UANTITATIVE 54.3 mg/dL RR UNAVAIL CREATININE URINE 126.39 mg/dL Sep 23, 2024 08:37 AM [facility] IRON & TIBC PANEL Specimen Type: SERUM No comment entered. Ordering Provider: ORIN CHAVEZ Report Released Date/Time: Aug 19, 2024 08:57 AM Reporting Lab: [facility] [place] [address] [address] Performing Lab: [facility] [address] [address] TIBC 350 ug/dL 204-475 IRON 120 ug/dL 40-160 Transferrin Saturation 34.3 20.0-50.0 Transferrin (TRF) 265 mg/dL 200-360 Sep 23, 2024 08:37 AM [facility] BASIC METABOLIC PANEL (non-fasting) Specimen Type: SERUM No comment entered. Ordering Provider: ORIN CHAVEZ Report Released Date/Time: Aug 19, 2024 08:57 AM Reporting Lab: [place] [facility] [place] [facility] [address] [facility] [address] Performing Lab: [place] [facility] [place] [facility] [address] [facility] [address] UREA NITROGEN 20 mg/dL 7-25 GLUCOSE 137 mg/dL H 65-100 SODIUM 138 mmol/L 135-145 POTASSIUM 4.2 mmol/L 3.5-5.0 CHLORIDE 100 mmol/L 100-110 CO2 26 meq/L 20-30 CREATININE, Serum 1.20 mg/dL 0.50-1.40 eGFR(CKD-EPI 2020) 72 mL/min >60 Sep 23, 2024 08:37 AM [facility] [place] [facility] CHOLESTEROL Specimen Type: SERUM No comment entered. Ordering Provider: ORIN CHAVEZ Report Released Date/Time: Aug 19, 2024 08:57 AM Reporting Lab: [place] [facility] [facility] [address] [facility] [address] Performing Lab: [facility] [place] [place] [address] [address] CHOLESTEROL 188 mg/dL Sep 23, 2024 08:37 AM [facility] [place] [facility] HDL CHOLESTEROL Specimen Type: SERUM No comment entered. Ordering Provider: ORIN CHAVEZ Report Released Date/Time: Aug 19, 2024 08:57 AM Reporting Lab: [facility] [place] [facility] [address] [facility] [address] Performing Lab: [place] [facility] [place] [facility] [address] [facility] [address] HDL CHOLESTEROL 55 mg/dL 40-60 Sep 23, 2024 08:37 AM [facility] [place] [facility] CALCIUM Specimen Type: SERUM No comment entered. Ordering Provider: ORIN CHAVEZ Report Released Date/Time: Aug 19, 2024 08:57 AM Reporting Lab: [place] [facility] [place] [address] [address] Performing Lab: [facility] [place] [facility] [address] [facility] [address] CALCIUM 9.4 mg/dL 8.5-10.2 Sep 23, 2024 08:37 AM [facility] ALBUMIN Specimen Type: SERUM No comment entered. Ordering Provider: ORIN CHAVEZ Report Released Date/Time: Aug 19, 2024 08:57 AM Reporting Lab: [facility] [address] [facility] [address] Performing Lab: [facility] [address] [address] ALBUMIN 4.1 g/dL 3.5-5.0 Sep 23, 2024 08:37 AM [facility] ALKALINE PHOSPHATASE Specimen Type: SERUM No comment entered. Ordering Provider: ORIN CHAVEZ Report Released Date/Time: Aug 19, 2024 08:57 AM Reporting Lab: [facility] [address] [address] Performing Lab: [facility] [address] [address] ALKALINE PHOSPHATASE 62 U/L 40-150 Sep 23, 2024 08:37 AM [facility] CBC Specimen Type: BLOOD No comment entered. Ordering Provider: ORIN CHAVEZ Report Released Date/Time: Aug 19, 2024 08:57 AM Reporting Lab: [facility] [address] [address] Performing Lab: [facility] [address] [address] WBC 4.70 10*3/uL 4.50-11.00 RBC 4.71 10*6/uL [...] 11, 2024 03:00 PM VA-TOBACCO NEVER USED [place] [facility] [place] [facility] Tobacco Use History This section includes a history of the smoking, or tobacco-related health factors, that were collected on or before the date of the Encounter. The data comes from the [place] facility where the Encounter took place. Date/Time Smoking Status/Tobac co Use Comment Facility Feb 12, 2023 03:00 PM VA-TOBACCO NEVER USED [place] [facility] [place] [facility] Feb 14, 2022 03:00 PM VA-TOBACCO NEVER USED [facility] [place] [facility] Oct 27, 2020 03:30 PM VA-TOBACCO NEVER USED [facility] [place] [facility] Aug 25, 2018 04:16 PM VA-TOBACCO DOESNT USE WI 30 MIN WAKEUP [place] [facility] [place] [facility] Aug 25, 2018 04:16 PM VA-TOBACCO USE > 15 LESS THAN 30 YEARS [facility] [place] [facility] Aug 25, 2018 04:16 PM VA-TOBACCO USE ADVICE [place] [facility] [place] [facility] Aug 25, 2018 04:16 PM VA-TOBACCO USE STAFF ANALYST NO [place] [facility] [place] [facility] Aug 25, 2018 04:16 PM VA-TOBACCO USE MED NO [place] [facility] [place] [facility] Aug 25, 2018 04:16 PM VA-TOBACCO USER SOME DAYS [place] [facility] [place] [facility] Oct 07, 2017 11:55 AM CURRENT SMOKER 1 cigar a few times a year [place] [facility] [place] [facility] Oct 07, 2017 11:55 AM V1-PT NOT INTERESTED IN QUIT TOBACCO USE [place] [facility] [place] [facility] Oct 29, 2016 08:57 AM LIFETIME NON-TOBACCO USER [place] [facility] [place] [facility] Encounter Notes: All associated encounter notes This section contains the clinical notes associated to the Encounter. Date/Time Encounter Note(s) Provider Source Oct 05, 2024 03:30 PM ACUPUNCTURE NOTE: LOCAL TITLE: ACUPUNCTURE TREATMENT STANDARD TITLE: ACUPUNCTURE NOTE DATE OF NOTE: OCT 05, 2024@15:30 ENTRY DATE: OCT 05, 2024@15:30:54 AUTHOR: MAYI RAZO COSIGNER: URGENCY: STATUS: COMPLETED CARDJOANNA JR is a 54 WHITE MALE who presents with Low back pain, sciatica, neck pain. Pain in left arm Active Problem Shared care - eap consultant and GP Z76 01/29/2021 AHMED,MOHAMMED JAWED Type 2 diabetes mellitus controlled 10/27/2020 AHMED,MOHAMMED JAWED Acquired polycystic kidney disease 02/23/2018 AHMED,MOHAMMED JAWED Low back pain M54.50 02/14/2022 AHMED,MOHAMMED JAWED Hyperuricemia E79.0 10/29/2016 AHMED,MOHAMMED JAWED Psoriasis L40.4 10/29/2016 AHMED,MOHAMMED JAWED Obstructive sleep apnea G47.33 02/27/2017 AHMED,MOHAMMED JAWED Obesity E66.8 10/29/2016 AHMED,MOHAMMED JAWED Date Sep CC / HPI - presents with 20 year hx of low back pain that started while serving in the [employer]. Pain is bilateral lumbar pain with occasional [...] and family stresses RESPONSE TO PREVIOUS TREATMENT. [place] reports that the acupuncture has been typically helpful for 3 to 4 weeks with reduced pain cervically and in his low back. was unable to keep his most recently scheduled appointment and went an additional month between treatments. states that his right side neck and his right arm have pain and numbness. [place] states that his arm does not feel weaker but it has less sensation. Low back is also sore more on the left side. recently had a in the family that has been very upsetting for him and is feeling elevated stress and grief. _ OBJECTIVE General: . Patient in no [...] ]Pyonex Needle: remove prior to bathing per cream dumper INFORMED CONSENT: Oral Consent obtained on Sep The patient was positioned comfortably. Oral consent [...] LK, DB, ZB, SI 4 [X] RUE: Zhao Pavel Cobb [X] LLE: LR 4.2, LR 4.5, LR [...] is required /betty/ MAYI RAZO LA.C, DIPL.AC CONVEYOR LOADER Signed: 10/05/2024 16:01 MAYI RAZO [facility]
--- OUTSIDE RECORDS SUMMARY | 2024-10-25 10:47 | XMS_ITS | Encounter Summary ---
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 [facility] [place] Address [address] [place] [address] Care Team Providers Care Short Piece Handler Name Role Phone LEO FORRESTER Primary Care [...] Suresh's Name Patient's Relationship to Policy Suresh [facility] ORGANIZAT ION COH G AND E May 10, 2024 [id number] [facility] ER PATIENT [place] PRESCRIPT ION [facility] May 10, 2024 [id number] CARD,[facility] ER PATIENT [employer] POINT OF SERVICE [facility] Feb 08, 2018 [id number] CARD,[facility] ER PATIENT [employer] BEHAVIORAL HEALTH MENTAL HEALTH [facility] Feb 08, 2018 [id number] CARD,[facility] ER PATIENT [employer] PHARMACY PRESCRIPT ION [facility] Feb 08, 2018 [id number] CARD,[facility] ER PATIENT [facility] May 10, 2019 [id number] JOANNA DURON JR PATIENT [facility] RX PRESCRIPT ION [facility] May 10, 2019 [facility] [id number] DOMI BAUTISTAJOANNA PATIENT Selected Encounter This section includes the information on record at [place] for the Encounter. Date/Time Encounter Type Encounter Description Reason Provider Source Sep 29, 2024 08:00 AM OFFICE O/P EST MOD 30 MIN RENAL/NEPHROL(EXC EPT DIALYSIS) ICD-10-CM Q61.2 Polycystic kidney, adult type WILLIAN CHAVEZ EY A [facility] Encounter Template Text not used by [place] Assessments - Encounter Diagnoses This section includes the primary and secondary diagnoses documented for the Encounter. Date/Time Primary/Secondary Diagnosis Diagnosis Name Provider Source Sep 30, 2024 11:13 AM PRIMARY Polycystic kidney, adult type WILLIAN CHAVEZ EY A [facility] [place] [facility] Plan of Treatment: Future Appointments (+ 6 months) and Future Tests (+/- 45 days) The Plan of Treatment section includes future care activities for the patient from all [place] [facility]. This section includes future appointments and future orders which are active, pending or scheduled. Future Appointments This section includes appointments that were scheduled to occur 6 months from the date of the Encounter, up to a maximum of 20 appointments. The data comes from all [place] treatment facilities. Appointment Date/Time Appointment Type Appointme nt Facility Name Oct 05, 2024 03:00 PM AMBULATORY - MEDICINE [facility] [place] [facility] Oct 14, 2024 03:00 PM AMBULATORY - MEDICINE [facility] [place] [facility] Oct 26, 2024 03:00 PM AMBULATORY - PSYCHIATRY [place] [facility] [place] [facility] Oct 28, 2024 03:00 PM AMBULATORY - MEDICINE [place] [facility] [place] [facility] Nov 02, 2024 09:00 AM AMBULATORY - MEDICINE [place] [facility] [place] [facility] Nov 09, 2024 03:30 PM AMBULATORY - MEDICINE [place] [facility] [place] [facility] Dec 02, 2024 03:00 PM AMBULATORY - MEDICINE [place] [facility] [place] [facility] Dec 03, 2024 08:00 AM AMBULATORY - MEDICINE [facility] [place] [facility] Jan 04, 2025 03:00 PM AMBULATORY - MEDICINE [facility] [place] [facility] Jan 25, 2025 08:00 AM AMBULATORY - MEDICINE [facility] [place] [facility] Feb 14, 2025 03:00 PM AMBULATORY - MEDICINE [facility] [place] [facility] Active, Pending, and Scheduled Orders This section includes a listing of several types of active, pending, and scheduled orders, including clinic medications orders, diagnostic test orders, procedure orders and consult orders; where the start date of the order is 45 days before the date of the Encounter or 45 days after the date of theEncounter. The data comes from all [place] treatment facilities. Test Date/Time Test Type Test Details Facility Name Sep 23, 2024 08:27 AM Consult Order COMMUNITY CARE-MRI Cons [place] Machine Operator's Choice [place] [facility] [place] [facility] Oct 14, 2024 03:46 PM Consult Order REHAB MEDI CINE/NHM OUTPT [place] Machine Operator's Choice [facility] Lab Results: +/- 30 days of the encounter This section includes the Chemistry and Hematology Lab Results on record with [place] for the patient. Radiology Reports and Pathology Reports are provided separately, in subsequent sections. Lab Results This section contains the Chemistry/Hematology Results that were resulted 30 days before or 30 daysafter the date of the Encounter. Date/Time Source Result Type Result - Unit Interpretation Reference Range Comment Sep 23, 2024 08:37 AM [place] [facility] [place] [facility] PO4 Specimen Type: SERUM No comment entered. Ordering Provider: ORIN CHAVEZ Report Released Date/Time: Aug 19, 2024 08:57 AM Reporting Lab: [place] [facility] [place] [facility] [address] [facility] [address] Performing Lab: [place] [facility] [place] [facility] [address] [facility] [address] PO4 3.1 mg/dL 2.5-5.0 Sep 23, 2024 08:37 AM [facility] [place] [facility] PTH INTACT Specimen Type: SERUM No comment entered. Ordering Provider: ORIN CHAVEZ Report Released Date/Time: Aug 19, 2024 08:57 AM Reporting Lab: [facility] [place] [facility] [address] [facility] [address] Performing Lab: [facility] [place] [facility] [address] [facility] [address] PTH INTACT 41.9 pg/mL 10-65 Sep 23, 2024 08:37 AM [facility] [place] [facility] URIC ACID Specimen Type: SERUM No comment entered. Ordering Provider: ORIN CHAVEZ Report Released Date/Time: Aug 19, 2024 08:57 AM Reporting Lab: [facility] [place] [facility] [address] [facility] [address] Performing Lab: [place] [facility] [place] [facility] [address] [facility] [address] URIC ACID 9.1 mg/dL H 3.5-7.2 Sep 23, 2024 08:37 AM [facility] VITAMIN D (25-OH) Specimen Type: SERUM No comment entered. Ordering Provider: ORIN CHAVEZ Report Released Date/Time: Aug 19, 2024 08:57 AM Reporting Lab: [place] [facility] [place] [facility] [address] [facility] [address] Performing Lab: [place] [facility] [place] [facility] [address] [facility] [address] VITAMIN D (25-OH) 30 ng/mL 20-50 Sep 23, 2024 08:37 AM [facility] MAGNESIUM Specimen Type: SERUM No comment entered. Ordering Provider: ORIN CHAVEZ Report Released Date/Time: Aug 19, 2024 08:57 AM Reporting Lab: [facility] [place] [facility] [address] [facility] [address] Performing Lab: [place] [facility] [place] [facility] [address] [facility] [address] MAGNESIUM 1.9 mg/dL 1.6-2.6 Sep 23, 2024 08:37 AM [facility] FERRITIN Specimen Type: SERUM No comment entered. Ordering Provider: ORIN CHAVEZ Report Released Date/Time: Aug 19, 2024 08:57 AM Reporting Lab: [facility] [place] [facility] [address] [facility] [address] Performing Lab: [address] [address] FERRITIN 418 ng/mL H 20-300 Sep 23, 2024 08:37 AM [facility] BASIC METABOLIC PANEL (non-fasting) Specimen Type: SERUM No comment entered. Ordering Provider: ORIN CHAVEZ Report Released Date/Time: Aug 19, 2024 08:57 AM Reporting Lab: [address] [address] Performing Lab: [address] [address] UREA NITROGEN 20 mg/dL 7-25 GLUCOSE 137 mg/dL H 65-100 SODIUM 138 mmol/L 135-145 POTASSIUM 4.2 mmol/L 3.5-5.0 CHLORIDE 100 mmol/L 100-110 CO2 26 meq/L 20-30 CREATININE, Serum 1.20 mg/dL 0.50-1.40 eGFR(CKD-EPI 2020) 72 mL/min >60 Sep 23, 2024 08:37 AM [facility] MICROALBUMIN CREATININE RATIO PANEL Specimen Type: URINE No comment entered. Ordering Provider: ORIN CHAVEZ Report Released Date/Time: Aug 19, 2024 08:57 AM Reporting Lab: [address] [address] Performing Lab: [address] [address] MICROALBUMIN/C REATININE RATIO 429.6 mg/g H 0-29.9 MICROALBUMIN,Q UANTITATIVE 54.3 mg/dL RR UNAVAIL CREATININE URINE 126.39 mg/dL Sep 23, 2024 08:37 AM [facility] IRON & TIBC PANEL Specimen Type: SERUM No comment entered. Ordering Provider: ORIN CHAVEZ Report Released Date/Time: Aug 19, 2024 08:57 AM Reporting Lab: [address] [address] Performing Lab: [facility] [place] [facility] [address] [facility] [address] TIBC 350 ug/dL 204-475 IRON 120 ug/dL 40-160 Transferrin Saturation 34.3 20.0-50.0 Transferrin (TRF) 265 mg/dL 200-360 Sep 23, 2024 08:37 AM [facility] [place] [facility] CHOLESTEROL Specimen Type: SERUM No comment entered. Ordering Provider: ORIN CHAVEZ Report Released Date/Time: Aug 19, 2024 08:57 AM Reporting Lab: [facility] [place] [facility] [address] [facility] [address] Performing Lab: [place] [facility] [place] [address] [address] CHOLESTEROL 188 mg/dL Sep 23, 2024 08:37 AM [facility] [place] [facility] HDL CHOLESTEROL Specimen Type: SERUM No comment entered. Ordering Provider: ORIN CHAVEZ Report Released Date/Time: Aug 19, 2024 08:57 AM Reporting Lab: [facility] [place] [facility] [address] [facility] [address] Performing Lab: [place] [facility] [place] [address] [address] HDL CHOLESTEROL 55 mg/dL 40-60 Sep 23, 2024 08:37 AM [facility] [place] [facility] CALCIUM Specimen Type: SERUM No comment entered. Ordering Provider: ORIN CHAVEZ Report Released Date/Time: Aug 19, 2024 08:57 AM Reporting Lab: [facility] [place] [facility] [address] [facility] [address] Performing Lab: [place] [facility] [place] [address] [address] CALCIUM 9.4 mg/dL 8.5-10.2 Sep 23, 2024 08:37 AM [facility] [place] [facility] ALBUMIN Specimen Type: SERUM No comment entered. Ordering Provider: ORIN CHAVEZ Report Released Date/Time: Aug 19, 2024 08:57 AM Reporting Lab: [facility] [place] [address] [address] Performing Lab: [facility] [address] [facility] [address] ALBUMIN 4.1 g/dL 3.5-5.0 Sep 23, 2024 08:37 AM [facility] ALKALINE PHOSPHATASE Specimen Type: SERUM No comment entered. Ordering Provider: ORIN CHAVEZ Report Released Date/Time: Aug 19, 2024 08:57 AM Reporting Lab: [facility] [address] [facility] [address] Performing Lab: [address] [address] ALKALINE PHOSPHATASE 62 U/L 40-150 Sep 23, 2024 08:37 AM [facility] CBC Specimen Type: BLOOD No comment entered. Ordering Provider: ORIN CHAVEZ Report Released Date/Time: Aug 19, 2024 08:57 AM Reporting Lab: [facility] [address] [facility] [address] Performing Lab: [address] [address] WBC 4.70 10*3/uL 4.50-11.00 RBC 4.71 10*6/uL 4.23-5.66 HGB 13.8 g/dL 12.8-17 HCT 41.4 39.2-50.4 MCV 87.9 fL 82-99 MCHC 33.3 g/dL 30.8-35.1 PLT 198 10*3/uL 140-360 RDW-CV 12.7 12.0-16.0 MCH 29.3 pg 26.2-32.6 Vital Signs: All taken on the encounter date This section contains inpatient and outpatient Vital Signs collected on the date of the Encounter. Date/Time Temperature Pulse Blood Pressure Respiratory Rate SP02 Pain Height Weight Body Mass Index Source Sep 29, 2024 07:57 AM 97.9 59 132/86 18 97 6 256 33 [facility] Social History: Smoking Status (Most current) and Tobacco Use (All prior to encounter date) This section includes the most current, and the historical, smoking and tobacco- related health factors from the [place] facility where the Encounter took place. Current Smoking Status This section includes the most current smoking, or tobacco-related health factor, from the [place] facility where the Encounter took place. Date/Time Current Smoking Status Comment Facil it Feb 11, 2024 03:00 PM VA-TOBACCO NEVER USED [place] [facility] [place] [facility] Tobacco Use History This section includes a history of the smoking, or tobacco-related health factors, that were collected on or before the date of the Encounter. The data comes from the [place] facility where the Encounter took place. Date/Time Smoking Status/Tobac co Use Comment Facility Feb 12, 2023 03:00 PM VA-TOBACCO NEVER USED [place] [facility] [place] [facility] Feb 14, 2022 03:00 PM VA-TOBACCO NEVER USED [facility] [place] [facility] Oct 27, 2020 03:30 PM VA-TOBACCO NEVER USED [facility] [place] [facility] Aug 25, 2018 04:16 PM VA-TOBACCO DOESNT USE WI 30 MIN WAKEUP [place] [facility] [place] [facility] Aug 25, 2018 04:16 PM VA-TOBACCO USE > 15 LESS THAN 30 YEARS [place] [facility] [place] [facility] Aug 25, 2018 04:16 PM VA-TOBACCO USE ADVICE [place] [facility] [place] [facility] Aug 25, 2018 04:16 PM VA-TOBACCO USE 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 NO [facility] [place] [facility] Aug 25, 2018 04:16 PM VA-TOBACCO USE MED NO [place] [facility] [place] [facility] Aug 25, 2018 04:16 PM VA-TOBACCO USER SOME DAYS [place] [facility] [place] [facility] Oct 07, 2017 11:55 AM CURRENT SMOKER 1 cigar a few times a year [place] [facility] [place] [facility] Oct 07, 2017 11:55 AM V1-PT NOT INTERESTED IN QUIT TOBACCO USE [place] [facility] [place] [facility] Oct 29, 2016 08:57 AM LIFETIME NON-TOBACCO USER [place] [facility] [place] [facility] Encounter Notes: All associated encounter notes This section contains the clinical notes associated to the Encounter. Date/Time Encounter Note(s) Provider Source Sep 29, 2024 07:41 AM NEPHROLOGY E & M NOTE: LOCAL TITLE: NEPHROLOGY NOTE STANDARD TITLE: NEPHROLOGY E & M NOTE DATE OF NOTE: SEP 29, 2024@07:41 ENTRY DATE: SEP 29, 2024@07:41:32 AUTHOR: MIGUELANGEL CHAVEZ COSIGNER: URGENCY: STATUS: COMPLETED Nephrology Note Follow-Up 09/29/24 08:00 Blood Pressure: 132/86 (09/29/2024 07:57) Pain: 6 (09/29/2024 07:57) Patient Height: 74 in [188.0 cm] (02/11/2024 14:50) Patient Weight: 256 lb [116.12 kg] (09/29/2024 07:57) Pulse: 59 (09/29/2024 07:57) Respiration: 18 (09/29/2024 07:57) Temperature: 97.9 F [36.6 C] (09/29/2024 07:57) Consultation: Polycystic Kidney Disease History:54 year old male with a history of Sleep Apnea Syndrome(OBST), obesity and PCKD presenting for evaluation and management for renal disease.. the patient states he was found to have PCKD about 5 years ago when he underwent xray. The patient denies chest pain, SOB, edema, rash, cough, chills/fever or dysuria. The patient reports he is scheduled for a MRI to evaluate right nect pain.The patient reports that he is trying to get his muscle mass up by taking increased amount of proteins in his diet. He reports that his father with PCKD recently. His sister is still on dialysis after 11 years. Active and Recently Outpatient Medications (including Supplies): Active Outpatient Medications Status = 1) ALLOPURINOL 300MG TAB TAKE ONE TABLET [...] TO SEXUAL ACTIVITY Active Non-VA Medications Status = 1) Non-VA GUSELKUMAB 100MG/ML INJ 1ML SYR 100MG (1ML) ACTIVE SUBCUTANEOUSLY [id number] Total Medications Allergies/Adverse Reactions: Patient has answered NKA General:WDWN tall statured male alert, cooperative in NAD HEENT: NECK:supple; no JVD; LUNGS:clear; Heart:RRR; no murmur/gallop/rub ABD:slight increased abdominal girth; +BS; soft; Ext:no edema; SKIN: Assessment and Plans: Below Areas to address in the evaluation and management of the patient's CKD and to reduce renal disease progression is as follows:. #1. polycytic Kidney disease: The patient was last seen Jan 2023,he patient is without uremic sx. REview of labs from Sep 23, 2024 showed a potassium(4.2), normal bicarb(26). His creatinine was 1.2. His urine microalb/cr ratio was 249.6(Aug) now 429.6. He has increased protein in his diet and other foods to make himself bigger. Will reassess on return. He says he will return to his regular diet. No med changes. will continue his present medical regimen returning in four months obtaining labs for that visit. #2. Hypertension:The patient's blood pressure was 132/86 p=59today. This is an e=very good blood pressure. Will recheck on return. THe patient is encouraged to take his meds as prescribed, exercise and to limit the salt in his diet. No med changes. #3. Hypercholesterolemia: the patient lipid studies from 10/03 his cholesterol was 188 and HDl was. He is encouraged to have a heart healthy low fat diet and to exercise. #4. Anemia: His H/H were normal at 14/42 mcv=88.2 (10/03). His iron studies showed a TIBC was 350, iron was 120, ferritin was 418 and TSAT was 34. No evidence for iron deficiency anemia. #5. CKD-MBD: He had a recent labs from 10/03 showed a normal vitD(30), PO4(3.1), mag was 1.9 and alk phosphatase(562. His PTH was 42 and calcium was 9.2. The patient is not a candidate for bone density studies at this time #6. Nutritional state/obesity: the patient's albumin was 4.1.. . The patient weight was 256 lbs. The patient is encouraged to exercise and adhere to a heart healthy diet. #7. Gouty arthritis: He has a history of gout with his recent uric acid of 9.0. He is presently taking allopurinol. He has had no recent attacks. His gout is managed by his primary. This was a 20 minute visit > 50% of which was spent in counseling and coordination of care. All available test results were reviewed with the . Medication Reconciliation: Outpatient: Has the patient been taking medications as documented in the EMLR? YES: The patient has been taking medications as documented in the EMLR. Essential Medication List for Review used to complete this medication reconciliation. INCLUDED IN THIS LIST: Alphabetical list of active outpatient prescriptions dispensed from this [place] (local) and dispensed from another VA or [facility]D facility (remote) as well as [...] with a VA or non-VA provider. /betty/ MIGUELANGEL CHAVEZ M.D. [employer] Signed: 09/29/2024 08:28 MIGUELANGEL CHAVEZ [place] [facility]
--- OUTSIDE RECORDS SUMMARY | 2024-10-25 10:47 | XMS_ITS | Encounter Summary ---
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 Address [address] [place] [address] Care Team Providers Care Family Physician Name Role Phone LEO FORRESTER Primary Care [...] Name Patient's Relationship to Policy Suresh [facility] CE ORGANIZAT ION COH G AND E May 10, 2024 [id number] [phone] [facility] ER PATIENT CAREMARK PRESCRIPT ION [facility] May 10, 2024 [id number] CARD,SP ER PATIENT [employer] POINT OF SERVICE [place] Feb 08, 2018 [id number] CARD,[facility] ER PATIENT [employer] BEHAVIORAL HEALTH MENTAL HEALTH [place] Feb 08, 2018 [id number] CARD,[facility] ER PATIENT [employer] PHARMACY PRESCRIPT ION [place] Feb 08, 2018 [id number] CARD,[facility] ER PATIENT [facility] SPECIAL [facility] May 10, 2019 [id number] JOANNA DURON JR PATIENT OPTUM RX PRESCRIPT ION HEALT H NEW ENGL [facility] May 10, 2019 [facility] [id number] DOMI BAUTISTAJOANNA PATIENT Selected Encounter This section includes the information on record at [place] for the Encounter. Date/Time Encounter Type Encounter Description Reason Provider Source Jun 21, 2024 10:16 AM Outpatient Encounter PROSTHETICS/ORTHOTIC S LEO FORRESTER Encounter Template Text not used by [place] Plan of Treatment: Future Appointments (+ 6 months) and Future Tests (+/- 45 days) The Plan of Treatment section includes future care activities for the patient [facility] This section includes future appointments and future orders which are active, pending or scheduled. Future Appointments This section includes appointments that were scheduled to occur 6 months from the date of the Encounter, up to a maximum of 20 appointments. The data comes from all [place] treatment facilities. Appointment Date/Time Appointment Type Appointme nt Facility Name Jun 30, 2024 03:00 PM AMBULATORY - MEDICINE [place] [facility] [place] [facility] Aug 16, 2024 03:00 PM AMBULATORY - MEDICINE [place] [facility] [place] [facility] Sep 02, 2024 02:10 PM AMBULATORY - MEDICINE [place] [facility] [place] [facility] Sep 08, 2024 03:00 PM AMBULATORY - PSYCHIATRY [place] [facility] [place] [place] [facility] Sep 23, 2024 08:00 AM AMBULATORY - MEDICINE [place] [facility] [place] [facility] Sep 23, 2024 03:00 PM AMBULATORY - PSYCHIATRY [facility] [place] [facility] Sep 29, 2024 08:00 AM AMBULATORY - MEDICINE [place] [facility] [place] [facility] Oct 05, 2024 03:00 PM AMBULATORY - MEDICINE [place] [facility] [place] [facility] Oct 14, 2024 03:00 PM AMBULATORY - MEDICINE [place] [facility] [place] [facility] Oct 26, 2024 03:00 PM AMBULATORY - PSYCHIATRY [place] [facility] [place] [facility] Oct 28, 2024 03:00 PM AMBULATORY - MEDICINE [place] [facility] [place] [facility] Nov 02, 2024 09:00 AM AMBULATORY - MEDICINE [place] [facility] [place] [facility] Nov 09, 2024 03:30 PM AMBULATORY - MEDICINE [place] [facility] [place] [facility] Dec 02, 2024 03:00 PM AMBULATORY - MEDICINE [place] [facility] [place] [facility] Dec 03, 2024 08:00 AM AMBULATORY - MEDICINE [place] [facility] [place] [facility] Social History: Smoking Status (Most current) and Tobacco Use (All prior to encounter date) This section includes the most current, and the historical, smoking and tobacco- related health factors from the [place] facility where the Encounter took place. Current Smoking Status This section includes the most current smoking, or tobacco-related health factor, from the [place] facility where the Encounter took place. Date/Time Current Smoking Status Comment [facility] Feb 11, 2024 03:00 PM VA-TOBACCO NEVER USED [facility] Tobacco Use History This section includes a history of the smoking, or tobacco-related health factors, that were collected on or before the date of the Encounter. The data comes from the [place] facility where the Encounter took place. Date/Time Smoking Status/Tobac co Use Comment Facility Feb 12, 2023 03:00 PM VA-TOBACCO NEVER USED [facility] [place] [facility] Feb 14, 2022 03:00 PM VA-TOBACCO NEVER USED [facility] [place] [facility] Oct 27, 2020 03:30 PM VA-TOBACCO NEVER USED [facility] [place] [facility] Aug 25, 2018 04:16 PM VA-TOBACCO DOESNT USE WI 30 MIN WAKEUP [facility] [place] [facility] Aug 25, 2018 04:16 PM VA-TOBACCO USE > 15 LESS THAN 30 YEARS [facility] [place] [facility] Aug 25, 2018 04:16 PM VA-TOBACCO USE ADVICE [facility] [place] [facility] Aug 25, 2018 04:16 PM VA-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
--- OUTSIDE RECORDS SUMMARY | 2024-10-25 10:47 | XMS_ITS ---
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 Role Phone LEO FORRESTER Primary [...] Name Patient's Relationship to Policy Suresh [facility] ORGANIZAT ION COH G AND E May 10, 2024 [id number] [facility] ER PATIENT CAREMARK PRESCRIPT ION [facility] May 10, 2024 [id number] CARD,ED [facility] ER PATIENT [employer]IG[employer] POINT OF SERVICE [facility] Feb 08, 2018 [id number] CARD,ED [facility] ER PATIENT [employer]IG[employer] BEHAVIORAL HEALTH MENTAL HEALTH [facility] Feb 08, 2018 [id number] CARD,ED [facility] ER PATIENT CIGNA PHARMACY PRESCRIPT ION [facility] Feb 08, 2018 [id number] CARD,ED [facility] ER PATIENT [facility] May 10, 2019 [id number] JOANNA DURON JR PATIENT OPT[facility] RX PRESCRIPT ION HEALT H NEW ENGL [facility] May 10, 2019 [facility] [id number] DOMI BAUTISTAJOCELYNEYOONKIRAN PATIENT Selected Encounter This section includes the information on record at [place] for the Encounter. Date/Time Encounter Type Encounter Description Reason Pro vider Source Sep 02, 2024 12:00 AM Outpatient Encounter COMMUNITY CARE CONSULT IHE Encounter Template Text not used by [place] Plan of Treatment: Future Appointments (+ 6 months) and Future Tests (+/- 45 days) The Plan of Treatment section includes future care activities for the patient from all [place] [facility]. This section includes future appointments and future orders which are active, pending or scheduled. Future Appointments This section includes appointments that were scheduled to occur 6 months from the date of the Encounter, up to a maximum of 20 appointments. The data comes from all [place] treatment facilities. Appointment Date/Time Appointment Type Appointme nt Facility Name Sep 08, 2024 03:00 PM AMBULATORY - PSYCHIATRY [facility] [place] [place] [facility] Sep 23, 2024 08:00 AM AMBULATORY - MEDICINE [place] [facility] [place] [facility] Sep 23, 2024 03:00 PM AMBULATORY - PSYCHIATRY [facility] [place] [facility] Sep 29, 2024 08:00 AM AMBULATORY - MEDICINE [place] [facility] [place] [facility] Oct 05, 2024 03:00 PM AMBULATORY - MEDICINE [place] [facility] Oct 14, 2024 03:00 PM AMBULATORY - MEDICINE [place] [facility] Oct 26, 2024 03:00 PM AMBULATORY - PSYCHIATRY [facility] [place] [facility] Oct 28, 2024 03:00 PM AMBULATORY - MEDICINE [place] [facility] Nov 02, 2024 09:00 AM AMBULATORY - MEDICINE [place] [facility] Nov 09, 2024 03:30 PM AMBULATORY - MEDICINE [place] [facility] [place] [facility] Dec 02, 2024 03:00 PM AMBULATORY - MEDICINE [place] [facility] Dec 03, 2024 08:00 AM AMBULATORY - MEDICINE [place] [facility] Jan 04, 2025 03:00 PM AMBULATORY - MEDICINE [place] [facility] Jan 25, 2025 08:00 AM AMBULATORY - MEDICINE [place] [facility] Feb 14, 2025 03:00 PM AMBULATORY - MEDICINE [facility] Active, Pending, and Scheduled Orders This section includes a listing of several types of active, pending, and scheduled orders, including clinic medications orders, diagnostic test orders, procedure orders and consult orders; where the start date of the order is 45 days before the date of the Encounter or 45 days after the date of theEncounter. The data comes from all [place] treatment facilities. Test Date/Time Test Type Test Details Facility Name Sep 23, 2024 08:27 AM Consult Order COMMUNITY CARE-MRI Cons Community Recreation Programmer's Choice [facility] Oct 14, 2024 03:46 PM Consult Order REHAB MEDI CINE/NHM OUTPT Cons Community Recreation Programmer's Choice [facility] Lab Results: +/- 30 days [...] Range Comment Sep 23, 2024 08:37 AM [facility] URIC ACID Specimen Type: SERUM No comment entered. Ordering Provider: WILLIAN CHAVEZ Report Released Date/Time: Aug 19, 2024 08:57 AM Reporting Lab: [facility] [address] [address] Performing Lab: [facility] [address] [address] URIC ACID 9.1 mg/dL H 3.5-7.2 Sep 23, 2024 08:37 AM [facility] PTH INTACT Specimen Type: SERUM No comment entered. Ordering Provider: WILLIAN CHAVEZ Report Released Date/Time: Aug 19, 2024 08:57 AM Reporting Lab: [facility] [place] [facility] [address] [address] Performing Lab: [facility] [place] [facility] [address] [address] PTH INTACT 41.9 pg/mL -65 Sep 23, 2024 08:37 AM [facility] [place] [facility] PO4 Specimen Type: SERUM No comment entered. Ordering Provider: WILLIAN CHAVEZ Report Released Date/Time: Aug 19, 2024 08:57 AM Reporting Lab: [facility] [place] [facility] [address] [address] Performing Lab: [facility] [place] [facility] [address] [facility] [address] PO4 3.1 mg/dL 2.5-5.0 Sep 23, 2024 08:37 AM [facility] [place] [facility] VITAMIN D (25-[place]) Specimen Type: SERUM No comment entered. Ordering Provider: WILLIAN CHAVEZ Report Released Date/Time: Aug 19, 2024 08:57 AM Reporting Lab: [facility] [facility] [address] [address] Performing Lab: [facility] [place] [facility] [address] [address] VITAMIN D (25-[place]) 30 ng/mL -50 Sep 23, 2024 08:37 AM [facility] MAGNESIUM Specimen Type: SERUM No comment entered. Ordering Provider: WILLIAN CHAVEZ Report Released Date/Time: Aug 19, 2024 08:57 AM Reporting Lab: [facility] [facility] [address] [address] Performing Lab: [place] [facility] [address] [address] MAGNESIUM 1.9 mg/dL 1.6-2.6 Sep 23, 2024 08:37 AM [facility] [place] [place] [facility] FERRITIN Specimen Type: SERUM No comment entered. Ordering Provider: WILLIAN CHAVEZ Report Released Date/Time: Aug 19, 2024 08:57 AM Reporting Lab: [place] [facility] [address] [address] Performing Lab: [facility] TRN [place] [facility] [address] [address] FERRITIN 418 ng/mL H 20-300 Sep 23, 2024 08:37 AM [facility]RL [facility] MICROALBUMIN CREATININE RATIO PANEL Specimen Type: URINE No comment entered. Ordering Provider: WILLIAN CHAVEZ A Report Released Date/Time: Aug 19, 2024 08:57 AM Reporting Lab: [facility]ITALR[facility]TRN [place] [facility] [address] [address] Performing Lab: [facility] [address] [address] MICROALBUMIN/C REATININE RATIO 429.6 mg/g H 0-29.9 MICROALBUMIN,Q UANTITATIVE 54.3 mg/dL RR UNAVAIL CREATININE URINE 126.39 mg/dL Sep 23, 2024 08:37 AM [facility] IRON & TIBC PANEL Specimen Type: SERUM No comment entered. Ordering Provider: WILLIAN CHAVEZ A Report Released Date/Time: Aug 19, 2024 08:57 AM Reporting Lab: [facility]ITALR[facility]ITALN [facility] [address] [address] Performing Lab: [facility]ITALRMON[facility]PITALN [facility] [address] [address] TIBC 350 ug/dL 204-475 IRON 120 ug/dL 40-160 Transferrin Saturation 34.3 20.0-50.0 Transferrin (TRF) 265 mg/dL 200-360 Sep 23, 2024 08:37 AM [facility] CHOLESTEROL Specimen Type: SERUM No comment entered. Ordering Provider: WILLIAN CHAVEZ Report Released Date/Time: Aug 19, 2024 08:57 AM Reporting Lab: [facility]ITALRST[facility] VINCENT'[facility] BLOUNTTRN [facility] [address] [address] Performing Lab: [facility]ITALRMON[facility]OSPITALN [facility] [address] [address] CHOLESTEROL 188 mg/dL Sep 23, 2024 08:37 AM [facility] HDL CHOLESTEROL Specimen Type: SERUM No comment entered. Ordering Provider: WILLIAN CHAVEZ Report Released Date/Time: Aug 19, 2024 08:57 AM Reporting Lab: [facility] [address] [address] Performing Lab: [address] [address] HDL CHOLESTEROL 55 mg/dL 40-60 Sep 23, 2024 08:37 AM [facility] CALCIUM Specimen Type: SERUM No comment entered. Ordering Provider: WILLIAN CHAVEZ Report Released Date/Time: Aug 19, 2024 08:57 AM Reporting Lab: [address] [address] Performing Lab: [address] [address] CALCIUM 9.4 mg/dL 8.5-10.2 Sep 23, 2024 08:37 AM [facility] ALBUMIN Specimen Type: SERUM No comment entered. Ordering Provider: WILLIAN CHAVEZ Report Released Date/Time: Aug 19, 2024 08:57 AM Reporting Lab: [address] [address] Performing Lab: [address] [address] ALBUMIN 4.1 g/dL 3.5-5.0 Sep 23, 2024 08:37 AM [facility] BASIC METABOLIC PANEL (non-fasting) Specimen Type: SERUM No comment entered. Ordering Provider: WILLIAN CHAVEZ Report Released Date/Time: Aug 19, 2024 08:57 AM Reporting Lab: [address] [address] Performing Lab: [address] [address] UREA NITROGEN 20 mg/dL 7-25 GLUCOSE 137 mg/dL H 65-100 SODIUM 138 mmol/L 135-145 POTASSIUM 4.2 mmol/L 3.5-5.0 CHLORIDE 100 mmol/L 100-110 CO2 26 meq/L 20-30 CREATININE, Serum 1.20 mg/dL 0.50-1.40 eGFR(CKD-EPI 2020) 72 mL/min >60 Sep 23, 2024 08:37 AM [facility] ALKALINE PHOSPHATASE Specimen Type: SERUM No comment entered. Ordering Provider: WILLIAN CHAVEZ A Report Released Date/Time: Aug 19, 2024 08:57 AM Reporting Lab: [address] [address] Performing Lab: [address] [address] ALKALINE PHOSPHATASE 62 U/L 40-150 Sep 23, 2024 08:37 AM [facility] CBC Specimen Type: BLOOD No comment entered. Ordering Provider: WILLIAN CHAVEZ A Report Released Date/Time: Aug 19, 2024 08:57 AM Reporting Lab: [address] [address] Performing Lab: [address] [address] WBC 4.70 10*3/uL 4.50-11.00 RBC 4.71 10*6/uL 4.23-5.66 HGB 13.8 g/dL 12.8-17 HCT 41.4 39.2-50.4 MCV 87.9 fL 82-99 MCHC 33.3 g/dL 30.8-35.1 PLT 198 10*3/uL 140-360 RDW-CV 12.7 12.0-16.0 MCH 29.3 pg 26.2-32.6 Aug 16, 2024 03:55 PM [facility] HEMOGLOBIN A1C PANEL Specimen Type: BLOOD [...] Jul 30, 2024 11:24 AM Reporting Lab: [facility] [address] [address] Performing Lab: [address] [address] HEMOGLOBIN A1C 6.3 H 4.0-5.6 Aug 16, 2024 03:55 PM [facility] LIPID PANEL FASTING Specimen Type: SERUM No comment entered. Ordering Provider: LEO FORRESTER Report Released Date/Time: Jul 30, 2024 11:24 AM Reporting Lab: [address] [address] Performing Lab: [address] [address] CHOLESTEROL 129 mg/dL TRIGLYCERIDE 86 mg/dL 0-150 LDL calculated 62 mg/dL 0-129 CHOL/HDL 2.6 HDL CHOLESTEROL 50 mg/dL 40-60 Aug 16, 2024 03:55 PM [facility] BASIC METABOLIC PANEL (fasting) Specimen Type: SERUM No comment entered. Ordering Provider: LEO FORRESTER Report Released Date/Time: Jul 30, 2024 11:24 AM Reporting Lab: [address] [address] Performing Lab: [address] [address] UREA NITROGEN 23 mg/dL 7-25 GLUCOSE 198 mg/dL H 65-100 SODIUM 141 mmol/L 135-145 POTASSIUM 4.7 mmol/L 3.5-5.0 CHLORIDE 107 mmol/L 100-110 CO2 27 meq/L 20-30 CREATININE, Serum 1.35 mg/dL 0.50-1.40 eGFR(CKD-EPI 2020) 63 mL/min >60 Aug 16, 2024 03:55 PM [facility] MICROALBUMIN CREATININE RATIO PANEL Specimen Type: URINE No comment entered. Ordering Provider: LEO FORRESTER Report Released Date/Time: Jul 30, 2024 11:24 AM Reporting Lab: [address] [place] [address] Performing Lab: [facility] [facility] [address] [address] MICROALBUMIN/C REATININE RATIO 249.6 mg/g H 0-29.9 [...] took place. Date/Time Current Smoking Status Comment [facility] Feb 11, 2024 03:00 PM VA-TOBACCO [facility] Tobacco Use History This section includes a history of the smoking, or tobacco-related health factors, that were collected on or before the date of the Encounter. The data comes from the [place] facility where the Encounter took place. Date/Time Smoking Status/Tobac co Use Comment Facility Feb 12, 2023 03:00 PM VA-TOBACCO NEVER USED [facility] [facility] Feb 14, 2022 03:00 PM VA-TOBACCO NEVER USED [facility] [facility] Oct 27, 2020 03:30 PM VA-TOBACCO NEVER USED [facility] [facility] Aug 25, 2018 04:16 PM VA-TOBACCO DOESNT USE WI 30 MIN WAKEUP [place] [facility] Aug 25, 2018 04:16 PM VA-TOBACCO USE > 15 LESS THAN 30 YEARS [facility] [place] [facility] Aug 25, 2018 04:16 PM VA-TOBACCO USE ADVICE [facility] [place] [facility] Aug 25, 2018 04:16 PM 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 [facility] [facility] Aug 25, 2018 04:16 PM VA-TOBACCO USE MED NO [facility] [facility] Aug 25, 2018 04:16 PM VA-TOBACCO USER SOME DAYS [facility] [place] [facility] Oct 07, 2017 11:55 AM CURRENT SMOKER 1 cigar a few times a year [facility] Oct 07, 2017 11:55 AM V1-PT NOT INTERESTED IN QUIT TOBACCO USE [facility] Oct 29, 2016 08:57 AM LIFETIME NON-TOBACCO USER [facility] Encounter Notes: All associated encounter notes This section contains the clinical notes associated to the Encounter. Date/Time Encounter Note(s) Provider Source Sep 02, 2024 12:00 AM NONVA CONSULT: LOCAL TITLE: COMMUNITY CARE-CONSULT RESULT NOTE STANDARD TITLE: NONVA CONSULT DATE OF NOTE: SEP 02, 2024 ENTRY DATE: OCT 02, 2024@14:21:52 AUTHOR: DENNIS CONTE EXP COSIGNER: URGENCY: STATUS: COMPLETED VistA Imaging - Scanned Document SCANNED DOCUMENT SIGNATURE NOT REQUIRED Electronically Filed: 10/02/2024 by: DENNIS LOPES [facility]
--- OUTSIDE RECORDS SUMMARY | 2024-10-25 10:47 | XMS_ITS ---
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 [facility] [place] Address [address] [place] [address] Care Team Providers Care Clinical Research Manager Name Role Phone LEO FORRESTER Primary Care [...] Patient's Relationship to Policy Suresh [facility] CE ORGANIZAT ION COH G AND E May 10, 2024 [id number] [facility] ER PATIENT [place] PRESCRIPT ION [facility] May 10, 2024 [id number] CARD,SP ER PATIENT [employer] [facility] [place] Feb 08, 2018 [id number] CARD,[facility] ER PATIENT [facility] [place] Feb 08, 2018 [id number] CARD,[facility] ER PATIENT [employer] [facility] PRESCRIPT ION [place] Feb 08, 2018 [id number] CARD,[facility] ER PATIENT [facility] May 10, 2019 [id number] DOMI BAUTISTAJOANNA PATIENT [facility] RX PRESCRIPT ION HEALT H NEW EN[facility] May 10, 2019 [facility] [id number] DOMI BAUTISTAJOANNA PATIENT Selected Encounter This section includes the information on record at [place] for the Encounter. Date/Time Encounter Type Encounter Description Reason Provider Source Oct 14, 2024 03:00 PM MANUAL THERAPY 1/> [employer] ICD-10-CM M54.2 Cervicalgia MARY JO MATHIS [facility] Encounter Template Text not used by [place] Assessments - Encounter Diagnoses This section includes the primary and secondary diagnoses documented for the Encounter. Date/Time Primary/Secondary Diagnosis Diagnosis Name Provider Source Oct 14, 2024 03:42 PM PRIMARY Cervicalgia MARY JO MATHIS [place] [facility] [place] [facility] Plan of Treatment: Future Appointments (+ 6 months) and Future Tests (+/- 45 days) The Plan of Treatment section includes future care activities for the patient from all [place] treatmentfacilities. This section includes future appointments and future orders which are active, pending or scheduled. Future Appointments This section includes appointments that were scheduled to occur 6 months from the date of the Encounter, up to a maximum of 20 appointments. The data comes from all [place] treatment facilities. Appointment Date/Time Appointment Type Appointme nt Facility Name Oct 26, 2024 03:00 PM AMBULATORY - PSYCHIATRY [place] [facility] [place] [facility] Oct 28, 2024 03:00 PM AMBULATORY - MEDICINE [place] [facility] [place] [facility] Nov 02, 2024 09:00 AM AMBULATORY - MEDICINE [place] [facility] [place] [facility] Nov 09, 2024 03:30 PM AMBULATORY - MEDICINE [place] [facility] [place] [facility] Dec 02, 2024 03:00 PM AMBULATORY - MEDICINE [place] [facility] [place] [facility] Dec 03, 2024 08:00 AM AMBULATORY - MEDICINE [place] [facility] [place] [facility] Jan 04, 2025 03:00 PM AMBULATORY - MEDICINE [place] [facility] [place] [facility] Jan 25, 2025 08:00 AM AMBULATORY - MEDICINE [place] [facility] [place] [facility] Feb 14, 2025 03:00 PM AMBULATORY - MEDICINE [place] [facility] [place] [facility] Active, Pending, and Scheduled Orders [...] 08:27 AM Consult Order COMMUNITY CARE-MRI Cons Curator [employer] [place] [facility] [place] [facility] Oct 14, 2024 03:46 PM Consult Order REHAB MEDI CINE/NHM OUTPT Cons Curator [facility] Lab Results: +/- 30 days [...] Sep 23, 2024 08:37 AM [facility] PO4 Specimen Type: SERUM No comment entered. Ordering Provider: ORIN CHAVEZ Report Released Date/Time: Aug 19, 2024 08:57 AM Reporting Lab: [facility] [place] [facility] [address] [facility] [address] Performing Lab: [facility] [place] [facility] [address] [facility] [address] PO4 3.1 mg/dL 2.5-5.0 Sep 23, 2024 08:37 AM [facility] URIC ACID Specimen Type: SERUM No comment entered. Ordering Provider: ORIN CHAVEZ Report Released Date/Time: Aug 19, 2024 08:57 AM Reporting Lab: [facility] [place] [facility] [address] [facility] [address] Performing Lab: [facility] [address] [address] URIC ACID 9.1 mg/dL H 3.5-7.2 Sep 23, 2024 08:37 AM [place] [facility] [place] [facility] PTH INTACT Specimen Type: SERUM No comment entered. Ordering Provider: ORIN CHAVEZ Report Released Date/Time: Aug 19, 2024 08:57 AM Reporting Lab: [facility] [place] [facility] [address] [facility] [address] Performing Lab: [facility] [place] [facility] [address] [facility] [address] PTH INTACT 41.9 pg/mL -65 Sep 23, 2024 08:37 AM [facility] [place] [facility] VITAMIN D (25-[place]) Specimen Type: SERUM No comment entered. Ordering Provider: ORIN CHAVEZ Report Released Date/Time: Aug 19, 2024 08:57 AM Reporting Lab: [facility] [place] [facility] [address] [facility] [address] Performing Lab: [place] [facility] [place] [address] [address] VITAMIN D (25-[place]) 30 ng/mL -50 Sep 23, 2024 08:37 AM [facility] MAGNESIUM Specimen Type: SERUM No comment entered. Ordering Provider: ORIN CHAVEZ Report Released Date/Time: Aug 19, 2024 08:57 AM Reporting Lab: [facility] [place] [facility] [address] [facility] [address] Performing Lab: [place] [facility] [place] [address] [address] MAGNESIUM 1.9 mg/dL 1.6-2.6 Sep 23, 2024 08:37 AM [facility] FERRITIN Specimen Type: SERUM No comment entered. Ordering Provider: ORIN CHAVEZ Report Released Date/Time: Aug 19, 2024 08:57 AM Reporting Lab: [facility] [place] [facility] [address] [facility] [address] Performing Lab: [place] [facility] [place] [address] [address] FERRITIN 418 ng/mL H 20-300 Sep 23, 2024 08:37 AM [facility] MICROALBUMIN CREATININE RATIO PANEL Specimen Type: URINE No comment entered. Ordering Provider: ORIN CHAVEZ Report Released Date/Time: Aug 19, 2024 08:57 AM Reporting Lab: [facility] [address] [facility] [address] Performing Lab: [address] [address] MICROALBUMIN/C REATININE RATIO 429.6 mg/g H 0-29.9 MICROALBUMIN,Q UANTITATIVE 54.3 mg/dL RR UNAVAIL CREATININE URINE 126.39 mg/dL Sep 23, 2024 08:37 AM [facility] BASIC METABOLIC PANEL (non-fasting) Specimen Type: SERUM No comment entered. Ordering Provider: ORIN CHAVEZ Report Released Date/Time: Aug 19, 2024 08:57 AM Reporting Lab: [address] [address] Performing Lab: [address] [address] UREA NITROGEN 20 mg/dL 7-25 GLUCOSE 137 mg/dL H 65-100 SODIUM 138 mmol/L 135-145 POTASSIUM 4.2 mmol/L 3.5-5.0 CHLORIDE 100 mmol/L 100-110 CO2 26 meq/L 20-30 CREATININE, Serum 1.20 mg/dL 0.50-1.40 eGFR(CKD-EPI 2020) 72 mL/min >60 Sep 23, 2024 08:37 AM [facility] CHOLESTEROL Specimen Type: SERUM No comment entered. Ordering Provider: ORIN CHAVEZ Report Released Date/Time: Aug 19, 2024 08:57 AM Reporting Lab: [address] [address] Performing Lab: [address] [address] CHOLESTEROL 188 mg/dL Sep 23, 2024 08:37 AM [facility] IRON & TIBC PANEL Specimen Type: SERUM No comment entered. Ordering Provider: ORIN CHAVEZ Report Released Date/Time: Aug 19, 2024 08:57 AM Reporting Lab: [facility] [place] [facility] [address] [facility] [address] Performing Lab: [place] [facility] [place] [facility] [address] [facility] [address] TIBC 350 ug/dL 204-475 IRON 120 ug/dL 40-160 Transferrin Saturation 34.3 20.0-50.0 Transferrin (TRF) 265 mg/dL 200-360 Sep 23, 2024 08:37 AM [facility] HDL CHOLESTEROL Specimen Type: SERUM No comment entered. Ordering Provider: ORIN CHAVEZ Report Released Date/Time: Aug 19, 2024 08:57 AM Reporting Lab: [facility] [place] [facility] [address] [facility] [address] Performing Lab: [facility] [address] [address] HDL CHOLESTEROL 55 mg/dL 40-60 Sep 23, 2024 08:37 AM [facility] CALCIUM Specimen Type: SERUM No comment entered. Ordering Provider: ORIN CHAVEZ Report Released Date/Time: Aug 19, 2024 08:57 AM Reporting Lab: [facility] [place] [facility] [address] [facility] [address] Performing Lab: [facility] [address] [address] CALCIUM 9.4 mg/dL 8.5-10.2 Sep 23, 2024 08:37 AM [facility] ALBUMIN Specimen Type: SERUM No comment entered. Ordering Provider: ORIN CHAVEZ Report Released Date/Time: Aug 19, 2024 08:57 AM Reporting Lab: [facility] [place] [facility] [address] [facility] [address] Performing Lab: [facility] [place] [address] [address] ALBUMIN 4.1 g/dL 3.5-5.0 Sep 23, 2024 08:37 AM [facility] ALKALINE PHOSPHATASE Specimen Type: SERUM No comment entered. Ordering Provider: ORIN CHAVEZ Report Released Date/Time: Aug 19, 2024 08:57 AM Reporting Lab: [facility] [address] [facility] [address] Performing Lab: [facility] [address] [facility] [address] ALKALINE PHOSPHATASE 62 U/L 40-150 Sep 23, 2024 08:37 AM [facility] CBC Specimen Type: BLOOD No comment entered. Ordering Provider: ORIN CHAVEZ Report Released Date/Time: Aug 19, 2024 08:57 AM Reporting Lab: [facility] [address] [facility] [address] Performing Lab: [address] [address] WBC 4.70 10*3/uL 4.50-11.00 RBC 4.71 10*6/uL [...] took place. Date/Time Current Smoking Status Comment [facility] Feb 11, 2024 03:00 PM VA-TOBACCO NEVER USED [facility] Tobacco Use History This section includes a history of the smoking, or tobacco-related health factors, that were collected on or before the date of the Encounter. The data comes from the [place] facility where the Encounter took place. Date/Time Smoking Status/Tobac co Use Comment Facility Feb 12, 2023 03:00 PM VA-TOBACCO NEVER USED [facility] [place] [facility] Feb 14, 2022 03:00 PM VA-TOBACCO NEVER USED [facility] [place] [facility] Oct 27, 2020 03:30 PM VA-TOBACCO NEVER USED [facility] [place] [facility] Aug 25, 2018 04:16 PM VA-TOBACCO DOESNT USE WI 30 MIN WAKEUP [place] [facility] [place] [facility] Aug 25, 2018 04:16 PM VA-TOBACCO USE > 15 LESS THAN 30 YEARS [facility] [place] [facility] Aug 25, 2018 04:16 PM VA-TOBACCO USE ADVICE [facility] [place] [facility] Aug 25, 2018 04:16 PM 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 [facility] [place] [facility] Aug 25, 2018 04:16 PM VA-TOBACCO USE MED NO [facility] [place] [facility] Aug 25, 2018 04:16 PM VA-TOBACCO USER SOME DAYS [facility] [place] [facility] Oct 07, 2017 11:55 AM CURRENT SMOKER 1 cigar a few times a year [facility] [place] [facility] Oct 07, 2017 11:55 AM V1-PT NOT INTERESTED IN QUIT TOBACCO USE [facility] [place] [facility] Oct 29, 2016 08:57 AM LIFETIME NON-TOBACCO USER [place] [facility] [place] [facility] Encounter Notes: All associated encounter notes This section contains the clinical notes associated to the Encounter. Date/Time Encounter Note(s) Provider Source Oct 14, 2024 02:54 PM CHIROPRACTIC NOTE: LOCAL TITLE: CHIROPRACTOR PROGRESS NOTE STANDARD TITLE: CHIROPRACTIC NOTE DATE OF NOTE: OCT 14, 2024@14:54 ENTRY DATE: OCT 14, 2024@14:54:52 AUTHOR: MARY JO MATHIS COSIGNER: URGENCY: STATUS: COMPLETED JOANNA DURON is a 53 WHITE MALE with prior history of COMBAT SERVICE INDICATED: No POS: PERIOD OF SERVICE - OTHER OR NONE SERVICE BRANCH: Noquo Service Connected Disabilities with % Eligibility: Active Problem Shared care - healthcare economics consultant and GP Z76 01/29/2021 AMY HENRY JAWED Type 2 diabetes mellitus controlled 10/27/2020 AMY HENRY Acquired polycystic kidney disease 02/23/2018 AMY HENRY Low back pain M54.50 02/14/2022 AMY HENRY Hyperuricemia E79.0 10/29/2016 AMY HENRYED Psoriasis L40.4 10/29/2016 AMY HENRY Obstructive sleep apnea G47.33 02/27/2017 AMY HENRY Obesity E66.8 10/29/2016 AMY HENRY Past Surgeries: Patient [place] [facility] with report of no pain in neck but he C/O N/T down to fingers 1 - 3, left hand He C/O loss of strength that he notices when holding something. Vet reports that raising his left arm up decr the N/T and pain in UE. DEC 30, 2023 Report: Study: AP, lateral and left and [...] The visualized paravertebral soft tissues are normal. Temporal: worse in mornings. And a 10/10 [...] a lot of PT. 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 He looks down and [...] Supine gluteal stretching as per palpation ====== Last visit - Cervical spine ROMS C/C is provoked with extension and left rotation other motions are full and non-painful Orthopedic tests: Upper extremity tension test + C/C on left Bakody's sign on left Pos relief Objectives 10/14/24: Hypertonic tender C/sp mm, bilat Restrictions cervical Treatment: Corrective/Active Manual therapy 8 min supine cervical CMT low force AT cervical supine Treatment carried out today and well tolerated with minimal relief expressed. The prognosis, at this time, is fair to good. Plan: continues to be followed by Acupuncture. Patient received phone call to schedule MRI. Discussed and agreed to Med Rehab consult for injection. Short term goals include improvement in excess [...] core stability, balance, and pain modulation. Visit 8 F/U next week Seek urgent care as needed. CMT: chiropractic manipulative therapy SMT: Spinal Manipulative Therapy F/D: Flexion Distraction MFR: Myofascial Release S-I: Sacroiliac MFTP: Myofascial Trigger Point NRS: Numeric Rating Scale N/T: Numbness/Tingling PIR: Post isometric relaxation /es/ MARY JO MATHIS D.C. CHIROPRACTOR Signed: 10/14/2024 15:43 MARY JO MATHIS [facility]
== END 2024-10-19 00:01 | disposition home or self-care (01) ==
LOC: HO.MRI
PROVIDERS: Visit Provider Chiropractor
DX: M54.2 Cervicalgia (principal)
CPT/HCPCS: 72141

== ENCOUNTER → 2024-10-19 16:52 | Outpatient (BNV) | payer OTHER, SELFPAY | PROVIDERS: Visit Provider Radiology Diagnostic Radiology | DX: M54.2 Cervicalgia (principal); M43.02 Spondylolysis, cervical region | CPT/HCPCS: 72141 ==